=== PATIENT | male | born 1940 | race Caucasian/White ===

== ENCOUNTER 2016-07-26 08:50 | Inpatient (IN) | payer OTHER, MEDICARE ==
[~2016-07-26] VITALS: Ht 172.7 cm; Wt 76.7 kg
[~2016-07-26 08:50] MED LIST: ALLO100T PO; ASPI81TA28 PO; AZIT250T5 PO; B-CO1CAP3 PO; BUME1TAB PO; CALC600T9 PO; CETI10TA84 PO; COEN1CAP32 PO; DEXA0.5E3 PO; FOLI1TAB7 PO; GABA-112 PO; GABA1CAP PO; HYDR5SYP11 PO; INSDGIPEN SC; ISOS60TA25 PO; LISI10TA PO; METO50TA7 PO; MULT-190 PO; MULT-845 PO; NTRGSL/4 UT; NVLGIPEN SQ; PRVC/40 PO; TRMCR130WC TOP; ZNTT/150 PO
[2016-07-26] MEDS ORDERED: LEVALBUTEROL 1.25MG/0.5ML NEB INH STA (09:28)
--- NOTE | 2016-07-26 09:45 | EMERGENCY ROOM VISIT NOTE ---
History Report prepared by Марина: Rupa Ayala Under the Supervision of: Dr. Addison Payne M.D. First contact with patient: 09:09 Chief Complaint: CONFUSION Stated Complaint: ILLNESS/CONFUSION Nursing Triage Summary: mild confusion since yesterday stated by s/o. recent dx of URI History of Present Illness The patient is a 76 year old male who presents to the Emergency Room with complaints of an episode of confusion that began this morning. Per patient's significant other, the patient was in the emergency room 4 days ago with difficulty breathing and a cough. He had a chest x-ray, lab work and an EKG. The patient was given Hycodan, DuoNeb, Zithromax, antiemetics, pain medications , and fluids. He was discharged feeling better and was put on Azithromycin for a URI. He was also prescribed Hycodan for his cough. 3 days ago, the patient woke up in the middle of the night with a fever of 103.5. The patient's significant other called the [facility] nurse who recommended that the patient come to the ER, but he instead took ibuprofen which brought down the patient's temperature. Since being seen in the ER the patient's cough seemed to be diminishing; however, yesterday the patient would cough most times that he inhaled to take a breath. This morning, his significant other noticed that he was confused while taking his blood sugar. His blood sugar was high at 238, but the patient wrote down that he needed to take 238 units of insulin. He notes that this happened twice. He also was staring at his insulin after he put the cap back on. The patient did not take any Hycodan this morning - his most recent dose was last night before he went to bed. Source of History: patient, spouse/significant other Onset: this morning Position: other (Global) Quality: other (confusion) Timing: other (episode) Associated Symptoms: + cough, + fevers Review of Systems See HPI for pertinent positives & negatives. A total of 10 systems reviewed and were otherwise negative. 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 (11) Osteoporosis Nos Surgical Problems: (1) Heart valve replaced (2) History of aortic valve replacement (3) S/P colectomy (4) Stented coronary artery Family History Diabetes mellitus Heart disease Hypertension Social History Smoking Status: Former Smoker Alcohol Use: none Marital Status: Housing Status: lives with significant other Occupation Status: retired Current/Historical Medications Scheduled Allopurinol (Zyloprim), 100 MG PO DAILY Aspirin (Aspirin Ec), 81 MG PO HS Azithromycin (Zithromax), 250 MG PO DAILY B-Complex Vitamins (B Complex), 1 CAP PO DAILY Bumetanide (Bumex), 1 MG PO QAM Calcium Carbonate-Vitamin D (Calcium + D), 2 TAB PO DAILY Cetirizine (Zyrtec), 10 MG PO HS Coenzyme Q10 (Ubidecarenone) (Coq-10), 800 MG PO DAILY Dexamethasone (Dexamethasone), 5 ML PO BID Folic Acid (Folvite), 1 MG PO NOON Gabapentin (Neurontin), 100 MG PO NOON Gabapentin (Neurontin), 300 MG PO BID Insulin Glargine (Lantus Solostar), 15 UNITS SC BID Isosorbide Mononitrate Ext Rel (Imdur Ext Rel), 60 MG PO QAM Lisinopril (Prinivil), 10 MG PO DAILY Metoprolol Succ (Toprol Xl) (Toprol-Xl), 50 MG PO NOON Multiple Vitamins W/ Minerals (Centrum Silver Adult 50+), 1 TAB PO DAILY Nitroglycerin (Nitrostat), 0.4 MG UT PRN Ocuvite Preservision (Ocuvite Preservision), 2 TAB PO DAILY Pravastatin Sod (Pravastatin Sodium), 20 MG PO HS Ranitidine (Zantac), 150 MG PO HS Triamcinolone Acet (Aristocort 0.1%), 1 APPLN TOP UD Scheduled PRN Hydrocodone W/ Homatropine (Hycodan 5/1.5MG 5 Ml), 5 ML PO HS PRN for Cough Insulin Aspart (Novolog Flexpen), 1 DOSE SQ AC PRN for PER SLIDING SCALE Allergies Coded Allergies: No Known Allergies (Verified , NONE, 07/26/16) Physical Exam Vital Signs Date Time Temp Pulse Resp B/P Pulse Ox O2 Delivery O2 Flow Rate FiO2 07/26/16 13:13 96 07/26/16 11:41 100 18 119/70 97 Room Air 07/26/16 11:22 Room Air 07/26/16 09:59 90 18 98 Room Air 07/26/16 09:58 94 Room Air 07/26/16 08:59 95 07/26/16 08:58 37.1 96 18 116/63 94 Room Air Physical Exam GENERAL: Patient is a healthy-appearing well-nourished 76 year old male. HEAD: Normocephalic atraumatic EYES: Ocular movements intact pupils equal and react to light OROPHARYNX mucous membranes are moist no exudates present no erythema or edema present NECK: Supple no nuchal rigidity CHEST: Good equal expansion LUNGS: Clear and equal to auscultation CARDIAC: Normal S1 and S2 ABDOMEN: Soft nontender no guarding BACK: No CVA tenderness EXTREMITIES: No pain upon palpation normal muscle strength in all groups no clubbing cyanosis or edema NEURO: Patient is following commands is answering questions appropriately. Alert and oriented x3 Cranial Nerves 2-12 grossly intact Medical Decision & Procedures ER Provider Diagnostic Interpretation: X-ray results as stated below per interpretation by me and the radiologist: CHEST ONE VIEW PORTABLE CLINICAL HISTORY: Pt c/o SOB dyspnea COMPARISON STUDY: 07/22/2016 FINDINGS: Findings consistent with developing congestive heart failure. Moderate increase in prominence of pulmonary vasculature. Diaphragms smooth. IMPRESSION: Congestive heart failure Electronically signed by: Jaron Oates M.D. 07/26/2016 9:53 AM Laboratory Results 07/26/16 09:40 Red Blood Count 3.57, Mean Corpuscular Volume 81.2, Mean Corpuscular Hemoglobin 25.8, Mean Corpuscular Hemoglobin Concent 31.7, Mean Platelet Volume 9.7, Neutrophils (%) (Auto) 72.5, Lymphocytes (%) (Auto) 7.6, Monocytes (%) (Auto) 14.1, Eosinophils (%) (Auto) 4.9, Basophils (%) (Auto) 0.7, Neutrophils # (Auto ) 4.13, Lymphocytes # (Auto) 0.43, Monocytes # (Auto) 0.80, Eosinophils # (Auto ) 0.28, Basophils # (Auto) 0.04 07/26/16 09:40 Test 07/26/16 09:40 12/30/16 10:05 07/26/16 10:17 White Blood Count 5.69 K/uL (4.8-10.8) Red Blood Count 3.57 M/uL (4.7-6.1) Hemoglobin 9.2 g/dL (14.0-18.0) Hematocrit 29.0 % (42-52) Mean Corpuscular Volume 81.2 fL (80-100) Mean Corpuscular Hemoglobin 25.8 pg (25-34) Mean Corpuscular Hemoglobin Concent 31.7 g/dl (32-36) Platelet Count 179 K/uL (130-400) Mean Platelet Volume 9.7 fL (7.4-10.4) Neutrophils (%) (Auto) 72.5 % Lymphocytes (%) (Auto) 7.6 % Monocytes (%) (Auto) 14.1 % Eosinophils (%) (Auto) 4.9 % Basophils (%) (Auto) 0.7 % Neutrophils # (Auto) 4.13 K/uL (1.4-6.5) Lymphocytes # (Auto) 0.43 K/uL (1.2-3.4) Monocytes # (Auto) 0.80 K/uL (0.11-0.59) Eosinophils # (Auto) 0.28 K/uL (0-0.5) Basophils # (Auto) 0.04 K/uL (0-0.2) RDW Standard Deviation 46.7 fL (36.4-46.3) RDW Coefficient of Variation 15.9 % (11.5-14.5) Immature Granulocyte % (Auto) 0.2 % Immature Granulocyte # (Auto) 0.01 K/uL (0.00-0.02) Anion Gap 13.0 mmol/L (3-11) Est Creatinine Clear Calc Drug Dose 16.8 ml/min Estimated GFR () 18.3 Estimated GFR (Non- 15.8 BUN/Creatinine Ratio 24.5 (10-20) Calcium Level 9.2 mg/dl (8.5-10.1) Total Bilirubin 0.7 mg/dl (0.2-1) Direct Bilirubin 0.3 mg/dl (0-0.2) Aspartate Amino Transf (AST/SGOT) 98 U/L (15-37) Alanine Aminotransferase (ALT/SGPT) 66 U/L (12-78) Alkaline Phosphatase 68 U/L (45-117) Total Creatine Kinase 126 U/L (39-308) Creatine Kinase MB 7.4 ng/ml (0.5-3.6) Creatine Kinase MB Ratio 5.9 (0-3.0) Troponin I 22.000 ng/ml (0-0.045) Pro-B-Type Natriuretic Peptide 01077 pg/ml (0-1800) Total Protein 6.0 gm/dl (6.4-8.2) Albumin 2.8 gm/dl (3.4-5.0) Influenza Type A Antigen Neg for Influ A (NEG) Influenza Type B Antigen Neg for Influ B (NEG) Urine Color DK YELLOW Urine Appearance CLEAR (CLEAR) Urine pH 5.0 (4.5-7.5) Urine Specific Floyd 1.012 (1.000-1.030) Urine Protein TRACE (NEG) Urine Glucose (UA) NEG (NEG) Urine Ketones NEG (NEG) Urine Occult Blood NEG (NEG) Urine Nitrite NEG (NEG) Urine Bilirubin NEG (NEG) Urine Urobilinogen NEG (NEG) Urine Leukocyte Esterase NEG (NEG) Urine WBC (Auto) 1-5 /hpf (0-5) Urine RBC (Auto) 0-4 /hpf (0-4) Urine Hyaline Casts (Auto) 1-5 /lpf (0-5) Urine Epithelial Cells (Auto) 5-10 /lpf (0-5) Urine Bacteria (Auto) NEG (NEG) Labs reviewed by ED physician. Medications Administered Medications (Trade) Dose Ordered Sig/Esme Route Start Time Stop Time Status Last Admin Dose Admin Levalbuterol (Xopenex 1.25MG/ 0.5ML Neb) 1.25 mg NOW STAT INH 07/26/16 09:28 07/26/16 09:30 DC 07/26/16 09:28 1.25 MG Furosemide (Lasix Inj) 40 mg NOW STAT IV 07/26/16 10:54 07/26/16 10:55 DC 07/26/16 11:32 40 MG ECG Indication: altered mental status Rate (beats per minute): 93 Rhythm: normal sinus Findings: ST depression (Lateral), T-wave inversion (Lateral), no ectopy ED Course 920: Past medical records reviewed. The patient was evaluated in room A2. A complete history and physical examination was performed. 0928: Ordered Levalbuterol 1.25 mg INH. 1054: Ordered Lasix Inj 40 mg IV. 1111: I discussed the case with Dr. Mychal YOUNG Hospitalist. The patient will be evaluated for further management. 1115: Upon reexamination the patient is resting comfortably. I discussed results and treatment plan with the patient and his significant other. They verbalized agreement and understanding. Medical Decision Differential diagnosis: Etiologies such as metabolic, infection, hypo/hyperglycemia, electrolyte abnormalities, cardiac sources, intracerebral event, toxicologic, neurologic, as well as others were entertained. This is a 76-year-old male who presents emergency Department with increasing confusion. The patient was evaluated in the emergency department 4 days ago and at that time he was complaining of cough. He was placed on azithromycin. He was found to have an elevated troponin them however this fell and it was believed to be left over from his recent admission. Today the patient has a troponin of 22 and also appears to be in acute renal failure. In addition he has a congestive heart failure picture on chest x-ray. For this reason the patient was given Lasix in the emergency department. I did discuss the case with the hospitalist service who agreed to admit the patient. Patient was in agreement with the treatment plan Consults Time Called: 1107 Consulting Physician: Dr. Mychal YONUG Hospitalist Returned Call: 1111 I discussed the case with him. The patient will be evaluated for further management. Impression Primary Impression: NSTEMI (non-ST elevated myocardial infarction) Additional Impression: Acute renal failure Scribe Attestation The scribe's documentation has been prepared under my direction and personally reviewed by me in its entirety. I confirm that the note above accurately reflects all work, treatment, procedures, and medical decision making performed by me. Departure Information Dispostion Being Evaluated By Hospitalist Referrals Jad Whitfield (PCP) Patient Instructions A Signature Page, My [facility]
[2016-07-26 09:53] LABS: BASO % 0.7 %; BASO ABS # 0.04 K/uL (0-0.2); COMPLETE YES; EOS % 4.9 %; IG% 0.2 %; LYMPH % 7.6 %; LYMPH ABS # 0.43 K/uL (1.2-3.4); MEAN CELL VOLUME 81.2 fL (80-100); MEAN CORPUSCULAR HEMOGLOBIN 25.8 pg (25-34); MEAN CORPUSCULAR HGB CONC 31.7 g/dl (32-36); MEAN PLATELET VOLUME 9.7 fL (7.4-10.4); MONO % 14.1 %; NEUT % 72.5 %; PLATELET COUNT 179 K/uL (130-400); RED BLOOD COUNT 3.57 M/uL (4.7-6.1); WHITE BLOOD COUNT 5.69 K/uL (4.8-10.8)
--- NOTE | 2016-07-26 09:55 | DIAGNOSTIC IMAGING REPORT ---
CHEST ONE VIEW PORTABLE CLINICAL HISTORY: Pt c/o SOB dyspnea COMPARISON STUDY: 07/22/2016 FINDINGS: Findings consistent with developing congestive heart failure. Moderate increase in prominence of pulmonary vasculature. Diaphragms smooth. IMPRESSION: Congestive heart failure Electronically signed by: Jaron Oates M.D. 07/26/2016 9:53 AM
[2016-07-26 09:59] VITALS: PULSE 90; O2SAT 98
[2016-07-26 10:11] LABS: BUN/CREATININE RATIO 24.5 (10-20); CALCIUM 9.2 mg/dl (8.5-10.1); CREATININE 3.5 mg/dl (0.60-1.40); POTASSIUM 4.7 mmol/L (3.5-5.1)
[2016-07-26 10:22] LABS: CKMB/CK RATIO 5.9 (0-3.0)
[2016-07-26 10:44] LABS: URINE APPEARANCE CLEAR (CLEAR); URINE BILIRUBIN NEG (NEG); URINE COLOR DK YELLOW; URINE NITRITE NEG (NEG); URINE SPECIFIC GRAVITY 1.012 (1.000-1.030); UROBILINOGEN NEG (NEG)
[2016-07-26 10:45] LABS: MANUAL MICROSCOPIC REQUIRED? NO; REVIEW REQ? NO
[2016-07-26] MEDS ORDERED: FUROSEMIDE 40 MG/4 ML VIAL IV STA (10:54)
[2016-07-26 11:22] VITALS: BMI 25.8
[2016-07-26] MEDS ORDERED: SODIUM CHLORIDE 0.9% 1000ML 1,000 ML IV SCH ×2 (12:50→15:30)
[2016-07-26] MEDS ORDERED: ALUMINUM/MAGNESIUM/SIMETH (MAALOX MAX) 30 ML UDC PO PRN (13:00)
[2016-07-26] MEDS ORDERED: ACETAMINOPHEN 325 MG TAB PO PRN (13:00)
[2016-07-26] MEDS ORDERED: NITROGLYCERIN 0.4 MG SL PER TAB CHARGE UT PRN (13:00)
[2016-07-26] MEDS ORDERED: GLUCOSE 10 TABS/TUBE PO PRN (13:00)
[2016-07-26] MEDS ORDERED: GLUCOSE 40% GEL 15 GM TUBE PO PRN (13:00)
[2016-07-26] MEDS ORDERED: GLUCAGON FOR INJ 1 MG VIAL SQ PRN (13:00)
[2016-07-26] MEDS ORDERED: DEXTROSE 50% 50 ML SYR IV PRN (13:00)
[2016-07-26] MEDS ORDERED: ONDANSETRON INJ 2 MG/ML 2 ML VIAL IV PRN (13:00)
[2016-07-26] MEDS ORDERED: POLYETHYLENE (MIRALAX) 17 GM PACK PO PRN (13:00)
[2016-07-26] MEDS ORDERED: MAGNESIUM HYDROXIDE SUSP 30 ML UDC PO PRN (13:00)
--- NOTE | 2016-07-26 14:12 | History and Physical ---
History & Physical Date & Time of Service: Jul 26, 2016 at 13:31 Chief Complaint: Illness/Confusion Primary Care Physician: Jad Whitfield History of Present Illness Source: patient, partner, clinic records, hospital records This is a 76 y/o male with a history of CAD, CKD stage III, HTN, HLD, DM type 1 , chronic hepatitis C, h/o colon cancer with colectomy who presented to the ED on 07/26 with confusion, decreased appetite, and dehydration. The patient presented to the ED on 07/22 with upper respiratory symptoms and was discharged home with Hycodan, and a Z-donna. The patient has been taking small doses of the Hycodan throughout the day in order to control his non-productive cough. The patient developed fevers on the nights of the and , with max temp of 103.5F on 07/23 that resolved with ibuprofen. One day prior to arrival, the patient began to become confused as per his significant other. The patient was confusing his blood sugar reading with how many units of insulin he needed to take. Per his partner, the patient was having more difficulty walking and was shuffling his feet. He has had poor appetite this week with little oral intake. The patient complains of some shortness of breath when his coughing gets bad, and he states that his coughing and breathing is worst at night. He also complains of dyspnea on exertion at nighttime during these coughing episodes. He admits to orthopnea. The patient denies chills, sweats, lightheadedness, chest pain, PND, palpitations, wheezing, nausea, vomiting, abdominal pain, dysuria, hematuria, hematochezia, melena, paralysis, muscle weakness, new numbness or tingling. Past Medical/Surgical History Medical Problems: (1) Diab W Oth Spec Manifest, Type Ii Or Unspec Type, Not Uncntr Status: Chronic (2) Diabetes Status: Chronic (3) Ileostomy Status Status: Resolved (4) Low kidney function Status: Chronic (5) Myocardial infarction Status: Chronic (6) Neuropathy In Diabetes Status: Chronic (7) Osteoporosis Nos Status: Chronic Surgical Problems: (1) Heart valve replaced Status: Chronic (2) History of aortic valve replacement Status: Resolved (3) S/P colectomy Status: Resolved (4) Stented coronary artery Status: Chronic Family History Asthma Diabetes mellitus Heart disease Hypertension [place] Stroke Social History Smoking Status: Former Smoker (quit in 1979) Smokeless Tobacco Use: No Alcohol Use: none Drug Use: none Marital Status: Housing status: lives with significant other, skilled nursing ([facility] independent living) Occupational Status: retired Immunizations History of Influenza Vaccine: N/A Influenza Vaccine Date: Apr 02, 2009 History of Tetanus Vaccine?: Unknown History of Pneumococcal: Yes Pneumococcal Date: May 23, 2008 History of Hepatitis B Vaccine: Yes Multi-Drug Resistant Organisms History of MDRO: No Allergies Coded Allergies: No Known Allergies (Verified , NONE, 07/26/16) Home Medications Scheduled Allopurinol (Zyloprim), 100 MG PO DAILY Aspirin (Aspirin Ec), 81 MG PO HS Azithromycin (Zithromax), 250 MG PO DAILY B-Complex Vitamins (B Complex), 1 CAP PO DAILY Bumetanide (Bumex), 1 MG PO QAM Calcium Carbonate-Vitamin D (Calcium + D), 2 TAB PO DAILY Cetirizine (Zyrtec), 10 MG PO HS Coenzyme Q10 (Ubidecarenone) (Coq-10), 800 MG PO DAILY Dexamethasone (Dexamethasone), 5 ML PO BID Folic Acid (Folvite), 1 MG PO NOON Gabapentin (Neurontin), 100 MG PO NOON Gabapentin (Neurontin), 300 MG PO BID Insulin Glargine (Lantus Solostar), 15 UNITS SC BID Isosorbide Mononitrate Ext Rel (Imdur Ext Rel), 60 MG PO QAM Lisinopril (Prinivil), 10 MG PO DAILY Metoprolol Succ (Toprol Xl) (Toprol-Xl), 50 MG PO NOON Multiple Vitamins W/ Minerals (Centrum Silver Adult 50+), 1 TAB PO DAILY Nitroglycerin (Nitrostat), 0.4 MG UT PRN Ocuvite Preservision (Ocuvite Preservision), 2 TAB PO DAILY Pravastatin Sod (Pravastatin Sodium), 20 MG PO HS Ranitidine (Zantac), 150 MG PO HS Triamcinolone Acet (Aristocort 0.1%), 1 APPLN TOP UD Scheduled PRN Hydrocodone W/ Homatropine (Hycodan 5/1.5MG 5 Ml), 5 ML PO HS PRN for Cough Insulin Aspart (Novolog Flexpen), 1 DOSE SQ AC PRN for PER SLIDING SCALE Review of Systems Constitutional: + fever, + weakness, No chills, No sweats Eyes: No diplopia, No eye pain, No worsening of vision ENT: No hearing loss, No sore throat, No tinnitus Respiratory: + cough, + dyspnea on exertion, + shortness of breath, No sputum, No wheezing Cardiovascular: + orthopnea, No chest pain, No claudication, No palpitations Abdomen: No GI bleeding, No nausea, No pain, No vomiting Musculoskeletal: No calf pain, No joint pain, No muscle pain Genitourinary - Male: No dysuria, No hematuria, No urinary retention Neurologic: No numbness/tingling, No paralysis, No weakness Integumentary: No color change, No itch, No rash Physical Exam Vital Signs Date Time Temp Pulse Resp B/P Pulse Ox O2 Delivery O2 Flow Rate FiO2 07/26/16 13:13 96 07/26/16 11:41 100 18 119/70 97 Room Air 07/26/16 11:22 Room Air 07/26/16 09:59 90 18 98 Room Air 07/26/16 09:58 94 Room Air 07/26/16 08:59 95 07/26/16 08:58 37.1 96 18 116/63 94 Room Air General Appearance: WD/WN, no apparent distress Head: normocephalic, atraumatic Eyes: normal inspection, PERRL, EOMI ENT: normal ENT inspection, hearing grossly normal, pharynx normal, + pertinent finding (dry oral mucosa) Neck: supple, no JVD, trachea midline Respiratory/Chest: lungs clear, normal breath sounds, no respiratory distress, no accessory muscle use, + decreased breath sounds (bases bilaterally) Cardiovascular: regular rate, rhythm, no gallop, no murmur Abdomen/GI: normal bowel sounds, non tender, soft, + pertinent finding ( ileostomy bag RLQ) Extremities/Musculoskelatal: no calf tenderness, + swelling (1+ pitting edema in lower extremities), + pertinent finding (hemosiderin staining lower extremities, scabs on LLE) Neurologic/Psych: alert, normal mood/affect, oriented x 3 (oriented with intermittent confusion) Skin: normal color, warm/dry, no rash Diagnostics Laboratory Results Results Past 24 Hours Test 07/26/16 09:40 07/26/16 10:05 07/26/16 10:17 07/26/16 12:50 Range/Units White Blood Count 5.69 4.8-10.8 K/uL Red Blood Count 3.57 4.7-6.1 M/uL Hemoglobin 9.2 14.0-18.0 g/dL Hematocrit 29.0 42-52 % Mean Corpuscular Volume 81.2 80-100 fL Mean Corpuscular Hemoglobin 25.8 25-34 pg Mean Corpuscular Hemoglobin Concent 31.7 32-36 g/dl Platelet Count 179 130-400 K/uL Mean Platelet Volume 9.7 7.4-10.4 fL Neutrophils (%) (Auto) 72.5 % Lymphocytes (%) (Auto) 7.6 % Monocytes (%) (Auto) 14.1 % Eosinophils (%) (Auto) 4.9 % Basophils (%) (Auto) 0.7 % Neutrophils # (Auto) 4.13 1.4-6.5 K/uL Lymphocytes # (Auto) 0.43 1.2-3.4 K/uL Monocytes # (Auto) 0.80 0.11-0.59 K/uL Eosinophils # (Auto) 0.28 0-0.5 K/uL Basophils # (Auto) 0.04 0-0.2 K/uL RDW Standard Deviation 46.7 36.4-46.3 fL RDW Coefficient of Variation 15.9 11.5-14.5 % Immature Granulocyte % (Auto) 0.2 % Immature Granulocyte # (Auto) 0.01 0.00-0.02 K/uL Sodium Level 136 136-145 mmol/L Potassium Level 4.7 3.5-5.1 mmol/L Chloride Level 100 98-107 mmol/L Carbon Dioxide Level 23 21-32 mmol/L Anion Gap 13.0 3-11 mmol/L Blood Urea Nitrogen 86 7-18 mg/dl Creatinine 3.50 0.60-1.40 mg/dl Est Creatinine Clear Calc Drug Dose 16.8 ml/min Estimated GFR () 18.3 Estimated GFR (Non- 15.8 BUN/Creatinine Ratio 24.5 10-20 Random Glucose 229 70-99 mg/dl Calcium Level 9.2 8.5-10.1 mg/dl Total Bilirubin 0.7 0.2-1 mg/dl Direct Bilirubin 0.3 0-0.2 mg/dl Aspartate Amino Transf (AST/SGOT) 98 15-37 U/L Alanine Aminotransferase (ALT/SGPT) 66 12-78 U/L Alkaline Phosphatase 68 45-117 U/L Total Creatine Kinase 126 39-308 U/L Creatine Kinase MB 7.4 0.5-3.6 ng/ml Creatine Kinase MB Ratio 5.9 0-3.0 Troponin I 22.000 0-0.045 ng/ml Total Protein 6.0 6.4-8.2 gm/dl Albumin 2.8 3.4-5.0 gm/dl Influenza Type A Antigen Neg for Influ A NEG Influenza Type B Antigen Neg for Influ B NEG Urine Color DK YELLOW Urine Appearance CLEAR CLEAR Urine pH 5.0 4.5-7.5 Urine Specific [place] 1.012 1.000-1.030 Urine Protein TRACE NEG Urine Glucose (UA) NEG NEG Urine Ketones NEG NEG Urine Occult Blood NEG NEG Urine Nitrite NEG NEG Urine Bilirubin NEG NEG Urine Urobilinogen NEG NEG Urine Leukocyte Esterase NEG NEG Urine WBC (Auto) 1-5 0-5 /hpf Urine RBC (Auto) 0-4 0-4 /hpf Urine Hyaline Casts (Auto) 1-5 0-5 /lpf Urine Epithelial Cells (Auto) 5-10 0-5 /lpf Urine Bacteria (Auto) NEG NEG Diagnostic Radiology Reviewed the following studies and agree with interpretation as follows: Patient Name: GILBERTO CASH Unit Number: [id number] Dictated: 07/26/16951 Transcribed: 07/26/16951 MS Printed Date/Time: [~ rep prt dt]/[~ rep prt tm] [~ rep ct labl] - [~ rep ct ivnm] [facility] [place] [address] Dictated: 07/26/16951 Transcribed: 07/26/16951 MS Printed Date/Time: [~ rep prt dt]/[~ rep prt tm] [~ rep ct labl] - [~ rep ct ivnm] Patient: GILBERTO CASH Address1: [address] [facility] [id number] [facility] Rec: [id number] Address2: Acct ID: [id number] [facility] Zip: [place] [address] Date: 1940 Sex: M Room/Bed: Ref Phy: Yomi Ellis M.D. SC: [facility] Att Phy: Report #: [id number] Regina Phy: Roseann Jad Test: [id number] Admit Phy: Day Light Relief Operator: SONIA Interpreting Phy: Jaron Oates M.D. Diagnosis: ILLNESS/CONFUSION Ordering Phy: Addison Payne MD Service Date: 07/26/16 Admit Date: 07/26/16 MNE: [id number] CONF: DICTATED BY: Jaron Oates M.D.]] CC: Addison Payne MD [place], [place] Sepich, Rodney M. M.D. Endcc: [~ rep ct add3]] CHEST ONE VIEW PORTABLE CLINICAL HISTORY: Pt c/o SOB dyspnea COMPARISON STUDY: 07/22/2016 FINDINGS: Findings consistent with developing congestive heart failure. Moderate increase in prominence of pulmonary vasculature. Diaphragms smooth. IMPRESSION: Congestive heart failure Electronically signed by: Jaron Oates M.D. 07/26/2016 9:53 AM The status of this report is Signed. Draft = Not yet reviewed or approved by Radiologist. Signed = Reviewed and approved by Radiologist. <AttendingPhy></AttendingPhy> <FamilyPhy>Yomi Ellis M.D.</FamilyPhy> < PrimaryPhy>RoseannJad</PrimaryPhy> <UnitNumber>[id number]</UnitNumber> < VisitNumber>[id number]</VisitNumber> <PatientName>GILBERTO CASH</PatientName> < DateOfBirth>1940</DateOfBirth> <Location>[facility]</Location> <ServiceDate></ServiceDate> <MNE>ESINDI</MNE> <OrderingPhy>Addison Payne MD</ OrderingPhy> <OrderingPhyMNE>f rep ord mne</OrderingPhyMNE> <DictatingPhyMNE> f rep dict mne</DictatingPhyMNE> <CCListMNE>f rep ct mne</CCListMNE> < AdmittingPhyMNE>f pt admit dr cochran</AdmittingPhyMNE> <AttendingPhyMNE>f pt attend dr cochran</AttendingPhyMNE> <ConsultingPhyMNE>f pt consult dr cochran</ConsultingPhyMNE> <FamilyPhyMNE>f pt fam dr cochran</FamilyPhyMNE> <OtherPhyMNE>f pt other dr cochran</OtherPhyMNE> < PrimaryPhyMNE>f pt prim care dr cochran</PrimaryPhyMNE> <ReferringPhyMNE>f pt referring dr cochran</ReferringPhyMNE> EKG Reviewed EKG and agree with interpretation as follows: 93 bpm, NSR, ST depressions in leads I, avL, V5-V6 Impression Assessment and Plan 76 y/o male with a history of CAD, CKD stage III, HTN, HLD, DM type 1, chronic hepatitis C, h/o colon cancer with colectomy who presented to the ED on 07/26 with confusion, decreased appetite, and dehydration. Fevers on the th and 28th. Confusion began one day prior to arrival. Also c/o SOB and PATEL. CXR read as CHF, but pt. does not sound wet on exam and has no JVD. Minimal peripheral edema. EKG shows possible lateral ischemia. Pt. had recent NSTEMI 07/12 which was medically managed as not good cath candidate. Admit to telemetry for confusion, acute on chronic renal failure, dehydration. Acute on chronic kidney disease stage III--baseline creatinine around 2.3-2.6 -Creatinine 3.5 on arrival -Consult nephrology. Not currently on dialysis but GFR 15 upon arrival. Acute on chronic kidney disease. Will likely need dialysis soon. -IVF NSS at 100 cc/hr -Hold Bumex, lisinopril Elevated cardiac enzymes -Consult cardiology. Troponin 22 upon arrival. Pt's troponin chronically elevated around 2-4 due to CKD. CKMB also elevated. -Trend cardiac enzymes q8h x 3 -EKG q am and prn with chest pain -Check BNP Confusion -Check ammonia level. Pt. has history of chronic HCV -Hold Hycodan, gabapentin CAD, h/o NSTEMI -Continue Imdur 60 mg PO qd -Continue metoprolol succinate 50 mg PO qd -Continue ASA 81 mg PO qd HTN--stable -Hold lisinopril as above -Continue metoprolol as above HLD -Continue pravastatin 20 mg PO qd Diabetes mellitus type 1--Last HgbA1c checked 07/12/16 was 6.3 -Lantus 10 units SC BID, pt has poor oral intake -Insulin sliding scale -Check BSGs q ac and qhs Gout -Continue allopurinol 100 mg PO qd GI prophylaxis -Maalox Max 15 mL PO q4h prn dyspepsia -Milk of magnesia 30 mL PO q6h prn constipation -Miralax 17 gm PO qd prn constipation -Zofran 4 mg IV q6h prn nausea DVT prophylaxis -Heparin 5000 units SC q12h -RICHARD baker and Jeanmarie Code Status -Level I, FULL RESUSCITATION STATUS I agree with PA assessment and plan Pt noted to have confusion Agree with PE and ROS findings ?CRS, will trend trops, PRP, will also obtain BNP Obtain ammonia level in setting of known hepatitis as well Pt hx of extensive CAD, not a good candidate for cardiac cath Consult cardiology and nephrology Poor prognosis Level of Care Telemetry Advanced Directives Existing Advance Directive: Yes Existing Living Will: Yes Existing Power of Scientific Editor: Yes Resuscitation Status FULL RESUSCITATION VTE Prophylaxis VTE Risk Assessment Done? Y/N: Yes Risk Level: Moderate Given or contraindicated: Unfractionated heparin SQ, T.E.D. Stockings, SCD's
[2016-07-26 14:30] VITALS: BP 115/74; PULSE 95; O2SAT 98; BMI 25.8
[2016-07-26] MEDS ORDERED: METOPROLOL SUCC 50MG EXT REL TAB PO STA (16:34)
[2016-07-26] MEDS: INSULIN ASPART 100 UNITS/ML 3 ML PEN SC SCH ×3 (17:07→23:36)
[2016-07-26] MEDS ORDERED: NURSING VERBAL MED ORDER ONE ×2 (17:15→19:15)
[2016-07-26] MEDS: NITROGLYCERIN OINT 2% 1GM PACKET EXT SCH (18:18)
[2016-07-26] MEDS: GUAIFENESIN 600 MG TABCR PO SCH (18:19)
--- NOTE | 2016-07-26 18:47 | Nephrology Consultation ---
Nephrology Consultation Date & Providers Date of Consultation: Jul 26, 2016. Primary Care Provider: Jad Whitfield Referring Provider: Reason for Consultation SASHA/CKD History of Present Illness Mr. Fracisco Ellsworth is a 76-year-old male with coronary artery disease, chronic hepatitis C, hypertension, diabetes mellitus type II, history of aortic valve replacement and CKD IV. Baseline creatinine has been 2.0 to 2.4 mg/dL by review of the medical record. Mr. Ellsworth follows with Dr. Waldrop in the CKD clinic. Clinic notes were reviewed in detail today. The patient was recently seen in the clinic on July 05. At that time, creatinine was 2.4 mg/dL. Mr. Ellsworth was then hospitalized at [facility] from July 12- with NSTEMI and anemia. NSTEMI was managed medically. He was admitted with a serum creatinine of 2.3 mg/dL and discharged with a creatinine of 2.6 mg/dL. Mr. Ellsworth was subsequently presented to [facility] following the hol with cough and shortness of breath. He was diagnosed with an upper respiratory infection and treated with a 5 day Z-John. Symptoms initially started to improve. He was using codeine based cough syrup for persistent cough. He also reported recurrent fevers on the and . Temperature was as high as 103. He was advised by a nurse at [facility] to treat the fevers with Ibuprofen. He took two doses of the medication with relief on the night of the . Cough has been non productive and worse at night. He reported difficulty sleeping due to the symptoms. He describes some mild orthopnea. Activity tolerance has been decreased with generalized weakness since his NSTEMI earlier this month. He has not been able to climb the stairs to his second floor apartment in several weeks. Echocardiogram from 07/12/16 was reviewed today. This study documented LVEF of 50-55% with lateral wall motion abnormality; bioprosthetic AVR appropriate; grade 1 diastolic dysfunction with mild LVH. Mr. Ellsworth also reported increased blood glucose readings for the past several days. Appetite has been decreased for the past 48 hours but improved today. He has documented cirrhosis, CP class A with a MELD of 7 at baseline. He follows in the [facility] clinic [facility]. Hepatitis C was contracted in 1966 from a blood transfusion. Genotype 2. Initially treated with alpha INF which he did not tolerate. 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 Recent serum cryoglobulin screening was negative earlier this month. AFP has been trending up. Past Medical/Surgical History Medical: 1. Coronary artery disease: NSTEMI 07/12/16 with troponin to 15.4 managed medically; NSTEMI 06/2015 with troponin to 4 managed medically; NSTEMI in 2013 with stent placement to his distal RCA and PDA. 2. History of aortic stenosis, status post bioprosthetic aortic valve replacement in 2009. 3. Chronic kidney disease IV with baseline creatinine from 2-2.5. 4. 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 5. Diabetes with diabetic neuropathy. 6. Dyslipidemia. 7. Hypertension. 8. History of colon cancer s/p colectomy in 1990 and 1993 with ileostomy. Surgical: Aortic valve replacement, cath with BMS to RCA, total colectomy with ileostomy Allergies Coded Allergies: No Known Allergies (Verified , NONE, 07/26/16) Inpatient Medications Current Inpatient Medications Medications (Trade) Dose Ordered Sig/Esme Route Start Time Stop Time Status Last Admin Dose Admin Heparin Sodium (Porcine) (Heparin Sq 5000 Unit/0.5ml) 5,000 unit Q12 SQ 07/26/16 21:00 08/25/16 20:59 Acetaminophen (Tylenol Tab) 650 mg Q4H PRN PO 07/26/16 13:00 08/25/16 12:59 Al Hydrox/Mg Hydrox/Simethicone (Maalox Max Susp) 15 ml Q4H PRN PO 07/26/16 13:00 08/25/16 12:59 Magnesium Hydroxide (Milk Of Magnesia Susp) 30 ml Q12H PRN PO 07/26/16 13:00 08/25/16 12:59 Ondansetron HCl (Zofran Inj) 4 mg Q6H PRN IV 07/26/16 13:00 08/25/16 12:59 Polyethylene (Miralax Powder Packet) 17 gm DAILY PRN PO 07/26/16 13:00 08/25/16 12:59 Insulin Glargine (Lantus Solostar Pen) 10 unit Q12 SC 07/26/16 21:00 08/25/16 20:59 Insulin Aspart (novoLOG ASPART) SLIDING SCALE If C... ACHS SC 07/26/16 16:00 08/25/16 15:59 07/26/16 17:07 1 UNITS Glucose (Glucose 40% Gel) 15-30 GRAMS 15 GRAMS... UD PRN PO 07/26/16 13:00 08/25/16 12:59 Glucose (Glucose Chew Tab) 4-8 Tablets 4 Tabl... UD PRN PO 07/26/16 13:00 08/25/16 12:59 Dextrose (Dextrose 50% 50ML Syringe) 25-50ML OF 50% DW IV FOR... UD PRN IV 07/26/16 13:00 08/25/16 12:59 Glucagon (Glucagon Inj) 1 mg UD PRN SQ 07/26/16 13:00 08/25/16 12:59 Allopurinol (Zyloprim Tab) 100 mg DAILY PO 07/27/16 09:00 08/26/16 08:59 Aspirin (Ecotrin Tab) 81 mg HS PO 07/26/16 21:00 08/25/16 20:59 Cetirizine HCl (zyrTEC TAB) 10 mg HS PO 07/26/16 21:00 08/25/16 20:59 Dexamethasone (Decadron Elix) 0.5 mg BID PO 07/26/16 21:00 08/25/16 20:59 Folic Acid (Folvite Tab) 1 mg DAILY PO 07/27/16 09:00 08/26/16 08:59 Multivitamins/ Minerals (Multivitamin W/ Minerals Tab) 1 tab DAILY PO 07/27/16 09:00 08/26/16 08:59 Nitroglycerin (Nitrostat Tab) 0.4 mg DAILY PRN UT 07/26/16 13:00 08/25/16 12:59 Pravastatin Sodium (Pravachol Tab) 20 mg HS PO 07/26/16 21:00 08/25/16 20:59 Ranitidine HCl (zANTac TAB) 150 mg HS PO 07/26/16 21:00 08/25/16 20:59 Calcium/Vitamin D (Caltrate Plus Tab) 2 tab DAILY PO 07/27/16 09:00 08/26/16 08:59 Guaifenesin (Mucinex Contr Rel Tab) 600 mg Q12 PO 07/26/16 21:00 08/25/16 20:59 Metoprolol Succinate (Toprol Xl Tab) 100 mg DAILY PO 07/27/16 09:00 08/26/16 08:59 Nitroglycerin (Nitroglycerin 2% Oint) 1 inch Q6 EXT 07/26/16 17:00 08/25/16 16:59 Triamcinolone Acetonide (Kenalog 0.1% Cream) 1 appln QAM EXT 07/27/16 09:00 08/26/16 08:59 Family History Asthma Diabetes mellitus Heart disease Hypertension MD Stroke Social History Smoking Status: Former Smoker Smokeless Tobacco Use: No Alcohol Use: none Drug Use: none Marital Status: Housing Status: lives with significant other, care home ([facility] independent living) 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 Review of Systems A complete review of systems was performed. Pertinent positives are noted above. All other systems are negative. Physical Exam Date Time Temp Pulse Resp B/P Pulse Ox O2 Delivery O2 Flow Rate FiO2 07/26/16 16:00 Room Air 07/26/16 14:30 95 16 115/74 98 Room Air 07/26/16 13:59 96 18 110/66 96 Room Air 07/26/16 13:13 96 07/26/16 11:41 100 18 119/70 97 Room Air 07/26/16 11:22 Room Air 07/26/16 09:59 90 18 98 Room Air 07/26/16 09:58 94 Room Air 07/26/16 08:59 95 07/26/16 08:58 37.1 96 18 116/63 94 Room Air General Appearance: WD/WN, no apparent distress, + thin Head: normocephalic, atraumatic Eyes: normal inspection, sclerae normal ENT: normal ENT inspection, pharynx normal Neck: supple, + JVD Respiratory/Chest: lungs clear, no respiratory distress, no accessory muscle use Cardiovascular: no gallop, + tachycardia Abdomen/GI: non tender, soft Back: normal inspection, no CVA tenderness Extremities/Musculoskelatal: normal inspection, + pedal edema Neurologic/Psych: alert, oriented x 3 Skin: normal color Laboratory Results Last 24 Hours Test 07/26/16 09:40 07/26/16 10:05 07/26/16 10:17 07/26/16 13:40 White Blood Count 5.69 K/uL Red Blood Count 3.57 M/uL Hemoglobin 9.2 g/dL Hematocrit 29.0 % Mean Corpuscular Volume 81.2 fL Mean Corpuscular Hemoglobin 25.8 pg Mean Corpuscular Hemoglobin Concent 31.7 g/dl Platelet Count 179 K/uL Mean Platelet Volume 9.7 fL Neutrophils (%) (Auto) 72.5 % Lymphocytes (%) (Auto) 7.6 % Monocytes (%) (Auto) 14.1 % Eosinophils (%) (Auto) 4.9 % Basophils (%) (Auto) 0.7 % Neutrophils # (Auto) 4.13 K/uL Lymphocytes # (Auto) 0.43 K/uL Monocytes # (Auto) 0.80 K/uL Eosinophils # (Auto) 0.28 K/uL Basophils # (Auto) 0.04 K/uL RDW Standard Deviation 46.7 fL RDW Coefficient of Variation 15.9 % Immature Granulocyte % (Auto) 0.2 % Immature Granulocyte # (Auto) 0.01 K/uL Sodium Level 136 mmol/L Potassium Level 4.7 mmol/L Chloride Level 100 mmol/L Carbon Dioxide Level 23 mmol/L Anion Gap 13.0 mmol/L Blood Urea Nitrogen 86 mg/dl Creatinine 3.50 mg/dl Est Creatinine Clear Calc Drug Dose 16.8 ml/min Estimated GFR () 18.3 Estimated GFR (Non- 15.8 BUN/Creatinine Ratio 24.5 Random Glucose 229 mg/dl Calcium Level 9.2 mg/dl Total Bilirubin 0.7 mg/dl Direct Bilirubin 0.3 mg/dl Aspartate Amino Transf (AST/SGOT) 98 U/L Alanine Aminotransferase (ALT/SGPT) 66 U/L Alkaline Phosphatase 68 U/L Total Creatine Kinase 126 U/L Creatine Kinase MB 7.4 ng/ml Creatine Kinase MB Ratio 5.9 Troponin I 22.000 ng/ml Pro-B-Type Natriuretic Peptide 00296 pg/ml Total Protein 6.0 gm/dl Albumin 2.8 gm/dl Influenza Type A Antigen Neg for Influ A Influenza Type B Antigen Neg for Influ B Urine Color DK YELLOW Urine Appearance CLEAR Urine pH 5.0 Urine Specific [place] 1.012 Urine Protein TRACE Urine Glucose (UA) NEG Urine Ketones NEG Urine Occult Blood NEG Urine Nitrite NEG Urine Bilirubin NEG Urine Urobilinogen NEG Urine Leukocyte Esterase NEG Urine WBC (Auto) 1-5 /hpf Urine RBC (Auto) 0-4 /hpf Urine Hyaline Casts (Auto) 1-5 /lpf Urine Epithelial Cells (Auto) 5-10 /lpf Urine Bacteria (Auto) NEG Ammonia < 10.0 umol/L Test 07/26/16 14:44 07/26/16 17:12 Bedside Glucose 209 mg/dl Total Creatine Kinase 112 U/L Creatine Kinase MB 6.7 ng/ml Creatine Kinase MB Ratio 6.0 Troponin I 18.300 ng/ml Impression (1) Mental status change (2) Cirrhosis (3) Chronic kidney disease, stage IV (severe) (4) Acute renal failure (5) NSTEMI (non-ST elevated myocardial infarction) Mr. Fracisco Ellsworth is a 76 year-old male with coronary artery disease, hypertension, diabetes mellitus II, cirrhosis due to hepatitis C with history of cryoglobulinemia and CKD IV (baseline creatinine ~2.0-2.5 mg/dL). He was admitted with weakness and mental status changes. He has SASHA with no acute changes on UA and acellular microscopy. By clinical history he is non oliguric. He did recently use Ibuprofen x 2 tablets but no other specific history of nephrotoxic medications. He has suffered an NSTEMI and URI in the past few weeks. Troponin on admission elevated consistent with NSTEMI. He did not endorse any chest pain. He does complain of persistent cough as well as recent fevers. I suspect that SASHA is multifactorial due to the above with progression of CKD. Blood pressure is appropriate. Volume status replete with mild evidence of CHF on CXR and exam but clear lung hunter. I had an extended conversation with the patient today. Cardiology was in to evaluate Mr. Ellsworth prior to my visit. Recommendations 1. Hold lisinopril 2. Stop IVF (NS) and maintain even to slightly negative fluid balance 3. Document I/O's 4. Repeat metabolic profile in the AM 5. Medications currently appropriate for renal function 6. Consider repeat screening for cryoglobulins with next blood draw 7. Obtain renal imaging tomorrow pending there is no renal recovery
[2016-07-26 19:05] VITALS: BP 107/71; PULSE 87; TEMP 36.9; O2SAT 97
--- NOTE | 2016-07-26 19:24 | CARDIOLOGY CONSULTATION ---
DATE OF CONSULTATION: 07/26/2016 PRIMARY PHYSICIAN: Yomi Ellis M.D. ATTENDING AND REFERRING PHYSICIAN: Andrea Vidal DO. PRIMARY CARDIOLOGY: Kaleb Rivero MD. CONSULTATION: Titus Arenas MD HISTORY OF PRESENT ILLNESS: The patient is a 76-year-old white male. Longstanding history of coronary artery disease. He is also status post bioprosthetic aortic valve replacement in 2009. He underwent a cardiac catheterization in [facility] in 2007, which revealed heavily calcified vessels. There were moderate LAD and LAD diagonal stenosis at that time, severe left circumflex marginal stenosis, and a moderate ostial PDA stenosis. Medical therapy was recommended. Thereafter, he developed evidence of severe aortic stenosis with echocardiography revealing a calculated aortic valve area is 0.9 square cm. He underwent a repeat cardiac catheterization on 02/09/2010. This revealed marked coronary artery calcifications and marked aortic valvular calcifications. Right dominant circulation, 90% stenosis of a small caliber diagonal artery, 50% ostial left circumflex stenosis, 50% mid LAD stenosis, 50% ostial PDA stenosis and 70% mid PDA stenosis. The patient was referred to [facility] for aortic valve replacement surgery. He underwent aortic valve replacement surgery in 2009. He presented to [facility] in June 2014 with a non-ST elevation myocardial infarction. Cardiac catheterization performed at that time revealed 70% ostial left circumflex stenosis, 80% proximal LAD stenosis, 80% mid LAD stenosis, subtotal second diagonal stenosis, distal 99% RCA stenosis, and heavily calcified coronary arteries. A balloon was unable to cross the distal RCA stenosis. The patient was subsequently referred to [facility] where he underwent PTCA and deployment of an integrity 2.5 x 12 mm drug-eluting stent in the distal RCA. The patient was recently admitted to [facility] on 07/11/2016 with complaints of worsening dyspnea and chest tightness with exertion, relieved with rest. The electrocardiogram revealed lateral ST-segment depressions. His cardiac enzymes were elevated. His peak troponin I was 15.400. An echocardiogram revealed normal overall LV ejection fraction of 50-55%. There is new lateral wall hypokinesis present. The bioprosthetic aortic valve was functioning properly. Because of the extensive calcifications in his coronary arteries, anemia, and chronic kidney disease, medical therapy was recommended. He presented to the Emergency Department at [facility] on July 22 with cough and dyspnea. His chest x-ray at that time did not reveal any evidence of acute congestive heart failure. His BNP was 1676, which is normal for his age range. His electrocardiogram did reveal ST-segment depressions in leads I, II, III, AVF, and V3 through V6. These ST-segment depressions were more prominent than those present on the July 11 electrocardiogram. He was treated for pulmonary infection and discharged home from the ED on antibiotics and cough suppressant. This was in the form of azithromycin and hydrocodone syrup. The troponin I on that ED visit was 0.319. The patient states that since July 22, his cough has persisted, although it is improving. The cough was nonproductive. It is worse when he is in a supine position. He denies any associated chest tightness appeared as his usual anginal symptom. The cough is worse when he is supine. He normally sleeps with 2 pillows. Over the past several nights, 2 times he had to sleep more upright, so is not a cough, and to improve his dyspnea. He has had occasional wheezing. Over the past several days, he did have 1 night of a temperature elevation to 103 orally. Recently, he had had increased leg edema. He states that his leg edema has actually improved over the past several days. He has minimal leg edema today by his account. He has no palpitations, lightheadedness, or syncope. He feels that his overall exercise tolerance is only slightly reduced from normal. He does feel slightly fatigued over the past week. He attributes this to his coughing and inability to sleep at night. The patient has had gingival bleeding over the past several months. He had been on both aspirin and clopidogrel. The clopidogrel has since been discontinued. Despite the discontinuation of clopidogrel, he continues to have episodes of gingival bleeding. He denies any other bleeding complaints. He is compliant with his medications. He is very compliant with a low sodium diet. The patient presented to the Emergency Department this afternoon with a complaint of confusion. This occurred when he improperly calculated his insulin dose. In the Emergency Department, he was found to have evidence of congestive heart failure on his chest x-ray, which was new compared to the prior chest x-ray of July 22. Also, his proB natriuretic peptide was elevated at 14,420. His troponin I was elevated at 22.000. His BUN was 86 with a creatinine of 3.50. On July 22, his BUN has been 51 with a creatinine of 2.60. On July 11, his BUN had been 41 with a creatinine 2.50. Because of the evidence of heart failure any abnormal labs, he has been admitted to the telemetry unit. In the Emergency Department, he received a Xopenex nebulizer treatment. He also received a 40 mg dose of intravenous furosemide. Following admission to the telemetry unit, the patient was started on normal saline at a rate of 100 mL per hour. The nursing staff on the intake exam in telemetry unit noted, clear lung hunter. At the time of my exam, the patient had bibasilar rales. The nurse who had performed his initial exam, again listened to the patient's lungs. She concurred that the rales are present and that they were new compared to when she had previously examined the patient. His normal saline was discontinued by me at that time. At the time of my exam, the patient denies any dyspnea. He is sitting upright in bed at approximately 45 degrees. No current cough or wheezing. He denies any chest tightness. No other anginal type symptoms. PAST MEDICAL HISTORY: 1. Coronary artery disease as above. 2. Status post aortic valve replacement for severe aortic stenosis with bioprosthetic valve in 2009. 3. Chronic renal insufficiency. 4. Type 1 diabetes mellitus. 5. Chronic hepatitis C. 6. Hypertension. 7. Dyslipidemia. 8. Peripheral neuropathy. 9. Vitamin D deficiency. 10. Diabetic nephropathy and neuropathy. 11. History of depression. 12. History of cryoglobulinemia. 13. Anemia. 14. History of colon cancer. 15. History of orthostatic hypotension. Over the past year, his metoprolol dose was decreased from 100 mg daily to 50 mg daily. 16. Status post severe head trauma in 1966 resulting in a prolonged. 17. History of generalized seizures. 18. History of elevated liver transaminases. PAST SURGICAL HISTORY: 1. Status post aortic valve replacement in 2009 with bioprosthetic valve. 2. Status post total abdominal colectomy. 3. Ileostomy. FAMILY HISTORY: History of coronary artery disease in his father. SOCIAL HISTORY: The patient is . He lives with his at [facility]. He had previously lived in [place]. He moved back to [facility] in 2004. He stopped smoking cigarettes in his 30s. He had started smoking cigarettes as a teenager. Occasional use of alcohol. MEDICATIONS AT TIME OF ADMISSION: Allopurinol 1 mg daily, aspirin 81 mg daily, azithromycin 250 mg daily, vitamin D 1 capsule daily, Bumex 1 mg p.o. daily a.m. (took a dose this morning), calcium with vitamin D 2 tabs daily, Zyrtec 10 mg at bedtime, Coenzyme Q10 800 mg daily, folic acid 1 mg daily, gabapentin 300 mg b.i.d. and 100 mg at noon time, Lantus insulin 50 units subQ b.i.d., isosorbide mononitrate 60 mg daily, lisinopril 10 mg daily, metoprolol succinate ER 50 mg daily, multivitamin 1 daily, sublingual nitroglycerin p.r.n., Ocuvite PreserVision 2 tablets daily, pravastatin 20 mg at bedtime, ranitidine 150 mg p.o. at bedtime, triamcinolone cream 1 application daily, dexamethasone 0.5 mg per 5 mL b.i.d., as needed sliding scale NovoLog insulin, as needed hydrocodone cough syrup. ALLERGIES: No known drug allergies. REVIEW OF SYSTEMS: 1. As above. 2. No current HEENT complaints. 3. No pleuritic chest pain. With prolonged coughing, he does have chest wall tenderness. 4. No abdominal pain or nausea. 5. No GI bleeding symptoms. 6. No urinary complaints. 7. Chronic venous stasis changes of the lower legs. 8. No pain in his extremities. 9. No fevers or chills today. 10. Occasional wheezing over the past several days. 11. No cerebrovascular complaints suggestive of CVA or TIA. 12. No recent seizures. PHYSICAL EXAMINATION: GENERAL: The patient is sitting up in his bed. No distress. VITAL SIGNS: Oral temperature this morning was 37.1. Vital signs at 2:30 p.m. with pulse rate 95, blood pressure 115/74, pulse oximetry room air 98%. HEAD: Normal. EYES: Pupils equal and round. Anicteric. Conjunctivae normal. No xanthelasma. MOUTH: No active bleeding. NECK: Jugular venous pressure approximately 8 cm. Carotids 2/2 bilaterally. Normal upstroke. No bruits. LUNGS: Normal respiratory effort. Bibasilar rales. No wheezing on forced expiration. No rhonchi. HEART: PMI normal. No lifts or heaves. Increased rate. Regular rhythm. [place] aortic valvular closing sound. No murmur, S3, or rub heard. ABDOMEN: Ileostomy present in the right lower quadrant. Abdomen is soft and nontender. No palpable masses or organomegaly. Normal bowel sounds. No bruits. EXTREMITIES: Trace pretibial edema. No cyanosis or clubbing. SKIN: Chronic venous stasis changes of the lower extremities. PULSES: Radial pulses strongly palpable. Dorsalis pedis and posterior tibial pulses weakly palpable bilaterally. NEUROLOGICAL: Alert and oriented x3. Motor grossly intact. PSYCHIATRIC: Affect is normal. DATA: Chest x-ray today reviewed by me. Pulmonary vascular congestion, interstitial edema. These are new findings compared to chest x-ray of July 22. Echocardiogram from July 12 reviewed by me. There was focal lateral hypokinesis. Normal overall LV systolic function. Properly functioning bioprosthetic aortic valve. Electrocardiogram today reviewed by me shows sinus rhythm at rate 93 beats per minute, left atrial enlargement, ST depressions in leads 1, aVL, V4-V6. Compared to electrocardiogram of July 22, these ST-segment depressions are less prominent. Poor R-wave progression V1-V3. Mild intraventricular conduction delay. LABORATORY DATA: Today with WBC 5.69, hemoglobin 9.2, hematocrit 29.0, platelet count 179; sodium 136, potassium 4.7, chloride 100, carbon dioxide 23, BUN 86, creatinine 3.50, random glucose 229; AST 98, ALT 66, ammonia less than 10; CK total 126, MB 7.4, troponin I 22.000, proB natriuretic peptide 14,420, albumin 2.8. His proB natriuretic peptide on July 22 was 1676. ASSESSMENT: 1. Acute congestive heart failure. His recent echocardiogram a few weeks ago showed left ventricular diastolic dysfunction. The heart failure could certainly be secondary to diastolic dysfunction. Ongoing myocardial ischemia could be contributory. Cannot exclude that he has had further reduction in his left ventricular systolic function since the July 22 echocardiogram. His chest x-ray, physical exam, and ProBNP are consistent with congestive heart failure. 2. Coronary artery disease. Elevated troponin I today. Suspect that this is from demand myocardial ischemia. He is not having any of his usual anginal symptoms. This is a retrosternal and left-sided chest pressure. He has a relatively increased heart rate. The increased myocardial oxygen demand from increase cardiac pressures and elevated heart rate could be contributing to ischemia. The ischemia would then contribute to worsening diastolic function. This could further increase his left ventricular pressures. This would cause a vicious cycle. I do not suspect an acute coronary syndrome. The increased myocardial oxygen demand is in the presence of severe and diffuse coronary artery disease. His coronary artery disease is not a good candidate for coronary intervention percutaneously. He has extensive calcifications. Intervention to his coronary arteries would require extensive atherectomy. This would also require large amounts of contrast dye. In light of his chronic kidney disease and diabetes, he would be at a markedly elevated risk for contrast-induced nephropathy. Also, the patient has an anemia. He has had gingival bleeding. This required discontinuation of his clopidogrel. Any coronary intervention would require additional antiplatelet medications. This would be beside his baseline aspirin. 3. Chronic kidney disease. BUN and creatinine elevated over the past week. This could be related to decreased renal perfusion secondary to a decreased cardiac output. The patient states he has been compliant with a low sodium diet. He does take his diuretic daily. He states he has been drinking normal amount of fluids. He denies any GI fluid losses. On exam, he is not dehydrated. His JVP is at least 8 cm. His mucous membranes are moist. 4. Anemia. His chronic kidney disease would certainly predispose him to anemia from marrow suppression. He has also had significant gingival bleeding over the past several months. This prior gingival bleeding and recent gingival bleeding could be contributing to his anemia. 5. Elevated heart rate. Of note, is that his metoprolol dose had been decreased over the past several months secondary to postural lightheadedness. Also, the patient has not taken any metoprolol yet today. As stated above, the increased heart rate could be contributing to undergoing myocardial ischemia. 6. Chronic hepatitis C. Elevated transaminases. 7. History of hypertension. Blood pressure today is normal. 8. Despite the rales on exam and the evidence of heart failure on chest x-ray, the patient denies any dyspnea at the time of my exam. His oxygen saturations are adequate. RECOMMENDATIONS: 1. Discontinue IV fluids. These were discontinued at the time of my exam. 2. Discontinue isosorbide mononitrate. Start nitroglycerin ointment 1 inch q. 6 hours. Continuous nitroglycerin therapy will help decrease his ventricular preload. This can help his heart failure as well as myocardial ischemia. 3. If he develops any worsening coughing, shortness of breath, or oxygen desaturation, would give him an emergent dose of intravenous diuretic. 4. Increase metoprolol succinate ER to 100 mg daily. 50 mg metoprolol succinate ordered, to be given this afternoon by me. 5. As stated above, he is not a good candidate for any coronary intervention. This is based on the doctors described above. Continue conservative medical management of his underlying coronary artery disease. The patient himself declines any further cardiac catheterization procedures. 6. Repeat echocardiogram on July 27. Reevaluate left ventricular systolic function. Compare to systolic function on July 12 echo. 7. Serial electrocardiograms and cardiac enzymes. 8. Nephrology consultation. 9. Agree with holding lisinopril at this time in light of the elevated BUN and creatinine. 10. Continue aspirin. 11. Would not give intravenous anticoagulation with heparin. This could exacerbate his gingival bleeding. As stated above, I did not feel that this current situation represents an acute coronary syndrome. Thank you for asking us to see this patient in cardiology consultation. MATT
[2016-07-26] MEDS: CETIRIZINE HCL 10 MG TAB PO SCH (20:12)
[2016-07-26] MEDS: PRAVASTATIN SOD 20 MG TAB PO SCH (20:12)
[2016-07-26] MEDS: GUAIFENESIN SUGAR FREE 200 MG/10 ML UDC PO PRN (20:12)
[2016-07-26] MEDS: RANITIDINE HCL 150 MG TAB PO SCH (20:12)
[2016-07-26] MEDS: ASPIRIN 81 MG ECTAB PO SCH (20:13)
[2016-07-26] MEDS: HEPARIN SOD 5000 UNIT/0.5 ML CARP SQ SCH (20:26)
[2016-07-26] MEDS: INSULIN GLARGINE SOLOSTAR 100 UNITS/ML 3 ML PEN SC SCH (20:26)
[2016-07-26] MEDS ORDERED: DEXAMETHASONE 0.5 MG/5 ML PO SCH (21:00)
[2016-07-26] MEDS ORDERED: GABAPENTIN 100 MG CAP PO SCH (21:00)
[2016-07-26 23:10] VITALS: BP 107/65; PULSE 89; TEMP 37.1; O2SAT 96
[2016-07-27] VITALS (8 sets, daily range): BP systolic 105–124; BP diastolic 60–78; PULSE 73–87; TEMP 36.3–36.9; O2SAT 94–99
[2016-07-27] MEDS: NITROGLYCERIN OINT 2% 1GM PACKET EXT SCH ×4 (00:32→16:55)
[2016-07-27 02:47] LABS: CKMB/CK RATIO 4.9 (0-3.0)
[2016-07-27] MEDS: GUAIFENESIN SUGAR FREE 200 MG/10 ML UDC PO PRN (06:22)
[2016-07-27] MEDS: INSULIN ASPART 100 UNITS/ML 3 ML PEN SC SCH ×5 (07:00→20:34)
[2016-07-27 07:26] LABS: HEMATOCRIT 28.1 % (42-52); MEAN CELL VOLUME 82.4 fL (80-100); MEAN CORPUSCULAR HEMOGLOBIN 26.1 pg (25-34); MEAN CORPUSCULAR HGB CONC 31.7 g/dl (32-36); MEAN PLATELET VOLUME 10.3 fL (7.4-10.4); PLATELET COUNT 201 K/uL (130-400); RED BLOOD COUNT 3.41 M/uL (4.7-6.1); WHITE BLOOD COUNT 6.55 K/uL (4.8-10.8)
[2016-07-27 07:59] LABS: CALCIUM 8.8 mg/dl (8.5-10.1); CREATININE 3.5 mg/dl (0.60-1.40); POTASSIUM 4.1 mmol/L (3.5-5.1)
[2016-07-27] MEDS: CALCIUM 600MG + VIT D 400 IU TAB PO SCH (08:39)
[2016-07-27] MEDS: ALLOPURINOL 100 MG TAB PO SCH (08:40)
[2016-07-27] MEDS: METOPROLOL SUCC 50MG EXT REL TAB PO SCH (08:40)
[2016-07-27] MEDS: GUAIFENESIN 600 MG TABCR PO SCH ×2 (08:40→20:25)
[2016-07-27] MEDS: CEROVITE ADV FORMULA TAB PO SCH (08:41)
[2016-07-27] MEDS: TRIAMCINOLONE ACET 0.1% CR 15 GM TUBE EXT SCH (08:43)
[2016-07-27] MEDS: INSULIN GLARGINE SOLOSTAR 100 UNITS/ML 3 ML PEN SC SCH (08:47)
[2016-07-27] MEDS: HEPARIN SOD 5000 UNIT/0.5 ML CARP SQ SCH ×2 (08:49→21:16)
[2016-07-27] MEDS ORDERED: CEROVITE ADV FORMULA TAB PO SCH (09:00)
[2016-07-27] MEDS ORDERED: METOPROLOL SUCC 50MG EXT REL TAB PO SCH (09:00)
[2016-07-27] MEDS ORDERED: UBIDECARENONE PO SCH (09:00)
[2016-07-27] MEDS ORDERED: ISOSORBIDE MONONITRATE 60 MG TABCR PO SCH (09:00)
[2016-07-27] MEDS ORDERED: [UNRECOGNIZED DRUG - OTHER] PO SCH (09:00)
[2016-07-27] MEDS ORDERED: NURSING VERBAL MED ORDER ONE ×2 (12:00→23:45)
[2016-07-27] MEDS ORDERED: GABAPENTIN 100 MG CAP PO SCH (12:00)
[2016-07-27] MEDS ORDERED: INSULIN GLARGINE SOLOSTAR 100 UNITS/ML 3 ML PEN SC ONE (12:00)
[2016-07-27] MEDS: DEXAMETHASONE 0.5 MG/5 ML PO SCH ×2 (12:13→20:23)
[2016-07-27] MEDS ORDERED: BUMETANIDE IV 2 MG in SYRINGE 0 ML IV ONE (12:15)
--- NOTE | 2016-07-27 12:47 | Nephrology Progress Note ---
Nephrology Progress Note Date of Service Jul 27, 2016. Chief Complaint SASHA/CKD Subjective Mr. Ellsworth was seen and evaluated this morning. I returned to discuss the plan of care with his later today as well. The plan of care and echocardiogram findings were reviewed with Dr. Arenas. Mr. Ellsworth overall feels well. Cough and orthopnea persist. He has no urinary voiding complaints. He denies fevers or chills overnight. He denies any chest pain. Mental status improved but no 100%. Review of Systems A complete review of systems was performed. Pertinent positives are noted above. All other systems are negative. Vital Signs Last 8 Hrs Date Time Temp Pulse Resp B/P Pulse Ox O2 Delivery O2 Flow Rate FiO2 07/27/16 11:35 36.8 87 18 124/71 94 Room Air 07/27/16 08:00 Room Air 07/27/16 07:36 36.8 80 18 113/64 97 Room Air I & O 24-Hour Column 07/27/16 07:59 Intake Total 720 ml Balance 720 ml Last Recorded Weight Weight (Kilograms): 77.200 Physical Exam General Appearance: WD/WN, no apparent distress, + thin Head: normocephalic, atraumatic Eyes: normal inspection, sclerae normal ENT: normal ENT inspection, pharynx normal Neck: supple, + JVD Respiratory/Chest: no respiratory distress, no accessory muscle use, + rales ( bibasilar) Cardiovascular: regular rate, rhythm, no gallop Abdomen/GI: non tender, soft Extremities/Musculoskelatal: normal inspection, + pedal edema (+1 pitting BL LE edema) Neurologic/Psych: alert, oriented x 3 Family History Asthma Diabetes mellitus Heart disease Hypertension DE Stroke Social History Smoking Status: Former smoker Smokeless Tobacco Use: No Alcohol Use: none Drug Use: none Marital Status: Housing Status: lives with significant other, senior care ([facility] independent living) 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 Laboratory Results Past 24 Hours 07/27/16 06:50 07/27/16 06:50 Test 07/26/16 13:40 07/26/16 14:44 07/26/16 17:12 07/26/16 19:08 Ammonia < 10.0 umol/L (11-32) Bedside Glucose 209 mg/dl (70-99) Total Creatine Kinase 112 U/L (39-308) Creatine Kinase MB 6.7 ng/ml (0.5-3.6) Creatine Kinase MB Ratio 6.0 (0-3.0) Troponin I 18.300 ng/ml (0-0.045) Test 07/26/16 20:07 07/27/16 01:58 07/27/16 06:50 07/27/16 11:16 Bedside Glucose 355 mg/dl (70-99) 537 mg/dl (70-99) Total Creatine Kinase 104 U/L (39-308) Creatine Kinase MB 5.1 ng/ml (0.5-3.6) Creatine Kinase MB Ratio 4.9 (0-3.0) Troponin I 17.800 ng/ml (0-0.045) Red Blood Count 3.41 M/uL (4.7-6.1) Mean Corpuscular Volume 82.4 fL (80-100) Mean Corpuscular Hemoglobin 26.1 pg (25-34) Mean Corpuscular Hemoglobin Concent 31.7 g/dl (32-36) RDW Standard Deviation 48.3 fL (36.4-46.3) RDW Coefficient of Variation 16.3 % (11.5-14.5) Mean Platelet Volume 10.3 fL (7.4-10.4) Anion Gap 11.0 mmol/L (3-11) Est Creatinine Clear Calc Drug Dose 16.8 ml/min Estimated GFR () 18.3 Estimated GFR (Non- 15.8 BUN/Creatinine Ratio 27.0 (10-20) Calcium Level 8.8 mg/dl (8.5-10.1) Allergies Coded Allergies: No Known Allergies (Verified , NONE, 07/26/16) Medications Current Inpatient Medications Medications (Trade) Dose Ordered Sig/Esme Route Start Time Stop Time Status Last Admin Dose Admin Heparin Sodium (Porcine) (Heparin Sq 5000 Unit/0.5ml) 5,000 unit Q12 SQ 07/26/16 21:00 08/25/16 20:59 07/27/16 08:49 5,000 UNIT Acetaminophen (Tylenol Tab) 650 mg Q4H PRN PO 07/26/16 13:00 08/25/16 12:59 Al Hydrox/Mg Hydrox/Simethicone (Maalox Max Susp) 15 ml Q4H PRN PO 07/26/16 13:00 1/29/17 12:59 Magnesium Hydroxide (Milk Of Magnesia Susp) 30 ml Q12H PRN PO 07/26/16 13:00 08/25/16 12:59 Ondansetron HCl (Zofran Inj) 4 mg Q6H PRN IV 07/26/16 13:00 08/25/16 12:59 Polyethylene (Miralax Powder Packet) 17 gm DAILY PRN PO 07/26/16 13:00 08/25/16 12:59 Insulin Aspart (novoLOG ASPART) SLIDING SCALE If C... ACHS SC 07/26/16 16:00 08/25/16 15:59 07/27/16 12:07 17 UNITS Glucose (Glucose 40% Gel) 15-30 GRAMS 15 GRAMS... UD PRN PO 07/26/16 13:00 08/25/16 12:59 Glucose (Glucose Chew Tab) 4-8 Tablets 4 Tabl... UD PRN PO 07/26/16 13:00 08/25/16 12:59 Dextrose (Dextrose 50% 50ML Syringe) 25-50ML OF 50% DW IV FOR... UD PRN IV 07/26/16 13:00 08/25/16 12:59 Glucagon (Glucagon Inj) 1 mg UD PRN SQ 07/26/16 13:00 08/25/16 12:59 Allopurinol (Zyloprim Tab) 100 mg DAILY PO 07/27/16 09:00 08/26/16 08:59 07/27/16 08:40 100 MG Aspirin (Ecotrin Tab) 81 mg HS PO 07/26/16 21:00 08/25/16 20:59 07/26/16 20:13 81 MG Cetirizine HCl (zyrTEC TAB) 10 mg HS PO 07/26/16 21:00 08/25/16 20:59 07/26/16 20:12 10 MG Folic Acid (Folvite Tab) 1 mg DAILY PO 07/27/16 09:00 08/26/16 08:59 07/27/16 08:40 1 MG Multivitamins/ Minerals (Multivitamin W/ Minerals Tab) 1 tab DAILY PO 07/27/16 09:00 08/26/16 08:59 07/27/16 08:41 1 TAB Nitroglycerin (Nitrostat Tab) 0.4 mg DAILY PRN UT 07/26/16 13:00 08/25/16 12:59 Pravastatin Sodium (Pravachol Tab) 20 mg HS PO 07/26/16 21:00 08/25/16 20:59 07/26/16 20:12 20 MG Ranitidine HCl (zANTac TAB) 150 mg HS PO 07/26/16 21:00 08/25/16 20:59 07/26/16 20:12 150 MG Calcium/Vitamin D (Caltrate Plus Tab) 2 tab DAILY PO 07/27/16 09:00 08/26/16 08:59 07/27/16 08:39 2 TAB Guaifenesin (Mucinex Contr Rel Tab) 600 mg Q12 PO 07/26/16 21:00 08/25/16 20:59 07/27/16 08:40 600 MG Metoprolol Succinate (Toprol Xl Tab) 100 mg DAILY PO 07/27/16 09:00 08/26/16 08:59 07/27/16 08:40 100 MG Nitroglycerin (Nitroglycerin 2% Oint) 1 inch Q6 EXT 07/26/16 17:00 08/25/16 16:59 07/27/16 12:00 1 INCH Triamcinolone Acetonide (Kenalog 0.1% Cream) 1 appln QAM EXT 07/27/16 09:00 08/26/16 08:59 07/27/16 08:43 1 APPLN Insulin Glargine (Lantus Solostar Pen) 14 unit Q12 SC 07/27/16 21:00 08/26/16 20:59 Codeine Phosphate/ Guaifenesin (Robitussin-AC Sugar Free Syrup) 5 ml Q6H PRN PO 07/27/16 12:00 08/26/16 11:59 Insulin Aspart (novoLOG ASPART) SLIDING SCALE If C... ONE ONCE SC 07/28/16 02:00 07/28/16 02:01 Dexamethasone (Decadron Elix) 0.5 mg BID PO 07/27/16 12:00 08/26/16 11:59 07/27/16 12:13 0.5 MG Impression (1) Mental status change (2) Cirrhosis (3) Chronic kidney disease, stage IV (severe) (4) Acute renal failure (5) NSTEMI (non-ST elevated myocardial infarction) Mr. Fracisco Ellsworth is a 76 year-old male with severe coronary artery disease, hypertension, diabetes mellitus II, cirrhosis due to hepatitis C with history of cryoglobulinemia and CKD IV (baseline creatinine ~2.0-2.5 mg/dL). He was admitted with weakness and mental status changes. He has SASHA with serum creatinine stable at 3.5 mg/dL. UA bland and acellular microscopy. He is non oliguric. He has suffered an NSTEMI and URI in the past few weeks. He was readmitted with NSTEMI. He did not endorse any chest pain. He does complain of persistent cough as well as recent fevers. I suspect that SASHA is multifactorial due cardiorenal syndrome and possible progression of CKD. Blood pressure is appropriate. Clinical presentation does suggest acute systolic CHF. Recommendations 1. Hold lisinopril 2. Bumex 2 mg IV now 3. Document I/O's 4. Repeat metabolic profile tomorrow AM 5. Medications currently appropriate for renal function 6. Serum cryo screen pending 7. Renal US pending
--- NOTE | 2016-07-27 12:51 | CARDIOLOGY PROGRESS NOTE ---
DATE: 07/27/2016 SUBJECTIVE: The patient was seen by me this morning in his telemetry unit room. No significant change in his symptoms since yesterday afternoon when I last saw him. He continues to have coughing episodes. Worse when he is more supine. With the coughing episodes, he feels short of breath. When not coughing and sitting upright, he denies any dyspnea. No chest pain or tightness. No other anginal type symptoms. No fevers or chills. His cough remains nonproductive. He has good appetite. No abdominal pain or nausea. He feels that he is voiding normally. No urinary complaints. No leg pain or leg swelling. No cerebrovascular complaints. CURRENT MEDICATIONS: NovoLog sliding scale, dexamethasone 0.5 mg p.o. b.i.d., allopurinol 100 mg daily, folic acid 1 mg daily, multivitamin 1 daily, calcium with vitamin D 2 tablets daily, metoprolol succinate ER 100 mg daily, aspirin 81 mg daily, cetirizine 10 mg at bedtime, pravastatin 20 mg at bedtime, ranitidine 150 mg at bedtime, heparin 5,000 units subQ b.i.d., Lantus insulin 10 units subQ b.i.d., guaifenesin 600 mg p.o. b.i.d., nitroglycerin ointment 1 inch q. 6 hours, Kenalog cream 1 application daily, and several p.r.n. medications. PHYSICAL EXAMINATION: VITAL SIGNS: Intake today reported to be 520 mL. No output recorded. Today's weight 77.2 kg. Yesterday's 77.1 kg. Monitor reveals sinus rhythm. Occasional pause, which appears to be secondary to nonconducted premature supraventricular beat. Vital signs at 11:35 a.m. this morning show oral temperature of 36.8, pulse 87, blood pressure 124/71, and pulse oximetry on room air 94%. Pulse rate earlier this morning was 80. The lowest oxygen saturation on this admission has been 94%. GENERAL APPEARANCE: Shows him to be in no distress, sitting up in his bed. NECK: Jugular venous pressure approximately 8-9 cm. LUNGS: Decreased breath sounds at the bases. Bibasilar rales. No rhonchi or wheezes. HEART: Regular rate and rhythm. S1 and S2 normal. No murmur, S3, or rub. ABDOMEN: Soft. Nontender. No palpable masses or organomegaly. No bruits. EXTREMITIES: Trace pretibial edema. NEUROLOGIC: Alert and oriented x3. Motor grossly intact. PSYCHIATRIC: Affect is normal. Electrocardiogram performed this morning with inferolateral ST segment depressions consistent with ischemia. LABORATORY DATA: Labs this morning with WBC 6.55, hemoglobin 8.9, hematocrit 28.1, and platelet count 201. Sodium 135, potassium 4.1, chloride 99, carbon dioxide 25, BUN 94, creatinine 3.5, random glucose 180, and calcium 8.8. Troponin I at 01:58 a.m. today was 17.800. CK total 104 with MB of 5.1. On this admission, peak CK total was 126 at the time of admission. Peak CK-MB at the same time was 7.4. Peak troponin I was at time of admission was 22.0. Echocardiogram performed this morning. Preliminary review shows ejection fraction of approximately 40%-45%. There appeared to be a new septal wall motion abnormality compared to an echocardiogram a few weeks ago. Complete review is pending. ASSESSMENT: 1. Severe underlying coronary artery disease. Diffuse severe coronary artery stenoses. Diffuse coronary artery calcifications. He is not a good candidate for percutaneous coronary intervention secondary to extensive calcifications of his arteries. No current anginal symptoms. Elevated troponin I at the time of admission. The greatest troponin I was at time of admission. CK totals are normal. Suspect that the troponin I represents myocardial injury that occurred several days prior to this admission. This is based upon the CK totals being normal. Would expect them to be much higher if the troponin I was secondary to very recent myocardial injury such as occurring within the past 1-2 days. 2. Moderate left ventricular systolic dysfunction. 3. Clinical evidence of congestive heart failure. Suspect that his cough worse when he is supine is secondary to congestive heart failure. 4. Chronic kidney disease. Renal function worsened today compared to yesterday. This may reflect decreased cardiac output from left ventricular dysfunction. 5. Heart rate improved with increased metoprolol dose. 6. Blood pressure controlled. 7. No significant arrhythmias. RECOMMENDATIONS AND PLAN: 1. The patient's case was discussed with Dr. Addison Alexander of nephrology. We both agreed that the patient requires intravenous diuretics. We decided upon a dose of 2 mg of intravenous Bumex this morning. Monitor effect on output and clinical condition today and tonight. Reassess renal function tomorrow morning. To hope is that with improved volume status, his cardiac function might improve. Then, he would have an increased cardiac output and improved renal perfusion. He is clearly not dehydrated on exam. Additionally, on echocardiography, his inferior vena cava is normal to slightly dilated. This would suggest a normal to slightly elevated central venous pressure. 2. Continue current dose of metoprolol and topical nitrate. 3. The above assessment and plan were discussed with the patient and his . 4. Management of his diabetes mellitus by the hospitalist staff.
[2016-07-27] MEDS: GUAIFENESIN/CODEINE 100MG/10MG 5ML UDC PO PRN ×2 (13:18→20:11)
--- NOTE | 2016-07-27 15:22 | Progress Note ---
Subjective Date of Service: Jul 27, 2016. Subjective Pt evaluation today including: conversation w/ patient, conversation w/ family Pain: none PO Intake: well Voiding: no voiding problems seen and examined ,lying in bed and looks comfortable, multiple family and friends at bed site and he was Ok to talk to him in front of them, feels better , SOB resolved, no CP or N or V, sugar is elevated Problem List Medical Problems: (1) Acute coronary syndrome Status: Acute (2) Acute renal failure Status: Acute (3) Chronic kidney disease Status: Acute (4) Mouth bleeding Status: Acute (5) NSTEMI (non-ST elevated myocardial infarction) Status: Acute Review of Systems Constitutional: No chills, No fatigue, No fever, No problem reported, No see HPI, No sweats, No weakness, No weight loss Eyes: No diplopia, No discharge, No eye pain, No problem reported, No redness, No see HPI, No worsening of vision Respiratory: No cough, No dyspnea at rest, No dyspnea on exertion, No hemoptysis, No problem reported, No see HPI, No shortness of breath, No sputum, No wheezing Cardiac: No PND, No chest pain, No claudication, No edema, No orthopnea, No palpitations, No problem reported, No see HPI Abdomen: No GI bleeding, No constipation, No diarrhea, No nausea, No pain, No problem reported, No see HPI, No vomiting Musculoskeletal: No calf pain, No joint pain, No muscle pain, No problem reported, No see HPI, No swelling Male : No dysuria, No hematuria, No incontinence, No nocturia more than once/ night, No problem reported, No see HPI, No sexual dysfunction, No slowing stream , No urinary frequency Neurologic: No balance problems, No memory loss, No numbness/tingling, No paralysis, No problem reported, No see HPI, No vertigo, No weakness Psychiatric: No anhedonism, No anxiety, No depression symptoms, No insomnia, No problem reported, No see HPI, No substance abuse Heme: No abnormal bleeding/bruising, No clotting problems, No night sweats, No problem reported, No see HPI, No swollen lymph nodes Endo: No excessive thirst, No excessive urination, No fatigue, No problem reported, No see HPI Objective Vital Signs Date Time Temp Pulse Resp B/P Pulse Ox O2 Delivery O2 Flow Rate FiO2 12/31/16 12:50 Room Air 07/27/16 11:35 36.8 87 18 124/71 94 Room Air 07/27/16 08:00 Room Air 07/27/16 07:36 36.8 80 18 113/64 97 Room Air 07/27/16 04:00 Room Air 07/27/16 03:19 36.9 78 19 105/60 97 Room Air 07/26/16 23:59 Room Air 07/26/16 23:10 37.1 89 19 107/65 96 Room Air 07/26/16 20:00 Room Air 07/26/16 19:05 36.9 87 16 107/71 97 Room Air 07/26/16 16:00 Room Air Physical Exam General Appearance: no apparent distress Eyes: normal inspection, EOMI ENT: normal ENT inspection, hearing grossly normal, pharynx normal Neck: supple, no adenopathy, no JVD, no carotid bruits Respiratory/Chest: chest non-tender, lungs clear, normal breath sounds, no respiratory distress Cardiovascular: regular rate, rhythm, no gallop, no JVD, no murmur Abdomen: normal bowel sounds, non tender, soft, no organomegaly, no pulsatile mass Extremities: non-tender, normal inspection, no calf tenderness, + pedal edema, + swelling Neurologic/Psychiatric: no motor/sensory deficits, alert, normal mood/affect, oriented x 3 Skin: normal color, warm/dry, no rash Laboratory Results Last 24 Hours Test 07/26/16 17:12 07/26/16 19:08 07/26/16 20:07 07/27/16 01:58 Total Creatine Kinase 112 U/L 104 U/L Creatine Kinase MB 6.7 ng/ml 5.1 ng/ml Creatine Kinase MB Ratio 6.0 4.9 Troponin I 18.300 ng/ml 17.800 ng/ml Bedside Glucose 355 mg/dl Test 07/27/16 06:50 07/27/16 11:16 07/27/16 13:19 07/27/16 14:51 White Blood Count 6.55 K/uL Red Blood Count 3.41 M/uL Hemoglobin 8.9 g/dL Hematocrit 28.1 % Mean Corpuscular Volume 82.4 fL Mean Corpuscular Hemoglobin 26.1 pg Mean Corpuscular Hemoglobin Concent 31.7 g/dl RDW Standard Deviation 48.3 fL RDW Coefficient of Variation 16.3 % Platelet Count 201 K/uL Mean Platelet Volume 10.3 fL Sodium Level 135 mmol/L Potassium Level 4.1 mmol/L Chloride Level 99 mmol/L Carbon Dioxide Level 25 mmol/L Anion Gap 11.0 mmol/L Blood Urea Nitrogen 94 mg/dl Creatinine 3.50 mg/dl Est Creatinine Clear Calc Drug Dose 16.8 ml/min Estimated GFR () 18.3 Estimated GFR (Non- 15.8 BUN/Creatinine Ratio 27.0 Random Glucose 180 mg/dl Calcium Level 8.8 mg/dl Bedside Glucose 537 mg/dl 561 mg/dl 478 mg/dl Assessment and Plan Acute on chronic kidney disease stage III--baseline creatinine around 2.3-2.6, now is 3.5 -nephrology in put appreciated -off IVF -recheck labs -Hold Bumex, lisinopril Elevated cardiac enzymes, NSTEMI or from CHF and or ARF -Consult cardiology. Troponin 22 upon arrival.trending down, asymptomatic Pt' s troponin chronically elevated around 2-4 due to CKD. CKMB also elevated. -no intervention planned -bb aspirin Confusion, improved poss sec to all the above CAD, h/o NSTEMI -Continue Imdur 60 mg PO qd -Continue metoprolol succinate 50 mg PO qd -Continue ASA 81 mg PO qd HTN--stable -Hold lisinopril as above -Continue metoprolol as above HLD -Continue pravastatin 20 mg PO qd Diabetes mellitus type 1--Last HgbA1c checked 07/12/16 was 6.3 sugar is been high med adjusted and if continue to be high will consider insulin drip -Lantus increased to 14 units SC BID, pt has poor oral intake -Insulin sliding scale, carb cover -Check BSGs q ac and qhs Gout -Continue allopurinol 100 mg PO qd GI prophylaxis -Maalox Max 15 mL PO q4h prn dyspepsia -Milk of magnesia 30 mL PO q6h prn constipation -Miralax 17 gm PO qd prn constipation -Zofran 4 mg IV q6h prn nausea DVT prophylaxis -Heparin 5000 units SC q12h -RICHARD baker and SCDs Code Status -Level I, FULL RESUSCITATION ST all Dw pat and his family Dw nurse needs few more days poor prognosis Continued [facility] stay due to: other Discharge planning: home
--- NOTE | 2016-07-27 15:36 | ECHOCARDIOGRAM REPORT ---
*NOTICE TO RECEIVING LIBERTARIAN AGENCY This information is strictly Confidential and protected under [place] law. [place] law prohibits you from making any further disclosure of this information unless further disclosure is expressly permitted by the written consent of the person to whom it pertains or is authorized by law. A general authorization for the release of medical or other information is not sufficient for this purpose. Hospital accepts no responsibility if the information is made available to any other person, INCLUDING THE PATIENT. Interpretation Summary * Name: GILBERTO ELLSWORTH Study Date: 07/27/2016 11:36 AM BP: 113/64 mmHg * Patient Location: 40 HR: 84 * : 1940 (M/d/yyyy) Gender: Male Height: 68 in * Age: 76 yrs Ethnicity: [place] Weight: 170 lb * Ordering Physician: Titus Arenas MD, FACC * Referring Physician: Titus Arenas MD, FACC * Performed By: [facility] * * Reason For Study: AMI * BSA: 1.9 m2 * Moderate left ventricular systolic dysfunction. * Moderate left ventricular hypertrophy. * Mild left atrial dilatation. * Normal central venous pressure. * Mildly elevated estimated RV systolic pressure. Procedure Details * Limited views were obtained. Left Ventricle * The left ventricle is normal in size. * There is moderate concentric left ventricular hypertrophy. * Left ventricular systolic function is moderately reduced. * Ejection Fraction = 30-35%. * Septal motion is consistent with conduction abnormality. * Moderate global hypokinesis, most prominent in anterolateral and septal segments. Right Ventricle * The right ventricle is normal in size and function. Atria * The left atrium is mildly dilated. * The right atrium is mildly dilated. Mitral Valve * There is moderate to severe mitral annular calcification. * Calcified mitral apparatus. * There is trace mitral regurgitation. Tricuspid Valve * The tricuspid valve is not well visualized, but is grossly normal. * There is mild to moderate tricuspid regurgitation. * Right ventricular systolic pressure is elevated at 40-50mmHg. Aortic Valve * The aortic valve is not well visualized. * No aortic regurgitation is present. Pulmonic Valve * The pulmonic valve is not well visualized. Great Vessels * The aortic root is normal size. * There is aortic root sclerosis/calcification. Pericardium/Pleural * There is no pericardial effusion. Great Vessels * Normal inferior vena cava diameter and respiratory variation suggests normal central venous pressure. MMode 2D Measurements and Calculations IVSd 1.6 cm IVSs 1.7 cm LVIDd 4.2 cm LVIDs 3.6 cm LVPWd 1.6 cm LVPWs 1.6 cm IVS/LVPW 0.98 FS 14.7 % EDV(Teich) 79.4 ml ESV(Teich) 54.3 ml EF(Teich) 31.6 % EDV(cubed) 75.1 ml ESV(cubed) 46.5 ml EF(cubed) 38.0 % % IVS thick 9.5 % % LVPW thick -1.89 % LV mass(C)d 269.5 grams LV mass(C)dI 141.3 grams/m\S\2 LV mass(C)s 229.8 grams LV mass(C)sI 120.5 grams/m\S\2 SV(Teich) 25.1 ml SI(Teich) 13.1 ml/m\S\2 SV(cubed) 28.5 ml SI(cubed) 14.9 ml/m\S\2 Ao root diam 3.0 cm Ao root area 6.9 cm\S\2 LA dimension 4.4 cm LA/Ao 1.5 LVOT diam 2.0 cm LVOT area 3.2 cm\S\2 LVAd ap4 25.5 cm\S\2 LVLd ap4 6.7 cm EDV(MOD-sp4) 80.8 ml EDV(sp4-el) 82.7 ml LVAs ap4 20.1 cm\S\2 LVLs ap4 6.4 cm ESV(MOD-sp4) 54.3 ml ESV(sp4-el) 53.7 ml EF(MOD-sp4) 32.9 % EF(sp4-el) 35.1 % LVAd ap2 32.7 cm\S\2 LVLd ap2 8.1 cm EDV(MOD-sp2) 107.4 ml EDV(sp2-el) 112.4 ml LVAs ap2 24.9 cm\S\2 LVLs ap2 7.0 cm ESV(MOD-sp2) 73.2 ml ESV(sp2-el) 75.4 ml EF(MOD-sp2) 31.8 % EF(sp2-el) 32.9 % LVLd %diff 17.4 % EDV(MOD-bp) 103.0 ml LVLs %diff 8.0 % ESV(MOD-bp) 64.3 ml EF(MOD-bp) 37.6 % SV(MOD-sp4) 26.6 ml SI(MOD-sp4) 13.9 ml/m\S\2 SV(MOD-sp2) 34.1 ml SI(MOD-sp2) 17.9 ml/m\S\2 SV(MOD-bp) 38.7 ml SI(MOD-bp) 20.3 ml/m\S\2 SV(sp4-el) 29.0 ml SI(sp4-el) 15.2 ml/m\S\2 SV(sp2-el) 37.0 ml SI(sp2-el) 19.4 ml/m\S\2 Doppler Measurements and Calculations MV E max fatoumata 127.8 cm/sec MV A max fatoumata 66.9 cm/sec MV E/A 1.9 MV P1/2t max fatoumata 135.4 cm/sec MV P1/2t 57.5 msec MVA(P1/2t) 3.8 cm\S\2 MV dec slope 690.1 cm/sec\S\2 MV dec time 0.15 sec TR max fatoumata 334.3 cm/sec
[2016-07-27] MEDS ORDERED: INSULIN IV INFUSION PROTOCOL SCH (17:22)
[2016-07-27] MEDS ORDERED: MODERATE STRESS LEVEL ONE (17:30)
[2016-07-27] MEDS ORDERED: DC ALL PREVIOUSLY ORDERED DIABETES MEDS ONE (17:30)
[2016-07-27] MEDS ORDERED: INSULIN PROTOCOL GOAL RANGE ONE (17:30)
--- NOTE | 2016-07-27 17:57 | DIAGNOSTIC IMAGING REPORT ---
EXAMINATION: RENAL ULTRASOUND CLINICAL HISTORY: Acute renal injury COMPARISON STUDY: CT scan dated 07/13/2016 FINDINGS: The right kidney measures 10.0 cm. The left kidney measures 10.5 cm. There is no evidence of hydronephrosis. There are no renal masses. No bladder abnormalities are visualized. Bilateral ureteral jets were visualized. IMPRESSION : Mild bilateral renal cortical thinning. No evidence of hydronephrosis. Electronically signed by: Julian Torres M.D. 07/27/2016 5:56 PM
[2016-07-27] MEDS ORDERED: INSULIN HUMAN REGULAR IV BOLUS 2 UNIT in SYRINGE 0 ML IV SCH (18:30)
[2016-07-27] MEDS: INSULIN REGULAR 250 UNITS in SODIUM CHLORIDE 0.9% 250ML 250 ML IV SCH (18:31)
[2016-07-27] MEDS: RANITIDINE HCL 150 MG TAB PO SCH (20:25)
[2016-07-27] MEDS: PRAVASTATIN SOD 20 MG TAB PO SCH (20:25)
[2016-07-27] MEDS: ASPIRIN 81 MG ECTAB PO SCH (20:25)
[2016-07-27] MEDS: CETIRIZINE HCL 10 MG TAB PO SCH (20:26)
[2016-07-27] MEDS ORDERED: INSULIN GLARGINE SOLOSTAR 100 UNITS/ML 3 ML PEN SC SCH (21:00)
[2016-07-27] MEDS ORDERED: D5W AND 1/2NSS 1,000 ML IV SCH (23:45)
[2016-07-28] VITALS (9 sets, daily range): BP systolic 110–144; BP diastolic 65–82; PULSE 72–78; TEMP 36.4–37.1; O2SAT 96–99
[2016-07-28] MEDS: NITROGLYCERIN OINT 2% 1GM PACKET EXT SCH ×4 (00:07→17:12)
[2016-07-28 00:27] LABS: CALCIUM 9.1 mg/dl (8.5-10.1); CREATININE 3.5 mg/dl (0.60-1.40); MAGNESIUM 2.2 mg/dl (1.8-2.4); POTASSIUM 3.7 mmol/L (3.5-5.1)
[2016-07-28] MEDS ORDERED: INSULIN ASPART 100 UNITS/ML 3 ML PEN SC ONE (02:00)
[2016-07-28] MEDS ORDERED: NURSING VERBAL MED ORDER ONE (02:45)
[2016-07-28] MEDS: GUAIFENESIN/CODEINE 100MG/10MG 5ML UDC PO PRN ×3 (05:56→17:07)
[2016-07-28 06:57] LABS: HEMATOCRIT 29.7 % (42-52); MEAN CELL VOLUME 82.3 fL (80-100); MEAN CORPUSCULAR HEMOGLOBIN 25.8 pg (25-34); MEAN CORPUSCULAR HGB CONC 31.3 g/dl (32-36); MEAN PLATELET VOLUME 10.5 fL (7.4-10.4); PLATELET COUNT 212 K/uL (130-400); RED BLOOD COUNT 3.61 M/uL (4.7-6.1); WHITE BLOOD COUNT 7.23 K/uL (4.8-10.8)
[2016-07-28 07:25] LABS: CREATININE 3.4 mg/dl (0.60-1.40); POTASSIUM 3.9 mmol/L (3.5-5.1)
[2016-07-28] MEDS ORDERED: GLUCOSE 10 TABS/TUBE PO PRN (07:30)
[2016-07-28] MEDS ORDERED: DEXTROSE 50% 50 ML SYR IV PRN (07:30)
[2016-07-28] MEDS ORDERED: GLUCAGON FOR INJ 1 MG VIAL SQ PRN (07:30)
[2016-07-28] MEDS ORDERED: GLUCOSE 40% GEL 15 GM TUBE PO PRN (07:30)
[2016-07-28 07:35] LABS: FERRITIN 25.5 ng/ml (8.0-388.0)
[2016-07-28] MEDS ORDERED: INSULIN ASPART 100 UNITS/ML 3 ML PEN SC SCH (08:00)
[2016-07-28] MEDS ORDERED: PHARMACY GLYCEMIC MGMT CONSULT PRN (08:00)
[2016-07-28] MEDS ORDERED: INSULIN GLARGINE SOLOSTAR 100 UNITS/ML 3 ML PEN SC ONE (08:15)
[2016-07-28] MEDS: INSULIN REGULAR 250 UNITS in SODIUM CHLORIDE 0.9% 250ML 250 ML IV SCH ×3 (08:15→10:08)
[2016-07-28] MEDS: HEPARIN SOD 5000 UNIT/0.5 ML CARP SQ SCH ×2 (08:21→21:06)
[2016-07-28] MEDS: DEXAMETHASONE 0.5 MG/5 ML PO SCH ×2 (08:24→20:47)
[2016-07-28] MEDS: ALLOPURINOL 100 MG TAB PO SCH (08:24)
[2016-07-28] MEDS: GUAIFENESIN 600 MG TABCR PO SCH ×2 (08:25→20:47)
[2016-07-28] MEDS: METOPROLOL SUCC 50MG EXT REL TAB PO SCH (08:25)
[2016-07-28] MEDS: TRIAMCINOLONE ACET 0.1% CR 15 GM TUBE EXT SCH (08:25)
[2016-07-28] MEDS: CALCIUM 600MG + VIT D 400 IU TAB PO SCH (08:25)
[2016-07-28] MEDS: CEROVITE ADV FORMULA TAB PO SCH (08:25)
--- NOTE | 2016-07-28 09:58 | Nephrology Progress Note ---
Nephrology Progress Note Date of Service Jul 28, 2016. Chief Complaint SASHA/CKD Subjective No acute events overnight. Blood glucose labile. Insulin gtt turned off. Obligatory intake unclear. Overall, feels well. Bedside nurse reports that patient did exhibit some confusion and anxiety when his blood glucose was elevated. Mr. Ellsworth denies shortness of breath or chest pain. He is out of bed without assist. He is voiding his urine without difficulty. Review of Systems A complete review of systems was performed. Pertinent positives are noted above. All other systems are negative. Vital Signs Last 8 Hrs Date Time Temp Pulse Resp B/P Pulse Ox O2 Delivery O2 Flow Rate FiO2 07/28/16 08:05 36.4 72 18 110/65 99 Room Air 07/28/16 08:00 Room Air 07/28/16 04:00 96 Room Air 07/28/16 03:53 36.7 75 15 115/72 96 Room Air I & O 24-Hour Column 07/28/16 08:00 Intake Total 1334 ml Output Total 975 ml Balance 359 ml Last Recorded Weight Weight (Kilograms): 76.700 Physical Exam General Appearance: WD/WN, no apparent distress Head: normocephalic, atraumatic Eyes: normal inspection, sclerae normal ENT: normal ENT inspection, pharynx normal Neck: supple, + JVD Respiratory/Chest: lungs clear, + rales (faint bibasilar) Cardiovascular: regular rate, rhythm, no gallop Abdomen/GI: non tender, soft Extremities/Musculoskelatal: normal inspection, + pedal edema Neurologic/Psych: alert, oriented x 3 Family History Asthma Diabetes mellitus Heart disease Hypertension [place] Stroke Social History Smoking Status: Former smoker Smokeless Tobacco Use: No Alcohol Use: none Drug Use: none Marital Status: Housing Status: lives with significant other, group home ([facility] independent [facility]) 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 Laboratory Results Past 24 Hours 07/28/16 06:34 07/27/16 23:55 07/28/16 06:34 Test 07/27/16 11:16 07/27/16 13:19 07/27/16 14:51 07/27/16 16:27 Bedside Glucose 537 mg/dl (70-99) 561 mg/dl (70-99) 478 mg/dl (70-99) 437 mg/dl (70-99) Test 07/27/16 16:28 07/27/16 18:03 07/27/16 19:24 07/27/16 20:30 Bedside Glucose 475 mg/dl (70-99) 421 mg/dl (70-99) 272 mg/dl (70-99) 109 mg/dl (70-99) Test 07/27/16 21:17 07/27/16 21:36 07/27/16 22:06 07/27/16 22:40 Bedside Glucose 91 mg/dl (70-99) 82 mg/dl (70-99) 126 mg/dl (70-99) 108 mg/dl (70-99) Test 07/27/16 23:31 07/27/16 23:55 07/27/16 23:57 07/28/16 00:36 Bedside Glucose 86 mg/dl (70-99) 83 mg/dl (70-99) 106 mg/dl (70-99) Anion Gap 11.0 mmol/L (3-11) Est Creatinine Clear Calc Drug Dose 16.8 ml/min Estimated GFR () 18.3 Estimated GFR (Non- 15.8 BUN/Creatinine Ratio 26.0 (10-20) Calcium Level 9.1 mg/dl (8.5-10.1) Magnesium Level 2.2 mg/dl (1.8-2.4) Test 07/28/16 01:38 07/28/16 02:34 07/28/16 03:34 07/28/16 04:38 Bedside Glucose 143 mg/dl (70-99) 171 mg/dl (70-99) 188 mg/dl (70-99) 209 mg/dl (70-99) Test 07/28/16 05:26 07/28/16 05:28 07/28/16 05:29 07/28/16 06:34 Bedside Glucose 398 mg/dl (70-99) 199 mg/dl (70-99) 203 mg/dl (70-99) Red Blood Count 3.61 M/uL (4.7-6.1) Mean Corpuscular Volume 82.3 fL (80-100) Mean Corpuscular Hemoglobin 25.8 pg (25-34) Mean Corpuscular Hemoglobin Concent 31.3 g/dl (32-36) RDW Standard Deviation 48.3 fL (36.4-46.3) RDW Coefficient of Variation 16.4 % (11.5-14.5) Mean Platelet Volume 10.5 fL (7.4-10.4) Anion Gap 10.0 mmol/L (3-11) Est Creatinine Clear Calc Drug Dose 17.3 ml/min Estimated GFR () 18.9 Estimated GFR (Non- 16.3 BUN/Creatinine Ratio 25.0 (10-20) Calcium Level 9.0 mg/dl (8.5-10.1) Iron Level 11 mcg/dl (35-175) Total Iron Binding Capacity 418 mcg/dl (250-450) Transferrin 295 mg/dl (200-360) Transferrin % Saturation 3 % (20-50) Ferritin 25.5 ng/ml (8.0-388.0) Test 07/28/16 06:41 07/28/16 07:45 Bedside Glucose 232 mg/dl (70-99) 235 mg/dl (70-99) Allergies Coded Allergies: No Known Allergies (Verified , NONE, 07/26/16) Medications Current Inpatient Medications Medications (Trade) Dose Ordered Sig/Esme Route Start Time Stop Time Status Last Admin Dose Admin Heparin Sodium (Porcine) (Heparin Sq 5000 Unit/0.5ml) 5,000 unit Q12 SQ 07/26/16 21:00 08/25/16 20:59 07/28/16 08:21 5,000 UNIT Acetaminophen (Tylenol Tab) 650 mg Q4H PRN PO 07/26/16 13:00 08/25/16 12:59 Al Hydrox/Mg Hydrox/Simethicone (Maalox Max Susp) 15 ml Q4H PRN PO 07/26/16 13:00 08/25/16 12:59 Magnesium Hydroxide (Milk Of Magnesia Susp) 30 ml Q12H PRN PO 07/26/16 13:00 08/25/16 12:59 Ondansetron HCl (Zofran Inj) 4 mg Q6H PRN IV 07/26/16 13:00 08/25/16 12:59 Polyethylene (Miralax Powder Packet) 17 gm DAILY PRN PO 07/26/16 13:00 08/25/16 12:59 Glucose (Glucose 40% Gel) 15-30 GRAMS 15 GRAMS... UD PRN PO 07/26/16 13:00 08/25/16 12:59 Glucose (Glucose Chew Tab) 4-8 Tablets 4 Tabl... UD PRN PO 07/26/16 13:00 08/25/16 12:59 Dextrose (Dextrose 50% 50ML Syringe) 25-50ML OF 50% DW IV FOR... UD PRN IV 07/26/16 13:00 08/25/16 12:59 07/27/16 21:40 25 ML Glucagon (Glucagon Inj) 1 mg UD PRN SQ 07/26/16 13:00 08/25/16 12:59 Allopurinol (Zyloprim Tab) 100 mg DAILY PO 07/27/16 09:00 08/26/16 08:59 07/28/16 08:24 100 MG Aspirin (Ecotrin Tab) 81 mg HS PO 07/26/16 21:00 08/25/16 20:59 07/27/16 20:25 81 MG Cetirizine HCl (zyrTEC TAB) 10 mg HS PO 07/26/16 21:00 08/25/16 20:59 07/27/16 20:26 10 MG Folic Acid (Folvite Tab) 1 mg DAILY PO 07/27/16 09:00 08/26/16 08:59 07/28/16 08:24 1 MG Multivitamins/ Minerals (Multivitamin W/ Minerals Tab) 1 tab DAILY PO 07/27/16 09:00 08/26/16 08:59 07/28/16 08:25 1 TAB Nitroglycerin (Nitrostat Tab) 0.4 mg DAILY PRN UT 07/26/16 13:00 08/25/16 12:59 Pravastatin Sodium (Pravachol Tab) 20 mg HS PO 07/26/16 21:00 08/25/16 20:59 07/27/16 20:25 20 MG Ranitidine HCl (zANTac TAB) 150 mg HS PO 07/26/16 21:00 08/25/16 20:59 07/27/16 20:25 150 MG Calcium/Vitamin D (Caltrate Plus Tab) 2 tab DAILY PO 07/27/16 09:00 08/26/16 08:59 07/28/16 08:25 2 TAB Guaifenesin (Mucinex Contr Rel Tab) 600 mg Q12 PO 07/26/16 21:00 08/25/16 20:59 07/28/16 08:25 600 MG Metoprolol Succinate (Toprol Xl Tab) 100 mg DAILY PO 07/27/16 09:00 08/26/16 08:59 07/28/16 08:25 100 MG Nitroglycerin (Nitroglycerin 2% Oint) 1 inch Q6 EXT 07/26/16 17:00 08/25/16 16:59 07/28/16 05:58 1 INCH Triamcinolone Acetonide (Kenalog 0.1% Cream) 1 appln QAM EXT 07/27/16 09:00 08/26/16 08:59 07/28/16 08:25 1 APPLN Codeine Phosphate/ Guaifenesin (Robitussin-AC Sugar Free Syrup) 5 ml Q6H PRN PO 07/27/16 12:00 08/26/16 11:59 07/28/16 05:56 5 ML Dexamethasone 0.5 mg 0.5 mg BID PO 07/27/16 12:00 08/26/16 11:59 07/28/16 08:24 0.5 MG Insulin Human Regular/Sodium Chloride (novoLIN-R/Nss 250ml) 252.5 ml @ 1.9 mls/hr DAILY@1130 IV 07/27/16 18:30 07/28/16 13:00 07/28/16 09:04 1.4 MLS/HR Insulin Glargine (Lantus Solostar Pen) 15 unit BID SC 07/28/16 21:00 08/27/16 20:59 Insulin Aspart (novoLOG ASPART) SLIDING SCALE If C... ACHS SC 07/28/16 11:00 08/27/16 10:59 Insulin Aspart (novoLOG ASPART) SLIDING SCALE PCHS SC 07/28/16 08:00 07/28/16 10:30 07/28/16 08:14 5 UNITS Miscellaneous Information (Consult Glycemic Management Pharmacy) 1 ea UD PRN N/A 07/28/16 08:00 08/27/16 07:59 Impression (1) Mental status change (2) Cirrhosis (3) Chronic kidney disease, stage IV (severe) (4) Acute renal failure (5) NSTEMI (non-ST elevated myocardial infarction) Mr. 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 He was admitted with weakness and mental status changes. UA bland and acellular microscopy. Renal ultrasound documenting cortical thinning but no other acute changes. He is non oliguric. He has suffered an NSTEMI and URI in the past few weeks. He was readmitted with NSTEMI and acute diastolic CHF. He did not endorse any chest pain. He does complain of persistent cough as well as recent fevers. I suspect that SASHA is multifactorial due cardiorenal syndrome and possible progression of CKD. Blood pressure is appropriate. Obligatory intake slightly increased with dextrose and insulin; UOP not completely documented but overall negative fluid balance has not been achieved. Recommendations 1. Hold lisinopril 2. Bumex 3 mg IV now and prn to encourage a net negative fluid balance (goal ~ 1 L/d) 3. Document I/O's 4. Repeat metabolic profile tomorrow AM 5. Medications currently appropriate for renal function 6. Serum cryo screen pending 7. Renal US reviewed with patient this morning
[2016-07-28] MEDS ORDERED: BUMETANIDE IV 3 MG in SYRINGE 0 ML IV ONE (10:15)
[2016-07-28] MEDS ORDERED: [UNRECOGNIZED DRUG - REMARK] ONE (12:00)
[2016-07-28] MEDS: INSULIN ASPART 100 UNITS/ML 3 ML PEN SC SCH ×3 (12:05→21:03)
--- NOTE | 2016-07-28 12:27 | PROGRESS NOTE ---
DATE: 07/28/2016 SUBJECTIVE: The patient was seen by me this morning in his telemetry unit room. He states that he is feeling slightly better than yesterday. He still has occasional cough. This can be associated with sensation of dyspnea. The cough is nonproductive. This is worse when he is more supine. Sitting upright at the time of my exam he has no dyspnea. No cough. No PND overnight. No palpitations or lightheadedness. No chest pain or other anginal type pains. No fevers or chills. No abdominal pain or nausea. No leg pain. No cerebrovascular complaints. The nursing staff did note some mild confusion yesterday. This has since resolved. At that time, his blood glucose was greater than 500. The patient was treated with an insulin drip starting last evening. His urine output yesterday was inaccurate. He was voiding in the toilet, was not making the nursing staff aware of this. CURRENT MEDICATIONS: Lantus insulin 15 units subQ b.i.d., NovoLog sliding-scale insulin, insulin drip by protocol, Codeine with guaifenesin 5 mL q. 6 hours as needed for cough, dexamethasone 0.5 mg p.o. b.i.d., allopurinol 100 mg daily, folic acid 1 mg daily, multivitamin 1 tablet daily, calcium with vitamin D 2 tablets daily, metoprolol succinate ER 100 mg daily, Kenalog cream 1 application daily, subQ heparin 5000 units b.i.d., aspirin 81 mg daily, cetirizine 10 mg at bedtime, pravastatin 20 mg at bedtime, ranitidine 150 mg at bedtime, guaifenesin 600 mg b.i.d., nitroglycerin ointment 1 inch q. 6 hours, and several p.r.n. medications. ALLERGIES: No known drug allergies. Intake and output reported yesterday to be 824/475. As stated above, the output is likely inaccurate. Today's weight 76.7 kg. Yesterday's weight 77.2 kg. History over the past 24-hours reviewed by me. Sinus rhythm. Rare premature ventricular beats. PHYSICAL EXAMINATION: VITAL SIGNS: This morning with oral temperature 36.4, pulse 72, blood pressure 110/65. Pulse oximetry room air 99%. NECK: Jugular venous pressure approximately 7 cm. LUNGS: Normal respiratory effort. Bibasilar rales. That seemed to be slightly improved from yesterday. HEART: Regular rate and rhythm. S1, S2 normal. No S3 or S4 heard. No murmur or rub. ABDOMEN: Soft. Nontender. No palpable masses or organomegaly. No bruits. EXTREMITIES: No pretibial edema. NEUROLOGIC: Alert and oriented x3. Motor grossly intact. PSYCHIATRIC: Affect is normal. Electrocardiogram today with normal sinus rhythm, inferolateral ST depressions consistent with ischemia. LABORATORY DATA: Today with hemoglobin 9.3, hematocrit 29.7, and platelet count 212. Sodium 139, potassium 3.9, chloride 103, carbon dioxide 26, BUN 85, creatinine 3.40, random glucose 221. Iron level 11. ASSESSMENT: 1. Severe coronary artery disease. Multivessel coronary artery disease with severe stenosis and heavily calcified arteries. His coronary lesions were not a good candidate for coronary intervention. No current anginal symptoms. Troponin I elevated on this admission consistent with non-ST elevation myocardial infarction. The greatest troponin I elevation was at the time of admission. The CKs were not elevated. This would indicate that his myocardial infarction likely occurred several days prior to this current admission. 2. Ischemic cardiomyopathy. Moderate left ventricular systolic dysfunction. He persists with evidence of congestive heart failure on exam. His rales do seem improved from yesterday. His jugular venous pressure is slightly decreased today compared to yesterday. His symptoms are also slowly improving. Suspect that his cough, which is worse in the supine position is a symptom of his congestive heart failure and does not represent an infectious process. 3. Chronic kidney disease. BUN and creatinine slightly improved today compared to yesterday. 4. Heart rate and blood pressure controlled. 5. No significant arrhythmias. 6. Iron deficiency anemia. PLAN AND RECOMMENDATIONS: 1. Continue metoprolol and topical nitrates. Continue aspirin and pravastatin. 2. The patient was given 3 mg of intravenous Bumex this morning. Monitor urine output with this. Repeat renal function tomorrow. 3. Increase activity as tolerated. 4. Conservative medical management of his coronary artery disease at this time. Extensive discussion was held with the patient by me yesterday. He does not want to undergo any further cardiac catheterization procedures. Cardiac catheterization with the administration of contrast dye would certainly place him at significantly high risk for contrast-induced nephrotoxicity. This is based upon his current renal dysfunction and his diabetes mellitus. His coronary lesions are poor candidates for any catheter based intervention. The patient would be at high risk for any repeat type surgery. Also, with his extensive calcifications in his arteries it could be difficult to successfully place a bypass graft into them. As stated above, the patient desires a concerted medical management course for his underlying coronary artery disease.
--- NOTE | 2016-07-28 13:33 | Pharmacy Progress Note ---
Glycemic: Assessment & Plan Date of Service Jul 28, 2016. Assessment & Plan Item Value Date Time Bedside Glucose 233 mg/dl H 07/28/16 1123 Bedside Glucose 241 mg/dl H 07/28/16 1045 Bedside Glucose 304 mg/dl H 07/28/16 0950 Bedside Glucose 350 mg/dl H 07/28/16 0851 Bedside Glucose 235 mg/dl H 07/28/16 0745 HOME diabetes regimen (spoke with patient on phone): * Lantus 15 units sub-q q12h * Humalog AC/HS: (-- / - / 2-4 units) * Estimate total insulin per day ~ 80 units PLAN: Pt is a Type-I diabetic x 50 years. He reports checking BSGs frequently thru the day (up to q 3 hours with corrections). He also counts/covers his carbs consumed. A1c from 07/12/16 = 6.3%. He was admitted with acute on chronic renal failure and elevated cardiac enzymes. BSGs continued to climb yesterday and IV insulin infusion was initiated 07/27 evening. Pt received Lantus 14 units 07/27 am (none 07/27 evening--on IV insulin infusion). * Pharmacy Glycemic Service consulted this am to wean insulin infusion and titrate sub-q insulin. * D/C'd LVP containing dextrose this am. * Gave Lantus 25 units sub-q this am (that includes 15 units as his am dose and 10 units to cover Lantus not received last evening) * Provide 4-6 hours of IV insulin infusion overlap for this Type-I diabetic * Ordered Novolog CR to cover breakfast. * Ordered Novolog CF/CR to cover lunch BSG/carbs * D/C insulin infusion after lunch complete. * This plan of care was reviewed with LUANN Ellis * Basal insulin: HOME DOSE: Lantus 15 units every 12 hours starting 1 /1-pm, give 1/2 dose for BSG < 110mg/dL * Correctional Insulin: Novolog Correction per scale ACHS/0200 Goal Range: Low 120 mg/dL - High 160 mg/dL Correction Factor: 30 mg/dL/unit * Prandial insulin: Per carb ratio of 1 unit per 9 grams CHO consumed Pharmacy will continue to monitor patient daily and write orders per [facility] inpatient glycemic control protocol. Thanks. * Please note that the plan above was derived based on current level of insulin resistance and hospital stress. These recommendations are appropriate for inpatient admission only. Plan of care upon discharge will need to be reassessed to avoid potential outpatient hypo/hyperglycemia.
[2016-07-28] MEDS ORDERED: NURSING DECISION MEDICATION ORDER SCH (19:30)
[2016-07-28] MEDS ORDERED: COUGH DROP (SUGAR FREE) LOZ 24 LOZ/1 BOX PO PRN (19:45)
--- NOTE | 2016-07-28 20:00 | Hospitalist Progress Note ---
Hospitalist Progress Note Date of Service Jul 28, 2016. Subjective Pt evaluation today including: conversation w/ patient, conversation w/ family (), physical exam, chart review, lab review, review of studies, review of inpatient medication list Voiding: no voiding problems Pt with persistent cough worse with lying flat, but much improved since admission Constitutional: No fever Respiratory: + cough All Other Systems: Reviewed and Negative Objective Vital Signs Date Time Temp Pulse Resp B/P Pulse Ox O2 Delivery O2 Flow Rate FiO2 07/28/16 19:15 37.1 78 18 115/70 98 Room Air 07/28/16 16:00 Room Air 07/28/16 15:19 36.6 78 16 144/74 98 Room Air 07/28/16 12:56 Room Air 07/28/16 12:38 Room Air 07/28/16 11:47 36.7 72 18 118/82 98 Room Air 07/28/16 08:05 36.4 72 18 110/65 99 Room Air 07/28/16 08:00 Room Air 07/28/16 04:00 96 Room Air 07/28/16 03:53 36.7 75 15 115/72 96 Room Air 07/28/16 00:01 97 Room Air 07/27/16 23:42 36.5 73 20 106/65 98 Room Air 07/27/16 20:00 97 Room Air 07/27/16 19:50 36.8 76 18 119/76 97 Room Air Physical Exam General Appearance: WD/WN, no apparent distress Eyes: normal inspection, sclerae normal Neck: trachea midline Respiratory/Chest: no respiratory distress, no accessory muscle use, + crackles (at bases bilat) Cardiovascular: regular rate, rhythm, no edema, no gallop, no murmur Abdomen: normal bowel sounds, non tender, soft (with ileostomy) Extremities: non-tender, no pedal edema, no calf tenderness Neurologic/Psychiatric: alert, normal mood/affect, oriented x 3 Skin: + rash (left anterior leg with multiple scabbed over superficial lesions excoriated) Laboratory Results Last 24 Hours Test 07/27/16 20:30 07/27/16 21:17 07/27/16 21:36 07/27/16 22:06 Bedside Glucose 109 mg/dl 91 mg/dl 82 mg/dl 126 mg/dl Test 07/27/16 22:40 07/27/16 23:31 07/27/16 23:55 07/27/16 23:57 Bedside Glucose 108 mg/dl 86 mg/dl 83 mg/dl Sodium Level 140 mmol/L Potassium Level 3.7 mmol/L Chloride Level 103 mmol/L Carbon Dioxide Level 26 mmol/L Anion Gap 11.0 mmol/L Blood Urea Nitrogen 91 mg/dl Creatinine 3.50 mg/dl Est Creatinine Clear Calc Drug Dose 16.8 ml/min Estimated GFR () 18.3 Estimated GFR (Non- 15.8 BUN/Creatinine Ratio 26.0 Random Glucose 78 mg/dl Calcium Level 9.1 mg/dl Magnesium Level 2.2 mg/dl Test 07/28/16 00:36 07/28/16 01:38 07/28/16 02:34 07/28/16 03:34 Bedside Glucose 106 mg/dl 143 mg/dl 171 mg/dl 188 mg/dl Test 07/28/16 04:38 07/28/16 05:26 07/28/16 05:28 07/28/16 05:29 Bedside Glucose 209 mg/dl 398 mg/dl 199 mg/dl 203 mg/dl Test 07/28/16 06:34 07/28/16 06:41 07/28/16 07:45 07/28/16 08:51 White Blood Count 7.23 K/uL Red Blood Count 3.61 M/uL Hemoglobin 9.3 g/dL Hematocrit 29.7 % Mean Corpuscular Volume 82.3 fL Mean Corpuscular Hemoglobin 25.8 pg Mean Corpuscular Hemoglobin Concent 31.3 g/dl RDW Standard Deviation 48.3 fL RDW Coefficient of Variation 16.4 % Platelet Count 212 K/uL Mean Platelet Volume 10.5 fL Sodium Level 139 mmol/L Potassium Level 3.9 mmol/L Chloride Level 103 mmol/L Carbon Dioxide Level 26 mmol/L Anion Gap 10.0 mmol/L Blood Urea Nitrogen 85 mg/dl Creatinine 3.40 mg/dl Est Creatinine Clear Calc Drug Dose 17.3 ml/min Estimated GFR () 18.9 Estimated GFR (Non- 16.3 BUN/Creatinine Ratio 25.0 Random Glucose 221 mg/dl Calcium Level 9.0 mg/dl Iron Level 11 mcg/dl Total Iron Binding Capacity 418 mcg/dl Transferrin 295 mg/dl Transferrin % Saturation 3 % Ferritin 25.5 ng/ml Bedside Glucose 232 mg/dl 235 mg/dl 350 mg/dl Test 07/28/16 09:50 07/28/16 10:45 07/28/16 11:23 07/28/16 16:01 Bedside Glucose 304 mg/dl 241 mg/dl 233 mg/dl 190 mg/dl Assessment and Plan Pt is a 76 yo male with a h/o Coronary artery disease: NSTEMI 07/12/16 with troponin to 15.4 managed medically; NSTEMI 06/2015 with troponin to 4 managed medically; NSTEMI in 2013 with stent placement to his distal RCA and PDA, History of aortic stenosis, status post bioprosthetic aortic valve replacement in 2009, CKD stage IV with baseline creatinine from 2-2.5, Chronic hepatitis C with cirrhosis and 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 Acute on chronic kidney disease stage III, cardiorenal syndrome--baseline creatinine around 2.3-2.6, now is 3.5-> 3.4 -nephrology input appreciated -off IVF -follow labs - holding lisinopril subacute NSTEMI, acute on chronic systolic CHF, severe CAD ECHO: * Moderate left ventricular systolic dysfunction EF 30-35%. * Moderate left ventricular hypertrophy. * Mild left atrial dilatation. * Normal central venous pressure. * Mildly elevated estimated RV systolic pressure -Consult cardiology. Troponin 22 upon arrival.trending down, asymptomatic Pt' s troponin chronically elevated around 2-4 due to CKD. CKMB also elevated. -no intervention planned due to renal disease -continue medical management -Toprol XL 100mg daily, topical nitrate, pravastatin, holding lisinopril due to renal failure -aspirin -continue Bumex with caution for goal 1 L diuresis daily Confusion, improved poss sec to all the above CAD, h/o NSTEMI -Continue metoprolol succinate -Continue ASA 81 mg PO qd HTN--stable -Hold lisinopril as above -Continue metoprolol as above HLD -Continue pravastatin 20 mg PO qd Diabetes mellitus type 1--Last HgbA1c checked 07/12/16 was 6.3 sugar is been high was on insulin drip for 1 day, stopped and now on Lantus and Novolog SSI with carb coverage with Pharmacy consult -Check BSGs q ac and qhs Chronic Hep C, cryglobulinemia-stable -follows with GI Gout -Continue allopurinol 100 mg PO qd DVT prophylaxis -Heparin 5000 units SC q12h -RICHARD Lemus Code Status -Level I, FULL RESUSCITATION
[2016-07-28] MEDS: ASPIRIN 81 MG ECTAB PO SCH (20:47)
[2016-07-28] MEDS: CETIRIZINE HCL 10 MG TAB PO SCH (20:47)
[2016-07-28] MEDS: PRAVASTATIN SOD 20 MG TAB PO SCH (20:48)
[2016-07-28] MEDS: RANITIDINE HCL 150 MG TAB PO SCH (20:49)
[2016-07-28] MEDS: INSULIN GLARGINE SOLOSTAR 100 UNITS/ML 3 ML PEN SC SCH (21:04)
[2016-07-29 00:01] VITALS: O2SAT 98
[2016-07-29] MEDS: GUAIFENESIN/CODEINE 100MG/10MG 5ML UDC PO PRN (00:07)
[2016-07-29] MEDS: NITROGLYCERIN OINT 2% 1GM PACKET EXT SCH ×3 (00:15→12:25)
[2016-07-29] MEDS ORDERED: INSULIN ASPART 100 UNITS/ML 3 ML PEN SC SCH (02:00)
[2016-07-29 04:00] VITALS: O2SAT 97
[2016-07-29 04:36] VITALS: BP 117/71; PULSE 71; TEMP 36.4; O2SAT 97
[2016-07-29 05:50] LABS: BASO % 0.3 %; BASO ABS # 0.02 K/uL (0-0.2); COMPLETE YES; EOS % 5.4 %; HEMATOCRIT 28.7 % (42-52); IG% 0.3 %; LYMPH % 12.2 %; LYMPH ABS # 0.79 K/uL (1.2-3.4); MEAN CELL VOLUME 81.8 fL (80-100); MEAN CORPUSCULAR HEMOGLOBIN 26.2 pg (25-34); MEAN CORPUSCULAR HGB CONC 32.1 g/dl (32-36); MEAN PLATELET VOLUME 10.4 fL (7.4-10.4); MONO % 11.7 %; NEUT % 70.1 %; PLATELET COUNT 202 K/uL (130-400); RED BLOOD COUNT 3.51 M/uL (4.7-6.1); WHITE BLOOD COUNT 6.49 K/uL (4.8-10.8)
[2016-07-29 06:23] LABS: CALCIUM 8.7 mg/dl (8.5-10.1); POTASSIUM 3.3 mmol/L (3.5-5.1)
[2016-07-29 06:31] LABS: MAGNESIUM 2.1 mg/dl (1.8-2.4)
[2016-07-29 07:24] VITALS: BP 129/73; PULSE 76; TEMP 36.6; O2SAT 98
[2016-07-29] MEDS ORDERED: POTASSIUM CHLORIDE 10 MEQ TABCR PO ONE (07:30)
[2016-07-29] MEDS: METOPROLOL SUCC 50MG EXT REL TAB PO SCH (07:43)
[2016-07-29] MEDS: CEROVITE ADV FORMULA TAB PO SCH (07:43)
[2016-07-29] MEDS: CALCIUM 600MG + VIT D 400 IU TAB PO SCH (07:43)
[2016-07-29] MEDS: GUAIFENESIN 600 MG TABCR PO SCH (07:44)
[2016-07-29] MEDS: DEXAMETHASONE 0.5 MG/5 ML PO SCH (07:44)
[2016-07-29] MEDS: ALLOPURINOL 100 MG TAB PO SCH (07:46)
[2016-07-29] MEDS: TRIAMCINOLONE ACET 0.1% CR 15 GM TUBE EXT SCH (07:46)
[2016-07-29] MEDS: INSULIN ASPART 100 UNITS/ML 3 ML PEN SC SCH ×2 (07:55→12:33)
[2016-07-29] MEDS: HEPARIN SOD 5000 UNIT/0.5 ML CARP SQ SCH (07:56)
[2016-07-29] MEDS: INSULIN GLARGINE SOLOSTAR 100 UNITS/ML 3 ML PEN SC SCH (07:56)
--- NOTE | 2016-07-29 10:28 | Nephrology Progress Note ---
Nephrology Progress Note Date of Service Jul 29, 2016. Chief Complaint SASHA/CKD Subjective No acute events overnight. Mr. Ellsworth was seen and evaluated in his hospital room this morning. Orthopnea and cough improving. Denies dyspnea at rest. No chest pain or palpitations. Appetite good. Voiding urine without difficulty. I/O's reported to be accurate. Review of Systems A complete review of systems was performed. Pertinent positives are noted above. All other systems are negative. Vital Signs Last 8 Hrs Date Time Temp Pulse Resp B/P Pulse Ox O2 Delivery O2 Flow Rate FiO2 07/29/16 08:00 Room Air 07/29/16 07:24 36.6 76 16 129/73 98 Room Air 07/29/16 04:36 36.4 71 20 117/71 97 Room Air 07/29/16 04:00 97 Room Air I & O 24-Hour Column 07/29/16 08:00 Intake Total 1172 ml Output Total 1230 ml Balance -58 ml Last Recorded Weight Weight (Kilograms): 76.700 Physical Exam General Appearance: WD/WN, no apparent distress Head: normocephalic, atraumatic Eyes: normal inspection, sclerae normal ENT: normal ENT inspection, pharynx normal Neck: supple, + JVD Respiratory/Chest: lungs clear, no respiratory distress, no accessory muscle use Cardiovascular: regular rate, rhythm Abdomen/GI: non tender, soft Extremities/Musculoskelatal: normal inspection, + pedal edema Neurologic/Psych: alert, oriented x 3 Family History Asthma Diabetes mellitus Heart disease Hypertension ID Stroke Social History Smoking Status: Former smoker Smokeless Tobacco Use: No Alcohol Use: none Drug Use: none Marital Status: Housing Status: lives with significant other, halfway ([facility] independent living) 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 Laboratory Results Past 24 Hours 07/29/16 05:20 Red Blood Count 3.51, Mean Corpuscular Volume 81.8, Mean Corpuscular Hemoglobin 26.2, Mean Corpuscular Hemoglobin Concent 32.1, Mean Platelet Volume 10.4, Neutrophils (%) (Auto) 70.1, Lymphocytes (%) (Auto) 12.2, Monocytes (%) (Auto) 11.7, Eosinophils (%) (Auto) 5.4, Basophils (%) (Auto) 0.3, Neutrophils # (Auto ) 4.55, Lymphocytes # (Auto) 0.79, Monocytes # (Auto) 0.76, Eosinophils # (Auto ) 0.35, Basophils # (Auto) 0.02 07/29/16 05:20 Test 07/28/16 10:45 07/28/16 11:23 07/28/16 16:01 07/28/16 19:58 Bedside Glucose 241 mg/dl (70-99) 233 mg/dl (70-99) 190 mg/dl (70-99) 164 mg/dl (70-99) Test 07/29/16 02:18 07/29/16 05:20 07/29/16 07:09 Bedside Glucose 122 mg/dl (70-99) 157 mg/dl (70-99) White Blood Count 6.49 K/uL (4.8-10.8) Red Blood Count 3.51 M/uL (4.7-6.1) Hemoglobin 9.2 g/dL (14.0-18.0) Hematocrit 28.7 % (42-52) Mean Corpuscular Volume 81.8 fL (80-100) Mean Corpuscular Hemoglobin 26.2 pg (25-34) Mean Corpuscular Hemoglobin Concent 32.1 g/dl (32-36) Platelet Count 202 K/uL (130-400) Mean Platelet Volume 10.4 fL (7.4-10.4) Neutrophils (%) (Auto) 70.1 % Lymphocytes (%) (Auto) 12.2 % Monocytes (%) (Auto) 11.7 % Eosinophils (%) (Auto) 5.4 % Basophils (%) (Auto) 0.3 % Neutrophils # (Auto) 4.55 K/uL (1.4-6.5) Lymphocytes # (Auto) 0.79 K/uL (1.2-3.4) Monocytes # (Auto) 0.76 K/uL (0.11-0.59) Eosinophils # (Auto) 0.35 K/uL (0-0.5) Basophils # (Auto) 0.02 K/uL (0-0.2) RDW Standard Deviation 47.8 fL (36.4-46.3) RDW Coefficient of Variation 16.3 % (11.5-14.5) Immature Granulocyte % (Auto) 0.3 % Immature Granulocyte # (Auto) 0.02 K/uL (0.00-0.02) Anion Gap 12.0 mmol/L (3-11) Est Creatinine Clear Calc Drug Dose 19.6 ml/min Estimated GFR () 22.0 Estimated GFR (Non- 19.0 BUN/Creatinine Ratio 27.0 (10-20) Calcium Level 8.7 mg/dl (8.5-10.1) Magnesium Level 2.1 mg/dl (1.8-2.4) Total Bilirubin 0.5 mg/dl (0.2-1) Direct Bilirubin 0.2 mg/dl (0-0.2) Aspartate Amino Transf (AST/SGOT) 53 U/L (15-37) Alanine Aminotransferase (ALT/SGPT) 51 U/L (12-78) Alkaline Phosphatase 69 U/L (45-117) Total Protein 5.6 gm/dl (6.4-8.2) Albumin 2.6 gm/dl (3.4-5.0) Allergies Coded Allergies: No Known Allergies (Verified , NONE, 07/26/16) Medications Current Inpatient Medications Medications (Trade) Dose Ordered Sig/Esme Route Start Time Stop Time Status Last Admin Dose Admin Heparin Sodium (Porcine) (Heparin Sq 5000 Unit/0.5ml) 5,000 unit Q12 SQ 07/26/16 21:00 08/25/16 20:59 07/29/16 07:56 5,000 UNIT Acetaminophen (Tylenol Tab) 650 mg Q4H PRN PO 07/26/16 13:00 08/25/16 12:59 Al Hydrox/Mg Hydrox/Simethicone (Maalox Max Susp) 15 ml Q4H PRN PO 07/26/16 13:00 08/25/16 12:59 Magnesium Hydroxide (Milk Of Magnesia Susp) 30 ml Q12H PRN PO 07/26/16 13:00 08/25/16 12:59 Ondansetron HCl (Zofran Inj) 4 mg Q6H PRN IV 07/26/16 13:00 08/25/16 12:59 Polyethylene (Miralax Powder Packet) 17 gm DAILY PRN PO 07/26/16 13:00 08/25/16 12:59 Glucose (Glucose 40% Gel) 15-30 GRAMS 15 GRAMS... UD PRN PO 07/26/16 13:00 08/25/16 12:59 Glucose (Glucose Chew Tab) 4-8 Tablets 4 Tabl... UD PRN PO 07/26/16 13:00 08/25/16 12:59 Dextrose (Dextrose 50% 50ML Syringe) 25-50ML OF 50% DW IV FOR... UD PRN IV 07/26/16 13:00 08/25/16 12:59 07/27/16 21:40 25 ML Glucagon (Glucagon Inj) 1 mg UD PRN SQ 07/26/16 13:00 08/25/16 12:59 Allopurinol (Zyloprim Tab) 100 mg DAILY PO 07/27/16 09:00 08/26/16 08:59 07/29/16 07:46 100 MG Aspirin (Ecotrin Tab) 81 mg HS PO 07/26/16 21:00 08/25/16 20:59 07/28/16 20:47 81 MG Cetirizine HCl (zyrTEC TAB) 10 mg HS PO 07/26/16 21:00 08/25/16 20:59 07/28/16 20:47 10 MG Folic Acid (Folvite Tab) 1 mg DAILY PO 07/27/16 09:00 08/26/16 08:59 07/29/16 07:44 1 MG Multivitamins/ Minerals (Multivitamin W/ Minerals Tab) 1 tab DAILY PO 07/27/16 09:00 08/26/16 08:59 07/29/16 07:43 1 TAB Nitroglycerin (Nitrostat Tab) 0.4 mg DAILY PRN UT 07/26/16 13:00 08/25/16 12:59 Pravastatin Sodium (Pravachol Tab) 20 mg HS PO 07/26/16 21:00 08/25/16 20:59 07/28/16 20:48 20 MG Ranitidine HCl (zANTac TAB) 150 mg HS PO 07/26/16 21:00 08/25/16 20:59 07/28/16 20:49 150 MG Calcium/Vitamin D (Caltrate Plus Tab) 2 tab DAILY PO 07/27/16 09:00 08/26/16 08:59 07/29/16 07:43 2 TAB Guaifenesin (Mucinex Contr Rel Tab) 600 mg Q12 PO 07/26/16 21:00 08/25/16 20:59 07/29/16 07:44 600 MG Metoprolol Succinate (Toprol Xl Tab) 100 mg DAILY PO 07/27/16 09:00 08/26/16 08:59 07/29/16 07:43 100 MG Nitroglycerin (Nitroglycerin 2% Oint) 1 inch Q6 EXT 07/26/16 17:00 08/25/16 16:59 07/29/16 06:09 1 INCH Triamcinolone Acetonide (Kenalog 0.1% Cream) 1 appln QAM EXT 07/27/16 09:00 08/26/16 08:59 07/29/16 07:46 1 APPLN Codeine Phosphate/ Guaifenesin (Robitussin-AC Sugar Free Syrup) 5 ml Q6H PRN PO 07/27/16 12:00 08/26/16 11:59 07/29/16 00:07 5 ML Dexamethasone (Decadron Elix) 0.5 mg BID PO 07/27/16 12:00 08/26/16 11:59 07/29/16 07:44 0.5 MG Insulin Glargine (Lantus Solostar Pen) 15 unit BID SC 07/28/16 21:00 08/27/16 20:59 07/29/16 07:56 15 UNIT Insulin Aspart (novoLOG ASPART) SLIDING SCALE If C... ACHS SC 07/28/16 11:00 08/27/16 10:59 07/29/16 07:55 7 UNITS Miscellaneous Information (Consult Glycemic Management Pharmacy) 1 ea UD PRN N/A 07/28/16 08:00 08/27/16 07:59 Insulin Aspart (novoLOG ASPART) SLIDING SCALE If C... DAILY@0200 SC 07/29/16 02:00 08/28/16 01:59 Menthol (Nice Lb) 1 lb PRN PRN PO 07/28/16 19:45 08/27/16 19:44 Impression (1) Mental status change (2) Cirrhosis (3) Chronic kidney disease, stage IV (severe) (4) Acute renal failure (5) NSTEMI (non-ST elevated myocardial infarction) Mr. 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 He was admitted with weakness and mental status changes. UA bland and acellular microscopy. Renal ultrasound documenting cortical thinning but no other acute changes. He is non oliguric. He has suffered an NSTEMI and URI in the past few weeks. He was readmitted with NSTEMI and acute diastolic CHF. He did not endorse any chest pain. He does complain of persistent cough as well as recent fevers. I suspect that SASHA is multifactorial due cardiorenal syndrome and possible progression of CKD. Blood pressure is appropriate. Recommendations 1. Hold lisinopril 2. Bumex 2 mg PO QAM with additional doses as needed to encourage daily negative fluid balance 3. Document I/O's 4. Repeat metabolic profile tomorrow AM 5. Medications currently appropriate for renal function 6. Serum cryo screen pending
[2016-07-29] MEDS ORDERED: BUMETANIDE 1 MG TAB PO ONE (10:30)
[2016-07-29 11:16] VITALS: Ht 172.7 cm; Wt 76.7 kg
--- NOTE | 2016-07-29 11:53 | CARDIOLOGY PROGRESS NOTE ---
DATE: 07/29/2016 HISTORY OF PRESENT ILLNESS: Mr. Ellsworth is a very pleasant 76-year-old white male with a history of longstanding type 1 diabetes mellitus, hypertension, dyslipidemia, chronic hepatitis C, seizure disorder, chronically elevated LFTs, multivessel/ heavily calcified CAD (medically managed), and a history of aortic stenosis s/p bioprosthetic AVR in 2009, who was admitted acutely on complaining of progressive shortness of breath, coughing, and persistent left leg edema. He did eat at a restaurant recently which was quite salty, and also spent a day with his cousin who fed him relatively salty foods. He was diagnosed with acute systolic CHF. He underwent an echocardiogram on 07/27/2016 which showed an LVEF of 30% to 35%, moderate concentric LVH, with elevated RV systolic pressure, and a mildly dilated left atrium. Additionally, he was noted to have an elevated serum creatinine level over baseline and was diagnosed with acute renal insufficiency. On physical examination, he had evidence of hypervolemia, and he also had an elevated troponin I level on admission which has since trended down. The patient is currently being seen in room 240 bed 1. He offers no complaints. His breathing is at baseline. He denies any orthopnea or PND. His leg edema has resolved completely. He has not had any chest pain or angina pectoris. He specifically denies any chest heaviness, tightness, or pressure. No neck, jaw, back, or arm pain. No shortness of breath, orthopnea or PND. He denies any palpitations, syncope, or near syncope. PHYSICAL EXAMINATION: VITAL SIGNS: Temperature is 36.6 degrees Celsius, pulse 76 and regular, respiratory rate is 16 and unlabored, blood pressure is 129/72. SPO2 is 98% on room air. I's and O's -450 mL over the past 24 hours. Body weight is 76.7 kilograms. This is down 0.4 kilograms since admission. GENERAL: The patient is in no acute distress. HEENT: Head is atraumatic, normocephalic. EOMs intact. Sclerae are anicteric. Facies symmetric. No perioral cyanosis. NECK: Without obvious JVD. Jugular venous pressure is elevated to approximately 8-9 cm sitting upright. CHEST AND LUNGS: With bibasilar crackles, otherwise clear. No wheezes or rhonchi. CARDIOVASCULAR: S1 and S2 are regular. No murmur, gallop or rub. PMI is nondisplaced. No lifts, heaves, or thrills. No abdominal, aortic or renal bruits. ABDOMEN: Bowel sounds are present. EXTREMITIES: Without clubbing, cyanosis or edema. Pigmentation changes consistent with chronic venous insufficiency noted bilaterally. NEUROLOGIC: The patient is awake, alert and oriented. Pleasant and cooperative. Answers questions appropriately. Speech is clear. LABORATORIES: White blood cell count is 6.49. Hemoglobin is 9.2 g/dL, hematocrit 28.7%, platelet count is 202,000. Sodium is 143 mmol/L, potassium 3.3 mmol/L, BUN is 81 mg/dL, creatinine 3.00 mg/dL. Random glucose 157 mg/dL. Serum magnesium level 2.1 mg/dL. Total CKs and CK-MBs are abnormal. Troponin I was at 22.000 ng/mL on admission, and trended down from there. ProBNP elevated at 14,420 pg/mL on admission. ASSESSMENT: 1. Acute on chronic congestive heart failure, improved. 2. Acute on chronic renal insufficiency, improved. 3. Multivessel, heavily calcified coronary artery disease -- medically managed. 4. No angina pectoris or anginal equivalent symptoms. 5. Hypertension. 6. Dyslipidemia. 7. Chronic hepatitis C. 8. Longstanding type 1 diabetes mellitus. 9. Subacute non-ST elevation myocardial infarction -- no angina pectoris or anginal equivalent symptoms at present time. 10. No evidence of dysrhythmia. PLAN: 1. The patient continues to gently diurese, and his breathing status has improved. His edema has resolved. 2. He was given a single dose of potassium chloride 40 mEq today. Repeat basic metabolic panel tomorrow a.m.. 3. He is aware that his creatinine has improved since yesterday. 4. Continue Bumex 2 mg every day. Recommend using this on a sliding scale following discharge. 5. Reiterated the importance of a low sodium diet. 6. Continue Toprol-XL 100 mg daily. 7. Continue Aspirin 81 mg daily. 8. Continue Pravastatin 20 mg daily. 9. Continue topical nitrates for now. Would recommend sending him home on Isosorbide Mononitrate 90 mg daily (he was only on 60 mg on admission). 10. Continue to closely monitor daily I's and O's, body weights. 11. The patient continues to improve from a cardiac standpoint. Most likely will be discharged within the next 24-48 hours if he continues to progress. CARDIOLOGY ATTENDING ADDENDUM (Dr. Rivero): Agree with above assessment and recommendations by Mohan Saeed PA-C. Will follow-up as outpatient. MATT
[2016-07-29 11:54] VITALS: BP 150/90; PULSE 72; TEMP 36.4; O2SAT 97
--- NOTE | 2016-07-29 13:51 | Discharge Instructions ---
Discharge Instructions Admission Reason for Admission: Acute Renal Failure, NSTEMI, Congestive heart failure Discharge Discharge Diagnosis / Problem: Acute renal failure, NSTEMI, CHF Discharge Goals Goal(s): Improve disease control, Therapeutic intervention Activity Recommendations Activity Limitations: as noted below Exercise/Sports Limitations: until after follow-up appointment May Resume Sexual Activity: after follow-up appointment Shower/Bathe: no limitations Driving or Machine Use: no limitations . Instructions / Follow-Up Instructions / Follow-Up Call your Primary Care doctor if any of the following symptoms or problems start or get worse: * Shortness of breath or difficulty breathing * Wake up at night short of breath * Chest pain * Cough * Swelling of your hands, feet, or legs * More fatigued or tired with your normal activity * Palpitations - sudden fast heart beats WEIGHT * Weigh yourself every morning after using the bathroom. * Use the same scale. * Wear the same amount of clothing. * Write your weight down on a chart. * Call your Primary Care doctor if you gain more than 2-3 pounds in 1-2 days. MEDICATIONS * Use this discharge instruction sheet for medication instructions. * Take your medications at the time your doctor ordered. * Do not skip a dose of your medicines. * If you miss a dose of medicine, take it as soon as possible, but DO NOT DOUBLE A DOSE. * Read your medicine information when you get home. * Know all of the side effects of your medicine. If in doubt, ask your pharmacist * Call your Primary Care doctor's office if you have any side effects. * Be sure all of your doctors know what medicine and herbs you take (including cold, flu, and herbal medicine). Take the following with you to your follow-up doctor appointments: * Weight Chart * Medication List * List of questions Do not drink excessive alcohol, beer or wine. You were admitted with congestive heart failure, evidence of a heart attack, and with kidney failure. Your condition improved. You will need close follow up with your Maintenance Mechanic Helper, Food Trades Assistants, and your Primary Care Doctor within 1-2 weeks. You need to have your blood work checked tomorrow morning at the outpatient lab (on 07/30/15). Current Hospital Diet Patient's current hospital diet: Renal Diet, AHA Diet (Heart Healthy), Diabetes Type 2 Diet Discharge Diet Recommended Diet: AHA Diet (Heart Healthy), Diabetes Type 1 Diet, Renal Diet Fluid Restriction: 1800 ml (7 cups) Procedures Procedures Performed: Echocardiogram Renal ultrasound Chest xray Pending Studies Studies pending at discharge: yes List of pending studies: Complement studies (C3 and C4) Laboratory Results Hemoglobin A1c Test 07/12/16 15:05 Range/Units Estimated Average Glucose 134 mg/dl Hemoglobin A1c 6.3 H 4.5-5.6 % Lipid Panel Test 05/29/16 08:46 Range/Units Triglycerides Level 62 0-150 mg/dl Cholesterol Level 117 0-200 mg/dl HDL Cholesterol 62 mg/dl Cholesterol/HDL Ratio 1.9 LDL Cholesterol, Calculated 43 mg/dl Medical Emergencies . Who to Call and When: Call 911 or go to the Emergency Room if: * If at any time you feel your situation is an emergency * You have tightness or pain in your chest that does not go away with rest or Nitroglycerin * You are very short of breath even with rest . Non-Emergent Contact Non-Emergency issues call your: Primary Care Provider, Maintenance Mechanic Helper, Food Trades Assistants Call Non-Emergent contact if: you have any medication questions If you have weight gain of more than 2-3 lbs in one day, if you have worsening shortness of breath, or if you have any other concerns. . . "Provider Documentation" section prepared by Keya Doll. VTE Core Measure Inpt VTE Proph given/why not?: Unfractionated heparin SQ, T.E.D. Stockings, SCD 's
[2016-07-29] MEDS ORDERED: GFNSR600 PO (13:58)
[2016-07-29] MEDS ORDERED: IMDSR60 PO (13:58)
[2016-07-29] MEDS ORDERED: BMX1 PO (13:58)
[2016-07-29] MEDS ORDERED: TPRSR50 PO (13:58)
[2016-07-29] MEDS ORDERED: ISOSORBIDE MONONITRATE 30 MG TABCR PO ONE (14:00)
[2016-07-29 14:05] VITALS: BP 150/90; PULSE 72; TEMP 36.4; O2SAT 97
--- NOTE | 2016-07-29 14:19 | Discharge Summary ---
Discharge Summary Admission Date: Jul 26, 2016 at 13:14 Discharge Date: Jul 29, 2016 Discharge Disposition: Home Principal Diagnosis: NSTEMI, acute systolic CHF, SASHA on CKD stage IV Problems/Secondary Diagnoses: CAD History of aortic stenosis, status post bioprosthetic aortic valve replacement in 2009 CKD stage IV Chronic hepatitis C without cirrhosis history of cryoglobulinemia DMI with diabetic neuropathy Dyslipidemia Hypertension History of colon cancer s/p colectomy in 1990 and 1993 with ileostomy Gout Immunizations: Have You Had Influenza Vaccine: N/A Influenza Vaccine Date: Apr 02, 2009 History of Tetanus Vaccine?: Unknown History of Pneumococcal: Yes Pneumococcal Date: May 23, 2008 History of Hepatitis B Vaccine: Yes Procedures: ECHO: Interpretation Summary * Name: GILBERTO ELLSWORTH Study Date: 07/27/2016 11:36 AM BP: 113/64 mmHg * Patient Location: [facility] HR: 84 * : 1940 (M/d/yyyy) Gender: Male Height: 68 in * Age: 76 yrs Ethnicity: [place] Weight: 170 lb * Ordering Physician: Titus Arenas MD, FACC * Referring Physician: Titus Arenas MD, FACC * Performed By: Suma Ellsworth [facility] * * Reason For Study: AMI * BSA: 1.9 m2 * Moderate left ventricular systolic dysfunction. * Moderate left ventricular hypertrophy. * Mild left atrial dilatation. * Normal central venous pressure. * Mildly elevated estimated RV systolic pressure. Procedure Details * Limited views were obtained. Left Ventricle * The left ventricle is normal in size. * There is moderate concentric left ventricular hypertrophy. * Left ventricular systolic function is moderately reduced. * Ejection Fraction = 30-35%. * Septal motion is consistent with conduction abnormality. * Moderate global hypokinesis, most prominent in anterolateral and septal segments. Right Ventricle * The right ventricle is normal in size and function. Atria * The left atrium is mildly dilated. * The right atrium is mildly dilated. Mitral Valve * There is moderate to severe mitral annular calcification. * Calcified mitral apparatus. * There is trace mitral regurgitation. Tricuspid Valve * The tricuspid valve is not well visualized, but is grossly normal. * There is mild to moderate tricuspid regurgitation. * Right ventricular systolic pressure is elevated at 40-50mmHg. Aortic Valve * The aortic valve is not well visualized. * No aortic regurgitation is present. Pulmonic Valve * The pulmonic valve is not well visualized. Great Vessels * The aortic root is normal size. * There is aortic root sclerosis/calcification. Pericardium/Pleural * There is no pericardial effusion. Great Vessels * Normal inferior vena cava diameter and respiratory variation suggests normal central venous pressure. CHEST ONE VIEW PORTABLE CLINICAL HISTORY: Pt c/o SOB dyspnea COMPARISON STUDY: 07/22/2016 FINDINGS: Findings consistent with developing congestive heart failure. Moderate increase in prominence of pulmonary vasculature. Diaphragms smooth. IMPRESSION: Congestive heart failure EXAMINATION: RENAL ULTRASOUND CLINICAL HISTORY: Acute renal injury COMPARISON STUDY: CT scan dated 07/13/2016 FINDINGS: The right kidney measures 10.0 cm. The left kidney measures 10.5 cm. There is no evidence of hydronephrosis. There are no renal masses. No bladder abnormalities are visualized. Bilateral ureteral jets were visualized. IMPRESSION : Mild bilateral renal cortical thinning. No evidence of hydronephrosis. Consultations: Cardiology Nephrology Medication Reconciliation New Medications: Bumetanide (Bumetanide) 1 Mg Tab 2 MG PO QAM, #30 TAB Guaifenesin Ext Rel (Mucinex Ext Rel) 600 Mg Tabcr 600 MG PO Q12 for 7 Days, #14 OTC Isosorbide Mononitrate (Isosorbide Mononitrate ER) 60 Mg Tab 90 MG PO QAM for 30 Days, #45 TAB Metoprolol Succinate (Metoprolol Succinate ER) 50 Mg Tabcr 100 MG PO DAILY for 30 Days, #60 Continued Medications: Allopurinol (Zyloprim) 100 Mg Tab 100 MG PO DAILY, TAB Aspirin (Aspirin Ec) 81 Mg Tab 81 MG PO HS B-Complex Vitamins (B Complex) 1 Cap Cap 1 CAP PO DAILY Cetirizine (Zyrtec) 10 Mg Tab 10 MG PO HS, TAB Coenzyme Q10 (Ubidecarenone) (Coq-10) 400 Mg Cap 800 MG PO DAILY Dexamethasone (Dexamethasone) 0.5 Mg/5 Ml Elx 5 ML PO BID SWISH IN MOUTH Folic Acid (Folvite) 1 Mg Tab 1 MG PO NOON, TAB Insulin Aspart (Novolog Flexpen) 100 Units/Ml Inj 1 DOSE SQ AC PRN for PER SLIDING SCALE Insulin Glargine (Lantus Solostar) 100 Unit/Ml Inj 15 UNITS SC BID, PEN Multiple Vitamins W/ Minerals (Centrum Silver Adult 50+) 1 Tab Tab 1 TAB PO DAILY Nitroglycerin (Nitrostat) 0.4 Mg Tab 0.4 MG UT PRN, BTL Ocuvite Preservision (Ocuvite Preservision) 1 Tab Tab 2 TAB PO DAILY, TAB Pravastatin Sod (Pravastatin Sodium) 40 Mg Tab 20 MG PO HS Ranitidine (Zantac) 150 Mg Tab 150 MG PO HS, TAB Triamcinolone Acet (Aristocort 0.1%) 90 Appln/30 Gm Cr 1 APPLN TOP UD TO AFFECTED AREA(S) Discontinued Medications: Azithromycin (Zithromax) 250 Mg Tab 250 MG PO DAILY, #4 TAB Bumetanide (Bumex) 1 Mg Tab 1 MG PO QAM, TAB Calcium Carbonate-Vitamin D (Calcium + D) 1 Tab Tab 2 TAB PO DAILY Gabapentin (Neurontin) 100 Mg Cap 100 MG PO NOON, CAP Gabapentin (Neurontin) 100 Mg Cap 300 MG PO BID, CAP 300MG AT DINNER, 300MG AT BEDTIME Hydrocodone W/ Homatropine (Hycodan 5/1.5MG 5 Ml) 1 Syp Syp 5 ML PO HS PRN for Cough, #120 ML Isosorbide Mononitrate Ext Rel (Imdur Ext Rel) 60 Mg Ertab 60 MG PO QAM, TAB Lisinopril (Prinivil) 10 Mg Tab 10 MG PO DAILY, TAB Metoprolol Succ (Toprol Xl) (Toprol-Xl) 50 Mg Tabcr 50 MG PO NOON, #30 TAB Referrals At Discharge Follow up Referrals: Water Valve Mechanic Referral - Within 1-2 Weeks with Kaleb Rivero M.D. Gas Controller Referral - Within 1-2 Weeks with Jose Manuel Waldrop M.D. Physician Referral - Within 1 Week with Yomi Ellis M.D. Discharge Exam Doing well on day of discharge, no SOB, no leg swelling, noris po, ready to go home. Renal function improved. Review of Systems: Constitutional: No fever Eyes: No problem reported ENT: No problem reported Respiratory: No dyspnea on exertion, No shortness of breath Cardiovascular: No chest pain Abdomen: No nausea, No pain, No vomiting Musculoskeletal: No problem reported Genitourinary - Male: No problem reported Neurologic: No problem reported Psychiatric: No problem reported Endocrine: No problem reported Hematologic / Lymphatic: No problem reported Integumentary: No problem reported Physical Exam: General Appearance: WD/WN, no apparent distress Eyes: normal inspection, sclerae normal ENT: hearing grossly normal Neck: trachea midline Respiratory/Chest: lungs clear, normal breath sounds, no respiratory distress, no accessory muscle use Cardiovascular: regular rate, rhythm, no edema, no gallop, no murmur Abdomen / GI: normal bowel sounds, non tender, soft, + pertinent finding ( ileostomy bag present) Extremities: no pedal edema, + pertinent finding (chronic venous stasis changes, left anterior leg with multiple small excoriations) Neurologic/Psychiatric: alert, normal mood/affect, oriented x 3 Skin: normal color, warm/dry, + rash (as above) Hospital Course Pt is a 76 yo male with a h/o Coronary artery disease: NSTEMI 07/12/16 with troponin to 15.4 managed medically; NSTEMI 06/2015 with troponin to 4 managed medically; NSTEMI in 2013 with stent placement to his distal RCA and PDA, History of aortic stenosis, status post bioprosthetic aortic valve replacement in 2009, CKD stage IV with baseline creatinine from 2-2.5, Chronic hepatitis C with cirrhosis and 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 Acute on chronic kidney disease stage IV, cardiorenal syndrome--baseline creatinine around 2.3-2.6, now is 3.5-> 3.4--> 3.0 after IV Bumex today -nephrology input appreciated -off IVFs -follow labs as outpatient tomorrow - holding lisinopril -may need hemodialysis in the future -f/u with Nephro within 1-2 weeks -stopped Calcium supplements Subacute NSTEMI, acute on chronic systolic CHF, severe CAD ECHO: * Moderate left ventricular systolic dysfunction EF 30-35%. * Moderate left ventricular hypertrophy. * Mild left atrial dilatation. * Normal central venous pressure. * Mildly elevated estimated RV systolic pressure -Consult cardiology. Troponin 22 upon arrival.trending down, asymptomatic Pt' s troponin chronically elevated around 2-4 due to CKD. CKMB also elevated. Cardiology thought NSTEMI occurred 1-2 days prior to admission. -no intervention planned due to renal disease -continue medical management -Toprol XL 100mg daily, topical nitrate here and then switch back to Imdur at increased dose of 90mg for home,continue pravastatin, holding lisinopril due to renal failure -aspirin -restarted Bumex 2mg po qAM for discharge -Cough most likely from his CHF, does not need to continue on chronic cough syrup with hycodan or codeine Confusion, improved poss sec to all the above CAD, h/o NSTEMI -Continue metoprolol succinate at increased dose of 100mg daily -Continue ASA 81 mg PO qd HTN--stable -Hold lisinopril as above -Continue metoprolol as above HLD -Continue pravastatin 20 mg PO qd Diabetes mellitus type 1--Last HgbA1c checked 07/12/16 was 6.3 sugar was high on admission in the 500s and was on insulin drip for 1 day, stopped and now on Lantus and Novolog SSI with carb coverage, much improved -Check BSGs q ac and qhs Chronic Hep C, cryglobulinemia-stable -follows with GI -cryoglobulins to be checked as an outpatient as could not be drawn over the weekend in hospital lab (specialized test) Gout -Continue allopurinol 100 mg PO qd -Chronic pain/peripheral neuropathy- gabapentin on hold here due to renal failure and did not have any acute pain -continue to hold but could restart as outpatient if pain returns but at lower dose DVT prophylaxis -Heparin 5000 units SC q12h -RICHARD baker and SCDs Code Status -Level I, FULL RESUSCITATION Total Time Spent: Greater than 30 minutes This includes examination of the patient, discharge planning, medication reconciliation, and communication with other providers. Discharge Instructions Please refer to the electronic Patient Visit Report (Discharge Instructions) for additional information. Follow-Up With PCP within 1 week With Cardiology within 1-2 weeks With Nephrology within 1-2 weeks Check labs in 1 day Additional Copies To Kaleb Rivero M.D.; Jose Manuel Waldrop M.D.; Yomi Ellis M.D.
[2016-07-30] MEDS ORDERED: ISOSORBIDE MONONITRATE 30 MG TABCR PO SCH (09:00)
[2016-07-30] MEDS ORDERED: BUMETANIDE 1 MG TAB PO SCH (09:00)
[2016-09-06] MEDS ORDERED: GABA-113 PO (14:06)
[2016-09-06] MEDS ORDERED: GABA-112 PO (14:06)
[2016-09-06] MEDS ORDERED: COEN1CAP7 PO (14:06)
[2016-09-06] MEDS ORDERED: METO1TAB69 PO (14:06)
[2016-09-06] MEDS ORDERED: CALC600T9 PO (14:07)
[2016-09-17] MEDS ORDERED: OXYC-57 PO (12:43)
== END 2016-07-29 15:10 | disposition home or self-care (01) | DRG 280 ==
LOC: ENRESERVDT → ENRESERVTM → EDBD 08:50 → C.EDA 08:52 → C.2T 13:14
PROVIDERS: ADMIT Hospitalist; ATTEND Family Medicine
DX: I21.4 Non-ST elevation (NSTEMI) myocardial infarction (principal); I50.23 Acute on chronic systolic (congestive) heart failure; N17.9 Acute kidney failure, unspecified; N18.4 Chronic kidney disease, stage 4 (severe); I13.0 Hypertensive heart and chronic kidney disease with heart failure and stage 1 through stage 4 chronic kidney disease, or unspecified chronic kidney disease; E86.0 Dehydration; I25.10 Atherosclerotic heart disease of native coronary artery without angina pectoris; E78.5 Hyperlipidemia, unspecified; B18.2 Chronic viral hepatitis C; K74.60 Unspecified cirrhosis of liver; I25.5 Ischemic cardiomyopathy; I25.2 Old myocardial infarction; D89.1 Cryoglobulinemia; M10.9 Gout, unspecified; E10.40 Type 1 diabetes mellitus with diabetic neuropathy, unspecified; E10.21 Type 1 diabetes mellitus with diabetic nephropathy; E10.22 Type 1 diabetes mellitus with diabetic chronic kidney disease; D50.9 Iron deficiency anemia, unspecified; R41.82 Altered mental status, unspecified; G40.909 Epilepsy, unspecified, not intractable, without status epilepticus; K59.00 Constipation, unspecified; E55.9 Vitamin D deficiency, unspecified; R79.89 Other specified abnormal findings of blood chemistry; G89.29 Other chronic pain; M81.0 Age-related osteoporosis without current pathological fracture; Z95.2 Presence of prosthetic heart valve; Z85.038 Personal history of other malignant neoplasm of large intestine; Z87.891 Personal history of nicotine dependence; Z79.4 Long term (current) use of insulin; Z93.2 Ileostomy status; Z90.49 Acquired absence of other specified parts of digestive tract; Z87.820 Personal history of traumatic brain injury; Z95.5 Presence of coronary angioplasty implant and graft

== ENCOUNTER → 2016-08-01 | Outpatient (CLI) | payer OTHER, MEDICARE ==
[~2016-08-01] MED LIST changes: -AZIT250T5 PO; +BMX1 PO; +BUME2TAB3 PO; +CETI10TA10 PO; +COEN1CAP7 PO; +CPC PO; +DIPH-581 PO; +FERR325T18 PO; -FOLI1TAB7 PO; +FOLI1TAB8 PO; +GABA-113 PO; -GABA1CAP PO; +GFNSR600 PO; +GLGKIT IM; +HYDR-3126 PO; -HYDR5SYP11 PO; +IMDSR60 PO; +ISOS-10 PO; -ISOS60TA25 PO; +KFL250 PO; +LISI-461 PO; -LISI10TA PO; +METO100T44 PO; -METO50TA7 PO; +OXYC-57 PO; +PLV75 PO; +TPRSR50 PO
[2016-08-01 10:31] LABS: ALT/SGPT 53 U/L (12-78); AST/SGOT 68 U/L (15-37); BLOOD UREA NITROGEN 72 mg/dl (7-18); BUN/CREATININE RATIO 26.6 (10-20); CALCIUM 8.3 mg/dl (8.5-10.1); CARBON DIOXIDE 27 mmol/L (21-32); CHLORIDE 105 mmol/L (98-107); GLUCOSE 123 mg/dl (70-99); POTASSIUM 3.6 mmol/L (3.5-5.1); SODIUM 143 mmol/L (136-145)
[2016-08-01 10:33] LABS: ALB/GLOB RATIO 0.9 (0.9-2); ALKALINE PHOSPHATASE 82 U/L (45-117)
[2016-08-06 19:30] LABS: % CRYOCRIT 0.1 to 0.4% % (0)
== END ==
LOC: C.LABFOXDH 09:29
PROVIDERS: ATTEND Internal Medicine Cardiovascular Disease
DX: I12.9 Hypertensive chronic kidney disease with stage 1 through stage 4 chronic kidney disease, or unspecified chronic kidney disease (principal)

== ENCOUNTER → 2016-08-14 | Outpatient (CLI) | payer OTHER, MEDICARE ==
[~2016-08-14] MED LIST changes: -BUME1TAB PO; -BUME2TAB3 PO; -CETI10TA10 PO; -DIPH-581 PO; +FOLI1TAB7 PO; -FOLI1TAB8 PO; -KFL250 PO; -METO100T44 PO; +METO1TAB69 PO
[2016-08-14 09:50] LABS: HEMATOCRIT 32.3 % (42-52); MEAN CELL VOLUME 80.5 fL (80-100); MEAN CORPUSCULAR HEMOGLOBIN 24.9 pg (25-34); MEAN PLATELET VOLUME 10.8 fL (7.4-10.4); PLATELET COUNT 179 K/uL (130-400); RED BLOOD COUNT 4.01 M/uL (4.7-6.1); WHITE BLOOD COUNT 4.61 K/uL (4.8-10.8)
[2016-08-14 10:01] LABS: ALT/SGPT 139 U/L (12-78); BLOOD UREA NITROGEN 62 mg/dl (7-18); BUN/CREATININE RATIO 23.9 (10-20); CALCIUM 9.7 mg/dl (8.5-10.1); CARBON DIOXIDE 25 mmol/L (21-32); CHLORIDE 108 mmol/L (98-107); GLUCOSE 173 mg/dl (70-99); POTASSIUM 4.5 mmol/L (3.5-5.1); SODIUM 143 mmol/L (136-145)
[2016-08-14 10:05] LABS: ALKALINE PHOSPHATASE 162 U/L (45-117); AST/SGOT 127 U/L (15-37); FERRITIN 25.4 ng/ml (8.0-388.0); TOTAL IRON BINDING CAPACITY 431 mcg/dl (250-450)
[2016-08-14 10:23] LABS: BLOOD UREA NITROGEN 62 mg/dl (7-18); BUN/CREATININE RATIO 23.9 (10-20); GLUCOSE 173 mg/dl (70-99); URINE APPEARANCE CLEAR (CLEAR); URINE BILIRUBIN NEG (NEG); URINE COLOR DK YELLOW; URINE EPITHELIAL CELL AUTO 0-5 /lpf (0-5); URINE NITRITE NEG (NEG); URINE SPECIFIC GRAVITY 1.013 (1.000-1.030); UROBILINOGEN NEG (NEG)
[2016-08-14 10:24] LABS: CALCIUM 9.7 mg/dl (8.5-10.1); CARBON DIOXIDE 25 mmol/L (21-32); CHLORIDE 108 mmol/L (98-107); POTASSIUM 4.5 mmol/L (3.5-5.1); SODIUM 143 mmol/L (136-145)
[2016-08-14 10:28] LABS: MANUAL MICROSCOPIC REQUIRED? NO; REVIEW REQ? NO
[2016-08-14 10:31] LABS: URINE PROTIEN/CREAT RATIO 0.5 (0-0.2); URINE TOTAL PROTEIN 53.2 mg/dl (0-11.9)
[2016-08-14 10:35] LABS: URIC ACID 9.4 mg/dl (2.6-7.2)
== END | disposition home or self-care (01) ==
LOC: C.LABFOXMH 09:26
PROVIDERS: ATTEND Internal Medicine Nephrology
DX: M10.9 Gout, unspecified (principal); D64.9 Anemia, unspecified; N18.4 Chronic kidney disease, stage 4 (severe); B18.2 Chronic viral hepatitis C; D89.1 Cryoglobulinemia; I10 Essential (primary) hypertension; R80.9 Proteinuria, unspecified

== ENCOUNTER → 2016-09-04 | Outpatient (CLI) | payer OTHER, MEDICARE ==
[2016-09-04 09:03] LABS: ALT/SGPT 130 U/L (12-78); BLOOD UREA NITROGEN 71 mg/dl (7-18); BUN/CREATININE RATIO 27.1 (10-20); CALCIUM 9.2 mg/dl (8.5-10.1); CARBON DIOXIDE 20 mmol/L (21-32); CHLORIDE 110 mmol/L (98-107); CHOLESTEROL 127 mg/dl (0-200); GLUCOSE 106 mg/dl (70-99); POTASSIUM 4.7 mmol/L (3.5-5.1); SODIUM 141 mmol/L (136-145)
[2016-09-04 09:06] LABS: ALKALINE PHOSPHATASE 112 U/L (45-117); AST/SGOT 128 U/L (15-37); CHOLESTEROL/HDL RATIO 1.6; HDL CHOLESTEROL 80 mg/dl; LDL CHOLESTEROL CALCULATED 35 mg/dl; TRIGLYCERIDES 62 mg/dl (0-150); VERY LOW DENSITY LIPOPROT CALC 12 mg/dl
== END ==
LOC: C.LABFOXMH 08:33
PROVIDERS: ATTEND Internal Medicine
DX: E78.00 Pure hypercholesterolemia, unspecified (principal)

== ENCOUNTER 2016-09-17 10:02 | Day surgery (SDC) | payer OTHER, MEDICARE ==
[2016-09-06 14:13] VITALS: BMI 25.0
--- NOTE | 2016-09-06 15:07 | PAT Medication Instructions ---
Service Date Sep 06, 2016. Current Home Medication List Allopurinol (Zyloprim), 100 MG PO DAILY Aspirin (Aspirin Ec), 81 MG PO QPM B-Complex Vitamins (B Complex), 1 CAP PO DAILY Bumetanide (Bumetanide), 2 MG PO QAM Calcium Carbonate-Vitamin D (Calcium + D), 1 TAB PO BID Cetirizine (Zyrtec), 10 MG PO HS Coenzyme Q10 (Ubidecarenone) (Coq10), 200 MG PO BID Dexamethasone (Dexamethasone), 5 ML PO BID Folic Acid (Folvite), 1 MG PO NOON Gabapentin (Neurontin), 100 MG PO NOON Gabapentin (Neurontin), 300 MG PO QAM/HS Insulin Aspart (Novolog Flexpen), 1 DOSE SQ AC PRN for PER SLIDING SCALE Insulin Glargine (Lantus Solostar), 15 UNITS SC BID Isosorbide Mononitrate (Isosorbide Mononitrate ER), 90 MG PO QAM Metoprolol Succ (Toprol Xl) (Toprol-Xl ), 100 MG PO HS Multiple Vitamins W/ Minerals (Centrum Silver Adult 50+), 1 TAB PO DAILY Nitroglycerin (Nitrostat), 0.4 MG UT PRN Ocuvite Preservision (Ocuvite Preservision), 1 TAB PO BID Pravastatin Sod (Pravastatin Sodium), 40 MG PO QPM Ranitidine (Zantac), 150 MG PO BID Triamcinolone Acet (Aristocort 0.1%), 1 APPLN TOP UD Medication Instructions For Your Scheduled Surgery - Hold the following medications starting 09/07/16: Coenzyme Q10 (Ubidecarenone) (Coq10), 200 MG PO BID - Hold the following medications 24 hours prior to surgery: Triamcinolone Acet (Aristocort 0.1%), 1 APPLN TOP UD - Hold the following medications the morning of surgery: Ranitidine (Zantac), 150 MG PO BID Ocuvite Preservision (Ocuvite Preservision), 1 TAB PO BID Multiple Vitamins W/ Minerals (Centrum Silver Adult 50+), 1 TAB PO DAILY Insulin Aspart (Novolog Flexpen), 1 DOSE SQ AC PRN for PER SLIDING SCALE Folic Acid (Folvite), 1 MG PO NOON Bumetanide (Bumetanide), 2 MG PO QAM Calcium Carbonate-Vitamin D (Calcium + D), 1 TAB PO BID B-Complex Vitamins (B Complex), 1 CAP PO DAILY - Take the following medications the morning of surgery with a sip of water: Nitroglycerin (Nitrostat), 0.4 MG UT PRN Isosorbide Mononitrate (Isosorbide Mononitrate ER), 90 MG PO QAM Gabapentin (Neurontin), 300 MG PO QAM/HS Gabapentin (Neurontin), 100 MG PO NOON Allopurinol (Zyloprim), 100 MG PO DAILY Dexamethasone (Dexamethasone), 5 ML PO BID (mouthwash) - Take the following medications as scheduled the night before surgery: Ranitidine (Zantac), 150 MG PO BID Pravastatin Sod (Pravastatin Sodium), 40 MG PO QPM Ocuvite Preservision (Ocuvite Preservision), 1 TAB PO BID Nitroglycerin (Nitrostat), 0.4 MG UT PRN Multiple Vitamins W/ Minerals (Centrum Silver Adult 50+), 1 TAB PO DAILY Metoprolol Succ (Toprol Xl) (Toprol-Xl ), 100 MG PO HS Insulin Glargine (Lantus Solostar), 15 UNITS SC BID Insulin Aspart (Novolog Flexpen), 1 DOSE SQ AC PRN for PER SLIDING SCALE Gabapentin (Neurontin), 300 MG PO QAM/HS Cetirizine (Zyrtec), 10 MG PO HS Calcium Carbonate-Vitamin D (Calcium + D), 1 TAB PO BID Aspirin (Aspirin Ec), 81 MG PO QPM (okay to continue per surgeon) Dexamethasone (Dexamethasone), 5 ML PO BID (mouthwash) - For Insulin Dependent Diabetic patients: Test blood sugar A.M. of surgery. - If blood sugar greater than 150, take half of your regular dose of: Insulin Glargine (Lantus Solostar), take 8 units units - If blood sugar less than 150 do not take any: Insulin Glargine (Lantus Solostar) If you have any questions please call us at [phone] (Ml Jang PA-C) or [phone] or [phone]
--- NOTE | 2016-09-06 15:29 | DIAGNOSTIC IMAGING REPORT ---
TWO VIEW CHEST CLINICAL HISTORY: Preoperative examination. FINDINGS: PA and lateral chest radiographs are compared to study dated 07/26/2016. The patient is status post midline sternotomy and aortic valve replacement. The heart is enlarged and there is atherosclerotic calcification of the thoracic aorta. The pulmonary vasculature is noncongested. The mitral annulus is densely calcified. Chronic interstitial thickening is unchanged. The lungs and pleural spaces are clear. There is no pneumothorax. The skeletal structures are osteopenic. Degenerative change is noted throughout the thoracic spine. IMPRESSION: Cardiomegaly with no active disease in the chest. Electronically signed by: Milton Duarte M.D. 09/06/2016 3:27 PM Dictated Date/Time: 09/06/2016 3:26 PM
[2016-09-06 16:35] LABS: BASO % 0.3 %; BASO ABS # 0.02 K/uL (0-0.2); COMPLETE YES; EOS % 4.1 %; HEMATOCRIT 32.8 % (42-52); IG% 0.3 %; LYMPH % 8.7 %; LYMPH ABS # 0.62 K/uL (1.2-3.4); MEAN CELL VOLUME 78.7 fL (80-100); MEAN CORPUSCULAR HEMOGLOBIN 24.5 pg (25-34); MEAN CORPUSCULAR HGB CONC 31.1 g/dl (32-36); MEAN PLATELET VOLUME 11.4 fL (7.4-10.4); MONO % 12.4 %; NEUT % 74.2 %; PLATELET COUNT 159 K/uL (130-400); RED BLOOD COUNT 4.17 M/uL (4.7-6.1); WHITE BLOOD COUNT 7.09 K/uL (4.8-10.8)
[2016-09-06 16:44] LABS: INR 1.1 (0.9-1.1); PARTIAL THROMBOPLASTIN RATIO 1.2; PROTHROMBIN TIME (PATIENT) 11.4 SECONDS (9.0-12.0)
[~2016-09-17] VITALS: Ht 172.7 cm; Wt 76.1 kg
--- NOTE | 2016-09-17 06:27 | History and Physical ---
History & Physical CC: End stage renal disease HPI: Mr. Ellsworth today is a 76-year-old gentleman with end-stage renal disease in need of a permanent access. He is not on dialysis at this time. He has a history of heart disease and hypertension. ALLERGIES: MORPHINE. MEDICATIONS: Allopurinol, aspirin, betamethasone, budesonide, calcium, dexamethasone, gabapentin, isosorbide, Lantus, lisinopril, metoprolol, Nitrostat , NovoLog, Plavix, pravastatin, ranitidine, rosuvastatin, and triamcinolone and Zyrtec. PAST MEDICAL HISTORY: Heart disease, hypertension, cancer and tuberculosis and renal failure. PAST SURGICAL HISTORY: Tonsillectomy, bowel surgery, aortic valve replacement in 2009. SOCIAL HISTORY: He smoked 20 years, 1 pack a day, and quit in the . He does not drink. FAMILY HISTORY: Positive also for heart disease and hypertension, carotid artery disease. REVIEW OF SYSTEMS: Ten systems were reviewed. His only positive findings are bleeding gums, heart failure, myocardial infarctions in 2016, 2014, and 2013, and gout. The rest of the complaints are as per the HPI. PHYSICAL EXAMINATION: The patient is awake, oriented x3, has normal body habitus. He is in no apparent distress. His blood pressure is 128/68 in the right, 118/60 in the left. Head and neck within normal limits. No carotid bruits. Lungs are clear. Heart regular rate and rhythm. Abdominal exam is benign. Vascular exam: His radials, carotids, superficial temporal arteries are +2 bilaterally. There is no usable veins visualized in the forearms in either arm. His femorals are +2 and the lower extremities showed no acute ischemic changes. Mapping did show usable cephalic vein in the right upper arm and a usable basilic vein in the left upper arm. He is right-handed. IMPRESSION: End-stage renal disease. PLAN AND RECOMMENDATIONS: We went over the risks, options, and benefits of fistula placement. He does have a cephalic vein in the right upper arm, which is usable, and a left basilic vein, which would have to be transposed. Even though his right arm is dominant, he elected to go ahead with placing in the cephalic vein in the right upper arm. He understands the risks, options, benefits and agrees to go ahead with this procedure.
[~2016-09-17 10:02] MED LIST changes: +CEFAZOLIN 1000MG/55 ML D5W IV SCH; -COEN1CAP32 PO; -CPC PO; +FENTANYL CITRATE INJ 50 MCG/1 ML 2 ML VIAL ONE; -FERR325T18 PO; -GFNSR600 PO; -GLGKIT IM; -HYDR-3126 PO; -ISOS-10 PO; -LISI-461 PO; -OXYC-57 PO; -PLV75 PO; +PROPOFOL IV EMULSION 10 MG/ML 20 ML VIAL IV ONE; +SODIUM CHLORIDE 0.9% 1000ML 1,000 ML IV SCH; -TPRSR50 PO
[2016-09-17 10:10] VITALS: BP 162/66; PULSE 45; TEMP 36.4; O2SAT 100; Ht 172.7 cm; Wt 76.1 kg
[2016-09-17 10:43] LABS: BUN/CREATININE RATIO 23.4 (10-20); CALCIUM 8.9 mg/dl (8.5-10.1); CREATININE 3.3 mg/dl (0.60-1.40); POTASSIUM 3.7 mmol/L (3.5-5.1)
--- NOTE | 2016-09-17 10:49 | History & Physical Bridge Note ---
H&P Re-Evaluation Bridge Note: I have examined the patient, reviewed the History & Physical and in the interval since the performance of the History & Physical I have noted the following changes of clinical significance: No changes noted
[2016-09-17] MEDS ORDERED: THROMBIN FOR SOLN 20000 UNIT KIT ONE (11:07)
[2016-09-17] MEDS ORDERED: GELATIN SPONGE 12-7MM ONE (11:07)
[2016-09-17] MEDS ORDERED: LIDOCAINE HCL 1% 20 ML VIAL ONE (11:08)
[2016-09-17] MEDS ORDERED: BUPIVACAINE/EPINEPHRINE 0.5% MPF 1:200,000 30 ML VIAL ONE (11:08)
[2016-09-17] MEDS ORDERED: HEPARIN SOD (PORCINE) 1000 UNIT/ML 10 ML VIAL ONE (11:08)
[2016-09-17] MEDS ORDERED: FENTANYL CITRATE INJ 50 MCG/1 ML 2 ML VIAL ONE (12:08)
--- NOTE | 2016-09-17 12:41 | [facility] Post Operative Brief Note ---
Immediate Operative Summary Operative Date Sep 17, 2016. Pre-Operative Diagnosis End-stage renal disease. Post-Operative Diagnosis End-stage renal disease. Procedure(s) Performed Right Upper Arm Cephalic Vein Arteriovenous Fistula Surgeon Dr Julián Lafleur Department Manager Surgeon(s) Evelyn Lazaro PA-C Estimated Blood Loss 5ML Findings Good thrill Specimens none Anesthesia MAC Complication(s) None Disposition Recovery Room / PACU
[2016-09-17] MEDS ORDERED: OXYC-57 PO (12:43)
--- NOTE | 2016-09-17 12:45 | Discharge Instructions ---
Discharge Instructions Visit Reason for Visit: End Stage Renal Disease Discharge Discharge Diagnosis / Problem: End stage renal disease Discharge Goals Goal(s): Therapeutic intervention Activity Recommendations Activity Limitations: per Instructions/Follow-up section Anesthesia . Post Anesthesia Instructions: If you have had General Anesthesia or IV Sedation: * Do not drive today. * Resume driving when surgeon permits. * Do not make important decisions or sign legal documents today. * Call surgeon for: 1. Temperature elevations greater than 101 degrees F. 2. Uncontrollable pain. 3. Excessive bleeding. 4. Persistent nausea and vomiting. 5. Medication intolerance (nausea, vomiting or rash). * For nausea and vomiting use only clear liquids such as: tea, soda, bouillon until nausea subsides, then gradually increase diet as tolerated. * If you have any concerns or questions, call your surgeon's office. If physician is unavailable and it is an emergency, call 911 or go to the nearest emergency room. . Instructions / Follow-Up Instructions / Follow-Up Call [phone] to schedule a follow up appointment if one not already scheduled. ACTIVITY RECOMMENDATIONS: See Above SPECIAL CARE INSTRUCTIONS: Call your doctor if: * Temperature above 101 degrees * Pain not relieved by pain medicine ordered * There is increased drainage or redness from any incision * You have any unanswered questions or concerns. Diet Recommendations Recommended Home Diet: resume previous diet Procedures Procedures Performed: Right Upper Arm Cephalic Vein Arteriovenous Fistula Pending Studies Studies pending at discharge: no Medical Emergencies . Who to Call and When: Medical Emergencies: If at any time you feel your situation is an emergency, please call 911 immediately. . Non-Emergent Contact Non-Emergency issues call your: Surgeon . . "Provider Documentation" section prepared by Julián Lafleur.
[2016-09-17] MEDS ORDERED: NovoLIN-R INSULIN PER UNIT CHARGE ONE (13:15)
[2016-09-17] MEDS ORDERED: NovoLIN-R INSULIN PER UNIT CHARGE IV STA (13:27)
--- NOTE | 2016-09-17 13:27 | OPERATIVE REPORT ---
DATE OF OPERATION: 09/17/2016 PREOPERATIVE DIAGNOSIS: End-stage renal disease. POSTOPERATIVE DIAGNOSIS: Same. PROCEDURE: Right antecubital cephalic vein AV fistula creation. SURGEON: Dr. Lafleur. FIELD REPRESENTATIVE: Evelyn Lazaro PA-C. ANESTHETIC: MAC. PROCEDURE INDICATIONS: The patient is a 76-year-old gentleman with end-stage renal disease in need of an access. He does have a cephalic vein which is usable on the right upper arm. Antecubital cephalic vein AV fistula was recommended. He understood the risks, options and benefits and agreed to have this procedure. OPERATION AND FINDINGS: The patient was taken to operating room and placed in supine position. After the right arm was prepped and draped in a sterile manner, local anesthetic was administered. A transverse incision was made just below the antecubital crease. Cephalic vein was identified. It was of good caliber. It was freed up down to the bifurcation. The brachial artery was then identified at that level. At that point, the 2 branches of the cephalic vein were ligated and then divided. The cephalic vein was then spatulated. The brachial artery was then clamped proximally and distally. Longitudinal arteriotomy was then made. A small amount of plaque was seen within the will of the artery. An end-to-side anastomosis was then accomplished between the cephalic vein and the brachial artery using a running 7-0 Prolene suture in the usual vascular fashion. Prior to completing the closure, backbleeding and forward bleeding was allowed to occur and final few sutures were placed and securely tied. Clamps were removed. Excellent flow was seen through the cephalic vein. A good thrill was palpated. Adequate hemostasis was noted in the wound. The wound was then closed in the usual fashion using running 3-0 Vicryl suture for the subcutaneous layer and a running 4-0 subcuticular suture for the skin edges. This was also Vicryl. The Dermabond was used for a dressing for the wound. The patient left the operating room in satisfactory condition and tolerated the procedure well. Evelyn Lazaro assisted due to lack of resident availability. I attest to the content of the Intraoperative Record and any orders documented therein. Any exceptio ns are noted below.
[2016-09-17] MEDS ORDERED: NALOXONE HCL 0.4 MG/1 ML VIAL/CARP IV PRN (13:30)
[2016-09-17] MEDS ORDERED: PROMETHAZINE HCL INJ 12.5 MG in SODIUM CHLORIDE 0.9% 50ML 50 ML IV PRN (13:30)
[2016-09-17] MEDS ORDERED: ATROPINE SULFATE 0.1 MG/ML 5ML SYR IV PRN (13:30)
[2016-09-17] MEDS ORDERED: ONDANSETRON INJ 2 MG/ML 2 ML VIAL IV PRN (13:30)
[2016-09-17] MEDS ORDERED: EpHEDrine SULFATE INJ 50 MG/ML AMP IV PRN (13:30)
--- NOTE | 2016-09-17 13:56 | Anesthesiology Progress Note ---
Anesthesia Post Op Note Date & Time Sep 17, 2016 at 13:56 Vital Signs Pain Intensity: 0 Vital Signs Past 12 Hours Date Time Temp Pulse Resp B/P Pulse Ox O2 Delivery O2 Flow Rate FiO2 09/17/16 13:02 36.2 85 10 133/54 100 Room Air 09/17/16 10:10 36.4 45 16 162/66 100 Room Air Notes Mental Status: alert / awake / arousable, participated in evaluation Pt Amnestic to Procedure: Yes Nausea / Vomiting: adequately controlled Pain: adequately controlled Airway Patency, RR, SpO2: stable & adequate BP & HR: stable & adequate Hydration State: stable & adequate Anesthetic Complications: no major complications apparent
[2016-09-17 14:15] VITALS: BP 144/48; PULSE 56; TEMP 36.6; O2SAT 100
[2016-09-17 14:40] VITALS: BP 129/38; PULSE 60; TEMP 36.5; O2SAT 100
[2016-09-17 15:00] VITALS: BP 143/57; PULSE 60; TEMP 36.4; O2SAT 97
--- NOTE | 2016-09-20 13:43 | Progress Note ---
Progress Note Date of Service Sep 20, 2016. Progress Note I assisted Dr Lafleur with Fracisco Ellsworth's Right Upper Arm Cephalic Vein Arteriovenous Fistula on 09/17/16, d/t lack of resident availability.
[2016-09-26] MEDS ORDERED: CPC PO (12:58)
[2016-09-26] MEDS ORDERED: PLV75 PO (12:58)
== END 2016-09-17 15:15 | disposition home or self-care (01) ==
LOC: C.ACU 10:02
PROVIDERS: ATTEND Surgery Vascular Surgery
DX: N18.6 End stage renal disease (principal); I51.9 Heart disease, unspecified; I10 Essential (primary) hypertension; Z88.5 Allergy status to narcotic agent; Z86.11 Personal history of tuberculosis; Z87.891 Personal history of nicotine dependence; Z90.89 Acquired absence of other organs; I25.10 Atherosclerotic heart disease of native coronary artery without angina pectoris; E78.5 Hyperlipidemia, unspecified; R56.9 Unspecified convulsions; Z93.2 Ileostomy status; E10.9 Type 1 diabetes mellitus without complications; Z85.038 Personal history of other malignant neoplasm of large intestine; Z86.39 Personal history of other endocrine, nutritional and metabolic disease; Z95.2 Presence of prosthetic heart valve; Z86.19 Personal history of other infectious and parasitic diseases

== ENCOUNTER → 2016-09-18 | Outpatient (CLI) | payer OTHER, MEDICARE ==
[~2016-09-18] MED LIST changes: -CEFAZOLIN 1000MG/55 ML D5W IV SCH; +CPC PO; -FENTANYL CITRATE INJ 50 MCG/1 ML 2 ML VIAL ONE; +FERR325T18 PO; +GLGKIT IM; +HYDR-3126 PO; +ISOS-10 PO; +LISI-461 PO; +OXYC-57 PO; +PLV75 PO; -PROPOFOL IV EMULSION 10 MG/ML 20 ML VIAL IV ONE; -SODIUM CHLORIDE 0.9% 1000ML 1,000 ML IV SCH
[2016-09-18 09:13] LABS: ALKALINE PHOSPHATASE 92 U/L (45-117); ALT/SGPT 114 U/L (12-78); AST/SGOT 107 U/L (15-37); BLOOD UREA NITROGEN 79 mg/dl (7-18); BUN/CREATININE RATIO 24.7 (10-20); CALCIUM 8.9 mg/dl (8.5-10.1); CARBON DIOXIDE 24 mmol/L (21-32); CHLORIDE 105 mmol/L (98-107); GLUCOSE 165 mg/dl (70-99); POTASSIUM 4.6 mmol/L (3.5-5.1); SODIUM 139 mmol/L (136-145)
== END ==
LOC: C.LABFOXMH 08:30
PROVIDERS: ATTEND Internal Medicine
DX: N18.3 Chronic kidney disease, stage 3 (moderate) (principal); R94.5 Abnormal results of liver function studies

== ENCOUNTER 2016-09-24 12:09 | Inpatient (IN) | payer OTHER, MEDICARE ==
[~2016-09-24] VITALS: Ht 172.7 cm; Wt 87.2 kg
[~2016-09-24 12:09] MED LIST changes: -CPC PO; -FERR325T18 PO; -GLGKIT IM; -HYDR-3126 PO; -ISOS-10 PO; -LISI-461 PO; -PLV75 PO
[2016-09-24 12:49] LABS: MEAN CORPUSCULAR HGB CONC 30.7 g/dl (32-36)
--- NOTE | 2016-09-24 12:49 | DIAGNOSTIC IMAGING REPORT ---
CHEST ONE VIEW PORTABLE CLINICAL HISTORY: cp dyspnea COMPARISON STUDY: 09/06/2016 FINDINGS: Prior median sternotomy. Diaphragms smooth. Lungs are clear. IMPRESSION: No acute process. Electronically signed by: Jaron Oates M.D. 09/24/2016 12:48 PM Dictated Date/Time: 09/24/2016 12:47 PM
[2016-09-24 12:56] LABS: HEMATOCRIT 33.2 % (42-52); MEAN CELL VOLUME 81.2 fL (80-100); MEAN CORPUSCULAR HEMOGLOBIN 24.9 pg (25-34); RED BLOOD COUNT 4.09 M/uL (4.7-6.1); WHITE BLOOD COUNT 6.97 K/uL (4.8-10.8)
[2016-09-24 12:58] LABS: INR 1.1 (0.9-1.1); PARTIAL THROMBOPLASTIN RATIO 1.1
[2016-09-24 13:05] LABS: BUN/CREATININE RATIO 25.9 (10-20); CALCIUM 8.7 mg/dl (8.5-10.1); CREATININE 3.1 mg/dl (0.60-1.40); POTASSIUM 3.6 mmol/L (3.5-5.1)
[2016-09-24 13:14] LABS: MEAN PLATELET VOLUME 11.6 fL (7.4-10.4); PLATELET COUNT 123 K/uL (130-400)
[2016-09-24 13:17] LABS: ANISOCYTOSIS PRESENT; BASO % 0.3 %; BASO ABS # 0.02 K/uL (0-0.2); COMPLETE YES; EOS % 3.2 %; IG% 0.3 %; LYMPH % 14.3 %; NEUT % 76.9 %; PLT ESTIMATE DECREASED
[2016-09-24 13:33] LABS: CKMB/CK RATIO 10.2 (0-3.0)
[2016-09-24] MEDS ORDERED: ISOS-10 PO (14:31)
[2016-09-24] MEDS ORDERED: HYDR-3126 PO (14:31)
[2016-09-24] MEDS ORDERED: GLGKIT IM (14:31)
[2016-09-24] MEDS ORDERED: LISI-461 PO (14:31)
[2016-09-24] MEDS ORDERED: PLV75 PO (14:31)
[2016-09-24] MEDS ORDERED: NITROGLYCERIN 0.4 MG SL PER TAB CHARGE SL PRN (15:30)
[2016-09-24] MEDS ORDERED: MAGNESIUM HYDROXIDE SUSP 30 ML UDC PO PRN (15:30)
[2016-09-24] MEDS ORDERED: ALUMINUM/MAGNESIUM/SIMETH (MAALOX MAX) 30 ML UDC PO PRN (15:30)
[2016-09-24] MEDS ORDERED: TRIAMCINOLONE ACET 0.1% CR 15 GM TUBE EXT PRN (15:30)
[2016-09-24] MEDS ORDERED: ONDANSETRON INJ 2 MG/ML 2 ML VIAL IV PRN (15:30)
[2016-09-24] MEDS ORDERED: POLYETHYLENE (MIRALAX) 17 GM PACK PO PRN (15:30)
[2016-09-24] MEDS ORDERED: hydrOXYzine HCL 10 MG TAB PO PRN (15:30)
[2016-09-24] MEDS ORDERED: ACETAMINOPHEN 325 MG TAB PO PRN (15:30)
[2016-09-24] MEDS ORDERED: IV FLUIDS COMPLETED PRN (15:45)
--- NOTE | 2016-09-24 15:59 | History and Physical ---
History & Physical Date & Time of Service: Sep 24, 2016 at 15:33 Chief Complaint: Hypoglycemia Primary Care Physician: Jad Whitfield History of Present Illness Source: patient, family Patient is a pleasant 76 y/o male with a history of CAD, CHF, CKD stage IV, HTN , HLD, DM type 1, chronic hepatitis C, h/o colon cancer with colectomy, who presented to the ED because of hypoglycemic with an episode of unresponsiveness. Per patient, he took 15 u of insulin this morning and only had an orange for breakfast. He then lied down for a nap. His partner found him unresponsive. His blood sugar was 28 and his gave him glucagon. He regained consciousness after ~10 minutes. Currently, patient is feeling well. He ate lunch without any difficulty. Patient denies any fever, chills, sweats, lightheadedness, dizziness, vision changes, CP, palpitations, edema, SOB, wheezing, cough, abdominal pain, nausea, vomiting, diarrhea, urinary symptoms, melena, numbness/tingling, weakness, muscle/joint pain, anxiety/depression, active bleeding, or new skin discoloration/changes. Past Medical/Surgical History Medical Problems: 1. CAD 2. CHF 3. CKD stage IV 4. HTN 5. HLD 6. DM type 1 7. Chronic hepatitis C 8. h/o colon cancer with colectomy Surgical Problems: 1. Heart valve replaced 2. History of aortic valve replacement 3. S/P colectomy 4. Stented coronary artery Family History Asthma Diabetes mellitus Heart disease Hypertension [place] Stroke Social History Smoking Status: Former Smoker Drug Use: none Marital Status: Housing status: lives with significant other, fpc Occupational Status: retired Immunizations History of Influenza Vaccine: N/A Influenza Vaccine Date: Apr 02, 2009 History of Tetanus Vaccine?: Unknown History of Pneumococcal: Yes Pneumococcal Date: May 23, 2008 History of Hepatitis B Vaccine: Yes Multi-Drug Resistant Organisms History of MDRO: No Allergies Coded Allergies: No Known Allergies (Verified , NONE, 09/24/16) Home Medications Scheduled Allopurinol (Zyloprim), 100 MG PO DAILY Aspirin (Aspirin Ec), 81 MG PO QPM B-Complex Vitamins (B Complex), 1 CAP PO DAILY Bumetanide (Bumetanide), 2 MG PO QAM Calcium Carbonate-Vitamin D (Calcium + D), 1 TAB PO BID Cetirizine (Zyrtec), 10 MG PO HS Clopidogrel Bisulfate (Clopidogrel), 75 MG PO 2XWK Coenzyme Q10 (Ubidecarenone) (Coq10), 400 MG PO BID Dexamethasone (Dexamethasone), 5 ML PO BID Folic Acid (Folvite), 1 MG PO NOON Gabapentin (Neurontin), 300 MG PO QAM/HS Glucagon (Glucagon Emergency Kit), 1 MG IM UD Insulin Glargine (Lantus Solostar), 15 UNITS SC BID Isosorbide Mononitrate (Isosorbide Mononitrate ER), 90 MG PO DAILY Lisinopril (Zestril), 10 MG PO DAILY Metoprolol Succ (Toprol Xl) (Toprol-Xl ), 100 MG PO HS Multiple Vitamins W/ Minerals (Centrum Silver Adult 50+), 1 TAB PO DAILY Nitroglycerin (Nitrostat), 0.4 MG UT PRN Ocuvite Preservision (Ocuvite Preservision), 1 TAB PO BID Pravastatin Sod (Pravastatin Sodium), 20 MG PO QPM Ranitidine (Zantac), 150 MG PO BID Triamcinolone Acet (Aristocort 0.1%), 1 APPLN TOP UD Scheduled PRN Hydroxyzine Hcl (Atarax), 10 MG PO Q6 PRN for Itching Insulin Aspart (Novolog Flexpen), 1 DOSE SQ AC PRN for PER SLIDING SCALE Physical Exam Vital Signs Date Time Temp Pulse Resp B/P Pulse Ox O2 Delivery O2 Flow Rate FiO2 09/24/16 13:51 70 13 114/44 100 Room Air 09/24/16 13:48 98 Room Air 09/24/16 12:24 36.4 74 15 122/66 98 Room Air 09/24/16 12:23 66 General Appearance: no apparent distress Head: normocephalic, atraumatic Eyes: normal inspection, PERRL ENT: hearing grossly normal Neck: supple Respiratory/Chest: lungs clear, no respiratory distress, no accessory muscle use Cardiovascular: regular rate, rhythm, + systolic murmur Abdomen/GI: normal bowel sounds, non tender, soft, + pertinent finding ( ileostomy RLQ ) Back: normal inspection Extremities/Musculoskelatal: no calf tenderness, no pedal edema, + pertinent finding (bilateral chronic stasis dermatitis of lower extremities ) Neurologic/Psych: alert, normal mood/affect, oriented x 3 Skin: warm/dry, no rash Diagnostics Laboratory Results Results Past 24 Hours Test 09/24/16 12:26 09/24/16 12:40 09/24/16 14:06 Range/Units Bedside Glucose 114 171 70-99 mg/dl White Blood Count 6.97 4.8-10.8 K/uL Red Blood Count 4.09 4.7-6.1 M/uL Hemoglobin 10.2 14.0-18.0 g/dL Hematocrit 33.2 42-52 % Mean Corpuscular Volume 81.2 80-100 fL Mean Corpuscular Hemoglobin 24.9 25-34 pg Mean Corpuscular Hemoglobin Concent 30.7 32-36 g/dl Platelet Count 123 130-400 K/uL Mean Platelet Volume 11.6 7.4-10.4 fL Neutrophils (%) (Auto) 76.9 % Lymphocytes (%) (Auto) 14.3 % Monocytes (%) (Auto) 5.0 % Eosinophils (%) (Auto) 3.2 % Basophils (%) (Auto) 0.3 % Neutrophils # (Auto) 5.36 1.4-6.5 K/uL Lymphocytes # (Auto) 1.00 1.2-3.4 K/uL Monocytes # (Auto) 0.35 0.11-0.59 K/uL Eosinophils # (Auto) 0.22 0-0.5 K/uL Basophils # (Auto) 0.02 0-0.2 K/uL RDW Standard Deviation 52.9 36.4-46.3 fL RDW Coefficient of Variation 20.8 11.5-14.5 % Immature Granulocyte % (Auto) 0.3 % Immature Granulocyte # (Auto) 0.02 0.00-0.02 K/uL Platelet Estimate DECREASED Anisocytosis PRESENT Prothrombin Time 12.0 9.0-12.0 SECONDS Prothromb Time International Ratio 1.1 0.9-1.1 Activated Partial Thromboplast Time 28.9 21.0-31.0 SECONDS Partial Thromboplastin Ratio 1.1 Sodium Level 142 136-145 mmol/L Potassium Level 3.6 3.5-5.1 mmol/L Chloride Level 109 98-107 mmol/L Carbon Dioxide Level 23 21-32 mmol/L Anion Gap 10.0 3-11 mmol/L Blood Urea Nitrogen 80 7-18 mg/dl Creatinine 3.10 0.60-1.40 mg/dl Est Creatinine Clear Calc Drug Dose 21.1 ml/min Estimated GFR () 21.2 Estimated GFR (Non- 18.3 BUN/Creatinine Ratio 25.9 10-20 Random Glucose 122 70-99 mg/dl Calcium Level 8.7 8.5-10.1 mg/dl Total Creatine Kinase 55 39-308 U/L Creatine Kinase MB 5.6 0.5-3.6 ng/ml Creatine Kinase MB Ratio 0-3.0 Troponin I 0.075 0-0.045 ng/ml Diagnostic Radiology CHEST ONE VIEW PORTABLE CLINICAL HISTORY: cp dyspnea COMPARISON STUDY: 09/06/2016 FINDINGS: Prior median sternotomy. Diaphragms smooth. Lungs are clear. IMPRESSION: No acute process. Electronically signed by: Jaron Oates M.D. 09/24/2016 12:48 PM Dictated Date/Time: 09/24/2016 12:47 PM The status of this report is Signed. Draft = Not yet reviewed or approved by Radiologist. Signed = Reviewed and approved by Radiologist. EKG GILBERTO CASH ID:[id number] 24-SEP-2016 12:20:28 [facility] Sinus rhythm with 1st degree A-V block with occasional Premature ventricular complexes Left atrial enlargement Cannot rule out Septal infarct Nonspecific ST and T wave abnormality Abnormal ECG When compared with ECG of 06-SEP-2016 14:48, Premature ventricular complexes are now Present Possible Septal infarct is now Present Confirmed by JOSELO GONZALEZ MD ([id number]) on 09/24/2016 3:26:00 PM 25mm/s 10mm/mV 150Hz 8.0 SP2 12SL 241 KATE: 0 Referred by: ER Confirmed By: MD JOSELO ZODA Vent. 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 Unresponsive episode, secondary to hypoglycemia/T1DM: - Admit tele for cardiac monitoring - Troponin elevated, chronic--> trend cardiac enzyme - Continue Lantus 15 u BID and BSG ACHS with sliding insulin scale - Diabetic counselling Diabetic neuropathy: Continue Gabapentin 300 mg PO BID and 100 mg PO @1200 CKD, stage IV, stable- baseline cr 2.5-3.0: - Follows with Dr. Waldrop - Right antecubital cephalic AV fistula placed on 09/17/16 - Follow PRP CAD/CHF: - Follows with Dr. Rivero - ECHO 07/27/16- EF 30-35%, moderate LVH, mild left atrial dilatation, normal central venous pressure, mildly elevated RV systolic pressure - Continue Imdur 30 mg PO daily, Metoprolol 100 mg PO daily, ASA 81 mg PO daily - Continue Bumetanide 2 mg PO daily - Patient is to start Plavix 75 mg PO weekly--> has not started yet Anemia, stable: - Continue Ferrous Gluconate 324 mg PO BID - Follow CBC HTN: Continue Lisinopril 10 mg PO daily Dyslipidemia: Continue Pravastatin 40 mg PO daily Pruritus: Continue Triamcinolone and Hydroxyzine Oral lichen planus: Continue Dexamethasone rinses GI Prophylaxis:Maalox PRN,I V Zofran PRN, Colace and/or Milk of Mag PRNn DVT prophylaxis: RICHARD and SCDs, hold anticoagulation due to anemia Code Status: LEVEL V, DNR Dispo: From home, lives with Level of Care Telemetry Resuscitation Status DO NOT RESUSCITATE VTE Prophylaxis VTE Risk Assessment Done? Y/N: Yes Risk Level: Moderate Given or contraindicated: T.E.D. Stockings, SCD's
--- NOTE | 2016-09-24 16:02 | Progress Note ---
Progress Note Date of Service Sep 24, 2016. Progress Note pt seen and examed, d/w PA about soto points of dignosis and care plan, agreed current management, for details please referral to PA's note S:was unresponsive b/c BG was 28, now is doing well, eating drinking , conversational, no c/o, O: VS reviewed, stable, pleasant, NAD Lungs: decreased breathing sound, no respiratory distress, no accessory muscle use Cardiovascular: regular rate, rhythm, no edema, normal peripheral pulses Abdomen / GI: normal bowel sounds, non tender, soft Extremities: no calf tenderness, no pedal edema Neurologic/Psychiatric: alert, normal mood/affect, oriented x 3, CNII-XII intact All labs, images, reviewed A/P: severe hypoglycemia episode IDDM on insulin mild elevated tn w/o chest pain, likely because of Tn leakage ESRD has fistula not on HD yet, stable obs, tele, ce tn x 2 set more DM education, check a1c, PT/OT continue current care time spend (minutes): 15
[2016-09-24] MEDS ORDERED: GLUCOSE 40% GEL 15 GM TUBE PO PRN (17:00)
[2016-09-24] MEDS ORDERED: GLUCOSE 10 TABS/TUBE PO PRN (17:00)
[2016-09-24] MEDS ORDERED: GLUCAGON FOR INJ 1 MG VIAL SQ PRN (17:00)
[2016-09-24] MEDS ORDERED: DEXTROSE 50% 50 ML SYR IV PRN (17:00)
--- NOTE | 2016-09-24 17:59 | EMERGENCY ROOM VISIT NOTE ---
History Report prepared by Марина: Vince Corona Under the Supervision of: Dr. Mychal Corrales M.D. First contact with patient: 12:33 Chief Complaint: HYPOGLYCEMIA Stated Complaint: HYPOGLYCEMIA Nursing Triage Summary: pt arrives via als, the last thing the pt remembers is eating an orange and laying down, partner attempted to wake the pt and he wouldnt, bsg 28, called EMS, was given glucogan, and when ems arrived, pt awake, answering questions, bsg 65 and then recheck 81. pt initially refusing and then decided to come to the er. pvcs on ekg done by ems denies cp History of Present Illness The patient is a 76 year old male who presents to the Emergency Room via ALS with complaints of hypoglycemia starting this morning. He does not think he ate enough and he took his regular dose of insulin. He had an orange this morning and then lied down. His found the patient to be shaking and unresponsive. The patient's blood sugar level was 28. The patient's gave him glucagon IM. He regained consciousness after 10 minutes. His then gave him oral glucose and he was awake and alert when the ambulance arrived. He has had no chest discomfort, pain, or shortness of breath today or recently. He currently complains of weakness. He denies fevers, vomiting, abdominal pain, or any other complaints. Source of History: patient, spouse/significant other Onset: this morning Position: other (global) Symptom Intensity: Blood sugar level of 28 Quality: other (hypoglycemia) Modifying Factors (Relieving): other (glucagon ) Associated Symptoms: + LOC, + weakness, No SOB, No abdominal pain, No chest pain, No fevers, No vomiting Review of Systems See HPI for pertinent positives & negatives. A total of 10 systems reviewed and were otherwise negative. 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 (16) Osteoporosis Nos Surgical Problems: (1) Heart valve replaced (2) History of aortic valve replacement (3) S/P colectomy (4) Stented coronary artery Family History Asthma Diabetes mellitus Heart disease Hypertension [place] Stroke Social History Smoking Status: Former Smoker Alcohol Use: none Drug Use: none Marital Status: Housing Status: lives with significant other Occupation Status: retired Current/Historical Medications Scheduled Allopurinol (Zyloprim), 100 MG PO DAILY Aspirin (Aspirin Ec), 81 MG PO QPM B-Complex Vitamins (B Complex), 1 CAP PO DAILY Bumetanide (Bumetanide), 2 MG PO QAM Calcium Carbonate-Vitamin D (Calcium + D), 1 TAB PO BID Cetirizine (Zyrtec), 10 MG PO HS Clopidogrel Bisulfate (Clopidogrel), 75 MG PO 2XWK Coenzyme Q10 (Ubidecarenone) (Coq10), 400 MG PO BID Dexamethasone (Dexamethasone), 5 ML PO BID Folic Acid (Folvite), 1 MG PO NOON Gabapentin (Neurontin), 300 MG PO QAM/HS Glucagon (Glucagon Emergency Kit), 1 MG IM UD Insulin Glargine (Lantus Solostar), 15 UNITS SC BID Isosorbide Mononitrate (Isosorbide Mononitrate ER), 90 MG PO DAILY Lisinopril (Zestril), 10 MG PO DAILY Metoprolol Succ (Toprol Xl) (Toprol-Xl ), 100 MG PO HS Multiple Vitamins W/ Minerals (Centrum Silver Adult 50+), 1 TAB PO DAILY Nitroglycerin (Nitrostat), 0.4 MG UT PRN Ocuvite Preservision (Ocuvite Preservision), 1 TAB PO BID Pravastatin Sod (Pravastatin Sodium), 20 MG PO QPM Ranitidine (Zantac), 150 MG PO BID Triamcinolone Acet (Aristocort 0.1%), 1 APPLN TOP UD Scheduled PRN Hydroxyzine Hcl (Atarax), 10 MG PO Q6 PRN for Itching Insulin Aspart (Novolog Flexpen), 1 DOSE SQ AC PRN for PER SLIDING SCALE Allergies Coded Allergies: No Known Allergies (Verified , NONE, 09/24/16) Physical Exam Vital Signs Date Time Temp Pulse Resp B/P Pulse Ox O2 Delivery O2 Flow Rate FiO2 09/24/16 17:46 74 12 146/47 98 09/24/16 16:26 74 09/24/16 16:05 72 12 98 09/24/16 15:59 72 12 146/47 98 09/24/16 15:50 71 15 100 09/24/16 15:35 71 15 127/61 99 09/24/16 15:35 74 16 127/61 100 Room Air 09/24/16 13:51 70 13 114/44 100 Room Air 09/24/16 13:48 98 Room Air 09/24/16 12:24 36.4 74 15 122/66 98 Room Air 09/24/16 12:23 66 Physical Exam Constitutional: Vital signs reviewed. Eyes: Pupils are equal round reactive to light. Conjunctiva are noninjected. ENT: Pharynx is clear without erythema or exudate. Mucous membranes are moist. Neck supple without meningeal signs. Respiratory: Clear to auscultation bilaterally. Breath sounds are equal bilaterally. Cardiovascular: Regular rate and rhythm. No rubs or gallops. GI: Soft, nondistended and nontender. Bowel sounds are present. Musculoskeletal: No peripheral edema. No lower extremity tenderness. Integumentary: No cyanosis. Neurological: The patient is awake and alert. Cranial nerves II-XII are intact. Motor is 5 out of 5 all extremities. Sensation is intact to light touch all extremities. Normal speech. No pronator drift. Psychiatric: Normal affect. Medical Decision & Procedures ER Provider Diagnostic Interpretation: X-ray results as stated below per interpretation by me and the radiologist: CHEST ONE VIEW PORTABLE CLINICAL HISTORY: cp dyspnea COMPARISON STUDY: 09/06/2016 FINDINGS: Prior median sternotomy. Diaphragms smooth. Lungs are clear. IMPRESSION: No acute process. Electronically signed by: Jaron Oates M.D. 09/24/2016 12:48 PM Dictated Date/Time: 09/24/2016 12:47 PM Laboratory Results 09/24/16 12:40 Red Blood Count 4.09, Mean Corpuscular Volume 81.2, Mean Corpuscular Hemoglobin 24.9, Mean Corpuscular Hemoglobin Concent 30.7, Mean Platelet Volume 11.6, Neutrophils (%) (Auto) 76.9, Lymphocytes (%) (Auto) 14.3, Monocytes (%) (Auto) 5.0, Eosinophils (%) (Auto) 3.2, Basophils (%) (Auto) 0.3, Neutrophils # (Auto) 5.36, Lymphocytes # (Auto) 1.00, Monocytes # (Auto) 0.35, Eosinophils # (Auto) 0.22, Basophils # (Auto) 0.02 09/24/16 12:40 Test 09/24/16 12:40 09/24/16 17:21 White Blood Count 6.97 K/uL (4.8-10.8) Red Blood Count 4.09 M/uL (4.7-6.1) Hemoglobin 10.2 g/dL (14.0-18.0) Hematocrit 33.2 % (42-52) Mean Corpuscular Volume 81.2 fL (80-100) Mean Corpuscular Hemoglobin 24.9 pg (25-34) Mean Corpuscular Hemoglobin Concent 30.7 g/dl (32-36) Platelet Count 123 K/uL (130-400) Mean Platelet Volume 11.6 fL (7.4-10.4) Neutrophils (%) (Auto) 76.9 % Lymphocytes (%) (Auto) 14.3 % Monocytes (%) (Auto) 5.0 % Eosinophils (%) (Auto) 3.2 % Basophils (%) (Auto) 0.3 % Neutrophils # (Auto) 5.36 K/uL (1.4-6.5) Lymphocytes # (Auto) 1.00 K/uL (1.2-3.4) Monocytes # (Auto) 0.35 K/uL (0.11-0.59) Eosinophils # (Auto) 0.22 K/uL (0-0.5) Basophils # (Auto) 0.02 K/uL (0-0.2) RDW Standard Deviation 52.9 fL (36.4-46.3) RDW Coefficient of Variation 20.8 % (11.5-14.5) Immature Granulocyte % (Auto) 0.3 % Immature Granulocyte # (Auto) 0.02 K/uL (0.00-0.02) Platelet Estimate DECREASED Anisocytosis PRESENT Prothrombin Time 12.0 SECONDS (9.0-12.0) Prothromb Time International Ratio 1.1 (0.9-1.1) Activated Partial Thromboplast Time 28.9 SECONDS (21.0-31.0) Partial Thromboplastin Ratio 1.1 Anion Gap 10.0 mmol/L (3-11) Est Creatinine Clear Calc Drug Dose 21.1 ml/min Estimated GFR () 21.2 Estimated GFR (Non- 18.3 BUN/Creatinine Ratio 25.9 (10-20) Calcium Level 8.7 mg/dl (8.5-10.1) Total Creatine Kinase 55 U/L (39-308) Creatine Kinase MB 5.6 ng/ml (0.5-3.6) Creatine Kinase MB Ratio (0-3.0) Troponin I 0.075 ng/ml (0-0.045) Bedside Glucose 302 mg/dl (70-99) Laboratory results as reviewed by me. ECG Indication: other (Unresponsiveness) Rate (beats per minute): 67 Rhythm: sinus rhythm Findings: 1st degree AV block, ST elevation (Slight ST elevation in v1 and v2 ) , other (Nonspecific ST-T wave changes in leads I and avL) Comparison ECG Date: September 06, 2016 Change: Slight ST elevation was present on EKG from September 06, 2016. Repeat EKG showed sinus rhythm, 67 beats per minute, 1 degree AV block, persistent ST changes from prior, no PVCs. ED Course 1233: The patient was evaluated in room B02. A complete history and physical exam was performed. 1418: On reevaluation, the patient is resting comfortably. He continued to deny any chest discomfort or shortness of breath. His blood sugar was 171 and he ate lunch. He verbalized agreement of the treatment plan. The patient will be evaluated for further management and care. 1431: I discussed the patient's case with Dr. Prieto, from [facility]ist [facility]. Medical Decision This is a 76-year-old male who presents with altered mental status secondary to low blood sugar. I did perform a limited focused review of portions of the patient's old chart on the electronic medical record. The patient had right AV fistula created on September [address] Lafleur. I did evaluate the patient as noted above. The patient is currently asymptomatic. He states he took his insulin but did not eat very much and went to lie down. His found him unresponsive and"vibrating." He checked his blood sugar which was 28 and gave him IM glucagon. He did regain consciousness in 10 minutes and gave him oral glucose tablets. The patient has no symptoms at this time and denies any chest discomfort or shortness of breath. The patient was placed on a continuous diagnostic cardiac sonographer. He was given a meal tray. I did order and personally review the patient's 12-lead EKG and chest x-ray as described above. His chest x-ray was read by the machine as a STEMI but I disagreed with this interpretation. His clinical presentation is not consistent with a STEMI. He denies having any chest discomfort or shortness of breath or really any symptoms at all at this time. I did repeat twelve-lead EKG which showed no significant changes from his prior EKG. I did order and review the patient's blood work as noted in the electronic medical record. His troponin was slightly elevated. His creatinine is over 3 which is chronic. It is unclear if this slight elevation of his troponin is secondary to his kidney disease or cardiac disease. He does have a prior history of non- STEMI. I did recommend hospitalization for repeat troponins and further evaluation. I did discuss the case with the hospitalist and pillowcase cutter. Consults Time Called: 1420 Consulting Physician: Dr. Prieto, from [facility] Returned Call: 1431 I discussed the patient's case with Dr. Prieto, from [facility]. Impression Primary Impression: Hypoglycemia Additional Impressions: Elevated troponin Chronic kidney disease Scribe Attestation The scribe's documentation has been prepared under my direct and personally reviewed by me in its entirety. I confirm that the note above accurately reflects all work, treatment, procedures, and medical decision making performed by me. Departure Information Dispostion Being Evaluated By Hospitalist Referrals Jad Whitfield (PCP) Patient Instructions My [facility] Problem Qualifiers
[2016-09-24 19:19] VITALS: BP 164/75; PULSE 87; TEMP 36.9; O2SAT 98
[2016-09-24] MEDS: INSULIN ASPART 100 UNITS/ML 3 ML PEN SC SCH ×2 (19:19→21:12)
[2016-09-24 20:04] VITALS: BP 160/79; PULSE 80; TEMP 36.5; O2SAT 96; BMI 29.3
[2016-09-24] MEDS ORDERED: INSULIN GLARGINE SOLOSTAR 100 UNITS/ML 3 ML PEN SC SCH (21:00)
[2016-09-24] MEDS ORDERED: PRAVASTATIN SOD 40 MG TAB PO SCH (21:00)
[2016-09-24] MEDS ORDERED: DEXAMETHASONE 1 MG TAB PO SCH (21:00)
[2016-09-24] MEDS: CETIRIZINE HCL 10 MG TAB PO SCH (21:09)
[2016-09-24] MEDS: ASPIRIN 81 MG ECTAB PO SCH (21:09)
[2016-09-24] MEDS: METOPROLOL SUCC 50MG EXT REL TAB PO SCH (21:09)
[2016-09-24] MEDS: PRAVASTATIN SOD 20 MG TAB PO SCH (21:09)
[2016-09-24] MEDS: GABAPENTIN 300 MG CAP PO SCH (21:09)
[2016-09-24] MEDS: RANITIDINE HCL 150 MG TAB PO SCH (21:09)
[2016-09-24] MEDS: CEROVITE ADV FORMULA TAB PO SCH (21:09)
[2016-09-24] MEDS ORDERED: PHARMACY GLYCEMIC MGMT CONSULT PRN (22:03)
[2016-09-24] MEDS ORDERED: INSULIN REGULAR 8 UNITS in SYRINGE 7.92 ML IV SCH (23:00)
[2016-09-24] MEDS ORDERED: POTASSIUM CHLORIDE INJ 40 MEQ in SODIUM CHLORIDE 0.9% 1000ML 1,000 ML IV SCH (23:00)
[2016-09-24 23:13] LABS: ARTERIAL BLD GAS O2 SATURATION 97.4 % (90-95); ARTERIAL BLOOD GAS BASE EXCESS -0.6 mEq/L (-9-1.8); ARTERIAL BLOOD GAS HCO3 23 mmol/L (19-24); ARTERIAL BLOOD GAS PO2 98 mm/Hg (80-95); ARTERIAL BLOOD GAS pH 7.44 (7.35-7.45)
[2016-09-24 23:16] LABS: ALLEN TEST POS (POS); O2 ADMINISTRATION ROOM AIR
[2016-09-24 23:32] VITALS: BP 163/72; PULSE 73; TEMP 36.3; O2SAT 100
[2016-09-24 23:40] LABS: BETA-HYDROXYBUTYRATE 1.35 mg/dL (0.2-2.81); BUN/CREATININE RATIO 22.1 (10-20); CALCIUM 8.2 mg/dl (8.5-10.1); CREATININE 3.7 mg/dl (0.60-1.40)
[2016-09-24 23:50] LABS: MAGNESIUM 2.3 mg/dl (1.8-2.4)
[2016-09-24 23:54] LABS: URINE APPEARANCE CLOUDY (CLEAR); URINE BILIRUBIN NEG (NEG); URINE COLOR YELLOW; URINE EPITHELIAL CELL AUTO 0-5 /lpf (0-5); URINE NITRITE NEG (NEG); URINE SPECIFIC GRAVITY 1.011 (1.000-1.030); UROBILINOGEN NEG (NEG); ZZUR CULT IF INDIC CLEAN CATCH NO
[2016-09-24 23:56] LABS: MANUAL MICROSCOPIC REQUIRED? NO; REVIEW REQ? NO
[2016-09-25] VITALS (8 sets, daily range): BP systolic 116–148; BP diastolic 56–72; PULSE 63–66; TEMP 36.3–36.9; O2SAT 96–100; Ht 172.7 cm; Wt 87.2 kg
[2016-09-25] MEDS ORDERED: POTASSIUM CHLR 10 MEQ / WTR 10 MEQ in PREMIXED WATER 100 ML IV SCH
[2016-09-25] MEDS ORDERED: HEPARIN IV LOW DOSE NO BOLUS SCH (00:07)
[2016-09-25] MEDS ORDERED: MODERATE STRESS LEVEL STA (00:14)
[2016-09-25] MEDS: [UNRECOGNIZED DRUG - REMARK] SCH ×4 (00:15→01:00)
[2016-09-25] MEDS ORDERED: INSULIN PROTOCOL GOAL RANGE STA (00:16)
[2016-09-25] MEDS ORDERED: HEPARIN 25,000 UNIT/500ML D5W 500 ML IV PRN (01:00)
[2016-09-25] MEDS ORDERED: POTASSIUM CITRATE 10 MEQ TAB PO ONE (01:10)
[2016-09-25] MEDS: INSULIN REGULAR 250 UNITS in SODIUM CHLORIDE 0.9% 250ML 250 ML IV SCH ×2 (01:43→02:50)
[2016-09-25] MEDS ORDERED: SODIUM CHLORIDE 0.9% 500ML 500 ML IV ONE (05:00)
--- NOTE | 2016-09-25 05:33 | Progress Note ---
Progress Note Date of Service Sep 25, 2016. Progress Note Events overnight: Patient felt well and no acute subjective issues and no acute changes on examination compared to H&P. However his glucose continued to rise likely due to glucagon injection he took before admission. Despite 14+15 units SC insulin, 15 units lantus and 8 units IV insulin his glucose remained > 500. ABG and beta hydroxybutyric acid did not show metabolic acidosis. He was started on an insulin drip in collaboration with pharmacy. His potassium was 3.6 therefore he received 500 ml of NS + 20 meq KCl @ 200 MLS/HR. Despite the 500 ml of fluids his Cr has risen from 3.1 to 3.7. Unfortunately we are somewhat limited by pushing a lot of fluids due to his LVEF of 30-35% also possibly having acute event currently (see below). Additional 500ml @ 250 MLS/ HR given and will continue to trend BMP in another 8 hours. He has also had some EKG changes since admission, possible septal ST elevation with troponin trending upwards. In comparison to his old EKGs I suspect this may be J-point elevation. However given risk vs. benefit and with his troponin rise the patient was started on a low dose heparin drip overnight pending echocardiogram and cardiology consult in the morning. Of note on the monitor he is also having some skipped beats, EKG does not show heart block. His metoprolol XL was given last night so I have held this pending cardiology review. Above plans were discussed with Dr Lee (attending comic book writer) throughout the night. Resident Tracking Resident Involvement: Resident Care Provided Care Provided: [facility]
[2016-09-25 07:55] LABS: MEAN CELL VOLUME 79.7 fL (80-100); MEAN CORPUSCULAR HEMOGLOBIN 24.9 pg (25-34); MEAN CORPUSCULAR HGB CONC 31.2 g/dl (32-36); PLATELET COUNT 139 K/uL (130-400); RED BLOOD COUNT 4.14 M/uL (4.7-6.1); WHITE BLOOD COUNT 6.29 K/uL (4.8-10.8)
[2016-09-25] MEDS ORDERED: INSULIN ASPART 100 UNITS/ML 3 ML PEN SC SCH ×2 (08:00)
[2016-09-25] MEDS: INSULIN ASPART 100 UNITS/ML 3 ML PEN SC SCH ×4 (08:06→20:47)
[2016-09-25 08:11] LABS: PARTIAL THROMBOPLASTIN RATIO 1.9
[2016-09-25 08:31] LABS: BUN/CREATININE RATIO 25.4 (10-20); CALCIUM 8.5 mg/dl (8.5-10.1); MAGNESIUM 2.3 mg/dl (1.8-2.4); POTASSIUM 3.7 mmol/L (3.5-5.1)
[2016-09-25] MEDS: GABAPENTIN 300 MG CAP PO SCH ×2 (08:54→20:42)
[2016-09-25] MEDS: ALLOPURINOL 100 MG TAB PO SCH (08:54)
[2016-09-25] MEDS: CEROVITE ADV FORMULA TAB PO SCH ×2 (08:55→20:42)
[2016-09-25] MEDS: POTASSIUM CITRATE 10 MEQ TAB PO SCH ×2 (08:55→20:41)
[2016-09-25] MEDS: VITAMIN B COMPLEX TAB PO SCH (08:56)
[2016-09-25] MEDS: RANITIDINE HCL 150 MG TAB PO SCH ×2 (08:56→20:43)
[2016-09-25] MEDS: ISOSORBIDE MONONITRATE 30 MG TABCR PO SCH (08:56)
[2016-09-25] MEDS ORDERED: CEROVITE ADV FORMULA TAB PO SCH (09:00)
[2016-09-25] MEDS ORDERED: BUMETANIDE 1 MG TAB PO SCH (09:00)
[2016-09-25] MEDS ORDERED: LISINOPRIL 10 MG TAB PO SCH (09:00)
[2016-09-25] MEDS ORDERED: INSULIN GLARGINE SOLOSTAR 100 UNITS/ML 3 ML PEN SC SCH (09:00)
[2016-09-25] MEDS ORDERED: CLOPIDOGREL BISULFATE 75 MG TAB PO ONE (11:15)
--- NOTE | 2016-09-25 11:36 | Cardiology Consultation ---
Cardiology Consultation Date of Consultation: Sep 25, 2016. Pt evaluation today including: conversation w/ patient, conversation w/ family History of Present Illness 76M with a PMHx of DM1, MIx3 (2013, 2014, 2015), RCA stent placement in in [place], Aortic valve replacement, CKD, colon cancer, Hep C, HTN, HLD presents with an acute event of hypoglycemia. Pt was found unarousable by his significant other lying in bed. Significant other tested blood sugar and found the patient to be 28. Sig. other administered glucagon and when there was no immediate response EMS was called. Pt regained consciousness approximately 15 minutes after glucagon administration. Earlier in the morning pt had given himself 15 units of Lantus and 12 units of regular insulin and had only eaten an orange afterwards - pt feels that he was just clumsy with his blood sugars. According to pt and significant other, he hasn't had a hypoglycemic episode like this in years. Patient was recently discharged from [facility] in Jul 29 for NSTEMI with a trop peak of 22. Patient was also admitted on Jul 10 for chest pain and had a trop peak at 15. ROS: Has had no chest pain or tightness this admission or throughout his hospital stay. Pt reports that he sometimes gets chest tightness at night that he takes nitro for - this occurs approximately a few times per month. Pt denies SOB, is ambulating to bathroom, pt had a recent fistulia placed in his right antecubital fossa for anticipated dialysis in the future. Family History Asthma Diabetes mellitus Heart disease Hypertension HI Stroke Social History Smoking Status: Unknown if Ever Smoked History of Alcohol Use: No Review of Systems Constitutional: No chills, No fever, No sweats Respiratory: No cough, No shortness of breath, No sputum, No wheezing Cardiac: No chest pain Abdomen: No nausea, No pain Allergies Coded Allergies: No Known Allergies (Verified , NONE, 09/24/16) Medications Current Inpatient Medications Medications (Trade) Dose Ordered Sig/Esme Route Start Time Stop Time Status Last Admin Dose Admin Acetaminophen (Tylenol Tab) 650 mg Q4H PRN PO 09/24/16 15:30 10/24/16 15:29 Al Hydrox/Mg Hydrox/Simethicone (Maalox Max Susp) 15 ml Q4H PRN PO 09/24/16 15:30 10/24/16 15:29 Magnesium Hydroxide (Milk Of Magnesia Susp) 30 ml Q12H PRN PO 09/24/16 15:30 10/24/16 15:29 Ondansetron HCl (Zofran Inj) 4 mg Q6H PRN IV 09/24/16 15:30 10/24/16 15:29 Nitroglycerin (Nitrostat Tab) 0.4 mg UD PRN SL 09/24/16 15:30 10/24/16 15:29 Polyethylene (Miralax Powder Packet) 17 gm DAILY PRN PO 09/24/16 15:30 10/24/16 15:29 Allopurinol (Zyloprim Tab) 100 mg DAILY PO 09/25/16 09:00 10/25/16 08:59 09/25/16 08:54 100 MG Aspirin (Ecotrin Tab) 81 mg QPM PO 09/24/16 21:00 10/24/16 20:59 09/24/16 21:09 81 MG Vitamin B Complex (Vitamin B Complex) 1 tab DAILY PO 09/25/16 09:00 10/25/16 08:59 09/25/16 08:56 1 TAB Cetirizine HCl (zyrTEC TAB) 10 mg HS PO 09/24/16 21:00 10/24/16 20:59 09/24/16 21:09 10 MG Folic Acid (Folvite Tab) 1 mg DAILY PO 09/25/16 12:00 10/25/16 11:59 09/25/16 08:55 1 MG Gabapentin (Neurontin Cap) 300 mg BID PO 09/24/16 21:00 10/24/16 20:59 09/25/16 08:54 300 MG Hydroxyzine HCl (Vistaril Tab) 10 mg Q6H PRN PO 09/24/16 15:30 10/24/16 15:29 Isosorbide Mononitrate (Imdur Ext Rel Tab) 90 mg DAILY PO 09/25/16 09:00 10/25/16 08:59 09/25/16 08:56 90 MG Metoprolol Succinate (Toprol Xl Tab) 100 mg HS PO 09/24/16 21:00 10/24/16 20:59 Future hold 09/24/16 21:09 100 MG Multivitamins/ Minerals (Multivitamin W/ Minerals Tab) 1 tab BID PO 09/24/16 21:00 10/24/16 20:59 09/25/16 08:55 1 TAB Ranitidine HCl (zANTac TAB) 150 mg BID PO 09/24/16 21:00 10/24/16 20:59 09/25/16 08:56 150 MG Triamcinolone Acetonide (Kenalog 0.1% Cream) 1 appln UD PRN EXT 09/24/16 15:30 10/24/16 15:29 Miscellaneous (Iv Fluids Completed) 1 ea PRN PRN N/A 09/24/16 15:45 09/24/17 15:44 Pravastatin Sodium (Pravachol Tab) 20 mg QPM PO 09/24/16 21:00 10/24/16 20:59 09/24/16 21:09 20 MG Glucose (Glucose 40% Gel) 15-30 GRAMS 15 GRAMS... UD PRN PO 09/24/16 17:00 10/24/16 16:59 Glucose (Glucose Chew Tab) 4-8 Tablets 4 Tabl... UD PRN PO 09/24/16 17:00 10/24/16 16:59 Dextrose (Dextrose 50% 50ML Syringe) 25-50ML OF 50% DW IV FOR... UD PRN IV 09/24/16 17:00 10/24/16 16:59 Glucagon (Glucagon Inj) 1 mg UD PRN SQ 09/24/16 17:00 10/24/16 16:59 Miscellaneous Information 1 ea 1 ea UD PRN N/A 09/24/16 22:03 10/24/16 22:02 Heparin Sodium/ Dextrose (Heparin 25,000 Unit/500ml D5W) 500 ml @ 18 mls/hr Q24H PRN IV 09/25/16 01:00 10/25/16 00:59 09/25/16 01:12 18 MLS/HR Potassium Citrate (Urocit-K Tab) 10 meq BID PO 09/25/16 09:00 10/25/16 08:59 09/25/16 08:55 10 MEQ Insulin Glargine (Lantus Solostar Pen) 10 unit BID SC 09/25/16 09:00 10/25/16 08:59 09/25/16 08:07 10 UNIT Insulin Aspart (novoLOG ASPART) SLIDING SCALE G... ACHS SC 09/25/16 07:00 10/25/16 06:59 09/25/16 08:06 2 UNITS Physical Exam Vital Signs Past 12 Hours Date Time Temp Pulse Resp B/P Pulse Ox O2 Delivery O2 Flow Rate FiO2 09/25/16 08:00 Room Air 09/25/16 07:42 36.9 63 18 116/56 96 Room Air 09/25/16 04:00 Room Air 09/25/16 03:48 36.8 66 18 120/66 99 Room Air 09/25/16 00:02 Room Air 09/24/16 23:32 36.3 73 18 163/72 100 Room Air Constitutional: General Apperance: heathly-appearing, well-nourished, well-developed Level of Distress: NAD Ambulation: ambulating normally Psychiatric: Mental Status: active & alert, normal mood, normal affect Orientation: to time, to place, to person ENMT: normal ENT inspection Neck: supple Lungs: Respiratory effort: no dyspnea, good air movement Auscultation: breath sounds normal, CTA except as noted, no wheezing, no rales/crackles, no rhonchi Cardiovascular: Apical Impulse: not displaced Heart Auscultation: RRR, normal S1, normal S2, no murmurs, no rubs, no gallops Peripheral Pulses: Dorsalis Pedis Pulse: normal on the left, normal on the right Abdomen: Bowel Sounds: normal Inspection & Palpation: soft, non-distended Musculoskeletal: pertinent finding (Right AV fistula.) Extremities: no cyanosis, no edema, no varicosities Data Laboratory Results: Last 24 Hours Test 09/24/16 12:26 09/24/16 12:40 09/24/16 14:06 09/24/16 17:21 Bedside Glucose 114 mg/dl 171 mg/dl 302 mg/dl White Blood Count 6.97 K/uL Red Blood Count 4.09 M/uL Hemoglobin 10.2 g/dL Hematocrit 33.2 % Mean Corpuscular Volume 81.2 fL Mean Corpuscular Hemoglobin 24.9 pg Mean Corpuscular Hemoglobin Concent 30.7 g/dl Platelet Count 123 K/uL Mean Platelet Volume 11.6 fL Neutrophils (%) (Auto) 76.9 % Lymphocytes (%) (Auto) 14.3 % Monocytes (%) (Auto) 5.0 % Eosinophils (%) (Auto) 3.2 % Basophils (%) (Auto) 0.3 % Neutrophils # (Auto) 5.36 K/uL Lymphocytes # (Auto) 1.00 K/uL Monocytes # (Auto) 0.35 K/uL Eosinophils # (Auto) 0.22 K/uL Basophils # (Auto) 0.02 K/uL RDW Standard Deviation 52.9 fL RDW Coefficient of Variation 20.8 % Immature Granulocyte % (Auto) 0.3 % Immature Granulocyte # (Auto) 0.02 K/uL Platelet Estimate DECREASED Anisocytosis PRESENT Prothrombin Time 12.0 SECONDS Prothromb Time International Ratio 1.1 Activated Partial Thromboplast Time 28.9 SECONDS Partial Thromboplastin Ratio 1.1 Sodium Level 142 mmol/L Potassium Level 3.6 mmol/L Chloride Level 109 mmol/L Carbon Dioxide Level 23 mmol/L Anion Gap 10.0 mmol/L Blood Urea Nitrogen 80 mg/dl Creatinine 3.10 mg/dl Est Creatinine Clear Calc Drug Dose 21.1 ml/min Estimated GFR () 21.2 Estimated GFR (Non- 18.3 BUN/Creatinine Ratio 25.9 Random Glucose 122 mg/dl Calcium Level 8.7 mg/dl Total Creatine Kinase 55 U/L Creatine Kinase MB 5.6 ng/ml Creatine Kinase MB Ratio Troponin I 0.075 ng/ml Test 09/24/16 18:43 09/24/16 20:56 09/24/16 21:00 09/24/16 21:21 Bedside Glucose 431 mg/dl 517 mg/dl Creatine Kinase MB Ratio Creatine Kinase MB 6.1 ng/ml Troponin I 0.106 ng/ml Test 09/24/16 22:40 09/24/16 23:00 09/24/16 23:04 09/24/16 23:25 Bedside Glucose 521 mg/dl 475 mg/dl Urine Color YELLOW Urine Appearance CLOUDY Urine pH 5.0 Urine Specific [place] 1.011 Urine Protein NEG Urine Glucose (UA) 3+ Urine Ketones NEG Urine Occult Blood NEG Urine Nitrite NEG Urine Bilirubin NEG Urine Urobilinogen NEG Urine Leukocyte Esterase NEG Urine WBC (Auto) 0 /hpf Urine RBC (Auto) 0-4 /hpf Urine Hyaline Casts (Auto) 0 /lpf Urine Epithelial Cells (Auto) 0-5 /lpf Urine Bacteria (Auto) NEG Arterial Blood pH 7.44 Arterial Blood Partial Pressure CO2 36 mmHg Arterial Blood Partial Pressure O2 98 mm/Hg Arterial Blood HCO3 23 mmol/L Arterial Blood Oxygen Saturation 97.4 % Arterial Blood Base Excess -0.6 mEq/L Arterial Blood Gas Delivery ROOM AIR Vickey Test POS Sodium Level 135 mmol/L Potassium Level 4.0 mmol/L Chloride Level 101 mmol/L Carbon Dioxide Level 23 mmol/L Anion Gap 11.0 mmol/L Blood Urea Nitrogen 82 mg/dl Creatinine 3.70 mg/dl Est Creatinine Clear Calc Drug Dose 17.7 ml/min Estimated GFR () 17.1 Estimated GFR (Non- 14.8 BUN/Creatinine Ratio 22.1 Random Glucose 496 mg/dl Calcium Level 8.2 mg/dl Magnesium Level 2.3 mg/dl Beta-Hydroxybutyric Acid 1.35 mg/dL Test 09/25/16 00:11 09/25/16 01:44 09/25/16 02:43 09/25/16 03:46 Bedside Glucose 485 mg/dl 271 mg/dl 215 mg/dl 184 mg/dl Test 09/25/16 04:43 09/25/16 06:47 09/25/16 07:45 09/25/16 08:58 Bedside Glucose 139 mg/dl 78 mg/dl 230 mg/dl White Blood Count 6.29 K/uL Red Blood Count 4.14 M/uL Hemoglobin 10.3 g/dL Hematocrit 33.0 % Mean Corpuscular Volume 79.7 fL Mean Corpuscular Hemoglobin 24.9 pg Mean Corpuscular Hemoglobin Concent 31.2 g/dl RDW Standard Deviation 51.6 fL RDW Coefficient of Variation 20.9 % Platelet Count 139 K/uL Mean Platelet Volume 10.0 fL Activated Partial Thromboplast Time 48.1 SECONDS Partial Thromboplastin Ratio 1.9 Sodium Level 143 mmol/L Potassium Level 3.7 mmol/L Chloride Level 109 mmol/L Carbon Dioxide Level 24 mmol/L Anion Gap 10.0 mmol/L Blood Urea Nitrogen 76 mg/dl Creatinine 3.00 mg/dl Est Creatinine Clear Calc Drug Dose 21.8 ml/min Estimated GFR () 22.0 Estimated GFR (Non- 19.0 BUN/Creatinine Ratio 25.4 Random Glucose 73 mg/dl Calcium Level 8.5 mg/dl Magnesium Level 2.3 mg/dl Troponin I 3.950 ng/ml ECHO on 07/27/16. * Name: GILBERTO ELLSWORTH Study Date: 07/27/2016 11:36 AM BP: 113/64 mmHg * Patient Location: [facility] HR: 84 * : 1940 (M/d/yyyy) Gender: Male Height: 68 in * Age: 76 yrs Ethnicity: [place] Weight: 170 lb * Ordering Physician: Titus Arenas MD, FACC * Referring Physician: Titus Arenas MD, FACC * Performed By: Suma Ellsworth, RUST * * Reason For Study: AMI * BSA: 1.9 m2 * Moderate left ventricular systolic dysfunction. * Moderate left ventricular hypertrophy. * Mild left atrial dilatation. * Normal central venous pressure. * Mildly elevated estimated RV systolic pressure. Telemetry reviewed: Appears that patient had ST elevations on the telemetry leads for his entire admission. Assessment & Plan 76M with a PMHx of DM1, HI x 3, RCA stent in 2013 in [place], Aortic Valve Replacement (2009), CKG with recent fistula placement, Colon Cancer, Hep C, HTN , HLD presents with acute episode of hypoglycemia. Patient was recently discharged from [facility] on Jul 29 and june for two episodes of NSTEMI. During the admission the troponins peaked at 22 and 15 in late June and mid June respectively. Echo on Jul 27 revealed an EF of 30-35% which is an acute drop from 50-55% on July 10. During current hospital stay Day #1 (10/01/16) EKG showed ST segment elevation and troponins increased from 0.7->3.9. Patient denies any symptoms of chest tightness or pain during his admission. In discussion with Dr. Estrada, we will continue to monitor troponins and pt for clinical signs of ischemia. Pt is a poor candidate for catheterization due to CKD. Will also discontinue heparin and restart Plavix today and continue daily. Patient would be a better candidate for cardiac catheterization after he starts dialysis. Because of patient's known ischemic cardiomyopathy patient may be a candidate for prophylactic defibrillator placement. Recommend outpatient follow up with Dr. Estrada or Dr. Rivero. Echo was ordered by night resident - will cancel because of low utility. Repeat EKG tomorrow AM. Continue to monitor on Tele. Will continue to follow. CARDIOLOGY ATTENDING ADDENDUM (Dr. Rivero): Patient seen, interviewed, and examined. Agree with above assessment and recommendations by Dr. Lerma. The patient's current presentation is most consistent with supply/demand myocardial ischemia secondary to the physiologic stress of hypoglycemia rather than plaque rupture or other pathophysiology. Will add 2nd CK to next troponin draw to better quantify myocardial involvement. Today's echocardiogram actually looks better (improved LV systolic function and decreased wall motion abnormalities) than last study from just 2 months ago. Given his unappealing vasculature (per Dr. Arenas, who reviewed his coronary anatomy from the last cardiac catheterization) as well as significant renal disease, agree with conservative management. Restarting daily Plavix with taper if he has any recurrent bleeding problems (he had some significant oral cavity bleeding a not long ago and had stopped his Plavix, we were in the process of gradually restarting as an outpatient). Once his troponin levels out or begins to decline, would increase his activity and allow discharge home if he has no symptoms which are lifestyle limiting at low work load. Thank you for allowing me to participate in the care of Mr. Ellsworth. Resident Involvement: Resident Care Provided Care Provided: Adult Hospital Medicine
[2016-09-25] MEDS ORDERED: PERFLUTREN LIPID MICROSPHERE (DEFINITY) IV ONE (11:45)
--- NOTE | 2016-09-25 13:35 | ECHOCARDIOGRAM REPORT ---
*NOTICE TO RECEIVING REPUBL[employer] AGENCY This information is strictly Confidential and protected under [place] law. [place] law prohibits you from making any further disclosure of this information unless further disclosure is expressly permitted by the written consent of the person to whom it pertains or is authorized by law. A general authorization for the release of medical or other information is not sufficient for this purpose. Hospital accepts no responsibility if the information is made available to any other person, INCLUDING THE PATIENT. Interpretation Summary * Name: GILBERTO ELLSWORTH Study Date: 07/27/2016 11:36 AM BP: 113/64 mmHg * Patient Location: 40 HR: 84 * : 1940 (M/d/yyyy) Gender: Male Height: 68 in * Age: 76 yrs Ethnicity: [place] Weight: 170 lb * Ordering Physician: Titus Arenas MD, FACC * Referring Physician: Titus Arenas MD, FACC * Performed By: Suma Ellsworth [facility] * * Reason For Study: AMI * BSA: 1.9 m2 * Moderate left ventricular systolic dysfunction. * Moderate left ventricular hypertrophy. * Mild left atrial dilatation. * Normal central venous pressure. * Mildly elevated estimated RV systolic pressure. * -- Conclusions -- * Compared with 07/27/16 study, LV systolic function has improved, wall motion abnormalities are less pronounced, tricuspid regurgitation with pulmonary hypertension no longer seen. * The left ventricle is normal in size. * Left ventricular systolic function is mildly reduced. * Ejection Fraction = 45-50%. * There is moderate concentric left ventricular hypertrophy. * Diastolic dysfunction, Grade III (restrictive pattern), consistent with markedly increased left atrial pressure. * Septal motion is consistent with conduction abnormality. * There is mild global hypokinesis of the left ventricle. * There is moderate anterior wall hypokinesis. * There is mild to moderate septal hypokinesis. Procedure Details * Limited views were obtained. Left Ventricle * The left ventricle is normal in size. * There is moderate concentric left ventricular hypertrophy. * Left ventricular systolic function is mildly reduced. * Ejection Fraction = 45-50%. * Septal motion is consistent with conduction abnormality. * There is mild global hypokinesis of the left ventricle. * There is moderate anterior wall hypokinesis. * There is mild to moderate septal hypokinesis. Right Ventricle * The right ventricle is normal in size and function. Atria * The left atrium is mildly dilated. * The right atrium is moderately dilated. Mitral Valve * There is moderate to severe mitral annular calcification. * Calcified mitral apparatus. * There is trace mitral regurgitation. Tricuspid Valve * The tricuspid valve is normal in structure and function. * There is trace tricuspid regurgitation. Aortic Valve * The aortic valve is trileaflet. * Aortic valve sclerosis mild, without significant aortic valvular stenosis. * No aortic regurgitation is present. Pulmonic Valve * The pulmonic valve is not well visualized. * Mild pulmonic valvular regurgitation. * Pulmonary artery end diastolic velocity of 1.2 m/s is consistent with normal PA end diastolic pressure. Great Vessels * The aortic root is normal size. * There is aortic root sclerosis/calcification. * No obvious dissection could be visualized. * The pulmonary artery is not well visualized, but is probably normal size. Pericardium/Pleural * There is no pericardial effusion. Great Vessels * The inferior vena cava is mildly dilated. Left Ventricular Diastolic Function * Diastolic dysfunction, Grade III (restrictive pattern), consistent with markedly increased left atrial pressure. MMode 2D Measurements and Calculations IVSd 1.2 cm IVSs 1.5 cm LVIDd 4.4 cm LVIDs 3.2 cm LVPWd 1.5 cm LVPWs 2.1 cm IVS/LVPW 0.82 FS 28.4 % EDV(Teich) 87.9 ml ESV(Teich) 39.5 ml EF(Teich) 55.1 % EDV(cubed) 85.5 ml ESV(cubed) 31.3 ml EF(cubed) 63.3 % % IVS thick 23.1 % % LVPW thick 40.2 % LV mass(C)d 232.4 grams LV mass(C)dI 115.7 grams/m\S\2 LV mass(C)s 233.5 grams LV mass(C)sI 116.3 grams/m\S\2 SV(Teich) 48.4 ml SI(Teich) 24.1 ml/m\S\2 SV(cubed) 54.1 ml SI(cubed) 27.0 ml/m\S\2 EPSS 1.4 cm ACS 0.67 cm LA dimension 4.8 cm asc Aorta Diam 3.2 cm LVOT diam 1.7 cm LVOT area 2.4 cm\S\2 LVAd ap4 36.7 cm\S\2 LVLd ap4 8.2 cm EDV(MOD-sp4) 135.1 ml EDV(sp4-el) 139.6 ml LVAs ap4 22.2 cm\S\2 LVLs ap4 6.7 cm ESV(MOD-sp4) 60.4 ml ESV(sp4-el) 63.1 ml EF(MOD-sp4) 55.3 % EF(sp4-el) 54.8 % LVAd ap2 26.2 cm\S\2 LVLd ap2 7.5 cm EDV(MOD-sp2) 73.6 ml EDV(sp2-el) 77.5 ml LVAs ap2 15.8 cm\S\2 LVLs ap2 6.1 cm ESV(MOD-sp2) 33.2 ml ESV(sp2-el) 34.8 ml EF(MOD-sp2) 54.9 % EF(sp2-el) 55.1 % LVLd %diff -9.13 % EDV(MOD-bp) 102.4 ml LVLs %diff -8.75 % ESV(MOD-bp) 46.9 ml EF(MOD-bp) 54.2 % SV(MOD-sp4) 74.7 ml SI(MOD-sp4) 37.2 ml/m\S\2 SV(MOD-sp2) 40.4 ml SI(MOD-sp2) 20.1 ml/m\S\2 SV(MOD-bp) 55.5 ml SI(MOD-bp) 27.6 ml/m\S\2 SV(sp4-el) 76.5 ml SI(sp4-el) 38.1 ml/m\S\2 SV(sp2-el) 42.7 ml SI(sp2-el) 21.3 ml/m\S\2 Doppler Measurements and Calculations MV E max fatoumata 127.9 cm/sec MV A max fatoumata 92.3 cm/sec MV E/A 1.4 MV V2 max 143.8 cm/sec MV max PG 8.3 mmHg MV V2 mean 65.5 cm/sec MV mean PG 2.2 mmHg MV V2 VTI 44.7 cm MV dec time 0.16 sec Ao V2 max 171.5 cm/sec Ao max PG 11.8 mmHg Ao max PG (full) 8.9 mmHg Ao V2 mean 121.3 cm/sec Ao mean PG 6.8 mmHg Ao V2 VTI 40.0 cm ARA(V,A) 1.2 cm\S\2 ARA(V,D) 1.2 cm\S\2 LV V1 max PG 2.8 mmHg LV V1 max 83.9 cm/sec PA V2 max 76.0 cm/sec PA max PG 2.3 mmHg PI end-d fatoumata 122.1 cm/sec
--- NOTE | 2016-09-25 14:08 | Pharmacy Progress Note ---
Glycemic Control Intl Consult Date of Service Sep 25, 2016. Scope Glycemic Pharmacist consulted by Dr Lazaro on 09/24/16 for glycemic control and to write orders per [facility] inpatient glycemic control protocol Objective Weight (Kilograms): 87.300 Accuchecks BSG (last 24hrs): Test 09/24/16 14:06 09/24/16 17:21 09/24/16 18:43 09/24/16 20:56 Bedside Glucose 171 mg/dl (70-99) 302 mg/dl (70-99) 431 mg/dl (70-99) 517 mg/dl (70-99) Test 09/24/16 22:40 09/24/16 23:04 09/24/16 23:25 09/25/16 00:11 Bedside Glucose 521 mg/dl (70-99) 475 mg/dl (70-99) 485 mg/dl (70-99) Random Glucose 496 mg/dl (70-99) Test 09/25/16 01:44 09/25/16 02:43 09/25/16 03:46 09/25/16 04:43 Bedside Glucose 271 mg/dl (70-99) 215 mg/dl (70-99) 184 mg/dl (70-99) 139 mg/dl (70-99) Test 09/25/16 06:47 09/25/16 07:45 09/25/16 08:58 09/25/16 11:15 Bedside Glucose 78 mg/dl (70-99) 230 mg/dl (70-99) 178 mg/dl (70-99) Random Glucose 73 mg/dl (70-99) Laboratory Data (last 24hrs) Test 09/24/16 23:04 09/25/16 07:45 Anion Gap 11.0 mmol/L 10.0 mmol/L BUN/Creatinine Ratio 22.1 25.4 Blood Urea Nitrogen 82 mg/dl 76 mg/dl Creatinine 3.70 mg/dl 3.00 mg/dl Potassium Level 4.0 mmol/L 3.7 mmol/L Sodium Level 135 mmol/L 143 mmol/L White Blood Count 6.29 K/uL Recent Pertinent Medications Outpatient Anti-diabetic Regimen: * Lantus 15 units SQ BID * NovoLog "eye ball" method * 10-12 units for a small meal * 18-20 units for a large meal * A1c = 6.3 % 06/2016 The patient is currently receiving: * Basal insulin: Lantus 10 units every 12 hours * Correctional Insulin: NovoLog Correction per scale AC/HS Goal Range: Low 140 mg/dL - High 180 mg/dL Correction Factor: 30 mg/dL/unit * Prandial insulin: Per carb ratio of 1 unit per 10 grams CHO consumed Assessment & Plan ASSESSMENT: * ADA & AACE recommend a goal blood sugar range 140-180 mg/dl for the majority of critically ill & non-critically ill patients. However, more stringent targets may be selected in individual cases. * Type I diabetic x50 years who presents with hypoglycemia after taking his insulins at home and then falling asleep instead of eating. * glucagon given en route to the hospital. * Upon admission, BSGs began to climb precipitously despite correctional NovoLog and home Lantus PM dose * insulin IV insulin began this AM and was quickly titrated off to SQ basal/ bolus regimen. 09/25/16 * AM BSG appropriate, though below goal. * continued reduced Lantus dose for this morning * Continued NovoLog per provider parameters * BSGs elevated pre-lunch * may not have received enough NovoLog with breakfast - will tighten parameters based on home regimen requirements * Basal insulin in type I usually does not fluctuate like it does in type II diabetics * increase Lantus to home dose to avoid hyperglycemic event - opt to utilize an aggressive half dose parameter to also avoid hypoglycemia PLAN FOR INPATIENT GLYCEMIC CONTROL: * Increase Lantus to 15 units SQ BID * 1/2 dose (7 units) if BSG is below 140mg/dL * NovoLog AC and HS * Correction factor 25mg/dL/unit * Carb ratio: 1 unit per every 9g of CHO consumed * Goal: 140-180mg/dL per ADA recommendations * A1c- current * add to discharge instructions RECOMMENDATIONS FOR DISCHARGE: * continue home regimen * Please note that the plan above was derived based on current level of insulin resistance and hospital stress. These recommendations are appropriate for inpatient admission only. Plan of care upon discharge will need to be reassessed to avoid potential outpatient hypo/hyperglycemia. Thank you.
[2016-09-25] MEDS ORDERED: NURSING DECISION MEDICATION ORDER SCH (20:30)
[2016-09-25] MEDS: ASPIRIN 81 MG ECTAB PO SCH (20:41)
[2016-09-25] MEDS: METOPROLOL SUCC 50MG EXT REL TAB PO SCH (20:42)
[2016-09-25] MEDS: CETIRIZINE HCL 10 MG TAB PO SCH (20:42)
[2016-09-25] MEDS: PRAVASTATIN SOD 20 MG TAB PO SCH (20:42)
[2016-09-25] MEDS ORDERED: COUGH DROP (SUGAR FREE) LOZ 24 LOZ/1 BOX PO PRN (20:45)
[2016-09-25] MEDS: INSULIN GLARGINE SOLOSTAR 100 UNITS/ML 3 ML PEN SC SCH (20:47)
--- NOTE | 2016-09-25 21:53 | Hospitalist Progress Note ---
Hospitalist Progress Note Date of Service Sep 25, 2016. Subjective Pt evaluation today including: conversation w/ patient, physical exam, lab review, conversation w/ valuation consultant (Cardiology), review of inpatient medication list Pt had elevated trop today and dynamic ECG changes, discussed case with Cardiology Dr. Connolly. Pt feels fine, never had any chest pain. Glucose was very high and placed on insulin gtt and came down, was restarted on home insulin regimen All Other Systems: Reviewed and Negative Objective Vital Signs Date Time Temp Pulse Resp B/P Pulse Ox O2 Delivery O2 Flow Rate FiO2 09/25/16 18:59 36.8 65 16 134/63 100 Room Air 09/25/16 16:09 97 Room Air 09/25/16 15:42 36.3 65 16 148/63 97 Room Air 09/25/16 12:04 98 Room Air 09/25/16 11:25 36.5 65 18 125/56 98 Room Air 09/25/16 08:00 Room Air 09/25/16 07:42 36.9 63 18 116/56 96 Room Air 09/25/16 04:00 Room Air 09/25/16 03:48 36.8 66 18 120/66 99 Room Air 09/25/16 00:02 Room Air 09/24/16 23:32 36.3 73 18 163/72 100 Room Air Physical Exam General Appearance: WD/WN, no apparent distress Eyes: normal inspection, sclerae normal ENT: hearing grossly normal Neck: trachea midline Respiratory/Chest: lungs clear, normal breath sounds, no respiratory distress, no accessory muscle use Cardiovascular: regular rate, rhythm, no edema, no gallop, no murmur Abdomen: normal bowel sounds, non tender, soft, no organomegaly, no pulsatile mass Extremities: non-tender, normal inspection, no pedal edema, no calf tenderness Neurologic/Psychiatric: alert, normal mood/affect, oriented x 3 Skin: normal color, warm/dry, no rash Laboratory Results Last 24 Hours Test 09/24/16 22:40 09/24/16 23:00 09/24/16 23:04 09/24/16 23:25 Bedside Glucose 521 mg/dl 475 mg/dl Urine Color YELLOW Urine Appearance CLOUDY Urine pH 5.0 Urine Specific [place] 1.011 Urine Protein NEG Urine Glucose (UA) 3+ Urine Ketones NEG Urine Occult Blood NEG Urine Nitrite NEG Urine Bilirubin NEG Urine Urobilinogen NEG Urine Leukocyte Esterase NEG Urine WBC (Auto) 0 /hpf Urine RBC (Auto) 0-4 /hpf Urine Hyaline Casts (Auto) 0 /lpf Urine Epithelial Cells (Auto) 0-5 /lpf Urine Bacteria (Auto) NEG Arterial Blood pH 7.44 Arterial Blood Partial Pressure CO2 36 mmHg Arterial Blood Partial Pressure O2 98 mm/Hg Arterial Blood HCO3 23 mmol/L Arterial Blood Oxygen Saturation 97.4 % Arterial Blood Base Excess -0.6 mEq/L Arterial Blood Gas Delivery ROOM AIR Vickey Test POS Sodium Level 135 mmol/L Potassium Level 4.0 mmol/L Chloride Level 101 mmol/L Carbon Dioxide Level 23 mmol/L Anion Gap 11.0 mmol/L Blood Urea Nitrogen 82 mg/dl Creatinine 3.70 mg/dl Est Creatinine Clear Calc Drug Dose 17.7 ml/min Estimated GFR () 17.1 Estimated GFR (Non- 14.8 BUN/Creatinine Ratio 22.1 Random Glucose 496 mg/dl Calcium Level 8.2 mg/dl Magnesium Level 2.3 mg/dl Beta-Hydroxybutyric Acid 1.35 mg/dL Test 09/25/16 00:11 09/25/16 01:44 09/25/16 02:43 09/25/16 03:46 Bedside Glucose 485 mg/dl 271 mg/dl 215 mg/dl 184 mg/dl Test 09/25/16 04:43 09/25/16 06:47 09/25/16 07:45 09/25/16 08:58 Bedside Glucose 139 mg/dl 78 mg/dl 230 mg/dl White Blood Count 6.29 K/uL Red Blood Count 4.14 M/uL Hemoglobin 10.3 g/dL Hematocrit 33.0 % Mean Corpuscular Volume 79.7 fL Mean Corpuscular Hemoglobin 24.9 pg Mean Corpuscular Hemoglobin Concent 31.2 g/dl RDW Standard Deviation 51.6 fL RDW Coefficient of Variation 20.9 % Platelet Count 139 K/uL Mean Platelet Volume 10.0 fL Activated Partial Thromboplast Time 48.1 SECONDS Partial Thromboplastin Ratio 1.9 Sodium Level 143 mmol/L Potassium Level 3.7 mmol/L Chloride Level 109 mmol/L Carbon Dioxide Level 24 mmol/L Anion Gap 10.0 mmol/L Blood Urea Nitrogen 76 mg/dl Creatinine 3.00 mg/dl Est Creatinine Clear Calc Drug Dose 21.8 ml/min Estimated GFR () 22.0 Estimated GFR (Non- 19.0 BUN/Creatinine Ratio 25.4 Random Glucose 73 mg/dl Calcium Level 8.5 mg/dl Magnesium Level 2.3 mg/dl Troponin I 3.950 ng/ml Test 09/25/16 11:15 09/25/16 14:02 09/25/16 15:56 09/25/16 20:02 Bedside Glucose 178 mg/dl 274 mg/dl 246 mg/dl Total Creatine Kinase 67 U/L Troponin I 2.730 ng/ml Test 09/25/16 20:16 Troponin I 1.940 ng/ml Assessment and Plan 76 y/o male with a history of CAD, CHF, CKD stage IV, HTN, HLD, DM type 1, chronic hepatitis C, h/o colon cancer with colectomy who presented to the ED because of hypoglycemia with an episode of unresponsiveness. 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 Waldrop - Right antecubital cephalic AV fistula placed on 09/17/16 - Follow PRP -ok to restart ACEI and Bumex CAD/Chronic systolic CHF, NSTEMI: dynamic ECG changes here consistent with prior ECGs, Trop peaked at 3. No intervention required. Was placed on heparin gtt and then stopped, started Plavix - Follows with Dr. Rivero - ECHO 07/27/16- EF 30-35%, moderate LVH, mild left atrial dilatation, normal central venous pressure, mildly elevated RV systolic pressure ECHO 09/25/16: * Moderate left ventricular systolic dysfunction.LVEF 45-50% * Moderate left ventricular hypertrophy. * Mild left atrial dilatation. * Normal central venous pressure. * Mildly elevated estimated RV systolic pressure. * -- Conclusions -- * Compared with 07/27/16 study, LV systolic function has improved, wall motion abnormalities are less pronounced, tricuspid regurgitation with pulmonary hypertension no longer seen. * Grade III diastolic dysfunction - Continue Imdur, Metoprolol 100 mg PO daily, ASA 81 mg PO daily and add Plavix - Continue Bumetanide 2 mg PO daily-was held this AM for SASHA -trend troponin and dc to home tomorrow if symptoms free Anemia of CKD, stable: - Continue Ferrous Gluconate 324 mg PO BID - Follow CBC HTN: Continue Lisinopril 10 mg PO daily Dyslipidemia: Continue Pravastatin 40 mg PO daily Pruritus: Continue Triamcinolone and Hydroxyzine Oral lichen planus: Continue Dexamethasone rinses GI Prophylaxis:Maalox PRN,I V Zofran PRN, Colace and/or Milk of Mag PRNn DVT prophylaxis: RICHARD and SCDs. was on heparin gtt, now stopped Code Status: LEVEL V, DNR Dispo: From home, lives with
[2016-09-26 04:22] VITALS: BP 142/68; PULSE 67; TEMP 36.7; O2SAT 98
[2016-09-26 06:55] LABS: HEMATOCRIT 30.2 % (42-52); MEAN CELL VOLUME 80.3 fL (80-100); MEAN CORPUSCULAR HEMOGLOBIN 25.3 pg (25-34); MEAN CORPUSCULAR HGB CONC 31.5 g/dl (32-36); PLATELET COUNT 136 K/uL (130-400); RED BLOOD COUNT 3.76 M/uL (4.7-6.1); WHITE BLOOD COUNT 7.24 K/uL (4.8-10.8)
[2016-09-26 07:12] LABS: BUN/CREATININE RATIO 24.1 (10-20); CALCIUM 8.4 mg/dl (8.5-10.1); CREATININE 2.8 mg/dl (0.60-1.40); POTASSIUM 3.9 mmol/L (3.5-5.1)
[2016-09-26 07:26] VITALS: BP 135/74; PULSE 68; TEMP 36.9; O2SAT 97
[2016-09-26] MEDS: ISOSORBIDE MONONITRATE 30 MG TABCR PO SCH (08:18)
[2016-09-26] MEDS: CEROVITE ADV FORMULA TAB PO SCH (08:18)
[2016-09-26] MEDS: GABAPENTIN 300 MG CAP PO SCH (08:18)
[2016-09-26] MEDS: RANITIDINE HCL 150 MG TAB PO SCH (08:18)
--- NOTE | 2016-09-26 08:18 | Clinical Documentation Query ---
ROXANNE Mahoney : CLINICAL DOCUMENTATION QUERIES QUERY 1 OF 2 Patient is a 76 year old male admitted for evaluation and treatment of an unresponsive episode in the setting of hypoglycemia. He was treated by his partner with glucagon IM with resolution of both hypoglycemia and mental status changes. As appropriate, consider clarification as suggested below as this represents a DRG associated with a higher risk of mortality and severity of illness and characterizes the etiology of the unresponsive episode in greater detail. Thank you. In your clinical opinion is this patient being managed for: ( x ) Metabolic encephalopathy secondary to hypoglycemia, POA, resolved ( ) Other explanation of clinical findings (Please Explain) ( ) Unable to determine (Please Define) ( ) Need to Discuss ( ) Not Agree The medical record reflects the following clinical findings, treatment, and risk factors. Clinical Indicators: As above Treatment: Glucagon IM Risk Factors: DM type 1, insulin administration in the setting of poor oral intake. QUERY 2 OF 2 Nocturnalist documentation 09/25 included: "He has also had some EKG changes since admission, possible septal ST elevation with troponin trending upwards. In comparison to his old EKGs I suspect this may be J-point elevation. However given risk vs. benefit and with his troponin rise the patient was started on a low dose heparin drip overnight pending echocardiogram and cardiology consult in the morning" strategy consultant documentation included: "The patient's current presentation is most consistent with supply/demand myocardial ischemia secondary to the physiologic stress of hypoglycemia rather than plaque rupture or other pathophysiology." Serum troponin 0.075 ng/ml on admission, rising to 3.95 ng/ml, with associated CK-MB elevation and CK/CK-MB ratio elevation. He was initially treated with IV Heparin, serial enzymes, EKG's, cardiology consultion, and started on Plavix. He is being monitored on telemetry. In your clinical opinion is this patient being managed for: ( x ) Type II NSTEMI ( ) Other explanation of clinical findings (Please Explain) ( ) Unable to determine (Please Define) ( ) Need to Discuss ( ) Not Agree The medical record reflects the following clinical findings, treatment, and risk factors. Clinical Indicators: As above. Treatment:He was initially treated with IV Heparin, serial enzymes, EKG's, cardiology consultion, and started on Plavix. He is being monitored on telemetry. Risk Factors: Age, CAD, recent NSTEMI's, chronic systolic CHF Type 2 PA is defined as "myocardial infarction secondary to ischemia due to either increased oxygen demand or decreased supply, e.g. coronary artery spasm, coronary embolism, anemia, arrhythmias, hypertension or hypotension." The definition of type 2 PA is unsatisfactory because it is not really defined by what it is but rather what it is not.6 Nevertheless, the clinical problem remains: to distinguish acute PA (associated with plaque rupture or erosion, traditional or type 1 PA)-for which there is evidence-based treatment-from acute secondary ischaemic cardiac injury, including type 2 PA, where such treatments are not evidence based and may even be harmful. - See more at: http://www.acc.org/ugjoww-kd-mazgrdhbug/articles/13/58/tnfigrpwcr-[email or web address]-myocar dial-infarction#[email or web address] Please clarify and document your clinical opinion in the progress notes and discharge summary. Terms such as "probable", "suspected", "likely", "questionable", "possible", or "still to be ruled out" are acceptable. IF IN AGREEMENT, YOU MUST DOCUMENT ABOVE DIAGNOSTIC STATEMENT IN DAILY PROGRESS NOTES AND DISCHARGE SUMMARY. This document is not part of the patient's record. Thank You, Rudolph Eckert, LUANN [phone]
[2016-09-26] MEDS: ALLOPURINOL 100 MG TAB PO SCH (08:19)
[2016-09-26] MEDS: VITAMIN B COMPLEX TAB PO SCH (08:19)
[2016-09-26] MEDS: POTASSIUM CITRATE 10 MEQ TAB PO SCH (08:19)
[2016-09-26] MEDS: INSULIN ASPART 100 UNITS/ML 3 ML PEN SC SCH ×2 (08:21→12:35)
[2016-09-26] MEDS: INSULIN GLARGINE SOLOSTAR 100 UNITS/ML 3 ML PEN SC SCH (08:22)
[2016-09-26] MEDS ORDERED: LISINOPRIL 10 MG TAB PO SCH (09:00)
[2016-09-26] MEDS ORDERED: BUMETANIDE 1 MG TAB PO SCH (09:00)
[2016-09-26] MEDS ORDERED: CLOPIDOGREL BISULFATE 75 MG TAB PO SCH (09:00)
--- NOTE | 2016-09-26 10:25 | Medical Student: [facility] ---
Med Student Progress Note Date of Service Sep 26, 2016. Subjective Mr. Ellsworth is a 76 y/o male with a history of DM type 1, MIx3, s/p RCA stent ( 2013), aortic valve replacement (2009), CKD, colon cancer, hepatitis C, HTN, and hyperlipidemia who was admitted 09/24 for an episode of unresponsiveness secondary to hypoglycemia. ST elevation was noted on EKG performed in the ED, and troponin was elevated to a maximum of 3.9 yesterday morning. Troponins have since been trending downward, but there is still some mild ST elevation on EKG performed this morning. At this time, Mr. Ellsworth is asymptomatic. He denies chest pain/pressure, shortness of breath, nausea, or diaphoresis. He expressed that he feels well and would like to go home today. He has no other concerns at this time. Review of Systems Constitutional: No chills, No fever, No sweats Eyes: No problem reported ENT: No problem reported Respiratory: No cough, No dyspnea at rest, No dyspnea on exertion, No hemoptysis, No shortness of breath, No sputum, No wheezing Cardiac: + see HPI, No PND, No chest pain, No claudication, No edema, No orthopnea, No palpitations Abdomen: No GI bleeding, No constipation, No diarrhea, No nausea, No pain, No vomiting Musculoskeletal: No calf pain Male : No hematuria, No incontinence, No urinary frequency Neurologic: No numbness/tingling, No problem reported Psychiatric: No problem reported Endo: No excessive thirst, No excessive urination Skin: No bleeding, No itch, No new/changing skin lesions, No problem reported, No rash All Other Systems: Reviewed and Negative Objective Vital Signs Date Time Temp Pulse Resp B/P Pulse Ox O2 Delivery O2 Flow Rate FiO2 09/26/16 08:11 Room Air 09/26/16 07:26 36.9 68 19 135/74 97 Room Air 09/26/16 04:22 36.7 67 18 142/68 98 Room Air 09/26/16 04:02 Room Air 09/26/16 00:02 Room Air 09/25/16 23:53 36.8 66 18 145/72 98 Room Air 09/25/16 20:04 Room Air 09/25/16 18:59 36.8 65 16 134/63 100 Room Air 09/25/16 16:09 97 Room Air 09/25/16 15:42 36.3 65 16 148/63 97 Room Air 09/25/16 12:04 98 Room Air 09/25/16 11:25 36.5 65 18 125/56 98 Room Air Physical Exam General Appearance: WD/WN, no apparent distress ENT: normal ENT inspection, hearing grossly normal Neck: supple, no adenopathy, thyroid normal, no JVD, no carotid bruits, trachea midline Respiratory/Chest: chest non-tender, lungs clear, normal breath sounds, no respiratory distress, no accessory muscle use Cardiovascular: regular rate, rhythm, no edema, no gallop, no JVD, no murmur Abdomen: normal bowel sounds, non tender, soft, no organomegaly, no pulsatile mass Extremities: normal range of motion, non-tender, normal inspection, no pedal edema, no calf tenderness, normal capillary refill, + pertinent finding ( Arteriovenous fistula (R wrist)) Neurologic/Psychiatric: no motor/sensory deficits, alert, normal mood/affect, oriented x 3 Skin: normal color, warm/dry, no rash Lymphatic: no adenopathy Laboratory Results Last 24 Hours Test 09/25/16 11:15 09/25/16 14:02 09/25/16 15:56 09/25/16 20:02 Bedside Glucose 178 mg/dl 274 mg/dl 246 mg/dl Total Creatine Kinase 67 U/L Troponin I 2.730 ng/ml Test 09/25/16 20:16 09/26/16 06:09 09/26/16 06:52 Troponin I 1.940 ng/ml White Blood Count 7.24 K/uL Red Blood Count 3.76 M/uL Hemoglobin 9.5 g/dL Hematocrit 30.2 % Mean Corpuscular Volume 80.3 fL Mean Corpuscular Hemoglobin 25.3 pg Mean Corpuscular Hemoglobin Concent 31.5 g/dl RDW Standard Deviation 52.3 fL RDW Coefficient of Variation 21.3 % Platelet Count 136 K/uL Mean Platelet Volume 11.0 fL Sodium Level 143 mmol/L Potassium Level 3.9 mmol/L Chloride Level 109 mmol/L Carbon Dioxide Level 24 mmol/L Anion Gap 10.0 mmol/L Blood Urea Nitrogen 68 mg/dl Creatinine 2.80 mg/dl Est Creatinine Clear Calc Drug Dose 23.3 ml/min Estimated GFR () 24.0 Estimated GFR (Non- 20.7 BUN/Creatinine Ratio 24.1 Random Glucose 122 mg/dl Calcium Level 8.4 mg/dl Bedside Glucose 127 mg/dl Assessment and Plan Assessment and Plan: ASSESSMENT: Mr. Ellsworth is a 76 y/o male with a history of DM type 1, MIx3, s/p RCA stent (2013), aortic valve replacement (2009), CKD, colon cancer, hepatitis C, HTN, and hyperlipidemia who was admitted 09/24 for an episode of unresponsiveness secondary to hypoglycemia. In the ED, he was found to have ST elevation on his EKG and his troponins were elevated. His troponins have trended downward and he is asymptomatic, but EKG performed this morning still showed mild ST elevation. He is not a good candidate for cardiac catheterization due to his CKD. Echocardiogram performed in the hospital actually showed improvement in his LV function compared to previous studies. Given that the patient is asymptomatic, vital signs are stable, and troponins are trending downward, it would be appropriate to discharge him with close outpatient follow-up. PLAN: 1. Acute ST elevation without chest pain -Close outpatient follow-up with repeat EKG, given downward trend in troponin and lack of symptoms 2. Ischemic cardiomyopathy -Continue Plavix 75mg po [facility] CARDIOLOGY ATTENDING ADDENDUM (Dr. Rivero): Patient seen, interviewed, and examined. Agree with above assessment and recommendations by Shade Mills MD. Patient well known to me from outpatient setting. ECG is abnormal but stable, enzymes trending downward with no significant CK elevation (weighing against major myocardial damage), echocardiogram improved. Suspected physiologic stress of hypoglycemia resulted in supply/demand mismatch. Strictly speaking, this would not merit increase in anti-platelet regimen, however he is high risk for cardiovascular events in general and it is reasonable to again try daily Plavix. If he develops recurrent oral cavity bleeding (the reason he had stopped Plavix), hold Plavix for several days and then restart at 75 mg every other day. If further bleeding, repeat the process while gradually reducing the frequency of Plavix dosing. Did discuss this with the patient. He has been ambulating without symptoms, okay for discharge home. Discharge planning: home (Today)
[2016-09-26 11:46] VITALS: BP 135/77; PULSE 69; TEMP 36.5; O2SAT 98
[2016-09-26] MEDS ORDERED: CPC PO (12:58)
[2016-09-26] MEDS ORDERED: PLV75 PO (12:58)
--- NOTE | 2016-09-26 13:04 | Discharge Instructions ---
Discharge Instructions Admission Reason for Admission: Hypoglycemia Discharge Discharge Diagnosis / Problem: Hypoglycemia, NSTEMI Discharge Goals Goal(s): Improve disease control, Diagnostic testing, Therapeutic intervention Activity Recommendations Activity Limitations: resume your previous activity Exercise/Sports Limitations: as tolerated Shower/Bathe: no limitations . Instructions / Follow-Up Instructions / Follow-Up You were admitted for hypoglycemia that was severe. After receiving glucagon, your sugar went up into the 500s and this required an insulin drip to bring down to a more acceptable range. Because of the strain on your heart from the hypoglycemia, you did have a mild heart attack. You were initially placed on a blood thinner drip and then transitioned to starting Plavix every day in addition to your aspirin. Please keep your appointment with Dr. Rivero as scheduled and see your PCP Dr. Ellis as scheduled tomorrow. Home Care: * Take your medications exactly as directed. Don't skip doses. * Remember that recovery after a heart attack takes time. Plan to rest for at lease 4-8 weeks while you recover. Then return to normal activity when your doctor says it's okay. * Ask your doctor about joining a heart rehabilitation program. * Tell your doctor if you are feeling depressed. Feelings of sadness are common after a heart attack, but it is important that you speak to someone if you are feeling overwhelmed by these feelings. * If you are having chest pain, call 911 for an ambulance. Do NOT drive yourself to the hospital. * Ask your family members to learn CPR. * Learn to take your own blood pressure and pulse. Keep a record of your results. Ask your doctor when you should seek emergency medical attention. He or she will tell you which blood pressure reading is dangerous. Lifestyle Changes: * Maintain a healthy weight. Get help to lose any extra pounds. * Cut back on salt. * Limit canned, dried, packaged, and fast foods. * Don't add salt to your food. * Season foods with herbs instead of salt when you cook. * Break the smoking habit. Enroll in a stop-smoking program to improve your chances of success. * Limit fatty foods. * Check your lipid levels regularly. (Your doctor can show you how to do this.) * Build up your activity according to your doctor's recommendation. * Ask your doctor when it's okay to resume sexual activity. * Tell your doctor about any erectile dysfunction (ED) medication you are taking. Some ED medications are not safe if you take certain heart medications. * Try to manage stress. Follow Up: It is important for you to keep your follow up appointments with your medical provider. Current Hospital Diet Patient's current hospital diet: Renal Diet, Diabetes Type 1 Diet Discharge Diet Recommended Diet: AHA Diet (Heart Healthy), Diabetes Type 1 Diet, Renal Diet Procedures Procedures Performed: ECHO Chest xray Pending Studies Studies pending at discharge: no Laboratory Results Hemoglobin A1c Test 07/12/16 15:05 Range/Units Estimated Average Glucose 134 mg/dl Hemoglobin A1c 6.3 H 4.5-5.6 % Lipid Panel Test 09/04/16 06:15 Range/Units Triglycerides Level 62 0-150 mg/dl Cholesterol Level 127 0-200 mg/dl HDL Cholesterol 80 mg/dl Cholesterol/HDL Ratio 1.6 LDL Cholesterol, Calculated 35 mg/dl Medical Emergencies . Who to Call and When: Medical Emergencies: If at any time you feel your situation is an emergency, please call 911 immediately. Call 911 immediately or go to your nearest Emergency Room if you experience any of the following: Warning Signs and Symptoms of a Heart Attack * Chest pain that is not relieved by medication * Shortness of breath . Non-Emergent Contact Non-Emergency issues call your: Primary Care Provider, Direct Support Professional Call Non-Emergent contact if: you have any medication questions . . "Provider Documentation" section prepared by Keya Doll. AMI Core Measures Reason no ASA as I/P: Treatment provided - N/A Reason no ASA at D/C: Treatment provided - N/A Reason no statin as I/P: Treatment provided - N/A Reason no statin at D/C: Treatment provided - N/A VTE Core Measure Inpt VTE Proph given/why not?: Unfractionated heparin SQ, T.E.D. Stockings, SCD 's
[2016-09-26 13:22] VITALS: BP 135/77; PULSE 69; TEMP 36.5; O2SAT 98
--- NOTE | 2016-09-26 13:53 | Pharmacy Progress Note ---
Glycemic Control: Progress Nt Date of Service Sep 26, 2016. Scope Glycemic Pharmacist consulted by Dr Lazaro on 09/24/16 for glycemic control and to write orders per [facility] inpatient glycemic control protocol. Objective Accuchecks BSG (last 24hrs): Test 09/25/16 15:56 09/25/16 20:02 09/26/16 06:09 09/26/16 06:52 Bedside Glucose 274 mg/dl (70-99) 246 mg/dl (70-99) 127 mg/dl (70-99) Random Glucose 122 mg/dl (70-99) Test 09/26/16 11:45 Bedside Glucose 207 mg/dl (70-99) Laboratory Data (last 24hrs) Test 09/26/16 06:09 Anion Gap 10.0 mmol/L BUN/Creatinine Ratio 24.1 Blood Urea Nitrogen 68 mg/dl Creatinine 2.80 mg/dl Potassium Level 3.9 mmol/L Sodium Level 143 mmol/L White Blood Count 7.24 K/uL Recent Pertinent Medications Outpatient Anti-diabetic Regimen: * Lantus 15 units SQ BID * NovoLog "eye ball" method * 10-12 units for a small meal * 18-20 units for a large meal * A1c = 6.3 % 06/2016 The patient is currently receiving: * Basal insulin: Lantus 15 units every 12 hours * Correctional Insulin: NovoLog Correction per scale AC/HS Goal Range: Low 140 mg/dL - High 180 mg/dL Correction Factor: 25 mg/dL/unit * Prandial insulin: Per carb ratio of 1 unit per 9 grams CHO consumed Assessment & Plan ASSESSMENT: * ADA & AACE recommend a goal blood sugar range 140-180 mg/dl for the majority of critically ill & non-critically ill patients. However, more stringent targets may be selected in individual cases. * Type I diabetic x50 years who presents with hypoglycemia after taking his insulins at home and then falling asleep instead of eating. * glucagon given en route to the hospital. * Upon admission, BSGs began to climb precipitously despite correctional NovoLog and home Lantus PM dose * insulin IV insulin began this AM and was quickly titrated off to SQ basal/ bolus regimen. 09/25/16 * AM BSG appropriate, though below goal. * continued reduced Lantus dose for this morning * Continued NovoLog per provider parameters * BSGs elevated pre-lunch * may not have received enough NovoLog with breakfast - will tighten parameters based on home regimen requirements * Basal insulin in type I usually does not fluctuate like it does in type II diabetics * increase Lantus to home dose to avoid hyperglycemic event - opt to utilize an aggressive half dose parameter to also avoid hypoglycemia 09/26/16 * AM BSG appropriate with increase to home basal doses * continue Lantus 15 units SQ BID - change parameter to give 10 units if BSG is less than 140mg/dL * BSG elevated pre-lunch again today * tighten parameters again today (at home pt takes 10-20 u of NovoLog with meals and we are not near that [place]) * Serum creatinine continues to improve * will see change in insulin kinetics PLAN FOR INPATIENT GLYCEMIC CONTROL: * Increase Lantus to 15 units SQ BID * 10units if BSG is below 140mg/dL * NovoLog AC and HS * Correction factor 20 mg/dL/unit * Carb ratio: 1 unit per every 8 g of CHO consumed * Goal: 140-180mg/dL per ADA recommendations * A1c- current * add to discharge instructions RECOMMENDATIONS FOR DISCHARGE: * continue home regimen * Please note that the plan above was derived based on current level of insulin resistance and hospital stress. These recommendations are appropriate for inpatient admission only. Plan of care upon discharge will need to be reassessed to avoid potential outpatient hypo/hyperglycemia. Thank you.
--- NOTE | 2016-10-03 15:36 | Discharge Summary ---
Discharge Summary Date of Service Sep 26, 2016. Discharge Summary Admission Date: Sep 25, 2016 at 18:53 Discharge Date: Sep 26, 2016 Discharge Disposition: Home Principal Diagnosis: Hypoglycemia, NSTEMI Problems/Secondary Diagnoses: CAD Chronic combined systolic and diastolic CHF Acute kidney injury in setting of CKD stage IV HTN HLD DM type 1 with hyperglycemia requiring insulin drip Chronic hepatitis C H/o colon cancer with colectomy Diabetic neuropathy Moderate left ventricular hypertrophy. Mild left atrial dilatation. Mildly elevated estimated RV systolic pressure. Grade III diastolic dysfunction Anemia of CKD Chronic Pruritus Oral lichen planus Immunizations: Have You Had Influenza Vaccine: N/A Influenza Vaccine Date: Apr 02, 2009 History of Tetanus Vaccine?: Unknown History of Pneumococcal: Yes Pneumococcal Date: May 23, 2008 History of Hepatitis B Vaccine: Yes Procedures: CHEST ONE VIEW PORTABLE CLINICAL HISTORY: cp dyspnea COMPARISON STUDY: 09/06/2016 FINDINGS: Prior median sternotomy. Diaphragms smooth. Lungs are clear. IMPRESSION: No acute process. ECHO: * Moderate left ventricular systolic dysfunction. * Moderate left ventricular hypertrophy. * Mild left atrial dilatation. * Normal central venous pressure. * Mildly elevated estimated RV systolic pressure. * Compared with 07/27/16 study, LV systolic function has improved, wall motion abnormalities are less pronounced, tricuspid regurgitation with pulmonary hypertension no longer seen. * The left ventricle is normal in size. * Left ventricular systolic function is mildly reduced. * Ejection Fraction = 45-50%. * There is moderate concentric left ventricular hypertrophy. * Diastolic dysfunction, Grade III (restrictive pattern), consistent with markedly increased left atrial pressure. * Septal motion is consistent with conduction abnormality. * There is mild global hypokinesis of the left ventricle. * There is moderate anterior wall hypokinesis. * There is mild to moderate septal hypokinesis. Consultations: Cardiology Medication Reconciliation New Medications: Menthol (Ricola) 24 Lb/1 Box Lozg 1 LB PO PRN PRN for SORE THROAT/COUGH for 7 Days Changed Medications: Clopidogrel Bisulfate (Clopidogrel) 75 Mg Tab 75 MG PO DAILY, #30 TAB (Changed from: 2XWK; 12) Continued Medications: Allopurinol (Zyloprim) 100 Mg Tab 100 MG PO DAILY, TAB Aspirin (Aspirin Ec) 81 Mg Tab 81 MG PO QPM B-Complex Vitamins (B Complex) 1 Cap Cap 1 CAP PO DAILY Bumetanide (Bumetanide) 1 Mg Tab 2 MG PO QAM, #30 TAB Calcium Carbonate-Vitamin D (Calcium + D) 1 Tab Tab 1 TAB PO BID Cetirizine (Zyrtec) 10 Mg Tab 10 MG PO HS, TAB Coenzyme Q10 (Ubidecarenone) (Coq10) 200 Mg Cap 400 MG PO BID Dexamethasone (Dexamethasone) 0.5 Mg/5 Ml Elx 5 ML PO BID SWISH IN MOUTH Folic Acid (Folvite) 1 Mg Tab 1 MG PO NOON, TAB Gabapentin (Neurontin) 300 Mg Cap 300 MG PO QAM/HS, CAP Glucagon (Glucagon Emergency Kit) 1 Mg Kit 1 MG IM UD Hydroxyzine Hcl (Atarax) 50 Mg Tab 10 MG PO Q6 PRN for Itching, TAB Insulin Aspart (Novolog Flexpen) 100 Units/Ml Inj 1 DOSE SQ AC PRN for PER SLIDING SCALE Insulin Glargine (Lantus Solostar) 100 Unit/Ml Inj 15 UNITS SC BID, PEN Isosorbide Mononitrate (Isosorbide Mononitrate ER) 60 Mg Tabcr 90 MG PO DAILY, #45 Lisinopril (Zestril) 10 Mg Tab 10 MG PO DAILY, TAB Metoprolol Succ (Toprol Xl) (Toprol-Xl ) 100 Mg Tabcr 100 MG PO HS, TAB Multiple Vitamins W/ Minerals (Centrum Silver Adult 50+) 1 Tab Tab 1 TAB PO DAILY Nitroglycerin (Nitrostat) 0.4 Mg Tab 0.4 MG UT PRN, BTL Ocuvite Preservision (Ocuvite Preservision) 1 Tab Tab 1 TAB PO BID, TAB Pravastatin Sod (Pravastatin Sodium) 40 Mg Tab 20 MG PO QPM Ranitidine (Zantac) 150 Mg Tab 150 MG PO BID, TAB Triamcinolone Acet (Aristocort 0.1%) 90 Appln/30 Gm Cr 1 APPLN TOP UD TO AFFECTED AREA(S) Referrals At Discharge Follow up Referrals: Physician Referral - Within 1 Week with Yomi Ellis M.D. Discharge Exam Doing well on day of discharge, glucose in acceptable range. No chest pain or dyspnea. Physical Exam General Appearance: WD/WN, no apparent distress Eyes: normal inspection, sclerae normal ENT: hearing grossly normal Neck: trachea midline Respiratory/Chest: lungs clear, normal breath sounds, no respiratory distress, no accessory muscle use Cardiovascular: regular rate, rhythm, no edema, no gallop, no murmur Abdomen: normal bowel sounds, non tender, soft, no organomegaly, no pulsatile mass Extremities: non-tender, normal inspection, no pedal edema, no calf tenderness Neurologic/Psychiatric: alert, normal mood/affect, oriented x 3 Skin: normal color, warm/dry, no rash Review of Systems: Constitutional: No chills, No fever Eyes: No problem reported ENT: No problem reported Respiratory: No problem reported Cardiovascular: No problem reported Abdomen: No problem reported Musculoskeletal: No problem reported Genitourinary - Male: No problem reported Neurologic: No problem reported Psychiatric: No problem reported Endocrine: No problem reported Hematologic / Lymphatic: No problem reported Integumentary: No problem reported Hospital Course 76 y/o male with a history of CAD, CHF, CKD stage IV, HTN, HLD, DM type 1, chronic hepatitis C, h/o colon cancer with colectomy who presented to the ED because of hypoglycemia with an episode of unresponsiveness. 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 Waldrop - Right antecubital cephalic AV fistula placed on 09/17/16 - Follow PRP as outpatient -ok to restart ACEI and Bumex on discharge CAD/Chronic systolic CHF, NSTEMI: dynamic ECG changes here consistent with prior ECGs, Trop peaked at 3.95. No intervention required. Was placed on heparin gtt and then stopped, started Plavix daily. Completely asymptomatic. - Follows with Dr. Rivero - ECHO 07/27/16- EF 30-35%, moderate LVH, mild left atrial dilatation, normal central venous pressure, mildly elevated RV systolic pressure ECHO 09/25/16: * Moderate left ventricular systolic dysfunction.LVEF 45-50% * Moderate left ventricular hypertrophy. * Mild left atrial dilatation. * Normal central venous pressure. * Mildly elevated estimated RV systolic pressure. * Compared with 07/27/16 study, LV systolic function has improved, wall motion abnormalities are less pronounced, tricuspid regurgitation with pulmonary hypertension no longer seen. * Grade III diastolic dysfunction - Continue Imdur, Metoprolol 100 mg PO daily, ASA 81 mg PO daily and add Plavix daily - Continue Bumetanide 2 mg PO daily-was held this initially Anemia of CKD, stable: - Continue Ferrous Gluconate 324 mg PO BID - Follow CBC HTN: Continue Lisinopril 10 mg PO daily Dyslipidemia: Continue Pravastatin 40 mg PO daily Pruritus: Continue Triamcinolone and Hydroxyzine Oral lichen planus: Continue Dexamethasone rinses DVT prophylaxis: RICHARD and SCDs. was on heparin gtt, now stopped Code Status: LEVEL V, DNR Dispo: to home Total Time Spent: Greater than 30 minutes This includes examination of the patient, discharge planning, medication reconciliation, and communication with other providers. Discharge Instructions Please refer to the electronic Patient Visit Report (Discharge Instructions) for additional information. Follow-Up PCP within 1 week Cardiology as routinely scheduled Nephrology as routinely scheduled Additional Copies To Kaleb Rivero M.D.; Jose Manuel Waldrop M.D.; Yomi Ellis M.D.
== END 2016-09-26 14:36 | disposition home or self-care (01) | DRG 637 ==
LOC: ENRESERVDT → ENRESERVTM → EDBD 12:09 → C.EDB 12:10 → UNDOADMOB 15:32 → C.2T 15:32 → INTOOBSV 18:53 → OBSVTOIN 18:53 → C.2T 09-25 18:53 → OBSVTOIN 09-25 18:53
PROVIDERS: ADMIT Hospitalist; ATTEND Family Medicine
DX: E10.649 Type 1 diabetes mellitus with hypoglycemia without coma (principal); I21.4 Non-ST elevation (NSTEMI) myocardial infarction; I12.0 Hypertensive chronic kidney disease with stage 5 chronic kidney disease or end stage renal disease; I50.22 Chronic systolic (congestive) heart failure; I25.10 Atherosclerotic heart disease of native coronary artery without angina pectoris; E78.5 Hyperlipidemia, unspecified; E10.22 Type 1 diabetes mellitus with diabetic chronic kidney disease; N18.4 Chronic kidney disease, stage 4 (severe); Z95.5 Presence of coronary angioplasty implant and graft; Z90.49 Acquired absence of other specified parts of digestive tract; Z95.2 Presence of prosthetic heart valve; Z82.5 Family history of asthma and other chronic lower respiratory diseases; Z83.3 Family history of diabetes mellitus; Z82.49 Family history of ischemic heart disease and other diseases of the circulatory system; Z82.3 Family history of stroke; Z87.891 Personal history of nicotine dependence; Z79.82 Long term (current) use of aspirin; Z79.899 Other long term (current) drug therapy; Z79.4 Long term (current) use of insulin; E10.40 Type 1 diabetes mellitus with diabetic neuropathy, unspecified; Z66 Do not resuscitate; D63.1 Anemia in chronic kidney disease; B18.2 Chronic viral hepatitis C; L43.9 Lichen planus, unspecified; Z85.038 Personal history of other malignant neoplasm of large intestine

== ENCOUNTER → 2016-10-02 | Outpatient (CLI) | payer OTHER, MEDICARE ==
[~2016-10-02] MED LIST changes: +CPC PO; +FERR325T18 PO; +GLGKIT IM; +HYDR-3126 PO; -IMDSR60 PO; +ISOS-10 PO; +LISI-461 PO; -OXYC-57 PO; +PLV75 PO
[2016-10-02 09:17] LABS: BLOOD UREA NITROGEN 95 mg/dl (7-18); BUN/CREATININE RATIO 28.9 (10-20); CALCIUM 9.1 mg/dl (8.5-10.1); CARBON DIOXIDE 22 mmol/L (21-32); CHLORIDE 109 mmol/L (98-107); GLUCOSE 97 mg/dl (70-99); MAGNESIUM 2.6 mg/dl (1.8-2.4); POTASSIUM 5.2 mmol/L (3.5-5.1); SODIUM 141 mmol/L (136-145)
== END | disposition home or self-care (01) ==
LOC: C.LABFOXMH 08:50
PROVIDERS: ATTEND Internal Medicine
DX: M62.838 Other muscle spasm (principal)

== ENCOUNTER → 2016-10-31 | Outpatient (CLI) | payer OTHER, MEDICARE ==
[~2016-10-31] MED LIST changes: +BUME1TAB PO; +DIPH-581 PO; +METO100T44 PO; -METO1TAB69 PO
[2016-10-31 12:22] LABS: URINE APPEARANCE CLEAR (CLEAR); URINE BILIRUBIN NEG (NEG); URINE COLOR YELLOW; URINE EPITHELIAL CELL AUTO 0-5 /lpf (0-5); URINE NITRITE NEG (NEG); URINE SPECIFIC GRAVITY 1.011 (1.000-1.030); UROBILINOGEN NEG (NEG)
[2016-10-31 12:34] LABS: MANUAL MICROSCOPIC REQUIRED? NO; REVIEW REQ? NO
[2016-10-31 12:40] LABS: ALT/SGPT 129 U/L (12-78); BLOOD UREA NITROGEN 93 mg/dl (7-18); CALCIUM 9.6 mg/dl (8.5-10.1); CARBON DIOXIDE 28 mmol/L (21-32); CHLORIDE 106 mmol/L (98-107); GLUCOSE 119 mg/dl (70-99); POTASSIUM 4.7 mmol/L (3.5-5.1); SODIUM 142 mmol/L (136-145)
[2016-10-31 12:46] LABS: ALB/GLOB RATIO 1.1 (0.9-2); ALKALINE PHOSPHATASE 94 U/L (45-117); AST/SGOT 123 U/L (15-37); FERRITIN 66.8 ng/ml (8.0-388.0); PHOSPHORUS 5.3 mg/dl (2.5-4.9); TOTAL IRON BINDING CAPACITY 364 mcg/dl (250-450)
[2016-10-31 13:00] LABS: ESTIMATED AVERAGE GLUCOSE 140 mg/dl; HA1C FLAG Normal (Normal)
[2016-10-31 13:03] LABS: URINE PROTIEN/CREAT RATIO 0.3 (0-0.2); URINE TOTAL PROTEIN 16.7 mg/dl (0-11.9)
[2016-10-31 13:08] LABS: HEMATOCRIT 38.1 % (42-52); MEAN CORPUSCULAR HEMOGLOBIN 28.5 pg (25-34); RED BLOOD COUNT 4.28 M/uL (4.7-6.1); WHITE BLOOD COUNT 4.17 K/uL (4.8-10.8)
[2016-10-31 13:11] LABS: PLATELET COUNT 112 K/uL (130-400); PLT ESTIMATE DECREASED
== END | disposition home or self-care (01) ==
LOC: C.LAB1850 09:56
PROVIDERS: ATTEND Internal Medicine Nephrology
DX: E10.8 Type 1 diabetes mellitus with unspecified complications (principal); E55.9 Vitamin D deficiency, unspecified; I12.9 Hypertensive chronic kidney disease with stage 1 through stage 4 chronic kidney disease, or unspecified chronic kidney disease; N18.3 Chronic kidney disease, stage 3 (moderate); B18.2 Chronic viral hepatitis C

== ENCOUNTER → 2016-12-10 | Outpatient (CLI) | payer OTHER, MEDICARE ==
[2016-12-10 10:18] LABS: BLOOD UREA NITROGEN 67 mg/dl (7-18); BUN/CREATININE RATIO 26.7 (10-20); CALCIUM 9.3 mg/dl (8.5-10.1); CARBON DIOXIDE 32 mmol/L (21-32); CHLORIDE 107 mmol/L (98-107); GLUCOSE 109 mg/dl (70-99); POTASSIUM 4.2 mmol/L (3.5-5.1); SODIUM 144 mmol/L (136-145)
== END ==
LOC: C.LABFOXMH 09:42
PROVIDERS: ATTEND Internal Medicine
DX: N18.4 Chronic kidney disease, stage 4 (severe) (principal)

== ENCOUNTER → 2016-12-27 | Outpatient (CLI) | payer OTHER, MEDICARE ==
[2016-12-27 11:51] LABS: MEAN CORPUSCULAR HGB CONC 32.5 g/dl (32-36)
[2016-12-27 12:02] LABS: BLOOD UREA NITROGEN 99 mg/dl (7-18); BUN/CREATININE RATIO 31.9 (10-20); CARBON DIOXIDE 29 mmol/L (21-32); CHLORIDE 101 mmol/L (98-107); GLUCOSE 126 mg/dl (70-99); POTASSIUM 4.6 mmol/L (3.5-5.1); SODIUM 139 mmol/L (136-145)
[2016-12-27 12:06] LABS: HEMATOCRIT 42.8 % (42-52); INR 1.1 (0.9-1.1); MEAN CELL VOLUME 96.6 fL (80-100); MEAN CORPUSCULAR HEMOGLOBIN 31.4 pg (25-34); PARTIAL THROMBOPLASTIN RATIO 1.2; PROTHROMBIN TIME (PATIENT) 11.5 SECONDS (9.0-12.0); RED BLOOD COUNT 4.43 M/uL (4.7-6.1); WHITE BLOOD COUNT 7.78 K/uL (4.8-10.8)
[2016-12-27 12:10] LABS: CALCIUM 9.6 mg/dl (8.5-10.1)
[2016-12-27 12:37] LABS: MEAN PLATELET VOLUME 11.8 fL (7.4-10.4); PLATELET COUNT 106 K/uL (130-400)
[2016-12-27 12:38] LABS: PLT ESTIMATE DECREASED
== END ==
LOC: C.LABFOXMH 08:51
PROVIDERS: ATTEND Internal Medicine
DX: K74.60 Unspecified cirrhosis of liver (principal)

== ENCOUNTER → 2017-02-04 | Outpatient (CLI) | payer OTHER, MEDICARE ==
[~2017-02-04] MED LIST changes: -BUME1TAB PO; -DIPH-581 PO; -METO100T44 PO; +METO1TAB69 PO
[2017-02-04 09:46] LABS: HEMATOCRIT 39.9 % (42-52); MEAN CELL VOLUME 97.1 fL (80-100); MEAN CORPUSCULAR HEMOGLOBIN 32.8 pg (25-34); MEAN CORPUSCULAR HGB CONC 33.8 g/dl (32-36); MEAN PLATELET VOLUME 11.4 fL (7.4-10.4); PLATELET COUNT 133 K/uL (130-400); RED BLOOD COUNT 4.11 M/uL (4.7-6.1); WHITE BLOOD COUNT 5.16 K/uL (4.8-10.8)
[2017-02-04 09:49] LABS: URINE APPEARANCE CLEAR (CLEAR); URINE BILIRUBIN NEG (NEG); URINE COLOR YELLOW; URINE EPITHELIAL CELL AUTO 0-5 /lpf (0-5); URINE NITRITE NEG (NEG); URINE PH 5.5 (4.5-7.5); URINE SPECIFIC GRAVITY 1.019 (1.000-1.030); UROBILINOGEN NEG (NEG)
[2017-02-04 10:01] LABS: MANUAL MICROSCOPIC REQUIRED? NO; REVIEW REQ? NO
[2017-02-04 10:02] LABS: ALKALINE PHOSPHATASE 130 U/L (45-117); ALT/SGPT 128 U/L (12-78); AST/SGOT 157 U/L (15-37); BLOOD UREA NITROGEN 63 mg/dl (7-18); BUN/CREATININE RATIO 21.7 (10-20); CALCIUM 9.5 mg/dl (8.5-10.1); CARBON DIOXIDE 30 mmol/L (21-32); CHLORIDE 105 mmol/L (98-107); GLUCOSE 87 mg/dl (70-99); PHOSPHORUS 3.9 mg/dl (2.5-4.9); POTASSIUM 3.9 mmol/L (3.5-5.1); SODIUM 141 mmol/L (136-145); TOTAL IRON BINDING CAPACITY 356 mcg/dl (250-450)
[2017-02-04 10:04] LABS: FERRITIN 93.8 ng/ml (8.0-388.0)
[2017-02-04 10:05] LABS: URINE PROTIEN/CREAT RATIO 0.2 (0-0.2); URINE TOTAL PROTEIN 26.9 mg/dl (0-11.9)
== END | disposition home or self-care (01) ==
LOC: C.LAB1850 07:34
PROVIDERS: ATTEND Internal Medicine Nephrology
DX: E55.9 Vitamin D deficiency, unspecified (principal); D89.1 Cryoglobulinemia; N18.4 Chronic kidney disease, stage 4 (severe); B18.2 Chronic viral hepatitis C; K74.60 Unspecified cirrhosis of liver; D64.9 Anemia, unspecified; I12.9 Hypertensive chronic kidney disease with stage 1 through stage 4 chronic kidney disease, or unspecified chronic kidney disease

== ENCOUNTER → 2017-02-28 | Outpatient (CLI) | payer OTHER, MEDICARE ==
[2017-02-28 08:37] LABS: ALT/SGPT 178 U/L (12-78); AST/SGOT 181 U/L (15-37); BLOOD UREA NITROGEN 71 mg/dl (7-18); BUN/CREATININE RATIO 25.4 (10-20); CARBON DIOXIDE 31 mmol/L (21-32); CHLORIDE 98 mmol/L (98-107); GLUCOSE 124 mg/dl (70-99); SODIUM 136 mmol/L (136-145)
[2017-02-28 08:39] LABS: ALKALINE PHOSPHATASE 114 U/L (45-117)
[2017-02-28 08:56] LABS: HEMATOCRIT 37.8 % (42-52); MEAN CELL VOLUME 97.2 fL (80-100); MEAN CORPUSCULAR HEMOGLOBIN 32.4 pg (25-34); MEAN CORPUSCULAR HGB CONC 33.3 g/dl (32-36); MEAN PLATELET VOLUME 12.4 fL (7.4-10.4); PLATELET COUNT 128 K/uL (130-400); RED BLOOD COUNT 3.89 M/uL (4.7-6.1); WHITE BLOOD COUNT 4.41 K/uL (4.8-10.8)
== END ==
LOC: C.LABSPEC 07:50
PROVIDERS: ATTEND Internal Medicine
DX: K74.60 Unspecified cirrhosis of liver (principal)

== ENCOUNTER → 2017-04-16 | Outpatient (CLI) | payer OTHER, MEDICARE | END | disposition home or self-care (01) | LOC: C.LABFOXMH 09:01 | PROVIDERS: ATTEND Internal Medicine | DX: M10.9 Gout, unspecified (principal) ==

== ENCOUNTER 2017-04-28 12:43 | Observation (INO) | payer OTHER, MEDICARE ==
[~2017-04-28] VITALS: Ht 172.7 cm; Wt 76.7 kg
[~2017-04-28 12:43] MED LIST changes: -FERR325T18 PO; -GABA-112 PO
[2017-04-28] MEDS ORDERED: FERR325T18 PO (13:44)
[2017-04-28] MEDS ORDERED: GABA-112 PO (13:44)
--- NOTE | 2017-04-28 13:44 | EMERGENCY ROOM VISIT NOTE ---
History Report prepared by Марина: Radha Ye Under the Supervision of: Dr. Ilan Burciaga M.D. First contact with patient: 13:27 Chief Complaint: RESPIRATORY PROBLEMS Stated Complaint: FLUID BUILD UP History of Present Illness The patient is a 77 year old male who presents to the Emergency Room with complaints of persistent shortness of breath over the past several days. The patient reports that over the last several days he has felt short of breath and additionally notes fluid build up on his lungs and legs. He notes that he was sent to the emergency department by his PCP. The patient reports a 15 pound weight gain over the past several days where he thinks he is retaining fluid. He reports a nonproductive cough. The patient states that he was previously on antibiotics for five days, but denies relief of his symptoms. He reports a recent low-grade fever. The patient states that he has been compliant with his diuretic. He denies any chills or congestion. The patient denies being on any anticoagulants, stating that he stopped taking Plavix due to his persistent bleeding problems. He reports a history of colon cancer and states that he has an ileostomy. The patient states that he is a nonsmoker. Source of History: patient Onset: past several days Position: other (global) Quality: other (shortness of breath) Timing: other (persistent) Associated Symptoms: + fevers (lowgrade), + cough, No chills Note: Associated symptoms: weight gain Review of Systems See HPI for pertinent positives and negatives. A total of ten systems were reviewed and were otherwise negative. 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 (16) Osteoporosis Nos Surgical Problems: (1) Heart valve replaced (2) History of aortic valve replacement (3) S/P colectomy (4) Stented coronary artery Family History Asthma Diabetes mellitus Heart disease Hypertension [place] Stroke Social History Smoking Status: Former Smoker Alcohol Use: none Drug Use: none Marital Status: Housing Status: lives with significant other Occupation Status: retired Current/Historical Medications Scheduled Allopurinol (Zyloprim), 150 MG PO DAILY Aspirin (Aspirin Ec), 81 MG PO QPM B-Complex Vitamins (B Complex), 1 CAP PO DAILY Bumetanide (Bumetanide), 2 MG PO QAM Calcium Carbonate-Vitamin D (Calcium + D), 1 TAB PO BID Cetirizine (Zyrtec), 10 MG PO HS Coenzyme Q10 (Ubidecarenone) (Coq10), 200 MG PO BID Dexamethasone (Dexamethasone), 5 ML PO BID Ferrous Gluconate (Ferrous Gluconate), 324 MG PO BID Folic Acid (Folvite), 1 MG PO NOON Gabapentin (Neurontin), 300 MG PO QAM/HS Gabapentin (Neurontin), 100 MG PO DAILY Glucagon (Glucagon Emergency Kit), 1 MG IM UD Insulin Glargine (Lantus Solostar), 15 UNITS SC BID Isosorbide Mononitrate (Isosorbide Mononitrate ER), 90 MG PO DAILY Metoprolol Succ (Toprol Xl) (Toprol-Xl ), 100 MG PO HS Multiple Vitamins W/ Minerals (Centrum Silver Adult 50+), 1 TAB PO DAILY Nitroglycerin (Nitrostat), 0.4 MG UT PRN Ocuvite Preservision (Ocuvite Preservision), 1 TAB PO BID Pravastatin Sod (Pravastatin Sodium), 40 MG PO QPM Ranitidine (Zantac), 150 MG PO BID Scheduled PRN Hydroxyzine Hcl (Atarax), 10 MG PO Q6 PRN for Itching Insulin Aspart (Novolog Flexpen), 1 DOSE SQ AC PRN for PER SLIDING SCALE Allergies Coded Allergies: No Known Allergies (Verified , NONE, 04/28/17) Physical Exam Vital Signs Date Time Temp Pulse Resp B/P (MAP) Pulse Ox O2 Delivery O2 Flow Rate FiO2 04/28/17 15:49 71 20 162/63 98 Room Air 04/28/17 14:58 74 20 165/70 97 Room Air 04/28/17 14:10 80 04/28/17 14:08 100 Nasal Cannula 04/28/17 13:37 100 Room Air 04/28/17 13:37 100 Room Air 04/28/17 13:05 36.8 71 16 137/67 100 Room Air Physical Exam GENERAL: Awake, alert, in no distress HENT: Normocephalic, atraumatic. Dry mucous membranes. EYES: Normal conjunctiva. Sclera non-icteric. NECK: Supple. No nuchal rigidity. FROM. Mild JVD. RESPIRATORY: diminished lung sounds at the bases. CARDIAC: Regular rate, normal rhythm. Extremities warm and well perfused. Pulses equal. ABDOMEN: Soft, non-distended. No tenderness to palpation. No rebound or guarding. No masses. RECTAL: Deferred. MUSCULOSKELETAL: Chest examination reveals no tenderness. The back is symmetrical on inspection without obvious abnormality. There is no CVA tenderness to palpation. No joint edema. LOWER EXTREMITIES: Calves are equal size bilaterally and non-tender. 2+ pitting edema bilaterally. Scattered superficial ulcerations of left anterior lower leg without erythema or warmth. NEURO: Normal sensorium. No sensory or motor deficits noted. SKIN: No rash or jaundice noted. Medical Decision & Procedures ER Provider Diagnostic Interpretation: X-ray: Per my interpretation, radiologist review. SINGLE VIEW CHEST CLINICAL HISTORY: Atypical chest pain. FINDINGS: An AP, portable, upright chest radiograph is compared to study dated 09/24/2016. The examination is significantly degraded by portable technique, motion artifact, and patient rotation. The patient is status post midline sternotomy. The heart is enlarged and there is atherosclerotic calcification of the thoracic aorta. Evaluation of the lung parenchyma is degraded by motion artifact. No airspace consolidation or large pleural effusion is identified. No pneumothorax is seen. The skeletal structures are osteopenic. The bony thorax is grossly intact. IMPRESSION: Cardiomegaly with no acute cardiopulmonary abnormality noting a motion degraded examination. Electronically signed by: Milton Duarte M.D. 04/28/2017 2:16 PM Dictated Date/Time: 04/28/2017 2:15 PM Laboratory Results 04/28/17 13:50 Red Blood Count 4.04, Mean Corpuscular Volume 99.8, Mean Corpuscular Hemoglobin 32.2, Mean Corpuscular Hemoglobin Concent 32.3, Mean Platelet Volume 12.7, Neutrophils (%) (Auto) 63.9, Lymphocytes (%) (Auto) 13.5, Monocytes (%) (Auto) 14.2, Eosinophils (%) (Auto) 7.1, Basophils (%) (Auto) 0.4, Neutrophils # (Auto ) 4.79, Lymphocytes # (Auto) 1.01, Monocytes # (Auto) 1.06, Eosinophils # (Auto ) 0.53, Basophils # (Auto) 0.03 04/28/17 13:50 Test 04/28/17 13:50 White Blood Count 7.49 K/uL (4.8-10.8) Red Blood Count 4.04 M/uL (4.7-6.1) Hemoglobin 13.0 g/dL (14.0-18.0) Hematocrit 40.3 % (42-52) Mean Corpuscular Volume 99.8 fL (80-100) Mean Corpuscular Hemoglobin 32.2 pg (25-34) Mean Corpuscular Hemoglobin Concent 32.3 g/dl (32-36) Platelet Count 97 K/uL (130-400) Mean Platelet Volume 12.7 fL (7.4-10.4) Neutrophils (%) (Auto) 63.9 % Lymphocytes (%) (Auto) 13.5 % Monocytes (%) (Auto) 14.2 % Eosinophils (%) (Auto) 7.1 % Basophils (%) (Auto) 0.4 % Neutrophils # (Auto) 4.79 K/uL (1.4-6.5) Lymphocytes # (Auto) 1.01 K/uL (1.2-3.4) Monocytes # (Auto) 1.06 K/uL (0.11-0.59) Eosinophils # (Auto) 0.53 K/uL (0-0.5) Basophils # (Auto) 0.03 K/uL (0-0.2) RDW Standard Deviation 57.5 fL (36.4-46.3) RDW Coefficient of Variation 15.9 % (11.5-14.5) Immature Granulocyte % (Auto) 0.9 % Immature Granulocyte # (Auto) 0.07 K/uL (0.00-0.02) Prothrombin Time 11.1 SECONDS (9.0-12.0) Prothromb Time International Ratio 1.0 (0.9-1.1) Activated Partial Thromboplast Time 28.9 SECONDS (21.0-31.0) Partial Thromboplastin Ratio 1.1 Anion Gap 10.0 mmol/L (3-11) Est Creatinine Clear Calc Drug Dose 24.1 ml/min Estimated GFR () 28.7 Estimated GFR (Non- 24.7 BUN/Creatinine Ratio 28.4 (10-20) Calcium Level 9.5 mg/dl (8.5-10.1) Total Bilirubin 0.6 mg/dl (0.2-1) Direct Bilirubin 0.2 mg/dl (0-0.2) Aspartate Amino Transf (AST/SGOT) 93 U/L (15-37) Alanine Aminotransferase (ALT/SGPT) 135 U/L (12-78) Alkaline Phosphatase 116 U/L (45-117) Pro-B-Type Natriuretic Peptide 4621 pg/ml (0-1800) Total Protein 6.4 gm/dl (6.4-8.2) Albumin 3.0 gm/dl (3.4-5.0) Lipase 144 U/L (73-393) Laboratory results reviewed by me Medications Administered Medications (Trade) Dose Ordered Sig/Esme Route Start Time Stop Time Status Last Admin Dose Admin Furosemide (Lasix Inj) 80 mg NOW STAT IV 04/28/17 15:11 04/28/17 15:12 DC 04/28/17 15:32 80 MG Aspirin (Aspirin Chew) 324 mg NOW STAT PO 04/28/17 15:11 04/28/17 15:13 DC 04/28/17 15:31 324 MG ECG Indication: SOB/dyspnea Rate (beats per minute): 72 Rhythm: normal sinus Findings: nonspecific-ST abn (Anterolateral), RBBB Comparison ECG Date: 09/26/16 Change: no significant change ED Course 1330: The patient was evaluated in room C8. A complete history and physical exam was performed. 1511: Ordered Aspirin 324 m PO, Lasix Inj 80 mg PO. 1514: I reevaluated the patient and he is resting comfortably. I discussed the exam findings with him and I discussed the treatment plan. He verbalized complete understanding and agreement. He is going to be evaluated for further treatment. 1526: I discussed the patients case with Dr. Nunes [facility]. He is going to evaluate the patient for further treatment. Medical Decision The patient's presentation and history were concerning for Pneumonia, bronchitis , CHF, ACS, PE, arrhythmia, dehydration, electrolyte abnormality, UTI. The patient is a 77-year-old gentleman with a past medical history of CKD, CHF on Bumex, CAD on ASA presents to the emergency department with worsening shortness of breath, dyspnea on exertion and orthopnea per history of present illness. Arrival the patient is uncomfortable but in no acute distress. Afebrile with stable vital signs. 2+ lower extremity edema which he reports is worse from prior and also reports weight gain with ?fluid retention. EKg similar to prior. Labs notable for a BNP 4900s (1440 in Jun 2016) and troponin 0.1 (1.9 in September 2016). Chest x-ray with cardiomegaly but no overt venous congestion. The patient does appear to have a chronically elevated troponin however it is unclear if today's troponin is stable particularly in the setting of the patient's worsening respiratory symptoms and elevated BNP from prior. Will continue to trend at this time. However given the patient's symptoms and abnormal labs given his multiple comorbidities will admit for further ACS rule out and diuresis. Patient given 80mg IV Lasix as patient is on 2 mg of Bumex 2 times a day. Case d/w HANNAH Grossman hospitalist who will admit the patient for further management. Medication Reconcilliation Current Medication List: was personally reviewed by me Blood Pressure Screening Patient's blood pressure: Elevated blood pressure Blood pressure disposition: Elevated BP felt to be situational, Did not require urgent referral Consults Time Called: 1519 Consulting Physician: HANNAH Grossman Returned Call: [phone] I discussed the patients case with HANNAH Grossman. He is going to evaluate the patient for further treatment. Impression Primary Impression: CHF (congestive heart failure) Scribe Attestation The scribe's documentation has been prepared under my direction and personally reviewed by me in its entirety. I confirm that the note above accurately reflects all work, treatment, procedures, and medical decision making performed by me. Departure Information Dispostion Being Evaluated By Hospitalist Referrals Jad Whitfield (PCP)
[2017-04-28 14:17] LABS: HEMATOCRIT 40.3 % (42-52); MEAN CELL VOLUME 99.8 fL (80-100); MEAN CORPUSCULAR HEMOGLOBIN 32.2 pg (25-34); MEAN CORPUSCULAR HGB CONC 32.3 g/dl (32-36); MEAN PLATELET VOLUME 12.7 fL (7.4-10.4); PLATELET COUNT 97 K/uL (130-400); RED BLOOD COUNT 4.04 M/uL (4.7-6.1); WHITE BLOOD COUNT 7.49 K/uL (4.8-10.8)
--- NOTE | 2017-04-28 14:17 | DIAGNOSTIC IMAGING REPORT ---
SINGLE VIEW CHEST CLINICAL HISTORY: Atypical chest pain. FINDINGS: An AP, portable, upright chest radiograph is compared to study dated 09/24/2016. The examination is significantly degraded by portable technique, motion artifact, and patient rotation. The patient is status post midline sternotomy. The heart is enlarged and there is atherosclerotic calcification of the thoracic aorta. Evaluation of the lung parenchyma is degraded by motion artifact. No airspace consolidation or large pleural effusion is identified. No pneumothorax is seen. The skeletal structures are osteopenic. The bony thorax is grossly intact. IMPRESSION: Cardiomegaly with no acute cardiopulmonary abnormality noting a motion degraded examination. Electronically signed by: Milton Duarte M.D. 04/28/2017 2:16 PM Dictated Date/Time: 04/28/2017 2:15 PM
[2017-04-28 14:37] LABS: BASO % 0.4 %; BASO ABS # 0.03 K/uL (0-0.2); COMPLETE YES; EOS % 7.1 %; IG% 0.9 %; LYMPH % 13.5 %; LYMPH ABS # 1.01 K/uL (1.2-3.4); MONO % 14.2 %; NEUT % 63.9 %
[2017-04-28 14:40] LABS: BUN/CREATININE RATIO 28.4 (10-20); CALCIUM 9.5 mg/dl (8.5-10.1); CREATININE 2.4 mg/dl (0.60-1.40); POTASSIUM 3.3 mmol/L (3.5-5.1)
[2017-04-28] MEDS ORDERED: ASPIRIN 81 MG CHEW PO STA (15:11)
[2017-04-28] MEDS ORDERED: FUROSEMIDE 40 MG/4 ML VIAL IV STA (15:11)
[2017-04-28] MEDS ORDERED: INSULIN ASPART 100 UNITS/ML 3 ML PEN SQ PRN (16:30)
[2017-04-28] MEDS ORDERED: ACETAMINOPHEN 325 MG TAB PO PRN (16:30)
[2017-04-28] MEDS ORDERED: hydrOXYzine HCL 10 MG TAB PO PRN (16:30)
[2017-04-28] MEDS ORDERED: NITROGLYCERIN 0.4 MG SL PER TAB CHARGE SL PRN (16:30)
[2017-04-28] MEDS ORDERED: MAGNESIUM HYDROXIDE SUSP 30 ML UDC PO PRN (16:30)
[2017-04-28] MEDS ORDERED: ONDANSETRON INJ 2 MG/ML 2 ML VIAL IV PRN (16:30)
[2017-04-28] MEDS ORDERED: ALUMINUM/MAGNESIUM/SIMETH (MAALOX MAX) 30 ML UDC PO PRN (16:30)
[2017-04-28] MEDS ORDERED: IV FLUIDS COMPLETED PRN (18:15)
[2017-04-28 18:28] VITALS: BP 175/97; PULSE 79; TEMP 36.7; O2SAT 98; BMI 26.1
[2017-04-28 19:13] LABS: PARTIAL THROMBOPLASTIN RATIO 1.1; PROTHROMBIN TIME (PATIENT) 11.1 SECONDS (9.0-12.0)
--- NOTE | 2017-04-28 20:10 | HISTORY & PHYSICAL EXAMINATION ---
DATE OF ADMISSION: 04/28/2017 OBSERVATION REASON FOR OBSERVATION: Weight gain and cough, concern for diastolic heart failure. HISTORY OF PRESENT ILLNESS: Mr. Ellsworth is a 77-year-old male who has nonoperative coronary disease, deemed by Dr. Rivero and Dr. Arenas after recent catheterizations. He has known multiple catheterized stent interventions. He has had previous aortic valve replacement. He has known chronic diastolic dysfunction, class 3. The patient has had a 15-pound weight gain over the last 1 month and has had increased nonproductive cough. The patient states that he has not been more short of breath than usual, but is short of breath typically. The patient has had angina over the month of February when he was increasing his oral p.r.n. nitroglycerin use. He said he spoke to Dr. Rivero about that, and Dr. Rivero said to continue that remedy. The patient presents today with concern for the cough being something cardiac-related. The patient has had no fevers or chills. The patient does have a history of hepatitis, but he has had no ascites. He feels he has had no peripheral edema. In the Emergency Department, the patient had oxygen saturation of 100%. He had a chest x-ray showing no evidence of cardiopulmonary edema. Vital signs were stable with the exception of mild hypertension, and the patient was given 80 mg of Lasix IV. The patient has chronically elevated troponin, this was better than it has ever been. He has chronic kidney disease stage IV and his creatinine was 2.4, and he has chronically elevated BNP. PAST MEDICAL HISTORY: For coronary artery disease as mentioned with heart attacks in 2013, 2015 and 2016. Kidney disease, stage IV; hypertension; hyperlipidemia; diabetes, now insulin-requiring; hepatitis C through blood transfusion; colon cancer with colectomy and ileostomy, bioprosthetic aortic valve replacement; diastolic dysfunction; and really mixed systolic and diastolic dysfunction with his last EF being 45%. MEDICATIONS: On presentation, allopurinol 150 a day, aspirin 81 a day, B complex vitamins, and Bumex 2 mg a day. The patient was told to take increased half dose of Bumex for 4 days if his weight exceeds 165 pounds. The patient, however, has 1 mg tablets and I believe he was only taking 2.5 mg instead of 3 mg and his weight went up. Subsequently, he had no resolution of his weight. Additional meds are Zyrtec 10 a day, dexamethasone oral solution as needed, iron 325 a day, folic acid 1 mg a day, Neurontin 100 in the morning and 300 at night, sliding scale insulin, Lantus 15 b.i.d., isosorbide dinitrate 90 a day, metoprolol 100 at bedtime, Ocuvite once a day, pravastatin 40 a day, Zantac 150 a day, and Coenzyme Q. FAMILY HISTORY: For asthma, diabetes, heart disease and hypertension. SOCIAL HISTORY: He was a former smoker who has quit. He is with same sex significant other. He is DNR according to he and his spouse. REVIEW OF SYSTEMS: Ten systems were reviewed and are negative unless listed above. Additional information includes the patient has good functioning right lower quadrant ileostomy with intact skin, and no increased or decreased ileostomy output. He has had no change in his urinary production. As mentioned, he has had no fevers or other infectious etiologies. PHYSICAL EXAMINATION: VITAL SIGNS: His temperature is 36.8, pulse 74, respirations 20, BP 165/70, O2 sat 97-100 on room air. HEENT: PERRL, EOMI. His oropharynx is clear. There is no evidence of thrush or erythema. NECK: Without lymphadenopathy, JVD, or thyromegaly. HEART: Regular with a systolic murmur at the right upper sternal border. LUNGS: Clear without wheezes or crackles. Good air movement. SPINE: Nontender. There is no CV angle tenderness. ABDOMEN: Normoactive bowel sounds and soft, I do not feel any fluid wave or ascites. His ileostomy is as mentioned in the right lower quadrant. I do not feel any hepatosplenomegaly. EXTREMITIES: With trace to 1+ pretibial edema in both legs up to the knee. He states this is about his usual although earlier he said he has no edema. SKIN: Without lesions, growths, bruises or bleeding. NEUROLOGICALLY: Awake, alert and appropriate. Cranial nerves II-XII are intact. PSYCHOLOGIC: He appears neither anxious nor depressed. LABORATORY DATA: White count 7, H&H 13 and 40, platelet count is 97. BUN and creatinine are 68 and 2.4. Potassium is slightly low at 3.3. His troponin as mentioned is 0.11 which is improved from previous. Chest x-ray is without any significant changes except for cardiomegaly. EKG shows normal sinus rhythm with some minor lateral T-wave changes which do not appear to be acute. ASSESSMENT: 1. Observational status for weight gain and cough with concerns for heart failure. 2. History of chronic systolic and diastolic heart failure, treated with oral Bumex. PLAN: The patient will be observed in our facility. Repeat echocardiogram to determine right heart pressure, pulmonary hypertension and systolic function decline will be undertaken as well as the cardiology consult with Dr. Rivero to determine whether we need to escalate his antianginal treatment. Unstable angina. The patient has been taking nitroglycerin more frequently as an outpatient. We may consider increasing his isosorbide, adding nitropatch during the day, or adding Ranexa. We will continue other antianginal, metoprolol and continue his aspirin. There was some discussion in Dr. Rivero's previous notes regarding adding Plavix. Regarding his both systolic and diastolic heart failure, we will maintain his Bumex orally as there are no overt signs on chest x-ray or physical exam of this being significant heart failure. Regarding his diabetes, we will maintain his Lantus at 15 b.i.d. with an insulin sliding scale and diabetic diet. DVT prevention will be based upon heparin at this time due to his chronic renal failure. Regarding his chronic renal failure, we will renally dose medications. Regarding his hypokalemia, this will be repleted cautiously in the phase of his renal failure, but likely will need more than what would initially be suggested given his recent attempt at diuresis in the ER. The patient is a DNR. MATT
[2017-04-28] MEDS ORDERED: INFLUENZA ADMINISTRATION CHARGE ONE (20:15)
[2017-04-28] MEDS ORDERED: INFLUENZA VACCINE HIGH DOSE 65+ 0.5 ML SYR IM. ONE (20:15)
[2017-04-28] MEDS ORDERED: CETIRIZINE HCL 10 MG TAB PO SCH (21:00)
[2017-04-28] MEDS: INSULIN ASPART 100 UNITS/ML 3 ML PEN SC SCH (21:00)
[2017-04-28] MEDS ORDERED: METOPROLOL SUCC 50MG EXT REL TAB PO SCH (21:00)
[2017-04-28] MEDS ORDERED: GABAPENTIN 300 MG CAP PO SCH (21:00)
[2017-04-28] MEDS ORDERED: PRAVASTATIN SOD 40 MG TAB PO SCH (21:00)
[2017-04-28] MEDS: FERROUS GLUCONATE 324 MG TAB PO SCH (22:04)
[2017-04-28] MEDS: DEXAMETHASONE 0.5 MG/5 ML PO SCH (22:04)
[2017-04-28] MEDS: POTASSIUM CHLORIDE 20 MEQ TABCR PO SCH (22:05)
[2017-04-28] MEDS: CEROVITE ADV FORMULA TAB PO SCH (22:05)
[2017-04-28] MEDS: RANITIDINE HCL 150 MG TAB PO SCH (22:06)
[2017-04-28] MEDS: HEPARIN SOD 5000 UNIT/0.5 ML CARP SQ SCH (22:17)
[2017-04-28] MEDS: INSULIN GLARGINE SOLOSTAR 100 UNITS/ML 3 ML PEN SC SCH (22:20)
[2017-04-28 23:07] VITALS: BP 165/80; PULSE 83; TEMP 37; O2SAT 95
[2017-04-29 03:38] VITALS: BP 125/67; PULSE 81; TEMP 37.2; O2SAT 94
[2017-04-29 06:54] LABS: HEMATOCRIT 36.1 % (42-52); MEAN CELL VOLUME 99.7 fL (80-100); MEAN CORPUSCULAR HEMOGLOBIN 31.8 pg (25-34); MEAN CORPUSCULAR HGB CONC 31.9 g/dl (32-36); PLATELET COUNT 96 K/uL (130-400); RED BLOOD COUNT 3.62 M/uL (4.7-6.1); WHITE BLOOD COUNT 6.39 K/uL (4.8-10.8)
--- NOTE | 2017-04-29 07:08 | Progress Note ---
Progress Note Date of Service Apr 29, 2017. Progress Note Paged by nursing this morning notifying me of report on EKG from this morning was read as 'ST-elevation' in the inferior leads The patient is completely chest pain free and currently having echocardiogram done in the room. Vital signs have been stable overnight Reviewed EKG; I could not appreciate inferior ST elevation inferiorly compared to EKG on admission There is some slightly increased lateral ST depression in V5 and V6. I have noted from H&P that patient has a history of chronically elevated troponin; in the setting of trop being 0.11 X 2, I have held off on adding in heparin drip at this time Patient is on Imdur and Eliel SL PRN The patient is noted to be on appropriate medical therapy including ASA, Statin , Beta-kobe. Patient is not currently on ACEi/ARB. As patient is currently stable, without evidence of STEMI, stable will hand over additional care to the primary day team.
[2017-04-29 07:11] LABS: CREATININE 2.5 mg/dl (0.60-1.40)
[2017-04-29 07:12] LABS: BUN/CREATININE RATIO 25.4 (10-20); CALCIUM 8.7 mg/dl (8.5-10.1); POTASSIUM 3.6 mmol/L (3.5-5.1)
[2017-04-29] MEDS ORDERED: NITROGLYCERIN OINT 2% 1GM PACKET EXT SCH (07:15)
[2017-04-29 07:28] VITALS: BP 136/75; PULSE 78; TEMP 37; O2SAT 95
[2017-04-29 07:52] LABS: INR 1.1 (0.9-1.1); PARTIAL THROMBOPLASTIN RATIO 1.1; PROTHROMBIN TIME (PATIENT) 11.8 SECONDS (9.0-12.0)
[2017-04-29] MEDS: INSULIN ASPART 100 UNITS/ML 3 ML PEN SC SCH ×3 (08:21→17:09)
[2017-04-29] MEDS: INSULIN GLARGINE SOLOSTAR 100 UNITS/ML 3 ML PEN SC SCH (08:24)
[2017-04-29] MEDS: FERROUS GLUCONATE 324 MG TAB PO SCH (08:25)
[2017-04-29] MEDS: RANITIDINE HCL 150 MG TAB PO SCH (08:25)
[2017-04-29] MEDS: CEROVITE ADV FORMULA TAB PO SCH (08:25)
[2017-04-29] MEDS: POTASSIUM CHLORIDE 20 MEQ TABCR PO SCH (08:25)
[2017-04-29] MEDS: DEXAMETHASONE 0.5 MG/5 ML PO SCH (08:28)
[2017-04-29] MEDS ORDERED: BUMETANIDE IV 2 MG in SYRINGE 0 ML IV ONE (08:30)
[2017-04-29] MEDS: HEPARIN SOD 5000 UNIT/0.5 ML CARP SQ SCH (08:31)
[2017-04-29] MEDS ORDERED: ALLOPURINOL 300 MG TAB PO SCH (09:00)
[2017-04-29] MEDS ORDERED: GABAPENTIN 100 MG CAP PO SCH (09:00)
[2017-04-29] MEDS ORDERED: BUMETANIDE 1 MG TAB PO SCH (09:00)
[2017-04-29] MEDS ORDERED: CEROVITE ADV FORMULA TAB PO SCH (09:00)
[2017-04-29] MEDS ORDERED: ISOSORBIDE MONONITRATE 30 MG TABCR PO SCH (09:00)
--- NOTE | 2017-04-29 09:03 | Hospitalist Progress Note ---
Hospitalist Progress Note Date of Service Apr 29, 2017. (Rosa Bledsoe PA-C) Subjective Pt evaluation today including: conversation w/ patient, physical exam, chart review, lab review, review of studies Pain: None PO Intake: Fair Voiding: no voiding problems The patient was seen and examined this morning with Dr. Peraza. Pt reports doing well this morning. He still has a slight nonproductive cough. He reports yesterday his cough was worse at rest, and exacerbated with lying flat. His legs seem a little less swollen today in comparison to yesterday. On exam he is able to take deep breaths without difficulty where he tells me yesterday he would not have been able to do that yesterday. He had gained ~ 5 lbs despite taking extra Bumex x several days prior to admission- ( so was on Bumex 3 mg PO daily) His dry weight is 165. Pt denies any chest pain, palpitations, lightheadedness, dizziness, flutter, fever, sweats or chills. He denies any difficulty with diet or appetite, and has been avoiding high sodium foods. Pt reports his , Tommy, will be in later this morning. Constitutional: + see HPI Eyes: No diplopia ENT: No nasal symptoms, No trouble swallowing Respiratory: + see HPI Cardiovascular: + see HPI Abdomen: + see HPI, No pain, No nausea Musculoskeletal: + see HPI, + swelling (Lowe extremities), No joint pain Neurologic: No memory loss, No weakness, No numbness/tingling Skin: + problem reported (lesions on LLE chronic), No rash, No itch ( Rosa Bledsoe, TARAH) Objective Vital Signs Date Time Temp Pulse Resp B/P (MAP) Pulse Ox O2 Delivery O2 Flow Rate FiO2 04/29/17 07:28 37.0 78 18 136/75 (95) 95 Room Air 04/29/17 04:00 Room Air 04/29/17 03:38 37.2 81 16 125/67 (86) 94 Room Air 04/28/17 23:07 37.0 83 18 165/80 (108) 95 Room Air 04/28/17 20:00 Room Air 04/28/17 18:28 36.7 79 18 175/97 98 Room Air 04/28/17 18:11 73 16 144/64 99 04/28/17 17:37 90 22 157/92 96 Room Air 04/28/17 15:49 71 20 162/63 98 Room Air 04/28/17 14:58 74 20 165/70 97 Room Air 04/28/17 14:10 80 04/28/17 14:08 100 Nasal Cannula 04/28/17 13:37 100 Room Air 04/28/17 13:37 100 Room Air 04/28/17 13:05 36.8 71 16 137/67 100 Room Air (Rosa Bledsoe PA-C) Physical Exam General Appearance: WD/WN, no apparent distress Eyes: PERRL, EOMI ENT: hearing grossly normal, pharynx normal, + pertinent finding (MMM) Neck: supple, + JVD (mild) Respiratory/Chest: chest non-tender, lungs clear, no respiratory distress, no accessory muscle use Cardiovascular: regular rate, rhythm, no murmur, + JVD Abdomen: normal bowel sounds, non tender, soft Extremities: non-tender, no calf tenderness, + pedal edema (1+ nonpitting in the RLE, LLE was wrapped earlier but there is some slight edema in his Left thigh. ), + pertinent finding (RUE AVF with bruit and palpable thrill) Neurologic/Psychiatric: alert, normal mood/affect, oriented x 3 Skin: normal color, warm/dry (Rosa Bledsoe, PA-C) Laboratory Results Last 24 Hours Test 04/28/17 13:50 04/28/17 19:00 04/28/17 21:05 04/28/17 22:36 White Blood Count 7.49 K/uL Red Blood Count 4.04 M/uL Hemoglobin 13.0 g/dL Hematocrit 40.3 % Mean Corpuscular Volume 99.8 fL Mean Corpuscular Hemoglobin 32.2 pg Mean Corpuscular Hemoglobin Concent 32.3 g/dl Platelet Count 97 K/uL Mean Platelet Volume 12.7 fL Neutrophils (%) (Auto) 63.9 % Lymphocytes (%) (Auto) 13.5 % Monocytes (%) (Auto) 14.2 % Eosinophils (%) (Auto) 7.1 % Basophils (%) (Auto) 0.4 % Neutrophils # (Auto) 4.79 K/uL Lymphocytes # (Auto) 1.01 K/uL Monocytes # (Auto) 1.06 K/uL Eosinophils # (Auto) 0.53 K/uL Basophils # (Auto) 0.03 K/uL RDW Standard Deviation 57.5 fL RDW Coefficient of Variation 15.9 % Immature Granulocyte % (Auto) 0.9 % Immature Granulocyte # (Auto) 0.07 K/uL Prothrombin Time 11.1 SECONDS Prothromb Time International Ratio 1.0 Activated Partial Thromboplast Time 28.9 SECONDS Partial Thromboplastin Ratio 1.1 Sodium Level 142 mmol/L Potassium Level 3.3 mmol/L Chloride Level 105 mmol/L Carbon Dioxide Level 27 mmol/L Anion Gap 10.0 mmol/L Blood Urea Nitrogen 68 mg/dl Creatinine 2.40 mg/dl Est Creatinine Clear Calc Drug Dose 24.1 ml/min Estimated GFR () 28.7 Estimated GFR (Non- 24.7 BUN/Creatinine Ratio 28.4 Random Glucose 71 mg/dl Calcium Level 9.5 mg/dl Total Bilirubin 0.6 mg/dl Direct Bilirubin 0.2 mg/dl Aspartate Amino Transf (AST/SGOT) 93 U/L Alanine Aminotransferase (ALT/SGPT) 135 U/L Alkaline Phosphatase 116 U/L Troponin I 0.110 ng/ml 0.110 ng/ml Pro-B-Type Natriuretic Peptide 4621 pg/ml Total Protein 6.4 gm/dl Albumin 3.0 gm/dl Lipase 144 U/L Bedside Glucose 64 mg/dl 114 mg/dl Test 04/29/17 02:00 04/29/17 06:15 04/29/17 06:53 04/29/17 07:24 Bedside Glucose 202 mg/dl 173 mg/dl White Blood Count 6.39 K/uL Red Blood Count 3.62 M/uL Hemoglobin 11.5 g/dL Hematocrit 36.1 % Mean Corpuscular Volume 99.7 fL Mean Corpuscular Hemoglobin 31.8 pg Mean Corpuscular Hemoglobin Concent 31.9 g/dl RDW Standard Deviation 56.2 fL RDW Coefficient of Variation 15.5 % Platelet Count 96 K/uL Mean Platelet Volume 13.0 fL Sodium Level 141 mmol/L Potassium Level 3.6 mmol/L Chloride Level 103 mmol/L Carbon Dioxide Level 30 mmol/L Anion Gap 8.0 mmol/L Blood Urea Nitrogen 64 mg/dl Creatinine 2.50 mg/dl Est Creatinine Clear Calc Drug Dose 23.2 ml/min Estimated GFR () 27.3 Estimated GFR (Non- 23.5 BUN/Creatinine Ratio 25.4 Random Glucose 179 mg/dl Calcium Level 8.7 mg/dl Troponin I 0.108 ng/ml Prothrombin Time 11.8 SECONDS Prothromb Time International Ratio 1.1 Activated Partial Thromboplast Time 29.5 SECONDS Partial Thromboplastin Ratio 1.1 (Rosa Bledsoe, TARAH) Assessment and Plan 77 yo M with PMHx of combined systolic and diastolic CHF, unstable angina Elevated weight likely secondary to acute exacerbation of chronic combined type CHF CAD - Admit to tele on obs - IV Bumex 2 mg ordered this morning, home regimen is 2 mg PO daily on hold today. - cardiology consulted- Discussed with Dr. Peraza - no plans at this time for medication changes. Likely just continue to diuresis until reaches dry weight of 165. Pt had been up to 170 prior to admission. - Follows with Dr. Rivero as outpatient - Checking echo, then if worsened EF will consider discussion regarding medications changes or defibrillator. Previous ECHO from - LVEF = 45-50%. moderate concentric ventricular hypertrophy, Grade III diastolic dysfunction, consistent with markedly increased left atrial pressure. - Continue Imdur 90 mg daily, metoprolol succ 100 mg QPM, and continue his aspirin 81 mg QPM. Hyperlipidemia - Continue pravastatin 40 mg daily DM II - Continue Lantus at 15 U BID with an insulin sliding scale/ accuchecks and diabetic diet. Hx Gout - Continue allopurinol 150 mg daily GERD - Continue ranitidine 150 mg daily DVT ppx: Teds, heparin subq CKD stage III-IV - Has RUE AVF with bruit and palpable thrill - Baseline appears to be 2.8-3.0 - Renally dose medications Hypokalemia - Replete prn, caution with CKD as above CODE STATUS: DNR Disposition: From [facility], discharge when medically stable, likely within 1 day. (Rosa Bledsoe PA-C) Attending Attestation: Pt seen/examined, chart reviewed, care plan d/w SUSI Bledsoe. I agree w/ the soto components of her documentation. Please see my attestation of the discharge summary from the same date for further details. Merlin Howard MD (Merlin Howard MD)
--- NOTE | 2017-04-29 10:31 | ECHOCARDIOGRAM REPORT ---
*NOTICE TO RECEIVING [employer] This information is strictly Confidential and protected under [place] law. [place] law prohibits you from making any further disclosure of this information unless further disclosure is expressly permitted by the written consent of the person to whom it pertains or is authorized by law. A general authorization for the release of medical or other information is not sufficient for this purpose. Hospital accepts no responsibility if the information is made available to any other person, INCLUDING THE PATIENT. Interpretation Summary * Name: GILBERTO ELLSWORTH Study Date: 04/29/2017 06:49 AM BP: 136/75 mmHg * Patient Location: S243 HR: 76 * : 1940 (M/d/yyyy) Gender: Male Height: 68 in * Age: 77 yrs Ethnicity: [place] Weight: 177 lb * Ordering Physician: Mychal Nunes * Referring Physician: Self, Referred * Performed By: Suma Ellsworth RCS * * Reason For Study: MEDICAL MANAGEMENT OF ANGINA / CHF * BSA: 1.9 m2 * -- Conclusions -- * 1. Normal left ventricular size with mildly reduced systolic function. EF 45-50%. Mild global hypokinesis. Mild concentric left ventricular hypertrophy. Type 2 diastolic dysfunction. * 2. Mildly dilated right ventricle with normal systolic function. * 3. Bioprosthetic aortic valve with appropriate transvalvular gradients/velocities. * 4. Mildly elevated right ventricular systolic pressure. Estimated RVSP 42 mmHg. * 5. No significant change from prior study on 09/25/2016. Procedure Details * A complete two-dimensional transthoracic echocardiogram was performed (2D, M-mode, Doppler and color flow Doppler). Left Ventricle * Normal left ventricular size with mildly reduced systolic function. EF 45-50%. Mild global hypokinesis. Mild concentric left ventricular hypertrophy. Type 2 diastolic dysfunction. Right Ventricle * The right ventricle is mildly dilated. * The right ventricular systolic function is normal. * The right ventricular systolic function is normal as assessed by tricuspid annular plane systolic excursion (TAPSE) (normal >1.5 cm). Atria * The left atrial size is normal. * Right atrial size is normal. * There is no evidence of atrial septal defect, but resolution does not allow assessment for a patent foramen ovale. Mitral Valve * There is moderate mitral annular calcification. * There is no mitral valve stenosis. * There is trace mitral regurgitation. Tricuspid Valve * The tricuspid valve is not well visualized, but is grossly normal. * There is no tricuspid stenosis. * There is trace tricuspid regurgitation. Aortic Valve * Bioprosthetic aortic valve with appropriate transvalvular gradients/velocities. Pulmonic Valve * The pulmonary valve is inadequately visualized, but the Doppler data is adequate for interpretation. * There is no pulmonic valvular stenosis. * Trace pulmonic valvular regurgitation. Great Vessels * The aortic root is normal size. * Aortic arch of normal dimension. Pericardium/Pleural * There is no pericardial effusion. Great Vessels * Normal inferior vena cava size and collapsability with sniff indicates a normal right atrial pressure of 3 mmHg MMode 2D Measurements and Calculations IVSd 1.2 cm IVSs 1.4 cm LVIDd 4.7 cm LVIDs 3.5 cm LVPWd 1.3 cm LVPWs 1.3 cm IVS/LVPW 0.88 FS 24.6 % EDV(Teich) 101.7 ml ESV(Teich) 52.0 ml EF(Teich) 48.9 % EDV(cubed) 103.0 ml ESV(cubed) 44.1 ml EF(cubed) 57.2 % % IVS thick 21.7 % % LVPW thick -2.44 % LV mass(C)d 220.4 grams LV mass(C)dI 113.6 grams/m\S\2 LV mass(C)s 164.7 grams LV mass(C)sI 84.9 grams/m\S\2 SV(Teich) 49.7 ml SI(Teich) 25.6 ml/m\S\2 SV(cubed) 58.9 ml SI(cubed) 30.3 ml/m\S\2 Ao root diam 2.9 cm Ao root area 6.5 cm\S\2 ACS 1.6 cm LA dimension 4.7 cm LA/Ao 1.6 LVOT diam 1.9 cm LVOT area 2.7 cm\S\2 LVAd ap2 37.1 cm\S\2 LVLd ap2 8.1 cm EDV(MOD-sp2) 135.0 ml EDV(sp2-el) 143.6 ml LVAs ap2 25.7 cm\S\2 LVLs ap2 7.2 cm ESV(MOD-sp2) 77.3 ml ESV(sp2-el) 77.2 ml EF(MOD-sp2) 42.7 % EF(sp2-el) 46.2 % SV(MOD-sp2) 57.7 ml SI(MOD-sp2) 29.7 ml/m\S\2 SV(sp2-el) 66.3 ml SI(sp2-el) 34.2 ml/m\S\2 Doppler Measurements and Calculations MV E max fatoumata 122.9 cm/sec MV A max fatoumata 115.4 cm/sec MV E/A 1.1 MV P1/2t max fatoumata 143.4 cm/sec MV P1/2t 65.2 msec MVA(P1/2t) 3.4 cm\S\2 MV dec slope 644.2 cm/sec\S\2 MV dec time 0.18 sec Ao V2 max 203.7 cm/sec Ao max PG 16.6 mmHg Ao max PG (full) 13.4 mmHg Ao V2 mean 137.4 cm/sec Ao mean PG 8.7 mmHg Ao mean PG (full) 7.3 mmHg Ao V2 VTI 42.6 cm ARA(I,A) 1.1 cm\S\2 ARA(I,D) 1.1 cm\S\2 ARA(V,A) 1.2 cm\S\2 ARA(V,D) 1.2 cm\S\2 LV V1 max PG 3.2 mmHg LV V1 mean PG 1.4 mmHg LV V1 max 89.2 cm/sec LV V1 mean 52.8 cm/sec LV V1 VTI 18.1 cm SV(Ao) 277.6 ml SI(Ao) 143.0 ml/m\S\2 SV(LVOT) 48.6 ml SI(LVOT) 25.1 ml/m\S\2 PA V2 max 102.7 cm/sec PA max PG 4.2 mmHg TR max fatoumata 313.2 cm/sec RVSP(TR) 42.2 mmHg RAP systole 3.0 mmHg
--- NOTE | 2017-04-29 11:43 | CARDIOLOGY CONSULTATION ---
DATE OF CONSULTATION: 04/29/2017 CONSULTING PHYSICIAN: Dr. Nunes. REASON FOR CONSULTATION: Medical management of angina. PRIMARY PHOTOGRAPHER SCIENTIFIC: Dr. Rivero. HISTORY OF PRESENT ILLNESS: Mr. Ellsworth is a very pleasant 77-year-old gentleman with a history significant for CAD status post PCI, bioprosthetic aortic valve, chronic kidney disease, hepatitis C, type 1 diabetes, dyslipidemia, and hypertension. He was admitted to [facility] on 04/28/2017 when he presented for coughing. He was thought to have diastolic heart failure exacerbation. He states that a few weeks ago he had a coughing episode, which treated with antibiotics and his symptoms resolved. Symptoms then came back once again significantly. Coughing was worse when lying down and also on deep inspiration or talking. He denied worsening shortness of breath, however. He denies syncope, near syncope, palpitations or angina. He does have angina chronically, however, with no acute worsening. The chronic angina is described as a stable issue. He has left-sided chest discomfort that occurs only with exertion. He takes nitroglycerin approximately twice per week for the exertional symptoms and nitroglycerin does quickly resolve his symptoms. He has discussed this with Dr. Rivero as an outpatient and there was conversation about increasing isosorbide mononitrate, but the decision was made to continue with his current regimen with p.r.n. nitroglycerin to be use. He has been tolerating this well. He did not himself notice any worsening swelling; however, he was told by a physician that his lower extremity swelling has worsened. He has noted approximately a 5-pound weight gain. He typically weighs around 165 pounds on the upper limits, but he went up to 170 pounds over the past 1-1.5 months. He typically takes 2 mg of Bumex per day and took an additional 1 mg for a total of 3 mg for 4 days with no improvement of his weight or symptoms. He maintains a low sodium diet. He denies melena, hematochezia, or hematuria, but does have occasional oral bleeding. He had been evaluated by oral surgery and recently a dentist. No etiology has been determined yet. He had been on Plavix in the past and this was discontinued due to the bleeding. He maintains aspirin 81 mg daily and apparently is tolerating it well with this occasional bleeding. He denies stroke, stroke-like symptoms, syncope, near syncope, palpitations, orthopnea, fevers, chills, abdominal pain, nausea or vomiting. During this hospitalization, he has been treated with IV Bumex 2 mg IV this morning at 08:32 a.m. He was also given a dose of Lasix 80 mg yesterday afternoon. This morning, he also received 2 mg of oral Bumex. With this intervention, his symptoms have improved, but is not yet back to baseline. REVIEW OF SYSTEMS: As above and review of systems otherwise negative/unremarkable. PAST MEDICAL HISTORY: 1. Coronary artery disease, status post PCI in the past. There was apparently a drug-eluting stent placed in 2013. He has had other multiple non-ST elevation myocardial infarctions, for which medical therapy has been recommended as he was felt to be a suboptimal revascularization candidate. 2. Chronic kidney disease with right upper extremity AV fistula. He is not yet on hemodialysis. 3. Ischemic cardiomyopathy with improved LV systolic function with most recent being mildly reduced. 4. Bioprosthetic aortic valve in 2009. 5. Type 1 diabetes. 6. Cirrhosis. 7. Chronic viral hepatitis C. 8. Chronic combined systolic and diastolic congestive heart failure. 9. Carotid artery stenosis. 10. Anemia. 11. Hypertension. 12. Dyslipidemia. 13. Diabetic nephropathy. 14. Diabetic peripheral neuropathy. 15. History of seizure. 16. Prior issues with orthostatic hypotension. 17. PVCs. 18. Vitamin D deficiency. 19. Colon cancer history. HOME MEDICATIONS: Include, 1. Bumex 2 mg daily. 2. Aspirin 81 mg daily. 3. Metoprolol succinate 100 mg daily. 4. Pravastatin 40 mg daily. 5. Isosorbide mononitrate 90 mg daily. Please see H&P for full list. INPATIENT MEDICATIONS: Include, 1. Bumex 2 mg IV x1 this morning and Bumex 2 mg p.o. this morning. 2. Aspirin 81 mg daily. 3. Decadron 0.5 mg p.o. b.i.d. 4. Gabapentin. 5. Heparin 5000 units subQ q. 12 hours. 6. Insulin. 7. Isosorbide mononitrate 90 mg daily. 8. Metoprolol succinate 100 mg p.o. at bedtime. 9. Potassium chloride 20 mEq p.o. b.i.d. 10. Pravastatin 40 mg daily. 11. Zantac 150 mg p.o. b.i.d. ALLERGIES: No known drug allergies. SOCIAL HISTORY: Quit smoking many years ago. No alcohol. He is to his ____, [place]. They live in an independent living at [facility]. He is retired from [employer]. He is originally from [place]. He currently has no family at his bedside. FAMILY HISTORY: Positive for coronary artery disease. PHYSICAL EXAMINATION: VITAL SIGNS: Temperature is 37 degrees, heart rate 78 beats per minute, respiratory rate 18, blood pressure 136/75 mmHg, and oxygen saturation is 95% on room air. Blood pressure has been mostly hypertensive throughout the hospital stay, but has been normotensive this morning. I's and O's negative 585 mL yesterday. Weight 76.7 kilograms, down from 77.9. GENERAL: No acute distress. He is alert and oriented. HEENT: Anicteric sclerae. NECK: Mildly elevated JVD. Bilateral carotid bruits. Normal carotid upstrokes bilaterally. CARDIAC EXAMINATION: PMI was not palpable. There was no ventricular heave. Regular, normal S1 and S2. 1/6 early peaking systolic ejection murmur best heard at the right upper sternal border. No rubs or gallops. LUNGS: Clear to auscultation bilaterally without wheezes, rales or rhonchi. ABDOMEN: Soft, nontender, and nondistended. Normoactive bowel sounds. No bruits noted. EXTREMITIES: 1+ bilateral lower extremity edema in the dependent areas. No cyanosis. Right upper extremity AV fistula with palpable thrill and audible bruit. 2+ left radial pulse. 1+ dorsalis pedis pulses bilaterally. PSYCHIATRIC: Affect appears appropriate. ECGs personally reviewed. ECG on 04/28/2017 at 14:06, sinus rhythm, 72 beats per minute. Lateral ST-T wave abnormality. No significant change from 09/26/2016. Repeat ECG this morning at 06:22 a.m. personally reviewed. Sinus rhythm at 77 beats per minute. Lateral ST-T wave abnormality. PAC. Echocardiogram reviewed from 04/29/2017, normal LV size with mildly reduced systolic function. EF 45%-50%. Mild global hypokinesis. Type 2 diastolic dysfunction. Mild LVH. Mildly dilated RV with normal systolic function. Appropriately functioning bioprosthetic aortic valve. RVSP 42 mmHg. LABORATORY DATA: White blood cell count 6.39, hemoglobin 11.5, and platelets 96. Sodium 141, potassium 3.6, BUN 64, and creatinine 2.5 up from 2.4. Peak troponin 0.11. AST 93 and ALT 135. Albumin 3. INR 1.1. Chest x-ray, no acute cardiopulmonary abnormality per radiology. ASSESSMENT AND PLAN: 1. Acute on chronic combined systolic-diastolic congestive heart failure: He does appear to be mildly hypervolemic. His presenting symptom of coughing has improved with IV diuresis. He has received a total of 4 mg of Bumex today. Reassess renal function tomorrow as well as electrolytes. Further dosing can be made based upon his response. Low sodium diet. Daily weights. Strict I's and O's. 2. Angina: He has chronic stable angina with no acute worsening. He has discussed treatment strategy with his primary procurement agent, Dr. Rivero. No changes made today, but if he has worsening symptoms in the future, could increase isosorbide mononitrate. Dr. Rivero prefers to remain at current dosing for now with p.r.n. nitroglycerin as discussed with the patient. He did not present acute coronary syndrome. 3. Elevated troponins: Likely secondary to acute heart failure exacerbation in the setting of coronary artery disease and renal insufficiency. Cardiac catheterization is not recommended. Continue medical management. 4. Coronary artery disease, status post percutaneous coronary intervention: Continue aspirin 81 mg daily. He had bleeding issues on Plavix and therefore, it had been discontinued in the past by other providers. Continue metoprolol succinate at current dose. High intensity statin therapy has not been used due to his underlying liver issues. Can continue pravastatin for now. 5. Dyslipidemia: Can continue current dose of statin therapy. His transaminase levels are elevated, but not to the degree that that would recommend discontinuation of statin therapy at this point. It should be monitored over time. 6. Hypertension: Blood pressure was initially elevated, but it has been normotensive this morning. This may continue to improve with further diuresis. 7. Cardiomyopathy: LV systolic function is mildly reduced. Continue current regimen. He has had issues with orthostatic hypotension in the past and also has underlying renal issues and therefore, DANNA inhibitor or ARB are not being used at this time. Continue metoprolol succinate. He does not meet criteria for ICD for primary prevention. 8. Disposition: Plan of care has been discussed with primary service, Genet Bledsoe. Cardiology will continue to follow. Thank for allowing me to participate in care of Mr. Ellsworth.
[2017-04-29 12:08] VITALS: BP 130/70; PULSE 83; TEMP 36.8; O2SAT 96
--- NOTE | 2017-04-29 15:25 | Discharge Instructions ---
Discharge Instructions Date of Service Apr 29, 2017. Admission Reason for Admission: Chest Pain Discharge Discharge Diagnosis / Problem: Acute CHF exacerbation Discharge Goals Goal(s): Decrease discomfort, Improve function, Increase independence, Improve disease control Activity Recommendations Activity Limitations: resume your previous activity Lifting Limitations: no more than 25 pounds, gradually increase as tolerated Exercise/Sports Limitations: rest today, gradually increase as tolerated May Resume Sexual Activity: when tolerated Shower/Bathe: no limitations Driving or Machine Use: resume 1 day after discharge . Instructions / Follow-Up Instructions / Follow-Up You were admitted to [facility] with increased peripheral swelling and dry cough and diagnosed with Acute exacerbation of CHF secondary to recent prednisone taper for gout flare. - During your stay here you were treated with intravenous diuretics and other supportive care. - You were evaluated by Cardiology during your stay- recommendations were made to continue current medication regimen and a short timeframe of increased Bumex as below: - An Echocardiogram was completed during your stay which showed a preserved left ventricular ejection fraction of 45-50%, this is stable compared to previous studies. Medications: - Take Bumex 3 mg by mouth daily x 4 days, then resume your normal daily regimen of 2 mg by mouth from there on. Appointments: Follow up with the Heart Failure clinic has been requested by Dr. Gregory Peraza , you will be notified of you follow up appointment. Follow up with your Primary Care Provider within 1 week, you will be notified of the appointment details. Current Hospital Diet Patient's current hospital diet: Diabetes Type 2 Diet, Low Sodium Diet (2gm Na) Discharge Diet Recommended Diet: Low Sodium Diet (2gm Na), Diabetes Type 2 Diet Procedures Procedures Performed: Echocardiogram showing LVEF of 45-50%, stable. Pending Studies Studies pending at discharge: no Medical Emergencies . Who to Call and When: Medical Emergencies: If at any time you feel your situation is an emergency, please call 911 immediately. . Non-Emergent Contact Non-Emergency issues call your: Primary Care Provider, Mft Call Non-Emergent contact if: you have a fever, temperature is above 100.5, your pain is not controlled, your pain is worsening, your pain is unusual for you, your pain is concerning you, you have any medication questions other concerns with your health. Call 911 or go directly to the Emergency Department if you experience any of the following: Chest pain, chest tightness, shortness of breath, abdominal pain , lightheadedness, dizziness, gastrointestinal bleeding, or have any other concerns regarding your health. . Past History Medical & Surgical History: (1) CHF exacerbation (2) Chronic kidney disease, stage IV (severe) (3) Unstable angina . "Provider Documentation" section prepared by Genet Bledsoe. Attending Attestation: Pt seen/examined and discharge care plan d/w SUSI Bledsoe. I agree w/ her discharge instructions as outlined. Merlin Howard MD . VTE Core Measure Inpt VTE Proph given/why not?: Unfractionated heparin SQ, T.E.DRain Couchings
--- NOTE | 2017-04-29 15:30 | Discharge Summary ---
Discharge Summary Date of Service Apr 29, 2017. (Rosa Bledsoe PA-C) Discharge Summary Admission Date: Apr 28, 2017 at 16:29 Discharge Date: Apr 29, 2017 Discharge Disposition: Home ([place]) Principal Diagnosis: Acute exacerbation of combined type CHF Problems/Secondary Diagnoses: combined systolic and diastolic CHF, unstable angina, recent gout flare on prednisone taper which ended about 1 week prior to admission Dm II hyperlipidemia CKD stage IV GERD Hypokalemia Immunizations: Have You Had Influenza Vaccine: N/A Influenza Vaccine Date: Apr 02, 2009 History of Tetanus Vaccine?: Unknown History of Pneumococcal: Yes Pneumococcal Date: May 23, 2008 History of Hepatitis B Vaccine: Yes Procedures: SINGLE VIEW CHEST CLINICAL HISTORY: Atypical chest pain. FINDINGS: An AP, portable, upright chest radiograph is compared to study dated 09/24/2016. The examination is significantly degraded by portable technique, motion artifact, and patient rotation. The patient is status post midline sternotomy. The heart is enlarged and there is atherosclerotic calcification of the thoracic aorta. Evaluation of the lung parenchyma is degraded by motion artifact. No airspace consolidation or large pleural effusion is identified. No pneumothorax is seen. The skeletal structures are osteopenic. The bony thorax is grossly intact. IMPRESSION: Cardiomegaly with no acute cardiopulmonary abnormality noting a motion degraded examination. Electronically signed by: Milton Duarte M.D. 04/28/2017 2:16 PM Dictated Date/Time: 04/28/2017 2:15 PM The status of this report is Signed. Echocardiogram 04/29/17 -- Conclusions -- * 1. Normal left ventricular size with mildly reduced systolic function. EF 45-50%. Mild global hypokinesis. Mild concentric left ventricular hypertrophy. Type 2 diastolic dysfunction. * 2. Mildly dilated right ventricle with normal systolic function. * 3. Bioprosthetic aortic valve with appropriate transvalvular gradients/ velocities. * 4. Mildly elevated right ventricular systolic pressure. Estimated RVSP 42 mmHg. * 5. No significant change from prior study on 09/25/2016. Consultations: Cardiology (Rosa Bledsoe PA-C) Problems/Secondary Diagnoses: +troponin - likely myocardial demand ischemia in the setting of acute/chronic CHF hepatitis C ileostomy status bioprosthetic aortic valve replacement (Merlin Howard MD) Medication Reconciliation Continued Medications: Allopurinol (Zyloprim) 100 Mg Tab 150 MG PO DAILY, TAB Aspirin (Aspirin Ec) 81 Mg Tab 81 MG PO QPM B-Complex Vitamins (B Complex) 1 Cap Cap 1 CAP PO DAILY Bumetanide (Bumetanide) 1 Mg Tab 2 MG PO QAM, #30 TAB Calcium Carbonate-Vitamin D (Calcium + D) 1 Tab Tab 1 TAB PO BID Cetirizine (Zyrtec) 10 Mg Tab 10 MG PO HS, TAB Coenzyme Q10 (Ubidecarenone) (Coq10) 200 Mg Cap 200 MG PO BID Dexamethasone (Dexamethasone) 0.5 Mg/5 Ml Elx 5 ML PO BID SWISH IN MOUTH Ferrous Gluconate (Ferrous Gluconate) 324 Mg Tab 324 MG PO BID, TAB Folic Acid (Folvite) 1 Mg Tab 1 MG PO NOON, TAB Gabapentin (Neurontin) 300 Mg Cap 300 MG PO QAM/HS, CAP Gabapentin (Neurontin) 100 Mg Cap 100 MG PO DAILY, CAP Glucagon (Glucagon Emergency Kit) 1 Mg Kit 1 MG IM UD Hydroxyzine Hcl (Atarax) 50 Mg Tab 10 MG PO Q6 PRN for Itching, TAB Insulin Aspart (Novolog Flexpen) 100 Units/Ml Inj 1 DOSE SQ AC PRN for PER SLIDING SCALE Insulin Glargine (Lantus Solostar) 100 Unit/Ml Inj 15 UNITS SC BID, PEN Isosorbide Mononitrate (Isosorbide Mononitrate ER) 60 Mg Tabcr 90 MG PO DAILY, #45 Metoprolol Succ (Toprol Xl) (Toprol-Xl ) 100 Mg Tabcr 100 MG PO HS, TAB Multiple Vitamins W/ Minerals (Centrum Silver Adult 50+) 1 Tab Tab 1 TAB PO DAILY Nitroglycerin (Nitrostat) 0.4 Mg Tab 0.4 MG UT PRN, BTL Ocuvite Preservision (Ocuvite Preservision) 1 Tab Tab 1 TAB PO BID, TAB Pravastatin Sod (Pravastatin Sodium) 40 Mg Tab 40 MG PO QPM Ranitidine (Zantac) 150 Mg Tab 150 MG PO BID, TAB Discharge Exam Subjective Pt evaluation today including: conversation w/ patient, physical exam, chart review, lab review, review of studies Pain: None PO Intake: Fair Voiding: no voiding problems The patient was seen and examined this morning with Dr. Peraza. Pt reports doing well this morning. He still has a slight nonproductive cough. He reports yesterday his cough was worse at rest, and exacerbated with lying flat. His legs seem a little less swollen today in comparison to yesterday. On exam he is able to take deep breaths without difficulty where he tells me yesterday he would not have been able to do that yesterday. He had gained ~ 5 lbs despite taking extra Bumex x several days prior to admission- ( so was on Bumex 3 mg PO daily) His dry weight is 165. Pt denies any chest pain, palpitations, lightheadedness, dizziness, flutter, fever, sweats or chills. He denies any difficulty with diet or appetite, and has been avoiding high sodium foods. Pt reports his , Tommy, will be in later this morning. Constitutional: + see HPI Eyes: No diplopia ENT: No nasal symptoms, No trouble swallowing Respiratory: + see HPI Cardiovascular: + see HPI Abdomen: + see HPI, No pain, No nausea Musculoskeletal: + see HPI, + swelling (Lowe extremities), No joint pain Neurologic: No memory loss, No weakness, No numbness/tingling Skin: + problem reported (lesions on LLE chronic), No rash, No itch Objective Vital Signs Date Time Temp Pulse Resp B/P (MAP) Pulse Ox O2 Delivery O2 Flow Rate FiO2 04/29/17 07:28 37.0 78 18 136/75 (95) 95 Room Air 04/29/17 04:00 Room Air 04/29/17 03:38 37.2 81 16 125/67 (86) 94 Room Air 04/28/17 23:07 37.0 83 18 165/80 (108) 95 Room Air 04/28/17 20:00 Room Air 04/28/17 18:28 36.7 79 18 175/97 98 Room Air 04/28/17 18:11 73 16 144/64 99 04/28/17 17:37 90 22 157/92 96 Room Air 04/28/17 15:49 71 20 162/63 98 Room Air 04/28/17 14:58 74 20 165/70 97 Room Air 04/28/17 14:10 80 04/28/17 14:08 100 Nasal Cannula 04/28/17 13:37 100 Room Air 04/28/17 13:37 100 Room Air 04/28/17 13:05 36.8 71 16 137/67 100 Room Air Physical Exam General Appearance: WD/WN, no apparent distress Eyes: PERRL, EOMI ENT: hearing grossly normal, pharynx normal, + pertinent finding (MMM) Neck: supple, + JVD (mild) Respiratory/Chest: chest non-tender, lungs clear, no respiratory distress, no accessory muscle use Cardiovascular: regular rate, rhythm, no murmur, + JVD mild Abdomen: normal bowel sounds, non tender, soft Extremities: non-tender, no calf tenderness, + pedal edema (1+ nonpitting in the RLE, LLE was wrapped earlier but there is some slight edema in his Left thigh. ), + pertinent finding (RUE AVF with bruit and palpable thrill) Neurologic/Psychiatric: alert, normal mood/affect, oriented x 3 Skin: normal color, warm/dry (Rosa Bledsoe, TARAH) Hospital Course HISTORY OF PRESENT ILLNESS: Mr. Ellsworth is a 77-year-old male who has nonoperative coronary disease, deemed by Dr. Rivero and Dr. Arenas after recent catheterizations. He has known multiple catheterized stent interventions. He has had previous aortic valve replacement. He has known chronic diastolic dysfunction, class 3. The patient has had a 15-pound weight gain over the last 1 month and has had increased nonproductive cough. The patient states that he has not been more short of breath than usual, but is short of breath typically. The patient has had angina over the month of February when he was increasing his oral p.r.n. nitroglycerin use. He said he spoke to Dr. Rivero about that, and Dr. Rivero said to continue that remedy. The patient presents today with concern for the cough being something cardiac-related. The patient has had no fevers or chills. The patient does have a history of hepatitis, but he has had no ascites. He feels he has had no peripheral edema. In the Emergency Department, the patient had oxygen saturation of 100%. He had a chest x-ray showing no evidence of cardiopulmonary edema. Vital signs were stable with the exception of mild hypertension, and the patient was given 80 mg of Lasix IV. The patient has chronically elevated troponin, this was better than it has ever been. He has chronic kidney disease stage IV and his creatinine was 2.4, and he has chronically elevated BNP. PHYSICAL EXAMINATION: VITAL SIGNS: His temperature is 36.8, pulse 74, respirations 20, BP 165/70, O2 sat 97-100 on room air. HEENT: PERRL, EOMI. His oropharynx is clear. There is no evidence of thrush or erythema. NECK: Without lymphadenopathy, JVD, or thyromegaly. HEART: Regular with a systolic murmur at the right upper sternal border. LUNGS: Clear without wheezes or crackles. Good air movement. SPINE: Nontender. There is no CV angle tenderness. ABDOMEN: Normoactive bowel sounds and soft, I do not feel any fluid wave or ascites. His ileostomy is as mentioned in the right lower quadrant. I do not feel any hepatosplenomegaly. EXTREMITIES: With trace to 1+ pretibial edema in both legs up to the knee. He states this is about his usual although earlier he said he has no edema. SKIN: Without lesions, growths, bruises or bleeding. NEUROLOGICALLY: Awake, alert and appropriate. Cranial nerves II-XII are intact. PSYCHOLOGIC: He appears neither anxious nor depressed. Hospital Course: 77 yo M with PMHx of combined systolic and diastolic CHF, unstable angina Elevated weight likely secondary to acute exacerbation of chronic combined type CHF CAD - Admit to tele on obs - IV Bumex 2 mg ordered this morning, home regimen is 2 mg PO daily but had taken a few extra doses of this prior to admission. - cardiology consulted- Discussed with Dr. Peraza - no plans at this time for medication changes. Likely just continue to diuresis until reaches dry weight of 165. Pt had been up to 170 prior to admission. - Follows with Dr. Rivero as outpatient - On discharge will have pt take Bumex 3 mg PO x 4 days, then resume daily 2 mg PO. - Follow up BMP in 3 days to assess Cr. function. - Echo appears stable compared to previous: -- Conclusions -- * 1. Normal left ventricular size with mildly reduced systolic function. EF 45-50%. Mild global hypokinesis. Mild concentric left ventricular hypertrophy. Type 2 diastolic dysfunction. * 2. Mildly dilated right ventricle with normal systolic function. * 3. Bioprosthetic aortic valve with appropriate transvalvular gradients/ velocities. * 4. Mildly elevated right ventricular systolic pressure. Estimated RVSP 42 mmHg. * 5. No significant change from prior study on 09/25/2016. - Continue Imdur 90 mg daily, metoprolol succ 100 mg QPM, and continue his aspirin 81 mg QPM. Hyperlipidemia - Continue pravastatin 40 mg daily DM II - Continue Lantus at 15 U BID with an insulin sliding scale/ accuchecks and diabetic diet. Hx Gout - Continue allopurinol 150 mg daily GERD - Continue ranitidine 150 mg daily DVT ppx: Teds, heparin subq CKD stage III-IV - Has RUE AVF with bruit and palpable thrill - Baseline appears to be 2.8-3.0 - Renally dose medications Hypokalemia - Replete prn, caution with CKD as above CODE STATUS: DNR Disposition: From [facility], discharge when medically stable, likely within 1 day. Total Time Spent: Greater than 30 minutes This includes examination of the patient, discharge planning, medication reconciliation, and communication with other providers. (Rosa Bledsoe, TARAH) Attending Discharge Note & Attestation: Pt seen/examined, chart reviewed, discharge care plan d/w SUSI Bledsoe. I agree w/ the soto components of her discharge summary. 77yo male with T1DM, CAD, CKD stage 4, HepC, ileostomy, and chronic systolic/ diastolic CHF who presented with worsening weight gain due to his CHF. This was associated with cough. He was diuresed with IV diuretics over his brief stay with improved weight. Vitals and labs remained stable with the exception of his fingerstick blood sugars. At discharge he will take 3mg of bumex for 3-4 days, then return to his normal dose of 2mg once daily thereafter. Repeat basic metabolic panel in 2 days was requested for stability of his electrolytes and kidney function. As noted above echo remained unchanged from prior echo and no medication adjustments were made. It was thought that his recent use of a steroid taper for gout likely led to his fluid retention. Discharge exam - gen - nad neck - mild JVD mouth - MMM heart - RRR, s1, s2 lungs - scant rales bases abd - soft, NT, no ascites ext - no edema, severe stasis changes b/l legs with excoriation ocampo on legs Due to the lability of his fingersticks he was asked to f/u with his PCP shortly after discharge. Merlin Howard MD (Merlin Howard MD) Discharge Instructions Please refer to the electronic Patient Visit Report (Discharge Instructions) for additional information. (Rosa Bledsoe PA-C) Follow-Up Follow up with the Heart Failure clinic has been requested by Dr. Gregory Peraza , you will be notified of you follow up appointment. Follow up with your Primary Care Provider within 1 week, you will be notified of the appointment details. (Rosa Bledsoe PA-C) Additional Copies To Yomi Ellis M.D.; Carl Olmos MD
[2017-04-29 15:37] VITALS: BP 130/70; PULSE 83; TEMP 36.8; O2SAT 96
[2017-04-29 15:49] VITALS: BP 128/68; PULSE 79; TEMP 36.9; O2SAT 98
[2017-04-29 15:57] VITALS: Ht 172.7 cm; Wt 76.7 kg
[2017-04-29] MEDS ORDERED: ASPIRIN 81 MG ECTAB PO SCH (21:00)
--- NOTE | 2017-04-30 00:33 | Progress Note ---
Progress Note Date of Service Apr 30, 2017. Progress Note time - 0025 Late entry for events of the afternoon of 04/29/17 - At lunchtime on 04/29 the patient's blood sugar had spiked to about 300. Review of chart shows he did not receive carb coverage for breakfast. At the lunch hour the patient DID receive correction AND carb coverage. Several hours later in the late afternoon his blood sugar was checked and was higher in the 400s. I went and spoke with the patient and his . They reported he typically takes between 10-15 units of novolog per meal at home. They showed me a log of blood sugars over the last week. Although some days he had excellent, consistent glycemic control, there were several other days with blood sugar spikes into the 300s. I could tell based on his log that on occasion he would "stack" novolog every several hours to bring his highs down. On one occasion he received nearly 30 units of novolog in the evening hours to bring down a sugar in the 370 range. I instructed the staff to check blood sugars twice following his dinner. At dinner I tightened his correction & carb ratio. At about 715pm his fingerstick was in the 360s. The patient was anxious to get home, having been dressed and ready to go for about 3 hours. He had no complaints. I though it was reasonable to allow him to return home as he had 50+ years of experience managing his sugars. He confirmed he had a specific scale to follow for highs. Patient discharged home and will have our office phone him tomorrow to check on his glycemic control. Shaista KAMARA MD
== END 2017-04-29 19:37 | disposition home or self-care (01) ==
LOC: C.EDB 12:44 → C.2T 16:29 → ENRESERV 16:50
PROVIDERS: ADMIT Internal Medicine; ATTEND Internal Medicine
DX: I50.40 Unspecified combined systolic (congestive) and diastolic (congestive) heart failure (principal); I20.0 Unstable angina; M10.9 Gout, unspecified; E10.9 Type 1 diabetes mellitus without complications; E78.5 Hyperlipidemia, unspecified; N18.4 Chronic kidney disease, stage 4 (severe); K21.9 Gastro-esophageal reflux disease without esophagitis; E87.6 Hypokalemia; I25.110 Atherosclerotic heart disease of native coronary artery with unstable angina pectoris; B19.20 Unspecified viral hepatitis C without hepatic coma; I11.0 Hypertensive heart disease with heart failure; Z87.891 Personal history of nicotine dependence; Z79.82 Long term (current) use of aspirin; Z79.4 Long term (current) use of insulin

== ENCOUNTER → 2017-05-14 | Outpatient (CLI) | payer OTHER, MEDICARE ==
[~2017-05-14] MED LIST changes: -CPC PO; +FERR325T18 PO; +GABA-112 PO; -LISI-461 PO; -PLV75 PO; -TRMCR130WC TOP
[2017-05-14 08:54] LABS: BLOOD UREA NITROGEN 79 mg/dl (7-18); BUN/CREATININE RATIO 23.7 (10-20); CALCIUM 9.8 mg/dl (8.5-10.1); CARBON DIOXIDE 25 mmol/L (21-32); CHLORIDE 104 mmol/L (98-107); CREATININE 3.32 mg/dl (0.60-1.40); GLUCOSE 83 mg/dl (70-99); POTASSIUM 3.9 mmol/L (3.5-5.1); SODIUM 139 mmol/L (136-145)
[2017-05-14 10:37] LABS: CHOLESTEROL/HDL RATIO 1.8
[2017-05-14 11:29] LABS: ESTIMATED AVERAGE GLUCOSE 140 mg/dl; HA1C FLAG Normal (Normal)
== END | disposition home or self-care (01) ==
LOC: C.LABFOXMH 08:05
PROVIDERS: ATTEND Physician Assistant
DX: Z51.81 Encounter for therapeutic drug level monitoring (principal); Z79.01 Long term (current) use of anticoagulants; I50.42 Chronic combined systolic (congestive) and diastolic (congestive) heart failure

== ENCOUNTER → 2017-05-19 | Outpatient (CLI) | payer OTHER, MEDICARE ==
[2017-05-19 08:29] LABS: BLOOD UREA NITROGEN 76 mg/dl (7-18); BUN/CREATININE RATIO 20.9 (10-20); CARBON DIOXIDE 29 mmol/L (21-32); CHLORIDE 97 mmol/L (98-107); CREATININE 3.61 mg/dl (0.60-1.40); GLUCOSE 136 mg/dl (70-99); POTASSIUM 3.7 mmol/L (3.5-5.1); SODIUM 136 mmol/L (136-145)
== END | disposition home or self-care (01) ==
LOC: C.LABFOXMH 08:01
PROVIDERS: ATTEND Physician Assistant
DX: N18.4 Chronic kidney disease, stage 4 (severe) (principal)

== ENCOUNTER → 2017-05-26 | Outpatient (CLI) | payer OTHER, MEDICARE ==
[~2017-05-26] MED LIST changes: +METO100T44 PO; -METO1TAB69 PO
[2017-05-26 09:05] LABS: BLOOD UREA NITROGEN 88 mg/dl (7-18); BUN/CREATININE RATIO 21.3 (10-20); CALCIUM 9.3 mg/dl (8.5-10.1); CARBON DIOXIDE 26 mmol/L (21-32); CHLORIDE 102 mmol/L (98-107); CREATININE 4.13 mg/dl (0.60-1.40); GLUCOSE 96 mg/dl (70-99); POTASSIUM 4.4 mmol/L (3.5-5.1); SODIUM 137 mmol/L (136-145)
== END | disposition home or self-care (01) ==
LOC: C.LABFOXMH 08:46
PROVIDERS: ATTEND Physician Assistant
DX: I50.42 Chronic combined systolic (congestive) and diastolic (congestive) heart failure (principal); N18.3 Chronic kidney disease, stage 3 (moderate)

== ENCOUNTER → 2017-06-05 | Outpatient (CLI) | payer OTHER, MEDICARE ==
[2017-06-05 09:55] LABS: PATIENT HEIGHT 172.7 cm
[2017-06-05 12:17] LABS: MEAN CELL VOLUME 100.3 fL (80-100); MEAN CORPUSCULAR HEMOGLOBIN 32.9 pg (25-34); MEAN CORPUSCULAR HGB CONC 32.8 g/dl (32-36); MEAN PLATELET VOLUME 11.1 fL (7.4-10.4); PLATELET COUNT 163 K/uL (130-400); RED BLOOD COUNT 3.19 M/uL (4.7-6.1); WHITE BLOOD COUNT 7.24 K/uL (4.8-10.8)
[2017-06-05 12:41] LABS: ALT/SGPT 102 U/L (12-78); AST/SGOT 108 U/L (15-37); BLOOD UREA NITROGEN 89 mg/dl (7-18); BUN/CREATININE RATIO 21.8 (10-20); CALCIUM 9.6 mg/dl (8.5-10.1); CARBON DIOXIDE 25 mmol/L (21-32); CHLORIDE 103 mmol/L (98-107); CREATININE 4.09 mg/dl (0.60-1.40); GLUCOSE 136 mg/dl (70-99); POTASSIUM 5.1 mmol/L (3.5-5.1); SODIUM 136 mmol/L (136-145)
[2017-06-05 12:44] LABS: HEPATITIS B AB POS
[2017-06-05 12:45] LABS: ALB/GLOB RATIO 0.9 (0.9-2); ALKALINE PHOSPHATASE 107 U/L (45-117); PHOSPHORUS 4.7 mg/dl (2.5-4.9)
[2017-06-05 13:06] LABS: URINE PROTIEN/CREAT RATIO 0.1 (0-0.2); URINE TOTAL PROTEIN 8.5 mg/dl (0-11.9)
[2017-06-05 13:13] LABS: CREATININE, URINE 83.8 mg/dl; URINE TOTAL PROTEIN < 5.0 mg/dl (0-11.9)
[2017-06-05 13:18] LABS: CREATININE 4.14 mg/dl (0.6-1.4); URINE COLLECTION TIME 24 HOURS; URINE TOTAL PROTEIN CALC < 52.5 mg/24 hr (0-149.1)
[2017-06-05 13:45] LABS: URINE APPEARANCE CLEAR (CLEAR); URINE BILIRUBIN NEG (NEG); URINE COLOR YELLOW; URINE EPITHELIAL CELL AUTO 0-5 /lpf (0-5); URINE NITRITE NEG (NEG); UROBILINOGEN NEG (NEG)
[2017-06-05 13:46] LABS: MANUAL MICROSCOPIC REQUIRED? NO; REVIEW REQ? NO
== END | disposition home or self-care (01) ==
LOC: C.LAB1850 09:45
PROVIDERS: ATTEND Internal Medicine Nephrology
DX: E55.9 Vitamin D deficiency, unspecified (principal); I12.9 Hypertensive chronic kidney disease with stage 1 through stage 4 chronic kidney disease, or unspecified chronic kidney disease; D64.9 Anemia, unspecified; R80.9 Proteinuria, unspecified; N18.4 Chronic kidney disease, stage 4 (severe)

== ENCOUNTER → 2017-06-26 | Outpatient (CLI) | payer OTHER, MEDICARE ==
[~2017-06-26] MED LIST changes: +BUME1TAB PO; +DIPH-581 PO
[2017-06-26 12:20] LABS: BLOOD UREA NITROGEN 85 mg/dl (7-18); BUN/CREATININE RATIO 22.1 (10-20); CALCIUM 9.5 mg/dl (8.5-10.1); CARBON DIOXIDE 27 mmol/L (21-32); CHLORIDE 102 mmol/L (98-107); CREATININE 3.86 mg/dl (0.60-1.40); GLUCOSE 55 mg/dl (70-99); PHOSPHORUS 5.7 mg/dl (2.5-4.9); POTASSIUM 4.1 mmol/L (3.5-5.1); SODIUM 138 mmol/L (136-145)
== END | disposition home or self-care (01) ==
LOC: C.LAB1850 10:18
PROVIDERS: ATTEND Internal Medicine Nephrology
DX: E55.9 Vitamin D deficiency, unspecified (principal); D64.9 Anemia, unspecified; N18.4 Chronic kidney disease, stage 4 (severe); I12.9 Hypertensive chronic kidney disease with stage 1 through stage 4 chronic kidney disease, or unspecified chronic kidney disease

== ENCOUNTER 2017-07-13 12:23 | Inpatient (IN) | payer OTHER, MEDICARE ==
[~2017-07-13] VITALS: Ht 172.7 cm; Wt 78.6 kg
[~2017-07-13 12:23] MED LIST changes: -BMX1 PO; -CETI10TA84 PO; -FOLI1TAB7 PO; +FOLI1TAB8 PO; -HYDR-3126 PO
[2017-07-13 13:21] LABS: BASO % 0.3 %; BASO ABS # 0.02 K/uL (0-0.2); COMPLETE YES; EOS % 15.4 %; HEMATOCRIT 38.3 % (42-52); IG% 0.3 %; LYMPH % 8.1 %; LYMPH ABS # 0.65 K/uL (1.2-3.4); MEAN CELL VOLUME 99.2 fL (80-100); MEAN CORPUSCULAR HEMOGLOBIN 33.4 pg (25-34); MEAN CORPUSCULAR HGB CONC 33.7 g/dl (32-36); MEAN PLATELET VOLUME 11.6 fL (7.4-10.4); MONO % 14.4 %; NEUT % 61.5 %; PLATELET COUNT 153 K/uL (130-400); RED BLOOD COUNT 3.86 M/uL (4.7-6.1); WHITE BLOOD COUNT 7.98 K/uL (4.8-10.8)
[2017-07-13 13:31] LABS: INR 1.1 (0.9-1.1); PARTIAL THROMBOPLASTIN RATIO 1.1; PROTHROMBIN TIME (PATIENT) 11.8 SECONDS (9.0-12.0)
--- NOTE | 2017-07-13 13:31 | DIAGNOSTIC IMAGING REPORT ---
CHEST ONE VIEW PORTABLE CLINICAL HISTORY: 77 years-old Male presenting with weak eval for pna. TECHNIQUE: Portable upright AP view of the chest was obtained. COMPARISON: 05/28/2017. FINDINGS: Median sternotomy wires unchanged. Suggestion of mitral annular calcification. Atherosclerosis of aortic arch. Cardiac silhouette normal in size. Lungs and pleural spaces clear. Degenerative changes of the right glenohumeral joint suggested. Splenic arterial calcification noted. IMPRESSION: 1. No acute cardiopulmonary disease. Electronically signed by: Rohit Washington M.D. 07/13/2017 1:29 PM Dictated Date/Time: 07/13/2017 1:28 PM
[2017-07-13] MEDS ORDERED: BUME2TAB3 PO (13:34)
[2017-07-13] MEDS ORDERED: CETI10TA10 PO (13:34)
[2017-07-13] MEDS ORDERED: TRMCR130WC TOP (13:34)
[2017-07-13 14:10] LABS: BUN/CREATININE RATIO 19.6 (10-20); CALCIUM 9.3 mg/dl (8.5-10.1); CREATININE 5.16 mg/dl (0.60-1.40)
[2017-07-13] MEDS ORDERED: MAGNESIUM HYDROXIDE SUSP 30 ML UDC PO PRN (15:30)
[2017-07-13] MEDS ORDERED: ALUMINUM/MAGNESIUM/SIMETH (MAALOX MAX) 30 ML UDC PO PRN (15:30)
[2017-07-13] MEDS ORDERED: ACETAMINOPHEN 325 MG TAB PO PRN (15:30)
[2017-07-13] MEDS ORDERED: POLYETHYLENE (MIRALAX) 17 GM PACK PO PRN (15:30)
[2017-07-13] MEDS ORDERED: ONDANSETRON INJ 2 MG/ML 2 ML VIAL IV PRN (15:30)
[2017-07-13] MEDS ORDERED: NITROGLYCERIN 0.4 MG SL PER TAB CHARGE SL PRN (15:30)
[2017-07-13] MEDS ORDERED: GLUCAGON FOR INJ 1 MG VIAL SQ PRN (15:45)
[2017-07-13] MEDS ORDERED: GLUCOSE 40% GEL 15 GM TUBE PO PRN (15:45)
[2017-07-13] MEDS ORDERED: GLUCOSE 10 TABS/TUBE PO PRN (15:45)
[2017-07-13] MEDS ORDERED: DEXTROSE 50% 50 ML SYR IV PRN (15:45)
--- NOTE | 2017-07-13 15:56 | History and Physical ---
History & Physical Date & Time of Service: Jul 13, 2017 at 15:35 Chief Complaint: Kidney Failure Primary Care Physician: Yomi Ellis M.D. History of Present Illness Source: patient, spouse Mr. Ellsworth is a 77 y/o male with PMHx of Hepatitis C, CKD Stage IV, HTN, HLD, T2DM, CAD S/P WV, Aortic Valve Replacement, Mixed Systolic/Diastolic CHF, and Colon CA S/P Resection with Ileostomy who presents to the ED complaining of worsening kidney function, weakness, leg pain x 2 weeks. He reports over the two weeks he has noticed increased pain, fluid retention, and weeping of his b/ l legs. He is reporting feeling generally fatigued but states his ambulatory issues is due more to the pain in his legs. He now needs to utilize a wheelchair and was transferred to [facility] due to ambulatory dysfunction today. Pain is a burning pain that is mostly in lower leg region but does intermittently get shooting pain into the thigh. He has chronic pruritus that he relates to his cirrhosis/hepatitis and is diffusely covered in scabs from scratching. Some lesions are weeping clear fluid and some blood. His b/l legs have been weeping and soaking through dressings. He feels they look more erythematous than normal but reports they may be slightly more edematous but not much. He previously followed with wound care but hasn't recently. He denies direct fever/chills but states he normally feels cold. Past Medical/Surgical History 1. T2DM 2. CAD S/P WV 3. CKD Stage IV-V 4. S/P AV Fistula in RUE 5. HLD 6. Hepatitis C 7. Colon CA S/P Resection with Ileostomy 8. Mixed Systolic/Diastolic CHF 9. S/P Aortic Valve Replacement Family History Asthma Diabetes mellitus Heart disease Hypertension WV Stroke Social History Smoking Status: Never Smoker Smokeless Tobacco Use: No Drug Use: none Marital Status: (Same Sex Marriage) Housing status: lives with significant other, shelter Occupational Status: retired Immunizations History of Influenza Vaccine: N/A Influenza Vaccine Date: Apr 02, 2009 History of Tetanus Vaccine?: Unknown History of Pneumococcal: Yes Pneumococcal Date: May 23, 2008 History of Hepatitis B Vaccine: Yes Multi-Drug Resistant Organisms History of MDRO: No Allergies Coded Allergies: No Known Allergies (Verified , NONE, 07/13/17) Home Medications Scheduled Allopurinol (Zyloprim), 150 MG PO DAILY Aspirin (Aspirin Ec), 81 MG PO QPM B-Complex Vitamins (B Complex), 1 CAP PO DAILY Bumetanide (Bumex), 4 MG PO QAM Calcium Carbonate-Vitamin D (Calcium + D), 1 TAB PO BID Cetirizine Hcl (Zyrtec), 10 MG PO HS Coenzyme Q10 (Ubidecarenone) (Coq10), 200 MG PO BID Dexamethasone (Dexamethasone), 5 ML PO BID Ferrous Gluconate (Ferrous Gluconate), 324 MG PO BID Folic Acid (Folvite), 1 MG PO NOON Gabapentin (Neurontin), 300 MG PO QAM/HS Gabapentin (Neurontin), 100 MG PO DAILY Glucagon (Glucagon Emergency Kit), 1 MG IM UD Insulin Glargine (Lantus Solostar), 13-15 UNIT SC BID Isosorbide Mononitrate (Isosorbide Mononitrate ER), 90 MG PO DAILY Metoprolol Succ (Toprol Xl) (Toprol-Xl ), 100 MG PO HS Multiple Vitamins W/ Minerals (Centrum Silver Adult 50+), 1 TAB PO DAILY Nitroglycerin (Nitrostat), 0.4 MG UT PRN Ocuvite Preservision (Ocuvite Preservision), 1 TAB PO BID Pravastatin Sod (Pravastatin Sodium), 40 MG PO QPM Ranitidine (Zantac), 150 MG PO BID Triamcinolone Acet (Aristocort 0.1%), 1 APPLN TOP BID Scheduled PRN Insulin Aspart (Novolog Flexpen), 1 DOSE SQ AC PRN for PER SLIDING SCALE Review of Systems Constitutional: + fatigue, No fever, No chills ENT: No nasal symptoms, No sore throat, No trouble swallowing Respiratory: No cough, No shortness of breath Cardiovascular: No chest pain, No orthopnea, No palpitations Abdomen: No pain, No nausea, No vomiting, No diarrhea, No constipation Musculoskeletal: + swelling (b/l legs - baseline), + problem reported ( increase pain of b/l legs and feet; weeping legs) Genitourinary - Male: No dysuria Integumentary: + itch (chronic - Hep C), + problem reported (diffuse superficial scabs from scratching) Physical Exam Vital Signs Date Time Temp Pulse Resp B/P (MAP) Pulse Ox O2 Delivery O2 Flow Rate FiO2 07/13/17 14:08 91 15 106/46 96 Room Air 07/13/17 13:16 87 16 108/52 98 Room Air 07/13/17 12:57 87 07/13/17 12:29 36.7 84 20 109/64 96 Room Air General Appearance: no apparent distress Head: normocephalic, atraumatic ENT: hearing grossly normal, pharynx normal Neck: supple, no JVD, trachea midline Respiratory/Chest: lungs clear, normal breath sounds, no respiratory distress, no accessory muscle use Cardiovascular: regular rate, rhythm, no gallop, + systolic murmur Abdomen/GI: normal bowel sounds, non tender, soft, + pertinent finding (RLQ ileostomy - mild skin irritation around tape; stoma beefy red) Extremities/Musculoskelatal: + swelling (1+ pitting edema b/l), + pertinent finding (mild erythema of b/l lower extremities with numerous scabs; AV fistula of RAC +bruit +thill) Neurologic/Psych: alert, oriented x 3 Skin: + pertinent finding (diffuse superficial healing scabs all over body; some with mild clear drainage) Diagnostics Laboratory Results Results Past 24 Hours Test 07/13/17 12:45 Range/Units White Blood Count 7.98 4.8-10.8 K/uL Red Blood Count 3.86 4.7-6.1 M/uL Hemoglobin 12.9 14.0-18.0 g/dL Hematocrit 38.3 42-52 % Mean Corpuscular Volume 99.2 80-100 fL Mean Corpuscular Hemoglobin 33.4 25-34 pg Mean Corpuscular Hemoglobin Concent 33.7 32-36 g/dl Platelet Count 153 130-400 K/uL Mean Platelet Volume 11.6 7.4-10.4 fL Neutrophils (%) (Auto) 61.5 % Lymphocytes (%) (Auto) 8.1 % Monocytes (%) (Auto) 14.4 % Eosinophils (%) (Auto) 15.4 % Basophils (%) (Auto) 0.3 % Neutrophils # (Auto) 4.91 1.4-6.5 K/uL Lymphocytes # (Auto) 0.65 1.2-3.4 K/uL Monocytes # (Auto) 1.15 0.11-0.59 K/uL Eosinophils # (Auto) 1.23 0-0.5 K/uL Basophils # (Auto) 0.02 0-0.2 K/uL RDW Standard Deviation 55.7 36.4-46.3 fL RDW Coefficient of Variation 15.4 11.5-14.5 % Immature Granulocyte % (Auto) 0.3 % Immature Granulocyte # (Auto) 0.02 0.00-0.02 K/uL Prothrombin Time 11.8 9.0-12.0 SECONDS Prothromb Time International Ratio 1.1 0.9-1.1 Activated Partial Thromboplast Time 28.2 21.0-31.0 SECONDS Partial Thromboplastin Ratio 1.1 Sodium Level 137 136-145 mmol/L Potassium Level 4.0 3.5-5.1 mmol/L Chloride Level 100 98-107 mmol/L Carbon Dioxide Level 26 21-32 mmol/L Anion Gap 11.0 3-11 mmol/L Blood Urea Nitrogen 101 7-18 mg/dl Creatinine 5.16 0.60-1.40 mg/dl Est Creatinine Clear Calc Drug Dose 11.2 ml/min Estimated GFR () 11.4 Estimated GFR (Non- 9.8 BUN/Creatinine Ratio 19.6 10-20 Random Glucose 210 70-99 mg/dl Calcium Level 9.3 8.5-10.1 mg/dl Total Bilirubin 0.6 0.2-1 mg/dl Direct Bilirubin 0.2 0-0.2 mg/dl Aspartate Amino Transf (AST/SGOT) 88 15-37 U/L Alanine Aminotransferase (ALT/SGPT) 65 12-78 U/L Alkaline Phosphatase 110 45-117 U/L Total Protein 5.8 6.4-8.2 gm/dl Albumin 2.7 3.4-5.0 gm/dl Microbiology Results 07/13/17 Blood Culture, Received Pending 07/13/17 Blood Culture, Received Pending Diagnostic Radiology CHEST ONE VIEW PORTABLE FINDINGS: Median sternotomy wires unchanged. Suggestion of mitral annular calcification. Atherosclerosis of aortic arch. Cardiac silhouette normal in size. Lungs and pleural spaces clear. Degenerative changes of the right glenohumeral joint suggested. Splenic arterial calcification noted. IMPRESSION: 1. No acute cardiopulmonary disease. EKG Sinus rhythm with 1st degree A-V block Left axis deviation ST elevation consider inferior injury or acute infarct Prolonged QT ACUTE WV / STEMI Consider right ventricular involvement in acute inferior infarct Abnormal ECG When compared with ECG of 13-JUL-2017 13:06, (unconfirmed) Premature atrial complexes are no longer Present Impression Assessment and Plan Mr. Ellsworth is a 77 y/o male with PMHx of Hepatitis C, CKD Stage IV, HTN, HLD, T2DM, CAD S/P WV, Aortic Valve Replacement, Mixed Systolic/Diastolic CHF, and Colon CA S/P Resection with Ileostomy who presents to the ED complaining of worsening kidney function, weakness, leg pain x 2 weeks. Cellulitis of B/L Lower Extremities: - Patient is afebrile and without leukocytosis but mildy erythematous legs with diffuse skin compromise due to scratching with increased drainage and opens sores - Rocephin 1 g IV daily - Dilaudid 0.25 mg PRN - Consult wound care SASHA with CKD Stage IV: - Baseline around 3.6-4.3 - has progressively increased and being monitored by Dr. Waldrop - currently electrolytes stable and no emergent need for dialysis - AV fistula in R AV region placed in August with +thrill and +bruit - Gently hydrate with NSS at 75 mL/hr x 2 bag and monitor Cr - will hold Bumex overnight with hydration - will carefully monitor fluid status. - Reduced Allopurinol to 100 mg daily from 150 mg for renal dosing - Consult nephrology - appreciate recommendations T2DM with Neuropathy: - Hold home regimen and cover with Lantus 10 units SC BID and SSI - Gabapentin BID CAD S/P WV with Mixed Chronic Systolic/Diastolic CHF: - Patient largely appears euvolemic - possible mild retention in legs - will gently hydrate overnight - Daily weights and I&Os - EKG with ischemic findings which are unchanged from previous EKGs - trop is elevated but this is chronic and also in setting of worsening Cr - no CP and reports stable anginal pains that he utilizes NTG for - will not trend trops at this time - ASA 81 mg daily, Imdur 90 mg daily, and Toprol XL 100 mg HS - Pravastatin 40 mg daily DVT Prophylaxis: Heparin 5000 units SC BID Code Status: DO NOT RESUSCITATE Disposition: - From [facility] was transferred to SNF today before presenting to ED - will obtain PT/OT evaluations Level of Care Telemetry Resuscitation Status DO NOT RESUSCITATE VTE Prophylaxis VTE Risk Assessment Done? Y/N: Yes Risk Level: Moderate Given or contraindicated: Unfractionated heparin SQ
--- NOTE | 2017-07-13 16:18 | EMERGENCY ROOM VISIT NOTE ---
History Report prepared by Марина: Obdulia Amaral Under the Supervision of: Dr. Mychal Corrales M.D. First contact with patient: 12:51 Chief Complaint: OTHER COMPLAINT Stated Complaint: KIDNEY FAILURE History of Present Illness The patient is a 77 year old male who presents to the Emergency Room with complaints of worsening weakness starting 1 week ago. The patient was sent to the ED by his doctor over concerns that he requires dialysis. Over the past week , he has become increasingly weak. He is now unable to stand. He previously was able to walk. He has pain in his feet and legs. His legs have been twitching. His leg is more red than usual. He has had fluid in his legs for the past year. It seems to have worsened over the past couple of months. He is on Bumex. He is having blistering of his skin on his feet and ankles. His bandages were soaked this morning. He is making some urine, but the volume has decreased over the past week. He is drinking fluids. He denies any fever, abdominal pain, chest pain, or SOB. He has an artificial heart valve. He is not on blood thinners. He has a history of diabetes, CO, and hepatitis C. He last had blood work 10 days ago at which time his creatinine had slightly increased. Source of History: patient, spouse/significant other Onset: 1 week ago Position: other (global) Quality: other (weakness) Timing: worsening Associated Symptoms: No fevers, No chest pain, No SOB, No abdominal pain Note: Pt reports leg pain, blisters on legs, decreased urination. Review of Systems See HPI for pertinent positives & negatives. A total of 10 systems reviewed and were otherwise negative. Past Medical & Surgical Medical Problems: (1) Acute kidney injury superimposed on CKD (2) Anemia (3) Cellulitis (4) CHF exacerbation (5) Chronic kidney disease, stage IV (severe) (6) Cirrhosis (7) Colon malignancy (8) Diab W Oth Spec Manifest, Type Ii Or Unspec Type, Not Uncntr (9) Diabetes (10) Elevation of cardiac enzymes (11) Hepatitis C (12) Hypoglycemia (13) Ileostomy Status (14) Low kidney function (15) Mental status change (16) Myocardial infarction (17) Neuropathy In Diabetes (18) Osteoporosis Nos Surgical Problems: (1) Heart valve replaced (2) History of aortic valve replacement (3) S/P colectomy (4) Stented coronary artery Family History Asthma Diabetes mellitus Heart disease Hypertension [place] Stroke Social History Smoking Status: Never Smoker Alcohol Use: none Drug Use: none Marital Status: Housing Status: lives with significant other Occupation Status: retired Current/Historical Medications Scheduled Allopurinol (Zyloprim), 150 MG PO DAILY Aspirin (Aspirin Ec), 81 MG PO QPM B-Complex Vitamins (B Complex), 1 CAP PO DAILY Bumetanide (Bumex), 4 MG PO QAM Calcium Carbonate-Vitamin D (Calcium + D), 1 TAB PO BID Cetirizine Hcl (Zyrtec), 10 MG PO HS Coenzyme Q10 (Ubidecarenone) (Coq10), 200 MG PO BID Dexamethasone (Dexamethasone), 5 ML PO BID Ferrous Gluconate (Ferrous Gluconate), 324 MG PO BID Folic Acid (Folvite), 1 MG PO NOON Gabapentin (Neurontin), 300 MG PO QAM/HS Gabapentin (Neurontin), 100 MG PO DAILY Glucagon (Glucagon Emergency Kit), 1 MG IM UD Insulin Glargine (Lantus Solostar), 13-15 UNIT SC BID Isosorbide Mononitrate (Isosorbide Mononitrate ER), 90 MG PO DAILY Metoprolol Succ (Toprol Xl) (Toprol-Xl ), 100 MG PO HS Multiple Vitamins W/ Minerals (Centrum Silver Adult 50+), 1 TAB PO DAILY Nitroglycerin (Nitrostat), 0.4 MG UT PRN Ocuvite Preservision (Ocuvite Preservision), 1 TAB PO BID Pravastatin Sod (Pravastatin Sodium), 40 MG PO QPM Ranitidine (Zantac), 150 MG PO BID Triamcinolone Acet (Aristocort 0.1%), 1 APPLN TOP BID Scheduled PRN Insulin Aspart (Novolog Flexpen), 1 DOSE SQ AC PRN for PER SLIDING SCALE Allergies Coded Allergies: No Known Allergies (Verified , NONE, 07/13/17) Physical Exam Vital Signs Date Time Temp Pulse Resp B/P (MAP) Pulse Ox O2 Delivery O2 Flow Rate FiO2 07/13/17 15:41 96 16 135/57 99 Room Air 07/13/17 14:08 91 15 106/46 96 Room Air 07/13/17 13:16 87 16 108/52 98 Room Air 07/13/17 12:57 87 07/13/17 12:29 36.7 84 20 109/64 96 Room Air Physical Exam Constitutional: Vital signs reviewed. Eyes: Pupils are equal round reactive to light. Conjunctiva are noninjected. ENT: Pharynx is clear without erythema or exudate. Mucous membranes are moist. Neck supple without meningeal signs. Respiratory: Clear to auscultation bilaterally. Breath sounds are equal bilaterally. Cardiovascular: Regular rate and rhythm. No rubs or gallops. GI: Soft, nondistended and nontender. Bowel sounds are present. Musculoskeletal: Multiple excoriations to the chest and extremities with weeping in the bandages in the lower legs with some mild erythema in the left leg. Integumentary: No cyanosis. Neurological: The patient is awake and alert. No focal deficits. Psychiatric: Normal affect. Medical Decision & Procedures ER Provider Diagnostic Interpretation: X-ray results as stated below per interpretation by me and the radiologist: CHEST ONE VIEW PORTABLE CLINICAL HISTORY: 77 years-old Male presenting with weak eval for pna. TECHNIQUE: Portable upright AP view of the chest was obtained. COMPARISON: 05/28/2017. FINDINGS: Median sternotomy wires unchanged. Suggestion of mitral annular calcification. Atherosclerosis of aortic arch. Cardiac silhouette normal in size. Lungs and pleural spaces clear. Degenerative changes of the right glenohumeral joint suggested. Splenic arterial calcification noted. IMPRESSION: 1. No acute cardiopulmonary disease. Electronically signed by: Rohit Washington M.D. 07/13/2017 1:29 PM Dictated Date/Time: 07/13/2017 1:28 PM Laboratory Results 07/13/17 12:45 Red Blood Count 3.86, Mean Corpuscular Volume 99.2, Mean Corpuscular Hemoglobin 33.4, Mean Corpuscular Hemoglobin Concent 33.7, Mean Platelet Volume 11.6, Neutrophils (%) (Auto) 61.5, Lymphocytes (%) (Auto) 8.1, Monocytes (%) (Auto) 14.4, Eosinophils (%) (Auto) 15.4, Basophils (%) (Auto) 0.3, Neutrophils # (Auto ) 4.91, Lymphocytes # (Auto) 0.65, Monocytes # (Auto) 1.15, Eosinophils # (Auto ) 1.23, Basophils # (Auto) 0.02 12/17/17 12:45 Test 07/13/17 12:45 White Blood Count 7.98 K/uL (4.8-10.8) Red Blood Count 3.86 M/uL (4.7-6.1) Hemoglobin 12.9 g/dL (14.0-18.0) Hematocrit 38.3 % (42-52) Mean Corpuscular Volume 99.2 fL (80-100) Mean Corpuscular Hemoglobin 33.4 pg (25-34) Mean Corpuscular Hemoglobin Concent 33.7 g/dl (32-36) Platelet Count 153 K/uL (130-400) Mean Platelet Volume 11.6 fL (7.4-10.4) Neutrophils (%) (Auto) 61.5 % Lymphocytes (%) (Auto) 8.1 % Monocytes (%) (Auto) 14.4 % Eosinophils (%) (Auto) 15.4 % Basophils (%) (Auto) 0.3 % Neutrophils # (Auto) 4.91 K/uL (1.4-6.5) Lymphocytes # (Auto) 0.65 K/uL (1.2-3.4) Monocytes # (Auto) 1.15 K/uL (0.11-0.59) Eosinophils # (Auto) 1.23 K/uL (0-0.5) Basophils # (Auto) 0.02 K/uL (0-0.2) RDW Standard Deviation 55.7 fL (36.4-46.3) RDW Coefficient of Variation 15.4 % (11.5-14.5) Immature Granulocyte % (Auto) 0.3 % Immature Granulocyte # (Auto) 0.02 K/uL (0.00-0.02) Prothrombin Time 11.8 SECONDS (9.0-12.0) Prothromb Time International Ratio 1.1 (0.9-1.1) Activated Partial Thromboplast Time 28.2 SECONDS (21.0-31.0) Partial Thromboplastin Ratio 1.1 Anion Gap 11.0 mmol/L (3-11) Est Creatinine Clear Calc Drug Dose 11.2 ml/min Estimated GFR () 11.4 Estimated GFR (Non- 9.8 BUN/Creatinine Ratio 19.6 (10-20) Calcium Level 9.3 mg/dl (8.5-10.1) Total Bilirubin 0.6 mg/dl (0.2-1) Direct Bilirubin 0.2 mg/dl (0-0.2) Aspartate Amino Transf (AST/SGOT) 88 U/L (15-37) Alanine Aminotransferase (ALT/SGPT) 65 U/L (12-78) Alkaline Phosphatase 110 U/L (45-117) Troponin I 0.320 ng/ml (0-0.045) Total Protein 5.8 gm/dl (6.4-8.2) Albumin 2.7 gm/dl (3.4-5.0) Troponin 0.28 Laboratory results as reviewed by me. ECG Indication: weakness Rate (beats per minute): 87 Rhythm: sinus rhythm Findings: ST depression (Lateral), T-wave inversion (Lateral), other (J point elevation in leads V1 and V2) Comparison ECG Date: 28-Apr-2017 Change: Similar to previous EKG. ED Course 1254: The patient was evaluated in room C4. A complete history and physical exam was performed. 1412: I reevaluated the patient. He continues to deny any chest pain or SOB. Repeat EKG shows sinus rhythm, rate 89, persistent ST depression and T wave inversion laterally with J point elevation in V1 and V2. I discussed the results with him. I discussed the elevated troponin with the patient which is likely secondary to renal failure. He verbalized agreement of the treatment plan. He will be evaluated for further management. 1425: I spoke with Dr. Horta, [facility] [place]. We discussed the patient and his results. The patient will be further evaluated by him. Medical Decision This is a 77-year-old male who presents with generalized weakness. Differential diagnosis includes dehydration, kidney failure, anemia, infection, sepsis, cardiac. I did perform a limited focused review of portions of the patient's old chart on the electronic medical record. The patient has had no recent pertinent visits to this hospital. Creatinine was last recorded at 3.68 on June 26. I did evaluate the patient as noted above. IV access was established. The patient was placed on a continuous cafeteria monitor. I did order and personally review the patient's 12-lead EKG and chest x-ray as described above. His EKG is abnormal but the patient denies any chest discomfort or shortness of breath or any symptoms consistent with acute coronary syndrome. His EKG is also unchanged from his EKG from April. I did order and review the patient's blood work as noted in the electronic medical record. His creatinine is significantly elevated above his baseline. His troponin is slightly elevated but I feel this is likely secondary to the kidney failure. I did repeat another twelve-lead EKG which showed no change. He continues to deny having any chest pain or shortness of breath. He will be hospitalized for further evaluation and care. I did discuss the testicles with the patient. I did discuss the case with the hospitalist and bilingual case manager. Medication Reconcilliation Current Medication List: was personally reviewed by me Blood Pressure Screening Patient's blood pressure: Normal blood pressure Blood pressure disposition: Did not require urgent referral Consults Time Called: 1411 Consulting Physician: Dr. Horta, [facility] hospitalist Returned Call: [phone] I spoke with him. We discussed the patient and his results. The patient will be further evaluated by him. Impression Primary Impression: Acute kidney failure Additional Impressions: Generalized weakness Elevated troponin Scribe Attestation The scribe's documentation has been prepared under my direct and personally reviewed by me in its entirety. I confirm that the note above accurately reflects all work, treatment, procedures, and medical decision making performed by me. Departure Information Dispostion Being Evaluated By Hospitalist Referrals Yomi Ellis M.D. (PCP) Patient Instructions My [facility] Problem Qualifiers Primary Impression: Acute kidney failure Acute renal failure type: unspecified Qualified Codes: N17.9 - Acute kidney failure, unspecified
[2017-07-13] MEDS ORDERED: HYDROmorphone INJ 0.5 MG/0.5 ML SYR IV PRN (16:30)
[2017-07-13 16:32] VITALS: BP 137/64; PULSE 101; TEMP 36.9; O2SAT 99; Ht 172.7 cm; Wt 78.6 kg
[2017-07-13] MEDS: CEFTRIAXONE SOD INJ 1 GM in DEXTROSE 5% ADD-VANTAGE 50ML 50 ML IV SCH (16:56)
[2017-07-13] MEDS: SODIUM CHLORIDE 0.9% 1000ML 1,000 ML IV SCH (16:56)
[2017-07-13] MEDS: INSULIN ASPART 100 UNITS/ML 3 ML PEN SC SCH ×2 (17:13→20:28)
[2017-07-13] MEDS ORDERED: INSULIN ASPART 100 UNITS/ML 3 ML PEN SC ONE (18:15)
[2017-07-13 18:41] VITALS: BP 112/58; PULSE 101; TEMP 37.1; O2SAT 98
[2017-07-13] MEDS: TRIAMCINOLONE ACET 0.1% CR 15 GM TUBE EXT SCH (20:21)
[2017-07-13] MEDS: ASPIRIN 81 MG ECTAB PO SCH (20:21)
[2017-07-13] MEDS: RANITIDINE HCL 150 MG TAB PO SCH (20:23)
[2017-07-13] MEDS: DEXAMETHASONE CONC 1 MG/ML 30 ML PO SCH (20:23)
[2017-07-13] MEDS: PRAVASTATIN SOD 40 MG TAB PO SCH (20:24)
[2017-07-13] MEDS: CETIRIZINE HCL 10 MG TAB PO SCH (20:24)
[2017-07-13] MEDS: GABAPENTIN 300 MG CAP PO SCH (20:24)
[2017-07-13] MEDS: FERROUS GLUCONATE 324 MG TAB PO SCH (20:25)
[2017-07-13] MEDS: METOPROLOL SUCC 50MG EXT REL TAB PO SCH (20:25)
[2017-07-13] MEDS: INSULIN GLARGINE SOLOSTAR 100 UNITS/ML 3 ML PEN SC SCH (20:28)
[2017-07-13] MEDS: HEPARIN SOD 5000 UNIT/0.5 ML CARP SQ SCH (20:29)
[2017-07-13 20:49] LABS: URINE APPEARANCE CLEAR (CLEAR); URINE BILIRUBIN NEG (NEG); URINE COLOR YELLOW; URINE NITRITE NEG (NEG); URINE SPECIFIC GRAVITY 1.018 (1.000-1.030); UROBILINOGEN NEG (NEG)
[2017-07-13] MEDS ORDERED: CEROVITE ADV FORMULA TAB PO SCH (21:00)
[2017-07-13] MEDS ORDERED: GABAPENTIN 300 MG CAP PO SCH (21:00)
[2017-07-13 21:50] LABS: MANUAL MICROSCOPIC REQUIRED? NO; REVIEW REQ? NO
[2017-07-14] VITALS (18 sets, daily range): BP systolic 94–130; BP diastolic 32–67; PULSE 64–85; TEMP 36.5–37.5; O2SAT 94–100
[2017-07-14 05:48] LABS: HEMATOCRIT 34.7 % (42-52); MEAN CELL VOLUME 99.1 fL (80-100); MEAN CORPUSCULAR HEMOGLOBIN 33.1 pg (25-34); MEAN CORPUSCULAR HGB CONC 33.4 g/dl (32-36); MEAN PLATELET VOLUME 11.9 fL (7.4-10.4); PLATELET COUNT 129 K/uL (130-400); WHITE BLOOD COUNT 6.27 K/uL (4.8-10.8)
[2017-07-14] MEDS: SODIUM CHLORIDE 0.9% 1000ML 1,000 ML IV SCH (06:04)
[2017-07-14 06:36] LABS: BUN/CREATININE RATIO 20.9 (10-20); CALCIUM 8.5 mg/dl (8.5-10.1); CREATININE 4.59 mg/dl (0.60-1.40); MAGNESIUM 2.1 mg/dl (1.8-2.4); POTASSIUM 4.3 mmol/L (3.5-5.1)
[2017-07-14] MEDS: TRIAMCINOLONE ACET 0.1% CR 15 GM TUBE EXT SCH ×2 (08:05→20:52)
[2017-07-14] MEDS: RANITIDINE HCL 150 MG TAB PO SCH ×2 (08:06→20:55)
[2017-07-14] MEDS: DEXAMETHASONE CONC 1 MG/ML 30 ML PO SCH ×2 (08:06→20:53)
[2017-07-14] MEDS: ISOSORBIDE MONONITRATE 30 MG TABCR PO SCH (08:06)
[2017-07-14] MEDS: ALLOPURINOL 100 MG TAB PO SCH (08:06)
[2017-07-14] MEDS: FERROUS GLUCONATE 324 MG TAB PO SCH ×2 (08:06→20:54)
[2017-07-14] MEDS: CEROVITE ADV FORMULA TAB PO SCH (08:06)
[2017-07-14] MEDS: INSULIN ASPART 100 UNITS/ML 3 ML PEN SC SCH ×4 (08:11→21:14)
[2017-07-14] MEDS: INSULIN GLARGINE SOLOSTAR 100 UNITS/ML 3 ML PEN SC SCH ×2 (08:12→21:14)
[2017-07-14] MEDS: HEPARIN SOD 5000 UNIT/0.5 ML CARP SQ SCH ×2 (08:13→21:14)
[2017-07-14] MEDS ORDERED: GABAPENTIN 100 MG CAP PO SCH (09:00)
--- NOTE | 2017-07-14 09:24 | Nephrology Consultation ---
Nephrology Consultation Date & Providers Date of Consultation: Jul 14, 2017. Primary Care Provider: Yomi Ellis M.D. Referring Provider: Reason for Consultation Chronic kidney disease History of Present Illness Mr. 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 Mr. 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 AVF was placed in August. The patient has had multiple discussions regarding overall goals of care and risks/benefits of hemodialysis. Plan to start hemodialysis incenter was agreed upon once necessary. Fracisco states his symptom burden has been increasing. He recently transitioned from independent living to SNF at [facility]. His ability to ambulate has been limited due to lower extremity edema and ulcers. The patient presented to the ED yesterday with worsening kidney function, weakness, leg pain. He was started on ceftriaxone for possible lower extremity cellulitis. I had a long conversation this morning with Fracisco as well as with Dr. Waldrop. Confirmed the Fracisco is a DNR status. We will start hemodialysis today. Past Medical/Surgical History Medical: -- T2DM -- CAD -- CKD Stage V -- S/P AV Fistula in RUE -- HLD -- Hepatitis C cirrhosis -- History of colon CA S/P Resection with Ileostomy -- Mixed systolic/diastolic CHF Surgical: Colon cancer resection and ileostomy, aortic valve replacement, RUE cephalic AVF Allergies Coded Allergies: No Known Allergies (Verified , NONE, 07/13/17) Inpatient Medications Current Inpatient Medications Medications (Trade) Dose Ordered Sig/Esme Route Start Time Stop Time Status Last Admin Dose Admin Sodium Chloride 1,000 ml @ 75 mls/hr [id number] IV 07/13/17 16:30 07/14/17 19:09 07/14/17 06:04 75 MLS/HR Acetaminophen (Tylenol Tab) 650 mg Q4H PRN PO 07/13/17 15:30 08/12/17 15:29 Al Hydrox/Mg Hydrox/Simethicone (Maalox Max Susp) 15 ml Q4H PRN PO 07/13/17 15:30 08/12/17 15:29 Magnesium Hydroxide (Milk Of Magnesia Susp) 30 ml Q12H PRN PO 07/13/17 15:30 08/12/17 15:29 Ondansetron HCl (Zofran Inj) 4 mg Q6H PRN IV 07/13/17 15:30 08/12/17 15:29 Nitroglycerin (Nitrostat Tab) 0.4 mg UD PRN SL 07/13/17 15:30 08/12/17 15:29 Polyethylene (Miralax Powder Packet) 17 gm DAILY PRN PO 07/13/17 15:30 08/12/17 15:29 Ceftriaxone Sodium 1 gm/ Dextrose 50 ml @ 100 mls/hr Q24H IV 07/13/17 17:00 07/23/17 16:59 07/13/17 16:56 100 MLS/HR Aspirin (Ecotrin Tab) 81 mg QPM PO 07/13/17 21:00 08/12/17 20:59 Cetirizine HCl (zyrTEC TAB) 10 mg HS PO 07/13/17 21:00 08/12/17 20:59 07/13/17 20:24 10 MG Dexamethasone (Decadron Conc Soln) 2.5 mg BID PO 07/13/17 21:00 08/12/17 20:59 07/14/17 08:06 2.5 MG Ferrous Gluconate (Ferrous Gluconate Tab) 324 mg BID PO 07/13/17 21:00 08/12/17 20:59 07/14/17 08:06 324 MG Folic Acid (Folvite Tab) 1 mg DAILY PO 07/14/17 09:00 08/13/17 08:59 07/14/17 08:06 1 MG Gabapentin (Neurontin Cap) 100 mg DAILY PO 07/14/17 09:00 08/13/17 08:59 Future Hold Isosorbide Mononitrate (Imdur Ext Rel Tab) 90 mg DAILY PO 07/14/17 09:00 08/13/17 08:59 07/14/17 08:06 90 MG Metoprolol Succinate (Toprol Xl Tab) 100 mg HS PO 07/13/17 21:00 08/12/17 20:59 07/13/17 20:25 100 MG Pravastatin Sodium (Pravachol Tab) 40 mg QPM PO 07/13/17 21:00 08/12/17 20:59 07/13/17 20:24 40 MG Ranitidine HCl (zANTac TAB) 150 mg BID PO 07/13/17 21:00 08/12/17 20:59 07/14/17 08:06 150 MG Triamcinolone Acetonide (Kenalog 0.1% Cream) 1 appln BID EXT 07/13/17 21:00 08/12/17 20:59 07/14/17 08:05 1 APPLN Insulin Glargine (Lantus Solostar Pen) 10 units Q12 SC 07/13/17 21:00 08/12/17 20:59 07/14/17 08:12 10 UNITS Insulin Aspart (novoLOG ASPART) SLIDING SCALE If C... ACHS SC 07/13/17 16:15 08/12/17 16:14 07/14/17 08:11 8 UNITS Glucose (Glucose 40% Gel) 15-30 GRAMS 15 GRAMS... UD PRN PO 07/13/17 15:45 08/12/17 15:44 Glucose (Glucose Chew Tab) 4-8 Tablets 4 Tabl... UD PRN PO 07/13/17 15:45 08/12/17 15:44 Dextrose (Dextrose 50% 50ML Syringe) 25-50ML OF 50% DW IV FOR... UD PRN IV 07/13/17 15:45 08/12/17 15:44 Glucagon (Glucagon Inj) 1 mg UD PRN SQ 07/13/17 15:45 08/12/17 15:44 Heparin Sodium (Porcine) (Heparin Sq 5000 Unit/0.5ml) 5,000 unit Q12 SQ 07/13/17 21:00 08/12/17 20:59 07/14/17 08:13 5,000 UNIT Allopurinol (Zyloprim Tab) 100 mg DAILY PO 07/14/17 09:00 08/13/17 08:59 07/14/17 08:06 100 MG Hydromorphone HCl (Dilaudid Inj) 0.25 mg Q4H PRN IV 07/13/17 16:30 07/27/17 16:29 Multivitamins/ Minerals (Multivitamin W/ Minerals Tab) 1 tab DAILY PO 07/14/17 09:00 08/13/17 08:59 07/14/17 08:06 1 TAB Gabapentin (Neurontin Cap) 300 mg HS PO 07/13/17 21:00 08/12/17 20:59 07/13/17 20:24 300 MG Family History Asthma Diabetes mellitus Heart disease Hypertension [place] Stroke Social History Smoking Status: Never Smoker Smokeless Tobacco Use: No Drug Use: none Marital Status: Housing Status: lives with significant other, [employer] 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 Review of Systems A complete review of systems was performed. Pertinent positives are noted above. All other systems are negative. Physical Exam Date Time Temp Pulse Resp B/P (MAP) Pulse Ox O2 Delivery O2 Flow Rate FiO2 07/14/17 08:27 36.7 71 19 98/32 (54) 100 Room Air 07/14/17 04:00 Room Air 07/14/17 03:50 36.8 83 16 108/46 (66) 94 Room Air 07/14/17 00:10 Room Air 07/14/17 00:07 37.5 85 18 110/60 (77) 99 Room Air 07/13/17 20:23 Room Air 07/13/17 18:41 37.1 101 20 112/58 (76) 98 Room Air 07/13/17 16:32 36.9 101 19 137/64 99 Room Air 07/13/17 15:41 96 16 135/57 99 Room Air 07/13/17 14:08 91 15 106/46 96 Room Air 07/13/17 13:16 87 16 108/52 98 Room Air 07/13/17 12:57 87 07/13/17 12:29 36.7 84 20 109/64 96 Room Air General Appearance: no apparent distress, + thin Head: normocephalic, atraumatic Eyes: normal inspection, sclerae normal ENT: normal ENT inspection, pharynx normal Neck: supple, + JVD (slightly increased) Respiratory/Chest: lungs clear, no respiratory distress Cardiovascular: regular rate, rhythm, no gallop, + systolic murmur Abdomen/GI: non tender, soft Extremities/Musculoskelatal: normal inspection, + pedal edema, + pertinent finding (legs wrapped, weeping noted) Neurologic/Psych: alert, normal mood/affect, oriented x 3 Skin: + pertinent finding (diffuse scabbing and excoriations) Laboratory Results Last 24 Hours Test 07/13/17 12:45 07/13/17 16:29 07/13/17 18:02 07/13/17 20:26 White Blood Count 7.98 K/uL Red Blood Count 3.86 M/uL Hemoglobin 12.9 g/dL Hematocrit 38.3 % Mean Corpuscular Volume 99.2 fL Mean Corpuscular Hemoglobin 33.4 pg Mean Corpuscular Hemoglobin Concent 33.7 g/dl Platelet Count 153 K/uL Mean Platelet Volume 11.6 fL Neutrophils (%) (Auto) 61.5 % Lymphocytes (%) (Auto) 8.1 % Monocytes (%) (Auto) 14.4 % Eosinophils (%) (Auto) 15.4 % Basophils (%) (Auto) 0.3 % Neutrophils # (Auto) 4.91 K/uL Lymphocytes # (Auto) 0.65 K/uL Monocytes # (Auto) 1.15 K/uL Eosinophils # (Auto) 1.23 K/uL Basophils # (Auto) 0.02 K/uL RDW Standard Deviation 55.7 fL RDW Coefficient of Variation 15.4 % Immature Granulocyte % (Auto) 0.3 % Immature Granulocyte # (Auto) 0.02 K/uL Prothrombin Time 11.8 SECONDS Prothromb Time International Ratio 1.1 Activated Partial Thromboplast Time 28.2 SECONDS Partial Thromboplastin Ratio 1.1 Sodium Level 137 mmol/L Potassium Level 4.0 mmol/L Chloride Level 100 mmol/L Carbon Dioxide Level 26 mmol/L Anion Gap 11.0 mmol/L Blood Urea Nitrogen 101 mg/dl Creatinine 5.16 mg/dl Est Creatinine Clear Calc Drug Dose 11.2 ml/min Estimated GFR () 11.4 Estimated GFR (Non- 9.8 BUN/Creatinine Ratio 19.6 Random Glucose 210 mg/dl Calcium Level 9.3 mg/dl Total Bilirubin 0.6 mg/dl Direct Bilirubin 0.2 mg/dl Aspartate Amino Transf (AST/SGOT) 88 U/L Alanine Aminotransferase (ALT/SGPT) 65 U/L Alkaline Phosphatase 110 U/L Troponin I 0.320 ng/ml Total Protein 5.8 gm/dl Albumin 2.7 gm/dl Bedside Glucose 305 mg/dl 381 mg/dl 274 mg/dl Test 07/13/17 20:40 07/14/17 05:20 07/14/17 06:41 Urine Color YELLOW Urine Appearance CLEAR Urine pH 5.0 Urine Specific [place] 1.018 Urine Protein NEG Urine Glucose (UA) NEG Urine Ketones NEG Urine Occult Blood NEG Urine Nitrite NEG Urine Bilirubin NEG Urine Urobilinogen NEG Urine Leukocyte Esterase NEG White Blood Count 6.27 K/uL Red Blood Count 3.50 M/uL Hemoglobin 11.6 g/dL Hematocrit 34.7 % Mean Corpuscular Volume 99.1 fL Mean Corpuscular Hemoglobin 33.1 pg Mean Corpuscular Hemoglobin Concent 33.4 g/dl RDW Standard Deviation 55.6 fL RDW Coefficient of Variation 15.5 % Platelet Count 129 K/uL Mean Platelet Volume 11.9 fL Sodium Level 138 mmol/L Potassium Level 4.3 mmol/L Chloride Level 102 mmol/L Carbon Dioxide Level 26 mmol/L Anion Gap 10.0 mmol/L Blood Urea Nitrogen 96 mg/dl Creatinine 4.59 mg/dl Est Creatinine Clear Calc Drug Dose 12.6 ml/min Estimated GFR () 13.1 Estimated GFR (Non- 11.3 BUN/Creatinine Ratio 20.9 Random Glucose 228 mg/dl Calcium Level 8.5 mg/dl Magnesium Level 2.1 mg/dl Bedside Glucose 240 mg/dl Impression (1) CKD (chronic kidney disease), stage V (2) ESRD needing dialysis (3) Cirrhosis # CKD stage V (ESRD). Baseline creatinine has risen to 4.3 w/ EGFR 12 cc/min. The patient's renal impairment is due to diabetic nephropathy, microvascular disease and hypertensive nephrosclerosis. R upper arm AVF created 09/[address] Lafleur # HTN - renal artery doppler 09/08 was negative for CHAD # Hepatitis C positive - contracted 1966 following a blood transfusion. Initially treated with interferon therapy but became acutely ill. No further treatment provided. Patient is undergoing annual monitoring by gastroenterology. # Cirrhosis # Cryoglobulinemia # AODM > 45 years. On insulin. Documented retinopathy. Hemoglobin A1c typically runs 7% # Colon cancer s/p partial colectomy 1990& 1993. Patient has an ileostomy # Aortic stenosis s/p aortic replacement with bovine valve [facility] [place] [facility] # Vitamin D deficiency # NSTEMI 07/12 # Iron deficiency anemia Recommendations CHRONIC KIDNEY DISEASE: -- AVF with thrill and bruit appropriate for use. -- Not a PD candidate due to ileostomy. -- Clinically volume overloaded. -- Continue Bumex 2 mg two tablets each morning. -- Plan to start HD today. Orders have been entered into the EMR and discussed with dialysis nurse. -- He has been enrolled w/ [facility]. Social work consult to assist in arranging outpatient HD at [facility]. HYPERTENSION: -- Blood pressure was checked today and found to be acceptable. ANEMIA: -- Hgb is acceptable at this time with oral iron therapy. Continue current therapy. Monitor. CELLULITIS: -- Legs were dressed and not completely examined by me today. -- Management per primary service. OTHER: -- Patient confirmed DNR status. Goals of care focused on improving quality of life.
[2017-07-14 10:15] LABS: HEPATITIS B AB POS
--- NOTE | 2017-07-14 11:33 | Progress Note ---
Subjective Date of Service: Jul 14, 2017. Subjective Pt evaluation today including: conversation w/ patient, physical exam, chart review Patient is doing better. He has less pain in bilateral lower extremities He states that the itchiness is the same. Problem List Medical Problems: (1) Acute coronary syndrome Status: Acute (2) Acute kidney failure Status: Acute (3) Acute renal failure Status: Acute (4) CHF (congestive heart failure) Status: Acute (5) Chronic kidney disease Status: Acute (6) Chronic kidney disease Status: Acute (7) Closed head injury Status: Acute (8) Elevated troponin Status: Acute (9) Elevated troponin Status: Acute (10) Generalized weakness Status: Acute (11) Mouth bleeding Status: Acute (12) Skin tear of hand without complication Status: Acute Review of Systems Constitutional: No fever, No chills Eyes: No worsening of vision ENT: No hearing loss Respiratory: No cough Cardiac: No chest pain Abdomen: No pain, No nausea Heme: No abnormal bleeding/bruising Skin: + rash, + itch All Other Systems: Reviewed and Negative Medications Current Inpatient Medications Medications (Trade) Dose Ordered Sig/Esme Route Start Time Stop Time Status Last Admin Dose Admin Acetaminophen (Tylenol Tab) 650 mg Q4H PRN PO 07/13/17 15:30 08/12/17 15:29 Al Hydrox/Mg Hydrox/Simethicone (Maalox Max Susp) 15 ml Q4H PRN PO 07/13/17 15:30 08/12/17 15:29 Magnesium Hydroxide (Milk Of Magnesia Susp) 30 ml Q12H PRN PO 07/13/17 15:30 08/12/17 15:29 Ondansetron HCl (Zofran Inj) 4 mg Q6H PRN IV 07/13/17 15:30 08/12/17 15:29 Nitroglycerin (Nitrostat Tab) 0.4 mg UD PRN SL 07/13/17 15:30 08/12/17 15:29 Polyethylene (Miralax Powder Packet) 17 gm DAILY PRN PO 07/13/17 15:30 08/12/17 15:29 Ceftriaxone Sodium 1 gm/ Dextrose 50 ml @ 100 mls/hr Q24H IV 07/13/17 17:00 07/23/17 16:59 07/14/17 17:39 100 MLS/HR Aspirin (Ecotrin Tab) 81 mg QPM PO 07/13/17 21:00 08/12/17 20:59 07/14/17 20:53 81 MG Cetirizine HCl (zyrTEC TAB) 10 mg HS PO 07/13/17 21:00 08/12/17 20:59 07/14/17 20:57 10 MG Dexamethasone (Decadron Conc Soln) 2.5 mg BID PO 07/13/17 21:00 08/12/17 20:59 07/14/17 20:53 2.5 MG Ferrous Gluconate (Ferrous Gluconate Tab) 324 mg BID PO 07/13/17 21:00 08/12/17 20:59 07/14/17 20:54 324 MG Folic Acid (Folvite Tab) 1 mg DAILY PO 07/14/17 09:00 08/13/17 08:59 07/14/17 08:06 1 MG Gabapentin (Neurontin Cap) 100 mg DAILY PO 07/14/17 09:00 08/13/17 08:59 Future Hold Isosorbide Mononitrate (Imdur Ext Rel Tab) 90 mg DAILY PO 07/14/17 09:00 08/13/17 08:59 07/14/17 08:06 90 MG Metoprolol Succinate (Toprol Xl Tab) 100 mg HS PO 07/13/17 21:00 08/12/17 20:59 07/14/17 20:55 100 MG Pravastatin Sodium (Pravachol Tab) 40 mg QPM PO 07/13/17 21:00 08/12/17 20:59 07/14/17 20:55 40 MG Ranitidine HCl (zANTac TAB) 150 mg BID PO 07/13/17 21:00 08/12/17 20:59 07/14/17 20:55 150 MG Triamcinolone Acetonide (Kenalog 0.1% Cream) 1 appln BID EXT 07/13/17 21:00 08/12/17 20:59 07/14/17 20:52 1 APPLN Insulin Aspart (novoLOG ASPART) SLIDING SCALE If C... ACHS SC 07/13/17 16:15 08/12/17 16:14 07/14/17 21:14 8 UNITS Glucose (Glucose 40% Gel) 15-30 GRAMS 15 GRAMS... UD PRN PO 07/13/17 15:45 08/12/17 15:44 Glucose (Glucose Chew Tab) 4-8 Tablets 4 Tabl... UD PRN PO 07/13/17 15:45 08/12/17 15:44 Dextrose (Dextrose 50% 50ML Syringe) 25-50ML OF 50% DW IV FOR... UD PRN IV 07/13/17 15:45 08/12/17 15:44 Glucagon (Glucagon Inj) 1 mg UD PRN SQ 07/13/17 15:45 08/12/17 15:44 Heparin Sodium (Porcine) (Heparin Sq 5000 Unit/0.5ml) 5,000 unit Q12 SQ 07/13/17 21:00 08/12/17 20:59 07/14/17 21:14 5,000 UNIT Allopurinol (Zyloprim Tab) 100 mg DAILY PO 07/14/17 09:00 08/13/17 08:59 07/14/17 08:06 100 MG Hydromorphone HCl (Dilaudid Inj) 0.25 mg Q4H PRN IV 07/13/17 16:30 07/27/17 16:29 Multivitamins/ Minerals (Multivitamin W/ Minerals Tab) 1 tab DAILY PO 07/14/17 09:00 08/13/17 08:59 07/14/17 08:06 1 TAB Gabapentin (Neurontin Cap) 300 mg HS PO 07/13/17 21:00 08/12/17 20:59 07/14/17 20:54 300 MG Cholestyramine Resin (Questran Powder Light) 4 gm BID@10,22 PO 07/14/17 22:00 08/13/17 21:59 07/14/17 22:18 4 GM Miscellaneous Information (Consult Glycemic Management Pharmacy) 1 ea UD PRN N/A 07/14/17 22:45 08/13/17 22:44 Insulin Glargine (Lantus Solostar Pen) 18 units Q12 SC 07/15/17 09:00 08/14/17 08:59 Insulin Aspart (novoLOG ASPART) SLIDING SCALE If C... 0000,0400 SC 07/15/17 00:00 08/14/17 00:00 07/15/17 04:17 7 UNITS Objective Vital Signs Date Time Temp Pulse Resp B/P (MAP) Pulse Ox O2 Delivery O2 Flow Rate FiO2 07/14/17 08:27 36.7 71 19 98/32 (54) 100 Room Air 07/14/17 08:01 Room Air 07/14/17 04:00 Room Air 07/14/17 03:50 36.8 83 16 108/46 (66) 94 Room Air 07/14/17 00:10 Room Air 07/14/17 00:07 37.5 85 18 110/60 (77) 99 Room Air 07/13/17 20:23 Room Air 07/13/17 18:41 37.1 101 20 112/58 (76) 98 Room Air 07/13/17 16:32 36.9 101 19 137/64 99 Room Air 07/13/17 15:41 96 16 135/57 99 Room Air 07/13/17 14:08 91 15 106/46 96 Room Air 07/13/17 13:16 87 16 108/52 98 Room Air 07/13/17 12:57 87 07/13/17 12:29 36.7 84 20 109/64 96 Room Air Physical Exam General Appearance: WD/WN, no apparent distress ENT: normal ENT inspection Neck: supple, no adenopathy Respiratory/Chest: chest non-tender, lungs clear Cardiovascular: regular rate, rhythm, no edema Abdomen: normal bowel sounds, non tender, soft Skin: normal color Lymphatic: no adenopathy Laboratory Results Last 24 Hours Test 07/13/17 12:45 07/13/17 16:29 07/13/17 18:02 07/13/17 20:26 White Blood Count 7.98 K/uL Red Blood Count 3.86 M/uL Hemoglobin 12.9 g/dL Hematocrit 38.3 % Mean Corpuscular Volume 99.2 fL Mean Corpuscular Hemoglobin 33.4 pg Mean Corpuscular Hemoglobin Concent 33.7 g/dl Platelet Count 153 K/uL Mean Platelet Volume 11.6 fL Neutrophils (%) (Auto) 61.5 % Lymphocytes (%) (Auto) 8.1 % Monocytes (%) (Auto) 14.4 % Eosinophils (%) (Auto) 15.4 % Basophils (%) (Auto) 0.3 % Neutrophils # (Auto) 4.91 K/uL Lymphocytes # (Auto) 0.65 K/uL Monocytes # (Auto) 1.15 K/uL Eosinophils # (Auto) 1.23 K/uL Basophils # (Auto) 0.02 K/uL RDW Standard Deviation 55.7 fL RDW Coefficient of Variation 15.4 % Immature Granulocyte % (Auto) 0.3 % Immature Granulocyte # (Auto) 0.02 K/uL Prothrombin Time 11.8 SECONDS Prothromb Time International Ratio 1.1 Activated Partial Thromboplast Time 28.2 SECONDS Partial Thromboplastin Ratio 1.1 Sodium Level 137 mmol/L Potassium Level 4.0 mmol/L Chloride Level 100 mmol/L Carbon Dioxide Level 26 mmol/L Anion Gap 11.0 mmol/L Blood Urea Nitrogen 101 mg/dl Creatinine 5.16 mg/dl Est Creatinine Clear Calc Drug Dose 11.2 ml/min Estimated GFR () 11.4 Estimated GFR (Non- 9.8 BUN/Creatinine Ratio 19.6 Random Glucose 210 mg/dl Calcium Level 9.3 mg/dl Total Bilirubin 0.6 mg/dl Direct Bilirubin 0.2 mg/dl Aspartate Amino Transf (AST/SGOT) 88 U/L Alanine Aminotransferase (ALT/SGPT) 65 U/L Alkaline Phosphatase 110 U/L Troponin I 0.320 ng/ml Total Protein 5.8 gm/dl Albumin 2.7 gm/dl Bedside Glucose 305 mg/dl 381 mg/dl 274 mg/dl Test 07/13/17 20:40 07/14/17 05:20 07/14/17 06:41 07/14/17 09:15 Urine Color YELLOW Urine Appearance CLEAR Urine pH 5.0 Urine Specific [place] 1.018 Urine Protein NEG Urine Glucose (UA) NEG Urine Ketones NEG Urine Occult Blood NEG Urine Nitrite NEG Urine Bilirubin NEG Urine Urobilinogen NEG Urine Leukocyte Esterase NEG White Blood Count 6.27 K/uL Red Blood Count 3.50 M/uL Hemoglobin 11.6 g/dL Hematocrit 34.7 % Mean Corpuscular Volume 99.1 fL Mean Corpuscular Hemoglobin 33.1 pg Mean Corpuscular Hemoglobin Concent 33.4 g/dl RDW Standard Deviation 55.6 fL RDW Coefficient of Variation 15.5 % Platelet Count 129 K/uL Mean Platelet Volume 11.9 fL Sodium Level 138 mmol/L Potassium Level 4.3 mmol/L Chloride Level 102 mmol/L Carbon Dioxide Level 26 mmol/L Anion Gap 10.0 mmol/L Blood Urea Nitrogen 96 mg/dl Creatinine 4.59 mg/dl Est Creatinine Clear Calc Drug Dose 12.6 ml/min Estimated GFR () 13.1 Estimated GFR (Non- 11.3 BUN/Creatinine Ratio 20.9 Random Glucose 228 mg/dl Calcium Level 8.5 mg/dl Magnesium Level 2.1 mg/dl Bedside Glucose 240 mg/dl Hepatitis B Surface Antigen NEG Hepatitis B Surface Antibody POS Assessment and Plan Mr. Ellsworth is a 77 y/o male with PMHx of Hepatitis C, CKD Stage IV, HTN, HLD, T2DM, CAD S/P AR, Aortic Valve Replacement, Mixed Systolic/Diastolic CHF, and Colon CA S/P Resection with Ileostomy who presents to the ED complaining of worsening kidney function, weakness, leg pain x 2 weeks. Cellulitis of B/L Lower Extremities: - Patient is afebrile and without leukocytosis but mildy erythematous legs with diffuse skin compromise due to scratching with increased drainage and opens sores -WBC has been going down. - Rocephin 1 g IV daily - Dilaudid 0.25 mg PRN - Awaiting input from Wound care SASHA with CKD Stage IV: - Baseline around 3.6-4.3 - has progressively increased and being monitored by Dr. Waldrop - currently electrolytes stable and no emergent need for dialysis - AV fistula in R AV region placed in August with +thrill and +bruit - Gently hydrate with NSS at 75 mL/hr x 2 bag and monitor Cr - will hold Bumex overnight with hydration - will carefully monitor fluid status. - Reduced Allopurinol to 100 mg daily from 150 mg for renal dosing - Patient scheduled for dialysis. -Generalized pruritus May be from liver failure. will start cholestyramine. T2DM with Neuropathy: - Hold home regimen and cover with Lantus 10 units SC BID and SSI - Gabapentin BID CAD S/P AR with Mixed Chronic Systolic/Diastolic CHF: - Patient largely appears euvolemic - t - Daily weights and I&Os - EKG with ischemic findings which are unchanged from previous EKGs - trop is elevated but this is chronic and also in setting of worsening Cr - no CP and reports stable anginal pains that he utilizes NTG for - will not trend trops at this time - ASA 81 mg daily, Imdur 90 mg daily, and Toprol XL 100 mg HS - Pravastatin 40 mg daily DVT Prophylaxis: Heparin 5000 units SC BID Code Status: DO NOT RESUSCITATE
[2017-07-14] MEDS ORDERED: CHOLESTYRAMINE LIGHT 4 GM PKT PO ONE (11:45)
[2017-07-14] MEDS: CEFTRIAXONE SOD INJ 1 GM in DEXTROSE 5% ADD-VANTAGE 50ML 50 ML IV SCH (17:39)
[2017-07-14] MEDS: ASPIRIN 81 MG ECTAB PO SCH (20:53)
[2017-07-14] MEDS: GABAPENTIN 300 MG CAP PO SCH (20:54)
[2017-07-14] MEDS: PRAVASTATIN SOD 40 MG TAB PO SCH (20:55)
[2017-07-14] MEDS: METOPROLOL SUCC 50MG EXT REL TAB PO SCH (20:55)
[2017-07-14] MEDS: CETIRIZINE HCL 10 MG TAB PO SCH (20:57)
[2017-07-14] MEDS: CHOLESTYRAMINE LIGHT 4 GM PKT PO SCH (22:18)
[2017-07-14] MEDS ORDERED: PHARMACY GLYCEMIC MGMT CONSULT PRN (22:45)
[2017-07-14] MEDS ORDERED: INSULIN GLARGINE SOLOSTAR 100 UNITS/ML 3 ML PEN SC ONE (23:00)
[2017-07-15] VITALS (23 sets, daily range): BP systolic 95–150; BP diastolic 34–77; PULSE 63–84; TEMP 36.3–36.7; O2SAT 97–100
[2017-07-15] MEDS ORDERED: INSULIN HUMAN REGULAR PER UNIT 8 UNITS in SYRINGE 7.92 ML IV SCH
[2017-07-15] MEDS: INSULIN ASPART 100 UNITS/ML 3 ML PEN SC SCH ×6 (00:02→21:54)
[2017-07-15 05:37] LABS: HEMATOCRIT 32.2 % (42-52); MEAN CELL VOLUME 97.3 fL (80-100); MEAN CORPUSCULAR HEMOGLOBIN 32.9 pg (25-34); MEAN CORPUSCULAR HGB CONC 33.9 g/dl (32-36); MEAN PLATELET VOLUME 12.4 fL (7.4-10.4); PLATELET COUNT 114 K/uL (130-400); RED BLOOD COUNT 3.31 M/uL (4.7-6.1); WHITE BLOOD COUNT 6.89 K/uL (4.8-10.8)
[2017-07-15 05:55] LABS: BUN/CREATININE RATIO 21.2 (10-20); CALCIUM 7.9 mg/dl (8.5-10.1); CREATININE 3.77 mg/dl (0.60-1.40); MAGNESIUM 2.1 mg/dl (1.8-2.4); POTASSIUM 3.9 mmol/L (3.5-5.1)
[2017-07-15] MEDS: RANITIDINE HCL 150 MG TAB PO SCH ×2 (07:54→21:37)
[2017-07-15] MEDS: CHOLESTYRAMINE LIGHT 4 GM PKT PO SCH ×2 (07:54→21:40)
[2017-07-15] MEDS: ISOSORBIDE MONONITRATE 30 MG TABCR PO SCH (07:54)
[2017-07-15] MEDS: DEXAMETHASONE CONC 1 MG/ML 30 ML PO SCH (07:54)
[2017-07-15] MEDS: FERROUS GLUCONATE 324 MG TAB PO SCH ×2 (07:54→21:36)
[2017-07-15] MEDS: CEROVITE ADV FORMULA TAB PO SCH (07:54)
[2017-07-15] MEDS: ALLOPURINOL 100 MG TAB PO SCH (07:55)
[2017-07-15] MEDS: TRIAMCINOLONE ACET 0.1% CR 15 GM TUBE EXT SCH ×2 (07:59→21:00)
[2017-07-15] MEDS: HEPARIN SOD 5000 UNIT/0.5 ML CARP SQ SCH ×2 (07:59→21:00)
--- NOTE | 2017-07-15 08:32 | Nephrology Progress Note ---
Nephrology Progress Note Date of Service Jul 15, 2017. Chief Complaint Chronic kidney disease Subjective No acute events overnight. Fracisco completed his first dialysis treatment yesterday without complications. Adequate blood flow via AVF. Overall, he feels well. Fracisco hopes that he can be discharged within the next several days. He denies fevers or chills. He reports some early improvement in lower extremity edema and cellulitis. Review of Systems A complete review of systems was performed. Pertinent positives are noted above. All other systems are negative. Vital Signs Last 8 Hrs Date Time Temp Pulse Resp B/P (MAP) Pulse Ox O2 Delivery O2 Flow Rate FiO2 07/15/17 07:05 36.5 69 14 119/54 (75) 97 Room Air 07/15/17 04:10 98 Room Air 07/15/17 03:55 36.7 73 16 101/54 (70) 97 Room Air 07/15/17 00:23 36.7 84 16 149/66 (93) 99 Last Recorded Weight Weight (Kilograms): 73.000 Physical Exam General Appearance: no apparent distress, + thin Head: normocephalic, atraumatic Eyes: normal inspection, sclerae normal ENT: normal ENT inspection, pharynx normal Neck: supple, no JVD Respiratory/Chest: lungs clear, no respiratory distress, no accessory muscle use Cardiovascular: regular rate, rhythm, no gallop Back: + pertinent finding (diffuse excoriations on skin) Abdomen/GI: non tender, soft Extremities/Musculoskelatal: + pedal edema, + pertinent finding (RUE AVF with thrill and bruit) Neurologic/Psych: alert, normal mood/affect Family History Asthma Diabetes mellitus Heart disease Hypertension PA Stroke Social History Smoking Status: Former smoker Smokeless Tobacco Use: No Drug Use: none Marital Status: Housing Status: lives with significant other, fpc 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 Laboratory Results Past 24 Hours 07/15/17 04:39 07/15/17 04:39 Test 07/14/17 09:15 07/14/17 11:34 07/14/17 16:31 07/14/17 20:35 Hepatitis B Surface Antigen NEG (NEG) Hepatitis B Surface Antibody POS Hepatitis B Core Total Antibody NON-REACTIVE (NON-REACTIVE) Bedside Glucose 336 mg/dl (70-99) 430 mg/dl (70-99) 315 mg/dl (70-99) Test 07/14/17 23:09 07/15/17 04:06 07/15/17 04:39 07/15/17 06:58 Bedside Glucose 343 mg/dl (70-99) 242 mg/dl (70-99) 168 mg/dl (70-99) Red Blood Count 3.31 M/uL (4.7-6.1) Mean Corpuscular Volume 97.3 fL (80-100) Mean Corpuscular Hemoglobin 32.9 pg (25-34) Mean Corpuscular Hemoglobin Concent 33.9 g/dl (32-36) RDW Standard Deviation 53.3 fL (36.4-46.3) RDW Coefficient of Variation 15.0 % (11.5-14.5) Mean Platelet Volume 12.4 fL (7.4-10.4) Anion Gap 5.0 mmol/L (3-11) Est Creatinine Clear Calc Drug Dose 15.4 ml/min Estimated GFR () 16.6 Estimated GFR (Non- 14.3 BUN/Creatinine Ratio 21.2 (10-20) Calcium Level 7.9 mg/dl (8.5-10.1) Magnesium Level 2.1 mg/dl (1.8-2.4) Allergies Coded Allergies: No Known Allergies (Verified , NONE, 07/13/17) Medications Current Inpatient Medications Medications (Trade) Dose Ordered Sig/Esme Route Start Time Stop Time Status Last Admin Dose Admin Acetaminophen (Tylenol Tab) 650 mg Q4H PRN PO 07/13/17 15:30 08/12/17 15:29 Al Hydrox/Mg Hydrox/Simethicone (Maalox Max Susp) 15 ml Q4H PRN PO 07/13/17 15:30 08/12/17 15:29 Magnesium Hydroxide (Milk Of Magnesia Susp) 30 ml Q12H PRN PO 07/13/17 15:30 08/12/17 15:29 Ondansetron HCl (Zofran Inj) 4 mg Q6H PRN IV 07/13/17 15:30 08/12/17 15:29 Nitroglycerin (Nitrostat Tab) 0.4 mg UD PRN SL 07/13/17 15:30 08/12/17 15:29 Polyethylene (Miralax Powder Packet) 17 gm DAILY PRN PO 07/13/17 15:30 08/12/17 15:29 Ceftriaxone Sodium 1 gm/ Dextrose 50 ml @ 100 mls/hr Q24H IV 07/13/17 17:00 07/23/17 16:59 07/14/17 17:39 100 MLS/HR Aspirin (Ecotrin Tab) 81 mg QPM PO 07/13/17 21:00 08/12/17 20:59 07/14/17 20:53 81 MG Cetirizine HCl (zyrTEC TAB) 10 mg HS PO 07/13/17 21:00 08/12/17 20:59 07/14/17 20:57 10 MG Dexamethasone (Decadron Conc Soln) 2.5 mg BID PO 07/13/17 21:00 08/12/17 20:59 07/15/17 07:54 2.5 MG Ferrous Gluconate (Ferrous Gluconate Tab) 324 mg BID PO 07/13/17 21:00 08/12/17 20:59 07/15/17 07:54 324 MG Folic Acid (Folvite Tab) 1 mg DAILY PO 07/14/17 09:00 08/13/17 08:59 07/15/17 07:59 1 MG Gabapentin (Neurontin Cap) 100 mg DAILY PO 07/14/17 09:00 08/13/17 08:59 Future Hold Isosorbide Mononitrate (Imdur Ext Rel Tab) 90 mg DAILY PO 07/14/17 09:00 08/13/17 08:59 07/15/17 07:54 90 MG Metoprolol Succinate (Toprol Xl Tab) 100 mg HS PO 07/13/17 21:00 08/12/17 20:59 07/14/17 20:55 100 MG Pravastatin Sodium (Pravachol Tab) 40 mg QPM PO 07/13/17 21:00 08/12/17 20:59 07/14/17 20:55 40 MG Ranitidine HCl (zANTac TAB) 150 mg BID PO 07/13/17 21:00 08/12/17 20:59 07/15/17 07:54 150 MG Triamcinolone Acetonide (Kenalog 0.1% Cream) 1 appln BID EXT 07/13/17 21:00 08/12/17 20:59 07/15/17 07:59 1 APPLN Insulin Aspart (novoLOG ASPART) SLIDING SCALE If C... ACHS SC 07/13/17 16:15 08/12/17 16:14 07/15/17 07:57 12 UNITS Glucose (Glucose 40% Gel) 15-30 GRAMS 15 GRAMS... UD PRN PO 07/13/17 15:45 08/12/17 15:44 Glucose (Glucose Chew Tab) 4-8 Tablets 4 Tabl... UD PRN PO 07/13/17 15:45 08/12/17 15:44 Dextrose (Dextrose 50% 50ML Syringe) 25-50ML OF 50% DW IV FOR... UD PRN IV 07/13/17 15:45 08/12/17 15:44 Glucagon (Glucagon Inj) 1 mg UD PRN SQ 07/13/17 15:45 08/12/17 15:44 Heparin Sodium (Porcine) (Heparin Sq 5000 Unit/0.5ml) 5,000 unit Q12 SQ 07/13/17 21:00 08/12/17 20:59 07/15/17 07:59 5,000 UNIT Allopurinol (Zyloprim Tab) 100 mg DAILY PO 07/14/17 09:00 08/13/17 08:59 07/15/17 07:55 100 MG Hydromorphone HCl (Dilaudid Inj) 0.25 mg Q4H PRN IV 07/13/17 16:30 07/27/17 16:29 Multivitamins/ Minerals (Multivitamin W/ Minerals Tab) 1 tab DAILY PO 07/14/17 09:00 08/13/17 08:59 07/15/17 07:54 1 TAB Gabapentin (Neurontin Cap) 300 mg HS PO 07/13/17 21:00 08/12/17 20:59 07/14/17 20:54 300 MG Cholestyramine Resin (Questran Powder Light) 4 gm BID@, PO 07/14/17 22:00 08/13/17 21:59 07/15/17 07:54 4 GM Miscellaneous Information (Consult Glycemic Management Pharmacy) 1 ea UD PRN N/A 07/14/17 22:45 08/13/17 22:44 Insulin Glargine (Lantus Solostar Pen) 18 units Q12 SC 07/15/17 09:00 08/14/17 08:59 07/15/17 07:58 18 UNITS Insulin Aspart (novoLOG ASPART) SLIDING SCALE If C... 0000,0400 SC 07/15/17 00:00 08/14/17 00:00 07/15/17 04:17 7 UNITS Bumetanide (Bumex Tab) 4 mg QAM PO 07/15/17 09:00 08/14/17 08:59 Impression (1) CKD (chronic kidney disease), stage V (2) ESRD needing dialysis (3) Cirrhosis Fracisco Ellsworth is a 77-year-old male with CKD stage V (ESRD). He started hemodialysis yesterday (07/14/17). The patient's renal impairment is due to diabetic nephropathy, microvascular disease and hypertensive nephrosclerosis. R upper arm AVF created 09/[address] Lafleur functioned appropriately for hemodialysis. Medical history is also notable for atherosclerotic coronary artery disease, cirrhosis due to hepatitis C, cryoglobulinemia, hypertension, diabetes mellitus II, aortic stenosis s/p AVR with bovine valve as well as a history of colon cancer s/p partial colectomy with ileostomy. Recommendations ESRD: -- Plan second HD treatment today (3 hrs, Qb 300) - orders entered into EMR and discussed with nurse -- Net UF goal 1 L -- AVF functioned appropriately yesterday -- Patient is enrolled in [facility] program. Requires time and transportation for outpatient HD arrangements at [facility]. HYPERTENSION: -- Blood pressure was checked today and found to be acceptable ANEMIA: -- Hgb is acceptable at this time with oral iron therapy CELLULITIS: -- Remains on Rocephin 1 gram daily
[2017-07-15] MEDS: BUMETANIDE 1 MG TAB PO SCH (08:35)
[2017-07-15] MEDS ORDERED: INSULIN GLARGINE SOLOSTAR 100 UNITS/ML 3 ML PEN SC SCH (09:00)
--- NOTE | 2017-07-15 10:39 | Pharmacy Progress Note ---
Glycemic Control Intl Consult Date of Service Jul 15, 2017. Scope Glycemic Pharmacist consulted by Dr Milian on 07/14/17 for glycemic control and to write orders per [facility] inpatient glycemic control protocol Objective Weight (Kilograms): 79.400 Accuchecks BSG (last 24hrs): Test 07/14/17 11:34 07/14/17 16:31 07/14/17 20:35 07/14/17 23:09 Bedside Glucose 336 mg/dl (70-99) 430 mg/dl (70-99) 315 mg/dl (70-99) 343 mg/dl (70-99) Test 07/15/17 04:06 07/15/17 04:39 07/15/17 06:58 Bedside Glucose 242 mg/dl (70-99) 168 mg/dl (70-99) Random Glucose 211 mg/dl (70-99) Laboratory Data (last 24hrs) Test 07/15/17 04:39 Anion Gap 5.0 mmol/L BUN/Creatinine Ratio 21.2 Blood Urea Nitrogen 80 mg/dl Creatinine 3.77 mg/dl Potassium Level 3.9 mmol/L Sodium Level 134 mmol/L White Blood Count 6.89 K/uL Recent Pertinent Medications Outpatient Anti-diabetic Regimen: * Lantus 13-15 units BID * Novolog per sliding scale * also on Decadron po * A1c = 6.5 % 04/2017 The patient is currently receiving: * Basal insulin: Lantus 18 units every 12 hours * Correctional Insulin: Novolog Correction per scale ACHS Goal Range: Low 100 mg/dL - High 140 mg/dL Correction Factor: 15 mg/dL/unit * Prandial insulin: Per carb ratio of 1 unit per 7 grams CHO consumed Risk Factors for Insulin Resistance: * Steroids: Decadron 2.5 mg po BID - on as outpatient * Infection: on Rocephin for cellulitis * Diet: type 2 diabetes/ AHA Assessment & Plan ASSESSMENT: * Mr. Ellsworth is a 77 y/o male admitted with SASHA, cellulitis and hyperglycemia * He is on po Decadron at home, though I'm not sure what for or how long. BSGs are most likely elevated secondary to this. * He received 95 units of insulin yesterday with BSGs much improved this AM. Current insulin regimen is based upon insulin calculator estimates using patient 's weight and stress level of 3 (due to Decadron). * Since BSGs are improved and insulin doses are already fairly aggressive, will plan to continue same regimen for now * Update: I discovered that the Decadron dose as an inpatient is not what his outpatient dose was. His outpatient dose was 0.5 mg. I spoke with Iveth Thompson and got this changed back to his outpatient dose. She's going to look into the continued need for it as well and it may be d/c'd, or prn. I asked her to notify us so that the insulin regimen can be adjusted accordingly. PLAN FOR INPATIENT GLYCEMIC CONTROL: * Continue Lantus 18 units BID, reduce to 15 units BID if BSG less than 140 * Continue Novolog ACHS (remove overnight accuchecks since BSG is improved) * Goal 100-140 * CF 15 * CR 7 * Please note that the plan above was derived based on current level of insulin resistance and hospital stress. These recommendations are appropriate for inpatient admission only. Plan of care upon discharge will need to be reassessed to avoid potential outpatient hypo/hyperglycemia. Thank you.
[2017-07-15] MEDS ORDERED: CEPHALEXIN MONOHYDRATE 250 MG CAP PO ONE (14:00)
--- NOTE | 2017-07-15 14:36 | Hospitalist Progress Note ---
Hospitalist Progress Note Date of Service Jul 15, 2017. (Iveth Thompson, QUANGC) Subjective Pt evaluation today including: conversation w/ patient, conversation w/ family , physical exam, chart review, lab review, review of studies, review of inpatient medication list Patient seen and evaluated. No acute events overnight. Has received two dialysis treatments since admission. Per patient account is planning on one more tomorrow. Reporting lower extremity pain is markedly improved. Stating he is able to ambulate better. Wound care saw patient yesterday. Still with chronic itching. States he dry cholestyramine in the past without relief. Verbalizes no other needs. Constitutional: No fever, No chills Respiratory: No cough, No shortness of breath Cardiovascular: No chest pain Abdomen: No pain, No nausea, No vomiting, No diarrhea, No constipation Musculoskeletal: + problem reported (b/l leg pain - improving) Male : No dysuria Skin: + itch, + problem reported (multiple scabs; open wounds on legs) ( Iveth Thompson, QUANGC) Medications Current Inpatient Medications Medications (Trade) Dose Ordered Sig/Esme Route Start Time Stop Time Status Last Admin Dose Admin Acetaminophen (Tylenol Tab) 650 mg Q4H PRN PO 07/13/17 15:30 08/12/17 15:29 Al Hydrox/Mg Hydrox/Simethicone (Maalox Max Susp) 15 ml Q4H PRN PO 07/13/17 15:30 08/12/17 15:29 Magnesium Hydroxide (Milk Of Magnesia Susp) 30 ml Q12H PRN PO 07/13/17 15:30 08/12/17 15:29 Ondansetron HCl (Zofran Inj) 4 mg Q6H PRN IV 07/13/17 15:30 08/12/17 15:29 Nitroglycerin (Nitrostat Tab) 0.4 mg UD PRN SL 07/13/17 15:30 08/12/17 15:29 Polyethylene (Miralax Powder Packet) 17 gm DAILY PRN PO 07/13/17 15:30 08/12/17 15:29 Aspirin (Ecotrin Tab) 81 mg QPM PO 07/13/17 21:00 08/12/17 20:59 07/14/17 20:53 81 MG Cetirizine HCl (zyrTEC TAB) 10 mg HS PO 07/13/17 21:00 08/12/17 20:59 07/14/17 20:57 10 MG Ferrous Gluconate (Ferrous Gluconate Tab) 324 mg BID PO 07/13/17 21:00 08/12/17 20:59 07/15/17 07:54 324 MG Folic Acid (Folvite Tab) 1 mg DAILY PO 07/14/17 09:00 08/13/17 08:59 07/15/17 07:59 1 MG Gabapentin (Neurontin Cap) 100 mg DAILY PO 07/14/17 09:00 08/13/17 08:59 Future Hold Isosorbide Mononitrate (Imdur Ext Rel Tab) 90 mg DAILY PO 07/14/17 09:00 08/13/17 08:59 07/15/17 07:54 90 MG Metoprolol Succinate (Toprol Xl Tab) 100 mg HS PO 07/13/17 21:00 08/12/17 20:59 07/14/17 20:55 100 MG Pravastatin Sodium (Pravachol Tab) 40 mg QPM PO 07/13/17 21:00 08/12/17 20:59 07/14/17 20:55 40 MG Ranitidine HCl (zANTac TAB) 150 mg BID PO 07/13/17 21:00 08/12/17 20:59 07/15/17 07:54 150 MG Triamcinolone Acetonide (Kenalog 0.1% Cream) 1 appln BID EXT 07/13/17 21:00 08/12/17 20:59 07/15/17 07:59 1 APPLN Insulin Aspart (novoLOG ASPART) SLIDING SCALE If C... ACHS SC 07/13/17 16:15 08/12/17 16:14 07/15/17 07:57 12 UNITS Glucose (Glucose 40% Gel) 15-30 GRAMS 15 GRAMS... UD PRN PO 07/13/17 15:45 08/12/17 15:44 Glucose (Glucose Chew Tab) 4-8 Tablets 4 Tabl... UD PRN PO 07/13/17 15:45 08/12/17 15:44 Dextrose (Dextrose 50% 50ML Syringe) 25-50ML OF 50% DW IV FOR... UD PRN IV 07/13/17 15:45 08/12/17 15:44 Glucagon (Glucagon Inj) 1 mg UD PRN SQ 07/13/17 15:45 08/12/17 15:44 Heparin Sodium (Porcine) (Heparin Sq 5000 Unit/0.5ml) 5,000 unit Q12 SQ 07/13/17 21:00 08/12/17 20:59 07/15/17 07:59 5,000 UNIT Allopurinol (Zyloprim Tab) 100 mg DAILY PO 07/14/17 09:00 08/13/17 08:59 07/15/17 07:55 100 MG Hydromorphone HCl (Dilaudid Inj) 0.25 mg Q4H PRN IV 07/13/17 16:30 07/27/17 16:29 Multivitamins/ Minerals (Multivitamin W/ Minerals Tab) 1 tab DAILY PO 07/14/17 09:00 08/13/17 08:59 07/15/17 07:54 1 TAB Gabapentin (Neurontin Cap) 300 mg HS PO 07/13/17 21:00 08/12/17 20:59 07/14/17 20:54 300 MG Cholestyramine Resin (Questran Powder Light) 4 gm BID@10,22 PO 07/14/17 22:00 08/13/17 21:59 07/15/17 07:54 4 GM Miscellaneous Information (Consult Glycemic Management Pharmacy) 1 ea UD PRN N/A 07/14/17 22:45 08/13/17 22:44 Bumetanide (Bumex Tab) 4 mg QAM PO 07/15/17 09:00 08/14/17 08:59 07/15/17 08:35 4 MG Insulin Glargine (Lantus Solostar Pen) see protocol text Q12 SC 07/15/17 21:00 08/14/17 20:59 Dexamethasone (Decadron Conc Soln) 0.5 mg BID PRN PO 07/15/17 21:00 08/14/17 20:59 Cephalexin Monohydrate (Keflex Cap) 250 mg DAILY ONCE PO 07/16/17 09:00 07/16/17 09:01 UNV (Iveth Thompson PA-C) Objective Vital Signs Date Time Temp Pulse Resp B/P (MAP) Pulse Ox O2 Delivery O2 Flow Rate FiO2 07/15/17 12:51 36.7 68 110/43 (65) 07/15/17 11:45 70 104/55 07/15/17 11:30 67 108/50 07/15/17 11:15 66 108/45 07/15/17 11:00 73 118/34 07/15/17 10:45 70 95/38 07/15/17 10:30 65 103/45 07/15/17 10:15 68 112/54 07/15/17 10:00 66 104/50 07/15/17 09:45 64 109/52 07/15/17 09:30 65 107/46 07/15/17 09:15 68 102/51 07/15/17 08:56 36.7 72 111/69 (83) 07/15/17 08:00 97 Room Air 07/15/17 07:05 36.5 69 14 119/54 (75) 97 Room Air 07/15/17 04:10 98 Room Air 07/15/17 03:55 36.7 73 16 101/54 (70) 97 Room Air 07/15/17 00:23 36.7 84 16 149/66 (93) 99 07/15/17 00:10 98 Room Air 07/14/17 20:49 75 119/53 (75) 07/14/17 20:00 Room Air 07/14/17 18:49 36.5 74 12 106/47 (66) 99 Room Air 07/14/17 18:45 36.6 74 111/58 (75) 07/14/17 18:15 68 106/48 07/14/17 18:00 70 110/51 17 17:45 67 100/46 17 17:30 70 106/53 07/14/17 17:15 64 94/44 1817 17:00 68 105/50 1817 16:45 70 120/51 17 16:26 73 121/53 07/14/17 16:13 Room Air 07/14/17 16:10 36.5 70 114/56 (75) 07/14/17 15:10 36.5 72 15 130/67 (88) 98 Room Air (Iveth Thompson PA-C) Physical Exam General Appearance: no apparent distress ENT: hearing grossly normal Neck: supple, no JVD, trachea midline Respiratory/Chest: lungs clear, normal breath sounds, no respiratory distress, no accessory muscle use Cardiovascular: regular rate, rhythm, no gallop, no murmur Abdomen: normal bowel sounds, non tender, soft Extremities: + pertinent finding (dressings to lower extremities C/D/I except for small blood discharge at bottom of LLE dressing; dressing C/D/I to RUE after dialysis) Neurologic/Psychiatric: alert, oriented x 3 Skin: warm/dry (Iveth Thompson PA-C) Laboratory Results Last 24 Hours Test 07/14/17 16:31 07/14/17 20:35 07/14/17 23:09 07/15/17 04:06 Bedside Glucose 430 mg/dl 315 mg/dl 343 mg/dl 242 mg/dl Test 07/15/17 04:39 07/15/17 06:58 White Blood Count 6.89 K/uL Red Blood Count 3.31 M/uL Hemoglobin 10.9 g/dL Hematocrit 32.2 % Mean Corpuscular Volume 97.3 fL Mean Corpuscular Hemoglobin 32.9 pg Mean Corpuscular Hemoglobin Concent 33.9 g/dl RDW Standard Deviation 53.3 fL RDW Coefficient of Variation 15.0 % Platelet Count 114 K/uL Mean Platelet Volume 12.4 fL Sodium Level 134 mmol/L Potassium Level 3.9 mmol/L Chloride Level 103 mmol/L Carbon Dioxide Level 26 mmol/L Anion Gap 5.0 mmol/L Blood Urea Nitrogen 80 mg/dl Creatinine 3.77 mg/dl Est Creatinine Clear Calc Drug Dose 15.4 ml/min Estimated GFR () 16.6 Estimated GFR (Non- 14.3 BUN/Creatinine Ratio 21.2 Random Glucose 211 mg/dl Calcium Level 7.9 mg/dl Magnesium Level 2.1 mg/dl Bedside Glucose 168 mg/dl (Ievth Thompson PA-C) Assessment and Plan Mr. Ellsworth is a 77 y/o male with PMHx of Hepatitis C, CKD Stage IV, HTN, HLD, T2DM, CAD S/P NV, Aortic Valve Replacement, Mixed Systolic/Diastolic CHF, and Colon CA S/P Resection with Ileostomy who presents to the ED complaining of worsening kidney function, weakness, leg pain x 2 weeks. Cellulitis of B/L Lower Extremities: IMPROVING - Patient is afebrile and without leukocytosis but mildy erythematous legs with diffuse skin compromise due to scratching with increased drainage and opens sores - reporting improvement in pain - D/C Rocephin and convert to Keflex 250 mg daily for renal dosing - Dilaudid 0.25 mg PRN - Wound care following - recommending daily dressing changes SASHA with CKD Stage V: HD Initiated this Admission - AV fistula in R AV region placed in August with +thrill and +bruit - Stopped fluids and added Bumex 4 mg daily back on - Reduced Allopurinol to 100 mg daily from 150 mg for renal dosing - Patient scheduled for dialysis. Generalized Pruritus 2/2 Likely Liver Disease: - Continue Cholestyramine - reports trying this in the past without relief - States he has using hydrocortisone cream by Dr. Ellis - this can be contiued as outpatient T2DM with Neuropathy and Hyperglycemia: - Glycemic consultation in place - sugars are more elevated during admission - possibly acute illness? States he spits his steroid mouth rinse out - Gabapentin BID with renal dosing CAD S/P NV with Mixed Chronic Systolic/Diastolic CHF: - Daily weights and I&Os - EKG with ischemic findings which are unchanged from previous EKGs - trop is elevated but this is chronic and also in setting of worsening Cr - no CP and reports stable anginal pains that he utilizes NTG for - stable - ASA 81 mg daily, Imdur 90 mg daily, and Toprol XL 100 mg HS - Pravastatin 40 mg daily DVT Prophylaxis: Heparin 5000 units SC BID Code Status: DO NOT RESUSCITATE Disposition: Plan to return to [facility] - possible D/C tomorrow Continued [facility] stay due to: other (dialysis) Discharge planning: home ([facility]) (Iveth Thompson PA-C) I agree with above note. I discussed case with APC and patient. i answered all of the patient's questions. My exam is below: General Appearance: no apparent distress ENT: hearing grossly normal Neck: supple, no JVD, trachea midline Respiratory/Chest: lungs clear, normal breath sounds, no respiratory distress, no accessory muscle use Cardiovascular: regular rate, rhythm, no gallop, no murmur Abdomen: normal bowel sounds, non tender, soft Extremities: + pertinent finding (dressings to lower extremities: soaked in serosanguineous drainage) Neurologic/Psychiatric: alert, oriented x 3 Skin: dry on other extremities Patient will likely need to be f/u as an outpatient for his wounds in his lower extremities. Recommended to him to stop scratching as this may lead to an infection. (Herminio Palacios M.D.)
[2017-07-15] MEDS ORDERED: CEFTRIAXONE SOD INJ 1 GM in DEXTROSE 5% ADD-VANTAGE 50ML 50 ML IV PRN (17:00)
[2017-07-15] MEDS ORDERED: NURSING VERBAL MED ORDER ONE (19:45)
[2017-07-15] MEDS ORDERED: MoRPHine SULFATE 4 MG/ML 1 ML CARP\\VIAL IV ONE (20:00)
[2017-07-15] MEDS ORDERED: DEXAMETHASONE CONC 1 MG/ML 30 ML PO SCH (21:00)
[2017-07-15] MEDS ORDERED: DEXAMETHASONE CONC 1 MG/ML 30 ML PO PRN (21:00)
[2017-07-15] MEDS: ASPIRIN 81 MG ECTAB PO SCH (21:00)
[2017-07-15] MEDS: PRAVASTATIN SOD 40 MG TAB PO SCH (21:38)
[2017-07-15] MEDS: GABAPENTIN 300 MG CAP PO SCH (21:38)
[2017-07-15] MEDS: CETIRIZINE HCL 10 MG TAB PO SCH (21:40)
[2017-07-15] MEDS: METOPROLOL SUCC 50MG EXT REL TAB PO SCH (21:44)
[2017-07-15] MEDS: INSULIN GLARGINE SOLOSTAR 100 UNITS/ML 3 ML PEN SC SCH (21:55)
[2017-07-16] VITALS (20 sets, daily range): BP systolic 102–132; BP diastolic 52–67; PULSE 64–82; TEMP 36.1–36.8; O2SAT 97
[2017-07-16] MEDS ORDERED: INSULIN ASPART 100 UNITS/ML 3 ML PEN SC SCH (02:00)
[2017-07-16 06:28] LABS: MEAN CELL VOLUME 98.6 fL (80-100); MEAN CORPUSCULAR HEMOGLOBIN 32.6 pg (25-34); MEAN CORPUSCULAR HGB CONC 33.1 g/dl (32-36); MEAN PLATELET VOLUME 11.5 fL (7.4-10.4); PLATELET COUNT 108 K/uL (130-400); RED BLOOD COUNT 3.65 M/uL (4.7-6.1)
[2017-07-16 06:45] LABS: BUN/CREATININE RATIO 17.6 (10-20); CALCIUM 7.8 mg/dl (8.5-10.1); CREATININE 3.25 mg/dl (0.60-1.40); MAGNESIUM 2.2 mg/dl (1.8-2.4); POTASSIUM 4.2 mmol/L (3.5-5.1)
[2017-07-16] MEDS: TRIAMCINOLONE ACET 0.1% CR 15 GM TUBE EXT SCH (08:06)
[2017-07-16] MEDS: ALLOPURINOL 100 MG TAB PO SCH (08:06)
[2017-07-16] MEDS: ISOSORBIDE MONONITRATE 30 MG TABCR PO SCH (08:07)
[2017-07-16] MEDS: CEROVITE ADV FORMULA TAB PO SCH (08:07)
[2017-07-16] MEDS: FERROUS GLUCONATE 324 MG TAB PO SCH (08:08)
[2017-07-16] MEDS: BUMETANIDE 1 MG TAB PO SCH (08:08)
[2017-07-16] MEDS: RANITIDINE HCL 150 MG TAB PO SCH (08:09)
[2017-07-16] MEDS: HEPARIN SOD 5000 UNIT/0.5 ML CARP SQ SCH (08:18)
[2017-07-16] MEDS: INSULIN GLARGINE SOLOSTAR 100 UNITS/ML 3 ML PEN SC SCH (08:19)
[2017-07-16] MEDS: INSULIN ASPART 100 UNITS/ML 3 ML PEN SC SCH ×2 (08:20→13:31)
[2017-07-16] MEDS: CHOLESTYRAMINE LIGHT 4 GM PKT PO SCH (08:21)
--- NOTE | 2017-07-16 10:29 | Pharmacy Progress Note ---
Pharmacy Glycemic Short Note 2 Date of Service Jul 16, 2017. OUTPATIENT ANTIDIABETIC REGIMEN: * Lantus 13-15 units BID * Novolog per sliding scale * also on Decadron po * A1c = 6.5 % 04/2017 ASSESSMENT: * 77yo Type 1 diabetic known to pharmacy from previous admissions/glycemic consults * Patient has received 68 units of insulin over the past 24hrs * 36 units of basal insulin with Lantus * 32 units of prandial/correctional insulin with NovoLog * AM fasting BSG is in goal range this morning at 127mg/dl --> expect this to continue to drop with repeated dosing of current dose of Lantus. Current dosing is above outpatient dosing. Will need to empirically reduce dosing to prevent hypo on subsequent days * Post-prandial BSGs are elevated but suspect this is secondary to missing lunch time insulin while at dialysis and elevated BSGs at baseline. Current CF/ CR are consistent with dosing per previous admissions. No change needed. PLAN FOR INPATIENT GLYCEMIC CONTROL: * Basal insulin: decrease dose * Lantus 15 units SQ BID * Bolus insulin * NovoLog per scale ACHS or Q6hrs while NPO * Goal Range: Low 100 mg/dL - High 140 mg/dL * Correction Factor: 15 mg/dL/unit * Nutritional / Prandial insulin per carb ratio of 1 unit per 7 grams CHO consumed
--- NOTE | 2017-07-16 10:40 | Nephrology Progress Note ---
Nephrology Progress Note Date of Service Jul 16, 2017. Chief Complaint Chronic kidney disease Subjective No acute events overnight. Mild headache treated with Tylenol late yesterday evening. Fracisco was seen and evaluated during hemodialysis today. He was tolerating the treatment well. Qb 400. AVF accessed with 16 g needles. BP appropriate. Overall, Fracisco feels well. He hopes to be discharged home later today. Review of Systems A complete review of systems was performed. Pertinent positives are noted above. All other systems are negative. Vital Signs Last 8 Hrs Date Time Temp Pulse Resp B/P (MAP) Pulse Ox O2 Delivery O2 Flow Rate FiO2 07/16/17 07:41 36.6 82 18 113/67 (82) 97 Room Air Last Recorded Weight Weight (Kilograms): 78.600 Physical Exam General Appearance: no apparent distress, + thin Head: normocephalic, atraumatic Eyes: normal inspection, sclerae normal ENT: normal ENT inspection, pharynx normal Neck: supple, no JVD Respiratory/Chest: lungs clear, no respiratory distress, no accessory muscle use Cardiovascular: regular rate, rhythm, no gallop Abdomen/GI: non tender, soft Extremities/Musculoskelatal: normal inspection, no pedal edema Neurologic/Psych: alert, normal mood/affect Family History Asthma Diabetes mellitus Heart disease Hypertension IA Stroke Social History Smoking Status: Former smoker Smokeless Tobacco Use: No Drug Use: none Marital Status: Housing Status: lives with significant other, intermediate 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 Laboratory Results Past 24 Hours 07/16/17 05:59 07/16/17 05:59 Test 07/15/17 14:57 07/15/17 16:56 07/15/17 21:34 07/16/17 02:01 Bedside Glucose 224 mg/dl (70-99) 251 mg/dl (70-99) 281 mg/dl (70-99) 110 mg/dl (70-99) Test 07/16/17 05:59 07/16/17 07:28 Red Blood Count 3.65 M/uL (4.7-6.1) Mean Corpuscular Volume 98.6 fL (80-100) Mean Corpuscular Hemoglobin 32.6 pg (25-34) Mean Corpuscular Hemoglobin Concent 33.1 g/dl (32-36) RDW Standard Deviation 55.7 fL (36.4-46.3) RDW Coefficient of Variation 15.3 % (11.5-14.5) Mean Platelet Volume 11.5 fL (7.4-10.4) Anion Gap 7.0 mmol/L (3-11) Est Creatinine Clear Calc Drug Dose 17.8 ml/min Estimated GFR () 19.9 Estimated GFR (Non- 17.1 BUN/Creatinine Ratio 17.6 (10-20) Calcium Level 7.8 mg/dl (8.5-10.1) Magnesium Level 2.2 mg/dl (1.8-2.4) Bedside Glucose 127 mg/dl (70-99) Allergies Coded Allergies: No Known Allergies (Verified , NONE, 07/13/17) Medications Current Inpatient Medications Medications (Trade) Dose Ordered Sig/Esme Route Start Time Stop Time Status Last Admin Dose Admin Acetaminophen (Tylenol Tab) 650 mg Q4H PRN PO 07/13/17 15:30 08/12/17 15:29 07/15/17 18:45 650 MG Al Hydrox/Mg Hydrox/Simethicone (Maalox Max Susp) 15 ml Q4H PRN PO 07/13/17 15:30 08/12/17 15:29 Magnesium Hydroxide (Milk Of Magnesia Susp) 30 ml Q12H PRN PO 07/13/17 15:30 08/12/17 15:29 Ondansetron HCl (Zofran Inj) 4 mg Q6H PRN IV 07/13/17 15:30 08/12/17 15:29 Nitroglycerin (Nitrostat Tab) 0.4 mg UD PRN SL 07/13/17 15:30 08/12/17 15:29 Polyethylene (Miralax Powder Packet) 17 gm DAILY PRN PO 07/13/17 15:30 08/12/17 15:29 Aspirin (Ecotrin Tab) 81 mg QPM PO 07/13/17 21:00 08/12/17 20:59 07/14/17 20:53 81 MG Cetirizine HCl (zyrTEC TAB) 10 mg HS PO 07/13/17 21:00 08/12/17 20:59 07/15/17 21:40 10 MG Ferrous Gluconate (Ferrous Gluconate Tab) 324 mg BID PO 07/13/17 21:00 08/12/17 20:59 07/16/17 08:08 324 MG Folic Acid (Folvite Tab) 1 mg DAILY PO 07/14/17 09:00 08/13/17 08:59 07/16/17 08:07 1 MG Isosorbide Mononitrate (Imdur Ext Rel Tab) 90 mg DAILY PO 07/14/17 09:00 08/13/17 08:59 07/16/17 08:07 90 MG Metoprolol Succinate (Toprol Xl Tab) 100 mg HS PO 07/13/17 21:00 08/12/17 20:59 07/15/17 21:44 100 MG Pravastatin Sodium (Pravachol Tab) 40 mg QPM PO 07/13/17 21:00 08/12/17 20:59 07/15/17 21:38 40 MG Ranitidine HCl (zANTac TAB) 150 mg BID PO 07/13/17 21:00 08/12/17 20:59 07/16/17 08:09 150 MG Triamcinolone Acetonide (Kenalog 0.1% Cream) 1 appln BID EXT 07/13/17 21:00 08/12/17 20:59 07/16/17 08:06 1 APPLN Insulin Aspart (novoLOG ASPART) SLIDING SCALE If C... ACHS SC 07/13/17 16:15 08/12/17 16:14 07/16/17 08:20 7 UNITS Glucose (Glucose 40% Gel) 15-30 GRAMS 15 GRAMS... UD PRN PO 07/13/17 15:45 08/12/17 15:44 Glucose (Glucose Chew Tab) 4-8 Tablets 4 Tabl... UD PRN PO 07/13/17 15:45 08/12/17 15:44 Dextrose (Dextrose 50% 50ML Syringe) 25-50ML OF 50% DW IV FOR... UD PRN IV 07/13/17 15:45 08/12/17 15:44 Glucagon (Glucagon Inj) 1 mg UD PRN SQ 07/13/17 15:45 08/12/17 15:44 Heparin Sodium (Porcine) (Heparin Sq 5000 Unit/0.5ml) 5,000 unit Q12 SQ 07/13/17 21:00 08/12/17 20:59 07/16/17 08:18 5,000 UNIT Allopurinol (Zyloprim Tab) 100 mg DAILY PO 07/14/17 09:00 08/13/17 08:59 07/16/17 08:06 100 MG Hydromorphone HCl (Dilaudid Inj) 0.25 mg Q4H PRN IV 07/13/17 16:30 07/27/17 16:29 Multivitamins/ Minerals (Multivitamin W/ Minerals Tab) 1 tab DAILY PO 07/14/17 09:00 08/13/17 08:59 07/16/17 08:07 1 TAB Gabapentin (Neurontin Cap) 300 mg HS PO 07/13/17 21:00 08/12/17 20:59 07/15/17 21:38 300 MG Cholestyramine Resin (Questran Powder Light) 4 gm BID@,22 PO 07/14/17 22:00 08/13/17 21:59 07/16/17 08:21 4 GM Miscellaneous Information (Consult Glycemic Management Pharmacy) 1 ea UD PRN N/A 07/14/17 22:45 08/13/17 22:44 Bumetanide (Bumex Tab) 4 mg QAM PO 07/15/17 09:00 08/14/17 08:59 07/16/17 08:08 4 MG Dexamethasone (Decadron Conc Soln) 0.5 mg BID PRN PO 07/15/17 21:00 08/14/17 20:59 Cephalexin Monohydrate (Keflex Cap) 250 mg DAILY@1400 PO 07/16/17 14:00 07/18/17 13:59 Insulin Glargine (Lantus Solostar Pen) 15 units Q12 SC 07/16/17 21:00 08/15/17 20:59 Impression (1) CKD (chronic kidney disease), stage V (2) ESRD needing dialysis (3) Cirrhosis Fracisco Ellsworth is a 77-year-old male with CKD stage V (ESRD). He started hemodialysis yesterday (07/14/17). The patient's renal impairment is due to diabetic nephropathy, microvascular disease and hypertensive nephrosclerosis. R upper arm AVF created 09/[address] Lafleur functioned appropriately for hemodialysis. Medical history is also notable for atherosclerotic coronary artery disease, cirrhosis due to hepatitis C, cryoglobulinemia, hypertension, diabetes mellitus II, aortic stenosis s/p AVR with bovine valve as well as a history of colon cancer s/p partial colectomy with ileostomy. Recommendations ESRD: -- Third HD treatment today (3 hrs, Qb 400) -- Net UF goal 1 L -- AVF functioning well -- [place]patient [place] starting Friday (MWF schedule) [place] [facility] [place]ERT[place]ION: -- BP and volume status are appropriate ANEMIA: -- Hgb is acceptable at this time with oral iron therapy CELLULITIS: -- Remains on Rocephin 1 gram daily
[2017-07-16] MEDS ORDERED: GELATIN SPONGE 12-7MM EXT PRN (12:15)
[2017-07-16] MEDS ORDERED: GELATIN SPONGE 12-7MM ONE (12:25)
[2017-07-16] MEDS ORDERED: CEPHALEXIN MONOHYDRATE 250 MG CAP PO SCH (14:00)
[2017-07-16] MEDS ORDERED: KFL250 PO (14:11)
[2017-07-16] MEDS ORDERED: ALLO100T PO (14:11)
[2017-07-16] MEDS ORDERED: GABA-113 PO (14:11)
--- NOTE | 2017-07-16 14:19 | Discharge Instructions ---
Discharge Instructions Date of Service Jul 16, 2017. Admission Reason for Admission: Acute Kidney Injury Superimposed On Ckd Discharge Discharge Diagnosis / Problem: Cellulitis and Hemodialysis Discharge Goals Goal(s): Decrease discomfort, Improve function, Increase independence Activity Recommendations Activity Level: Assistance Required Therapies: Physical Therapy, Occupational Therapy . Additional Information Patient informed of condition: Yes Advance Directives: Yes DNR: Yes Level of Care: Skilled Communicable Disease: Yes (Hepatitis C) Prognosis: Improving Instructions / Follow-Up Instructions / Follow-Up Cellulitis of B/L Lower Extremities: IMPROVING - Continue Keflex 250 mg daily - should be dosed after dialysis on dialysis days to complete a 10 day course initially - will need family doctor to re- evaluate for need of further antibiotics - Recommend follow-up with wound care for ongoing monitoring and management Hemodialysis Initiated this Admission: - AV fistula in R AV region placed in August with +thrill and +bruit - Some home medications - Gabapentin and Allopurinol was reduced for renal function -- Gabapentin 300 mg daily and Allopurinol 100 mg daily - these can be monitored and adjusted as necessary but would avoid nephrotoxic (kidney harmful medications) when able - [facility] in [place] - Dialysis scheduled for Fri, Fri, Fri at 1430. His first appointment would be Wednesday 07/18 at 1400. T2DM with Neuropathy and Hyperglycemia: - Continue home regimen and continue to monitor sugars - recommend to discuss and follow-up with environmental management specialist if necessary CAD S/P [place] with Mixed Chronic Systolic/Diastolic CHF: STABLE - Recommend to continue to monitor daily weights - EKG with ischemic findings which are unchanged from previous EKGs - trop is elevated but this is chronic and also in setting of worsening Cr - no CP and reports stable anginal pains that he utilizes NTG for - stable - ASA 81 mg daily, Imdur 90 mg daily, and Toprol XL 100 mg HS - Pravastatin 40 mg daily Code Status: DO NOT RESUSCITATE Current Hospital Diet Patient's current hospital diet: Diabetes Type 2 Diet, AHA Diet (Heart Healthy) Discharge Diet Recommended Diet: AHA Diet (Heart Healthy), Diabetes Type 2 Diet Pending Studies Studies pending at discharge: no Laboratory Results Hemoglobin A1c Test 05/14/17 06:10 Range/Units Estimated Average Glucose 140 mg/dl Hemoglobin A1c 6.5 H 4.5-5.6 % Lipid Panel Test 05/14/17 06:10 Range/Units Triglycerides Level 78 0-150 mg/dl Cholesterol Level 121 0-200 mg/dl HDL Cholesterol 68 mg/dl Cholesterol/HDL Ratio 1.8 LDL Cholesterol, Calculated 37 mg/dl Medical Emergencies . Who to Call and When: Medical Emergencies: If at any time you feel your situation is an emergency, please call 911 immediately. . Non-Emergent Contact Non-Emergency issues call your: Primary Care Provider Call Non-Emergent contact if: you have a fever, your pain is concerning you, you have any medication questions . . "Provider Documentation" section prepared by Iveth Thompson. . Core Measure Problem Core Measures: None
--- NOTE | 2017-07-16 17:33 | Discharge Summary ---
Discharge Summary Date of Service Jul 16, 2017. Discharge Summary Admission Date: Jul 13, 2017 at 15:34 Discharge Date: Jul 16, 2017 Discharge Disposition: long term facility ([facility]) Principal Diagnosis: ESRD with HD Initiation; B/L LE Cellulitis Problems/Secondary Diagnoses: 1. T2DM 2. CAD S/P [place] 3. CKD Stage IV-V 4. S/P AV Fistula in RUE 5. HLD 6. Hepatitis C 7. Colon CA S/P Resection with Ileostomy 8. Mixed Systolic/Diastolic CHF 9. S/P Aortic Valve Replacement Immunizations: Have You Had Influenza Vaccine: N/A Influenza Vaccine Date: Apr 02, 2009 History of Tetanus Vaccine?: Unknown History of Pneumococcal: Yes Pneumococcal Date: May 23, 2008 History of Hepatitis B Vaccine: Yes Consultations: 1. Nephrology Medication Reconciliation New Medications: Cephalexin Monohydrate (Cephalexin) 250 Mg Cap 250 MG PO DAILY@1400 for 6 Days, #6 CAP You had your dose today. Start this on 07/17 Changed Medications: Allopurinol (Zyloprim) 100 Mg Tab 100 MG PO DAILY for 30 Days, #30 TABS (Changed from: 150 MG) Gabapentin (Neurontin) 300 Mg Cap 300 MG PO DAILY for 30 Days, #30 TABS (Changed from: QAM/HS) Continued Medications: Aspirin (Aspirin Ec) 81 Mg Tab 81 MG PO QPM B-Complex Vitamins (B Complex) 1 Cap Cap 1 CAP PO DAILY Bumetanide (Bumex) 2 Mg Tab 4 MG PO QAM Calcium Carbonate-Vitamin D (Calcium + D) 1 Tab Tab 1 TAB PO BID Cetirizine Hcl (Zyrtec) 10 Mg Tab 10 MG PO HS, TAB Coenzyme Q10 (Ubidecarenone) (Coq10) 200 Mg Cap 200 MG PO BID Dexamethasone (Dexamethasone) 0.5 Mg/5 Ml Elx 5 ML PO BID SWISH IN MOUTH Ferrous Gluconate (Ferrous Gluconate) 324 Mg Tab 324 MG PO BID Folic Acid (Folvite) 1 Mg Tab 1 MG PO NOON Glucagon (Glucagon Emergency Kit) 1 Mg Kit 1 MG IM UD Insulin Aspart (Novolog Flexpen) 100 Units/Ml Inj 1 DOSE SQ AC PRN for PER SLIDING SCALE Insulin Glargine (Lantus Solostar) 100 Unit/Ml Inj 13-15 UNIT SC BID Isosorbide Mononitrate (Isosorbide Mononitrate ER) 60 Mg Tabcr 90 MG PO DAILY Metoprolol Succ (Toprol Xl) (Toprol-Xl ) 100 Mg Tabcr 100 MG PO HS Multiple Vitamins W/ Minerals (Centrum Silver Adult 50+) 1 Tab Tab 1 TAB PO DAILY Nitroglycerin (Nitrostat) 0.4 Mg Tab 0.4 MG UT PRN Ocuvite Preservision (Ocuvite Preservision) 1 Tab Tab 1 TAB PO BID Pravastatin Sod (Pravastatin Sodium) 40 Mg Tab 40 MG PO QPM Ranitidine (Zantac) 150 Mg Tab 150 MG PO BID Triamcinolone Acet (Aristocort 0.1%) 90 Appln/30 Gm Cr 1 APPLN TOP BID Discontinued Medications: Gabapentin (Neurontin) 100 Mg Cap 100 MG PO DAILY Discharge Exam Review of Systems: Constitutional: No fever, No chills ENT: No nasal symptoms, No sore throat, No trouble swallowing Respiratory: No cough, No shortness of breath Cardiovascular: No chest pain, No palpitations Abdomen: No pain, No nausea, No vomiting, No diarrhea, No constipation, No GI bleeding Genitourinary - Male: No dysuria Integumentary: + itch Physical Exam: General Appearance: WD/WN, no apparent distress, + thin Eyes: sclerae normal ENT: hearing grossly normal Neck: supple, no JVD, trachea midline Respiratory/Chest: lungs clear, normal breath sounds, no respiratory distress, no accessory muscle use Cardiovascular: regular rate, rhythm, + systolic murmur Abdomen / GI: normal bowel sounds, non tender, soft, + pertinent finding ( Ileostomy in RLQ) Neurologic/Psychiatric: alert, oriented x 3 Skin: + pertinent finding (dressing applied to lower extremities without drainage; dorsalis pedis 2+ b/l; numerous superfical scabs due to scratching; erythema improved) Hospital Course ADMISSION: Mr. Ellsworth is a 77 y/o male with PMHx of Hepatitis C, CKD Stage IV, HTN, HLD, T2DM, CAD S/P [place], Aortic Valve Replacement, Mixed Systolic/Diastolic CHF, and Colon CA S/P Resection with Ileostomy who presents to the ED complaining of worsening kidney function, weakness, leg pain x 2 weeks. He reports over the two weeks he has noticed increased pain, fluid retention, and weeping of his b/l legs. He is reporting feeling generally fatigued but states his ambulatory issues is due more to the pain in his legs. He now needs to utilize a wheelchair and was transferred to [facility] SNF due to ambulatory dysfunction today. Pain is a burning pain that is mostly in lower leg region but does intermittently get shooting pain into the thigh. He has chronic pruritus that he relates to his cirrhosis/hepatitis and is diffusely covered in scabs from scratching. Some lesions are weeping clear fluid and some blood. His b/l legs have been weeping and soaking through dressings. He feels they look more erythematous than normal but reports they may be slightly more edematous but not much. He previously followed with wound care but hasn't recently. He denies direct fever/chills but states he normally feels cold. HOSPITAL COURSE: Mr. Ellsworth was admitted for b/l lower extremity cellulitis and worsening kidney function resulting in initiation of HD. He had RUE AV Fistula placed in August for anticipation of dialysis. Patient underwent three days of treatment and tolerated well. Electrolytes, BP, and fluid status acceptable. He has remained afebrile and without leukocytosis but given significant skin compromise he was treated initially with Ceftriaxone for cellulitis. Reporting improvement in pain which he states was the main cause of his ambulatory dysfunction. He will be converted to Keflex 250 mg daily for renal dosing to complete a 10 day course. Will need follow-up with PCP and wound care to discuss need for further treatment. His home medications were continued with Gabapentin and Allopurinol dosing adjusted for renal function. This can be further evaluated for further adjustments per PCP. Total Time Spent: Greater than 30 minutes This includes examination of the patient, discharge planning, medication reconciliation, and communication with other providers. Discharge Instructions Please refer to the electronic Patient Visit Report (Discharge Instructions) for additional information. Additional Copies To Jad Whitfield; Yomi Ellis M.D.
[2017-07-16] MEDS ORDERED: INSULIN GLARGINE SOLOSTAR 100 UNITS/ML 3 ML PEN SC SCH (21:00)
== END 2017-07-16 16:43 | DRG 291 ==
LOC: C.EDB 12:25 → C.2E 15:34 → ENRESERV 15:40 → C.MS2W 07-15 15:21
PROVIDERS: ADMIT Internal Medicine; ATTEND Internal Medicine Sports Medicine
DX: I13.2 Hypertensive heart and chronic kidney disease with heart failure and with stage 5 chronic kidney disease, or end stage renal disease (principal); N18.6 End stage renal disease; N17.9 Acute kidney failure, unspecified; I50.42 Chronic combined systolic (congestive) and diastolic (congestive) heart failure; L03.115 Cellulitis of right lower limb; L03.116 Cellulitis of left lower limb; E11.22 Type 2 diabetes mellitus with diabetic chronic kidney disease; E11.40 Type 2 diabetes mellitus with diabetic neuropathy, unspecified; E11.319 Type 2 diabetes mellitus with unspecified diabetic retinopathy without macular edema; E11.65 Type 2 diabetes mellitus with hyperglycemia; R51 Headache; D89.1 Cryoglobulinemia; I25.10 Atherosclerotic heart disease of native coronary artery without angina pectoris; B19.20 Unspecified viral hepatitis C without hepatic coma; K74.60 Unspecified cirrhosis of liver; L29.9 Pruritus, unspecified; D64.9 Anemia, unspecified; E55.9 Vitamin D deficiency, unspecified; E78.5 Hyperlipidemia, unspecified; Z66 Do not resuscitate; I25.2 Old myocardial infarction; Z95.2 Presence of prosthetic heart valve; Z85.038 Personal history of other malignant neoplasm of large intestine; Z90.49 Acquired absence of other specified parts of digestive tract; Z93.2 Ileostomy status; Z79.4 Long term (current) use of insulin; Z79.51 Long term (current) use of inhaled steroids; Z79.52 Long term (current) use of systemic steroids; Z79.82 Long term (current) use of aspirin; Z79.899 Other long term (current) drug therapy; Z82.49 Family history of ischemic heart disease and other diseases of the circulatory system; Z83.3 Family history of diabetes mellitus; Z82.5 Family history of asthma and other chronic lower respiratory diseases; Z82.3 Family history of stroke

== ENCOUNTER 2017-09-02 08:03 | Day surgery (SDC) | payer OTHER, MEDICARE ==
[2017-08-28 11:15] VITALS: BMI 24.0
--- NOTE | 2017-08-28 12:09 | PAT Medication Instructions ---
Service Date Aug 28, 2017. Current Home Medication List Allopurinol (Zyloprim), 150 MG PO QAM Aspirin (Aspirin Ec), 81 MG PO QDD B-Complex Vitamins (B Complex), 1 CAP PO QDL Bumetanide (Bumex), 4 MG PO QAM Calcium Carbonate-Vitamin D (Calcium + D), 1 TAB PO BID Cephalexin Monohydrate (Keflex), 250 MG PO BID Cetirizine Hcl (Zyrtec), 10 MG PO HS Coenzyme Q10 (Ubidecarenone) (Coq10), 200 MG PO BID Dexamethasone (Dexamethasone), 5 ML PO BID Ferrous Gluconate (Ferrous Gluconate), 324 MG PO BID Folic Acid (Folvite), 1 MG PO QAM Gabapentin (Neurontin), 300 MG PO HS Glucagon (Glucagon Emergency Kit), 1 MG IM UD Insulin Aspart (Novolog Flexpen), 1 DOSE SQ AC PRN for PER SLIDING SCALE Insulin Glargine (Lantus Solostar), 18 UNIT SC BID Isosorbide Mononitrate (Imdur Ext Rel), 30 MG PO QAM Metoprolol Succ (Toprol Xl) (Toprol-Xl ), 100 MG PO HS Multiple Vitamins W/ Minerals (Centrum Silver Adult 50+), 1 TAB PO QPM Nitroglycerin (Nitrostat), 0.4 MG UT PRN Ocuvite Preservision (Ocuvite Preservision), 1 TAB PO BID Pravastatin Sod (Pravastatin Sodium), 40 MG PO QDD Pregabalin (Lyrica), 25 MG PO HS Ranitidine (Zantac), 150 MG PO BID Triamcinolone Acet (Aristocort 0.1%), 1 APPLN TOP BID PRN for skin irritatin Medication Instructions For Your Scheduled Surgery -Continue as directed: Glucagon (Glucagon Emergency Kit), 1 MG IM UD Nitroglycerin (Nitrostat), 0.4 MG UT PRN - Hold the following medications starting today: Coenzyme Q10 (Ubidecarenone) (Coq10), 200 MG PO BID - Hold the following medications 24 hours prior to surgery: Triamcinolone Acet (Aristocort 0.1%), 1 APPLN TOP BID PRN for skin irritatin - Hold the following medications the morning of surgery: Ocuvite Preservision (Ocuvite Preservision), 1 TAB PO BID Ferrous Gluconate (Ferrous Gluconate), 324 MG PO BID Folic Acid (Folvite), 1 MG PO QAM Bumetanide (Bumex), 4 MG PO QAM Calcium Carbonate-Vitamin D (Calcium + D), 1 TAB PO BID Insulin Aspart (Novolog Flexpen), 1 DOSE SQ AC PRN for PER SLIDING SCALE - Take the following medications the morning of surgery with a sip of water: Isosorbide Mononitrate (Imdur Ext Rel), 30 MG PO QAM Dexamethasone (Dexamethasone), 5 ML PO BID Cephalexin Monohydrate (Keflex), 250 MG PO BID Allopurinol (Zyloprim), 150 MG PO QAM Ranitidine (Zantac), 150 MG PO BID - Take the following medications as scheduled the night before surgery: Pregabalin (Lyrica), 25 MG PO HS Ranitidine (Zantac), 150 MG PO BID Pravastatin Sod (Pravastatin Sodium), 40 MG PO QDD Ocuvite Preservision (Ocuvite Preservision), 1 TAB PO BID Metoprolol Succ (Toprol Xl) (Toprol-Xl ), 100 MG PO HS Multiple Vitamins W/ Minerals (Centrum Silver Adult 50+), 1 TAB PO QPM Insulin Glargine (Lantus Solostar), 18 UNIT SC BID Dexamethasone (Dexamethasone), 5 ML PO BID Ferrous Gluconate (Ferrous Gluconate), 324 MG PO BID Cetirizine Hcl (Zyrtec), 10 MG PO HS Calcium Carbonate-Vitamin D (Calcium + D), 1 TAB PO BID Insulin Aspart (Novolog Flexpen), 1 DOSE SQ AC PRN for PER SLIDING SCALE Cephalexin Monohydrate (Keflex), 250 MG PO BID B-Complex Vitamins (B Complex), 1 CAP PO QDL Gabapentin (Neurontin), 300 MG PO HS Aspirin (Aspirin Ec), 81 MG PO QDD - For Insulin Dependent Diabetic patients: Test blood sugar A.M. of surgery. - If BLOOD SUGAR IS GREATER THAN 150, take half of your regular dose of: Insulin Glargine (Lantus Solostar) --TAKE 9 UNITS - If BLOOD SUGAR IS LESS THAN 150, do not take any: Insulin Glargine ( Lantus Solostar) If you have any questions please call us at [phone] or [phone] or [phone]
[2017-08-28 13:20] LABS: BASO % 0.4 %; BASO ABS # 0.03 K/uL (0-0.2); EOS % 11.3 %; EOS ABS # 0.96 K/uL (0-0.5); HEMATOCRIT 36.7 % (42-52); IG# 0.08 K/uL (0.00-0.02); LYMPH ABS # 1.11 K/uL (1.2-3.4); MEAN CELL VOLUME 99.5 fL (80-100); MEAN CORPUSCULAR HEMOGLOBIN 32.5 pg (25-34); MEAN CORPUSCULAR HGB CONC 32.7 g/dl (32-36); MEAN PLATELET VOLUME 12.1 fL (7.4-10.4); MONO % 16.6 %; MONO ABS # 1.41 K/uL (0.11-0.59); NEUT % 57.8 %; NEUT ABS # 4.92 K/uL (1.4-6.5); PLATELET COUNT 161 K/uL (130-400); RED CELL DISTRIBUTION WIDTH CV 14.6 % (11.5-14.5); RED CELL DISTRIBUTION WIDTH SD 52.4 fL (36.4-46.3); WHITE BLOOD COUNT 8.51 K/uL (4.8-10.8)
[2017-08-28 13:28] LABS: INR 1.1 (0.9-1.1); PTT PATIENT 26.4 SECONDS (21.0-31.0)
[2017-08-28 14:19] LABS: CALCIUM 8.4 mg/dl (8.5-10.1); CREATININE 3.96 mg/dl (0.60-1.40); POTASSIUM 4.4 mmol/L (3.5-5.1)
[~2017-09-02] VITALS: Ht 172.7 cm; Wt 72.6 kg
--- NOTE | 2017-09-02 06:03 | History and Physical ---
History & Physical Date of Service Sep 02, 2017. History & Physical CC: Wound of his left second toe. HPI: Mr. Ellsworth had previously undergone a right upper extremity brachiocephalic AV fistula creation by in August of 2016 for hemodialysis. The patient states he is dialyzing 3 days a week at hemodialysis and as far as he knows his fistula is working well. He states that he has been rather ill recently and was in the hospital a few weeks ago and then discharged to a fci, but is currently home. The patient states that he had a small area of swelling on his left second toe for months and was told it was gout. The patient's family states that they noticed foul-smelling drainage coming from this area a few weeks ago and they also states that he has chronic swelling of his lower extremities and serous drainage that comes from his legs at times when they are particularly edematous. The patient states that he also has extreme pruritus and scratches his legs until they bleed, sometimes even in his sleep. He denies any fevers, chills, nausea, vomiting or any complaints at this time. He did undergo an ultrasound evaluation of his left leg, which demonstrates a likely stenosis of his popliteal area, although he does have 3- vessel runoff to the foot. ALLERGIES: MORPHINE. MEDICATIONS: Allopurinol, aspirin, betamethasone, budesonide, calcium, dexamethasone, gabapentin, isosorbide, Lantus, lisinopril, metoprolol, Nitrostat , NovoLog, Plavix, pravastatin, ranitidine, rosuvastatin, and triamcinolone and Zyrtec. PAST MEDICAL HISTORY: Heart disease, hypertension, cancer and tuberculosis and renal failure. PAST SURGICAL HISTORY: Tonsillectomy, bowel surgery, aortic valve replacement in 2009. SOCIAL HISTORY: He smoked 20 years, 1 pack a day, and quit in the 1970s. He does not drink. FAMILY HISTORY: Positive also for heart disease and hypertension, carotid artery disease. REVIEW OF SYSTEMS: Ten systems were reviewed. His only positive findings are bleeding gums, heart failure, myocardial infarctions in 2016, 2014, and 2013, and gout. The rest of the complaints are as per the HPI. On physical exam, his vital signs today are as follows: Constitutional: In general, patient is a frail, chronically ill-appearing elderly male in no acute distress. He is in a wheelchair and not ambulatory. He is in no apparent distress. His blood pressure is 128/68 in the right, 118/60 in the left. Head and neck within normal limits. No carotid bruits. Lungs are clear. Heart regular rate and rhythm. Abdominal exam is benign. His right upper arm AV fistula demonstrates an excellent thrill and bruit; he does have some soft ecchymosis around the area likely due to infiltration of hemodialysis. His femoral pulses are +2. His bilateral lower extremities do demonstrate some edema as well as multiple scabbed over areas from superficial abrasions. None of these appears to be deep or particularly cellulitic. His left second toe demonstrates significant edema, erythema, tenderness and warmth as well as foul- smelling drainage from his open area in the center of his toe. There appears to be exposed bone and/or tendon with periwound erythema extending to the dorsum of his foot, lymphangitis is not visible. All toes have brisk capillary refill. His peripheral pulses are nonpalpable. Imp: Open wound of left 2nd toe with exposed bone Plan; Patient is admitted for amputation of his left 2nd toe. I have discussed the risks options and benefits of the procedure with the patient. The patient understands the risks options and benefits and agrees to the procedure.
[~2017-09-02 08:03] MED LIST changes: -BUME1TAB PO; +BUME2TAB3 PO; +BUPIVACAINE/EPINEPHRINE 0.5% MPF 1:200,000 10 ML VIAL ONE; +CEFAZOLIN 1000MG IV PUSH 7.5 ML IV SCH; +CETI10TA10 PO; -DIPH-581 PO; -GABA-112 PO; -ISOS-10 PO; +ISOS60TA2 PO; +KFL/250 PO; +PREG1CAP36 PO; +RANI150T85 PO; +ROPIVACAINE 0.5% 5 MG/ML 30 ML VIAL ONE; +SODIUM CHLORIDE 0.9% 1000ML 1,000 ML IV SCH; +TRMCR130WC TOP; -ZNTT/150 PO
[2017-09-02 08:58] VITALS: BP 94/45; PULSE 67; TEMP 36.4; O2SAT 100; Ht 172.7 cm; Wt 72.6 kg
[2017-09-02 09:01] LABS: INR 1.1 (0.9-1.1); PTT PATIENT 26.6 SECONDS (21.0-31.0)
[2017-09-02 09:10] LABS: CALCIUM 8.6 mg/dl (8.5-10.1); CREATININE 3.83 mg/dl (0.60-1.40); POTASSIUM 3.9 mmol/L (3.5-5.1)
[2017-09-02] MEDS ORDERED: MIDAZOLAM HCL 1 MG/ML 2ML VIAL ONE (10:00)
[2017-09-02] MEDS ORDERED: FENTANYL CITRATE INJ 50 MCG/1 ML 2 ML VIAL ONE (10:00)
[2017-09-02] MEDS ORDERED: EpHEDrine SULFATE INJ 50 MG/ML AMP IV PRN (10:30)
[2017-09-02] MEDS ORDERED: ATROPINE SULFATE 0.1 MG/ML 5ML SYR IV PRN (10:30)
[2017-09-02] MEDS ORDERED: FENTANYL CITRATE INJ 50 MCG/1 ML 2 ML VIAL IV PRN (10:30)
[2017-09-02] MEDS ORDERED: ONDANSETRON INJ 2 MG/ML 2 ML VIAL IV PRN (10:30)
[2017-09-02] MEDS ORDERED: BUPIVACAINE/EPINEPHRINE 0.5% MPF 1:200,000 30 ML VIAL ONE (10:55)
[2017-09-02] MEDS ORDERED: LIDOCAINE HCL 1% 20 ML VIAL ONE (10:55)
--- NOTE | 2017-09-02 11:34 | [facility] Post Operative Brief Note ---
Immediate Operative Summary Operative Date Sep 02, 2017. Pre-Operative Diagnosis Open Wound of Left 2nd Toe with Exposed Bone Post-Operative Diagnosis Open Wound of Left 2nd Toe with Exposed Bone Procedure(s) Performed Left 2nd Toe Amputation Surgeon Dr. Lafleur Key Cutter Surgeon(s) Dr. Alyssa Wiggins Estimated Blood Loss 2 ml Findings Consistent with Post-Op Diagnosis Specimens a. Left 2nd Toe Drains None Anesthesia Type MAC Regional Complication(s) none Disposition Accompanied Pt To Recover: no Disposition: Recovery Room / PACU
[2017-09-02] MEDS ORDERED: PROPOFOL IV EMULSION 10 MG/ML 20 ML VIAL IV ONE (11:44)
[2017-09-02] MEDS ORDERED: LIDOCAINE HCL 2% 2 ML VIAL (20MG/ML) ONE (11:44)
--- NOTE | 2017-09-02 11:45 | Discharge Instructions ---
Discharge Instructions Date of Service Sep 02, 2017. Visit Reason for Visit: Left Second Toe Infection Discharge Discharge Diagnosis / Problem: Open wound left 2nd toe with exposed bone Discharge Goals Goal(s): Therapeutic intervention Activity Recommendations Activity Limitations: per Instructions/Follow-up section Anesthesia . Post Anesthesia Instructions: If you have had General Anesthesia or IV Sedation: * Do not drive today. * Resume driving when surgeon permits. * Do not make important decisions or sign legal documents today. * Call surgeon for: 1. Temperature elevations greater than 101 degrees F. 2. Uncontrollable pain. 3. Excessive bleeding. 4. Persistent nausea and vomiting. 5. Medication intolerance (nausea, vomiting or rash). * For nausea and vomiting use only clear liquids such as: tea, soda, bouillon until nausea subsides, then gradually increase diet as tolerated. * If you have any concerns or questions, call your surgeon's office. If physician is unavailable and it is an emergency, call 911 or go to the nearest emergency room. . Instructions / Follow-Up Instructions / Follow-Up Call [phone] to schedule a follow up appointment if one not already scheduled. ACTIVITY RECOMMENDATIONS: See Above SPECIAL CARE INSTRUCTIONS: Call your doctor if: * Temperature above 101 degrees * Pain not relieved by pain medicine ordered * There is increased drainage or redness from any incision * You have any unanswered questions or concerns. Diet Recommendations Recommended Home Diet: resume previous diet Procedures Procedures Performed: Left 2nd Toe Amputation Pending Studies Studies pending at discharge: no Medical Emergencies . Who to Call and When: Medical Emergencies: If at any time you feel your situation is an emergency, please call 911 immediately. . Non-Emergent Contact Non-Emergency issues call your: Surgeon . . "Provider Documentation" section prepared by Julián aLfleur. .
[2017-09-02] MEDS ORDERED: OXYC-57 PO (11:46)
--- NOTE | 2017-09-02 12:08 | Anesthesia Progress Nt - [facility] ---
Anesthesia Post Op Note Date & Time Sep 02, 2017 at 12:07 Vital Signs Pain Intensity: 0 Vital Signs Past 12 Hours Date Time Temp Pulse Resp B/P (MAP) Pulse Ox O2 Delivery O2 Flow Rate FiO2 09/02/17 11:48 36.2 66 11 135/49 100 Oxymask 10 09/02/17 08:58 36.4 67 18 94/45 (61) 100 Room Air Notes Mental Status: alert / awake / arousable, participated in evaluation Pt Amnestic to Procedure: Yes Nausea / Vomiting: adequately controlled Pain: adequately controlled Airway Patency, RR, SpO2: stable & adequate BP & HR: stable & adequate Hydration State: stable & adequate Anesthetic Complications: no major complications apparent
[2017-09-02 12:18] VITALS: BP 144/62; PULSE 76; TEMP 36.3; O2SAT 99
--- NOTE | 2017-09-02 12:22 | OPERATIVE REPORT ---
DATE OF OPERATION: 09/02/2017 PREOPERATIVE DIAGNOSIS: Open wound of left second toe with exposed bone secondary to gout. POSTOPERATIVE DIAGNOSIS: Open wound of left second toe with exposed bone secondary to gout. PROCEDURE: Amputation of left second toe. Left second toe digital block. SURGEON: Dr. Julián Lafleur. BELLH[employer] SERVICE CAPTAIN: Dr. Alyssa Wiggins. ANESTHESIA: Left ankle block and left second toe digital block. COMPLICATIONS: None. SPECIMENS: Left second toe. ESTIMATED BLOOD LOSS: 2 mL. INDICATIONS: Mr. Fracisco Ellsworth is a 77-year-old gentleman with a history of heart disease, hypertension, cancer, tuberculosis, and renal failure, who has a wound over his left second toe with exposed bone. The patient has had swelling of his left second toe for several months and was told that it was gout. It then began draining foul smelling drainage and he was seen in the vascular surgery clinic. He was recommended to undergo a toe amputation. Risks, benefits and alternatives were discussed with the patient and he consented to the procedure. DESCRIPTION OF PROCEDURE: The patient was taken to the operating room and placed in the supine position. An ankle block was placed by our anesthesia colleagues. The left foot was prepped and draped in the usual sterile fashion. A safety timeout was performed and the patient, procedure, and sidedness were correctly identified. An elliptical incision was then created 1 cm distal to the metatarsophalangeal joint. The incision was deepened to the level of the bone, dividing all tendinous attachments. The periosteum overlying the metatarsal bone was then elevated with the periosteal elevator. The bone was then resected back using the rongeurs to the level of skin incision. Hemostasis was obtained. The wound was then closed with interrupted 4-0 nylon sutures. Sterile dressing was applied. The patient tolerated the procedure well and there were no immediate complications. He was taken to the PACU in stable condition. Dr. Julián Lafleur was present and scrubbed for the entire procedure. I attest to the content of the Intraoperative Record and any orders documented therein. Any exceptions are noted below. MTDD
[2017-09-02 12:48] VITALS: BP 146/67; PULSE 79; TEMP 36.3; O2SAT 100
== END 2017-09-02 13:13 | disposition home or self-care (01) ==
LOC: C.ACU 08:03
PROVIDERS: ATTEND Surgery Vascular Surgery
DX: S91.105A Unspecified open wound of left lesser toe(s) without damage to nail, initial encounter (principal); X58.XXXA Exposure to other specified factors, initial encounter; M10.9 Gout, unspecified; I25.10 Atherosclerotic heart disease of native coronary artery without angina pectoris; N18.6 End stage renal disease; I12.0 Hypertensive chronic kidney disease with stage 5 chronic kidney disease or end stage renal disease; B19.20 Unspecified viral hepatitis C without hepatic coma; M19.90 Unspecified osteoarthritis, unspecified site; E11.22 Type 2 diabetes mellitus with diabetic chronic kidney disease; I25.2 Old myocardial infarction; Z95.2 Presence of prosthetic heart valve; Z98.890 Other specified postprocedural states; Z85.038 Personal history of other malignant neoplasm of large intestine; Z87.891 Personal history of nicotine dependence; Z86.11 Personal history of tuberculosis; Z79.82 Long term (current) use of aspirin; Z79.899 Other long term (current) drug therapy; Z79.02 Long term (current) use of antithrombotics/antiplatelets; Z79.4 Long term (current) use of insulin; Z88.5 Allergy status to narcotic agent; Z90.89 Acquired absence of other organs; Z82.49 Family history of ischemic heart disease and other diseases of the circulatory system

== ENCOUNTER → 2017-09-22 | Outpatient (CLI) | payer OTHER, MEDICARE ==
[~2017-09-22] MED LIST changes: -BUPIVACAINE/EPINEPHRINE 0.5% MPF 1:200,000 10 ML VIAL ONE; -CEFAZOLIN 1000MG IV PUSH 7.5 ML IV SCH; +CEPH500C PO; +DOXY100C76 PO; +OXYC-57 PO; -RANI150T85 PO; -ROPIVACAINE 0.5% 5 MG/ML 30 ML VIAL ONE; -SODIUM CHLORIDE 0.9% 1000ML 1,000 ML IV SCH; -TRMCR130WC TOP
[2017-09-22 12:48] LABS: HEMATOCRIT 34.1 % (42-52); HEMOGLOBIN 10.8 g/dL (14.0-18.0); MEAN CELL VOLUME 100.6 fL (80-100); MEAN CORPUSCULAR HEMOGLOBIN 31.9 pg (25-34); MEAN CORPUSCULAR HGB CONC 31.7 g/dl (32-36); PLATELET COUNT 144 K/uL (130-400); RED CELL DISTRIBUTION WIDTH CV 15.4 % (11.5-14.5); RED CELL DISTRIBUTION WIDTH SD 56.5 fL (36.4-46.3)
[2017-09-22 13:39] LABS: BLOOD UREA NITROGEN 60 mg/dl (7-18); CARBON DIOXIDE 33 mmol/L (21-32); CREATININE 4.86 mg/dl (0.60-1.40); GLUCOSE 82 mg/dl (70-99); POTASSIUM 4.1 mmol/L (3.5-5.1); SODIUM 139 mmol/L (136-145)
[2017-09-22 13:40] LABS: ALBUMIN 2.8 gm/dl (3.4-5.0); ALKALINE PHOSPHATASE 176 U/L (45-117); ALT/SGPT 51 U/L (12-78); AST/SGOT 66 U/L (15-37); CALCIUM 10.3 mg/dl (8.5-10.1); PHOSPHORUS 5.5 mg/dl (2.5-4.9); TOTAL PROTEIN 6.4 gm/dl (6.4-8.2)
[2017-09-28 05:34] LABS: COMPLEMENT C3 TC 44859W 120 MG/DL (90-180); COMPLEMENT C4 TC 44982E 22 MG/DL (16-47)
== END | disposition home or self-care (01) ==
LOC: C.LAB1850 11:50
PROVIDERS: ATTEND Internal Medicine Nephrology
DX: N18.6 End stage renal disease (principal); E55.9 Vitamin D deficiency, unspecified; I10 Essential (primary) hypertension; D64.9 Anemia, unspecified; N18.4 Chronic kidney disease, stage 4 (severe); L29.9 Pruritus, unspecified

== ENCOUNTER → 2018-03-04 | Outpatient (CLI) | payer OTHER, MEDICARE ==
[~2018-03-04] MED LIST changes: -CEPH500C PO; -DOXY100C76 PO; +GLEC1TAB; -KFL/250 PO; -OXYC-57 PO
[2018-03-07 20:34] LABS: HEPATITIS C RNA TMA QUAL Not detected
== END | disposition home or self-care (01) ==
LOC: C.LABFOXAE 08:21
PROVIDERS: ATTEND Internal Medicine
DX: B18.2 Chronic viral hepatitis C (principal)